=== PATIENT | female | born 1940 | race African-American/Black ===

== ENCOUNTER 2016-08-15 14:19 | Inpatient (IN) ==
--- NOTE | 2016-08-15 14:50 | EKG Report ---
Stationary ECG Study [facility] ER Test Date: 08/15/2016 2:39:38 PM Pat Name: KEVYN COBURN Department: Room: Gender: F Pressure Dispatcher: LEA : 1940 Requested by: Jack Polo Order Number: [id number] Reading MD: LUIS CANCHOLA Intervals [place] Rate: 84 P: 107 SD: 177 QRS: 237 QRSD: 146 T: 59 QT: 428 QTc: 469 Interpretive Statements SINUS RHTYHM WITH ELECTRONIC VENTRICULAR PACEMAKER TRACKING THE [facility] Electronically Signed On 08-15-16 20:57:58 MEDICAL ASST by LUIS CANCHOLA [email or web address]
--- NOTE | 2016-08-15 14:52 | XRay Report ---
Portable chest Date: 08/15/2016 Clinical history: Shortness of breath Comparison: 07/19/2016 Technique: Portable AP sitting chest Findings: Moderate cardiomegaly with stable left subclavian atrioventricular AICD and left jugular venous dialysis catheter. Progressive parenchymal findings especially at the lung bases with small pleural effusions. Degenerative changes noted with stable mediastinum. Impression: Moderate cardiomegaly with minimally progressive mild CHF with atelectasis and small pleural effusions. Stable left subclavian atrioventricular AICD and left IJ venous dialysis catheter. PROCEDURE INTERPRETED AT [facility] DEPARTMENT OF RADIOLOGY Final Report Signed by: Dr. Ivett Jacobs
[2016-08-15 15:37] LABS: Basophils % 0.1 % (0.0-0.8); Eosinophils # 0.3 10*3/uL (0.0-0.87); Eosinophils % 3.1 % (0.00-10.9); Hematocrit 37.7 VOL% (35.7-47.0); Hemoglobin 11.8 GM/DL (12.0-16.0); Immature Granulocytes % 0.4 %; Immature Granulocytes Absolute 0.04 #; Lymphocytes # 0.8 10*3/uL (1.4-4.0); Lymphocytes % 7.2 % (21.3-54.2); Mean Corpuscular HGB Conc 31.3 GM/DL (32-36); Mean Corpuscular Hemoglobin 31 PG (27-34); Mean Corpuscular Volume 99.2 FL (87-102); Mean Platelet Volume 11.3 FL (9.6-12.0); Monocytes # 0.1 10*3/uL (0.11-0.8); Monocytes % 0.9 % (1.7-12.7); Neutrophils # 9.2 10*3/uL (1.4-7.4); Neutrophils % 88.3 % (38.7-73.9); Platelet Count 121 T/CUMM (130-400); Red Cell Distribution Width 15.4 % (9.3-17.3); White Blood Count 10.4 T/CUMM (4-12)
[2016-08-15 15:52] LABS: Albumin 3.3 G/DL (3.4-5.0); Bilirubin,Total 0.5 MG/DL (0.2-1.0); Calcium 8.1 MG/DL (8.5-10.1); Magnesium 1.8 MG/DL (1.8-2.4); Osmolality,Calculated 294.1 MOS/KG (273-304); Potassium 4.2 MMOL/L (3.5-5.1); Total Protein 7.2 G/DL (6.4-8.3); Troponin I Only 0.018 NG/ML (0.00-0.045)
--- NOTE | 2016-08-15 16:26 | Emergency Department Note ---
Romeo Conley Brittany, am scribing for, and in the presence of, Jack Oneill MD 14:54. Nino Conley Phillip K, MD, personally performed the services described in this documentation, ascribed by Taya Walters in my presence, and it is both accurate and complete 626 . Arrival - Arrival Chief Complaint: Shortness of Breath Stated Complaint: shortness of breath ED Nursing Triage Note: Brought in per EMS from dialysis clinic with c/o shortness of breath onset 1315 after being on dialysis for approx one hour. Initial oxygen saturation 48% per EMS. Pt reports increased shortness of breath since 08/13/16. +productive cough with white sputum. +subjective fever. Also c/o abdominal pain and chest pain. Mode of Arrival: Stretcher Limitations: No Limitations Source: Patient - History of Present Illness HPI Narrative: This is a 75 y/o black female,who presents to the ED with c/o dyspnea which started at 1315 today. She states she was at dialysis when she started to become SOB and having chest pain. EMS states pt was on dialysis for approximately 1 hour. She was given 2 Nitro and then the SOB started to worsen. Pt states she normally has dialysis on Friday, , and Friday. She missed dialysis on Friday due to her stomach "being messed up." Per EMS, pt's sats were 48%. Pt has no other complaints/pain in the ED at this time. Pt has a PMHx of CHF, pacemaker, HTN, COPD, renal failure, renal problems, dialysis, GERD , GI problems, and genitourinary cancer. Pt has had a cardiac cath, internal defibrillator, hysterectomy and gynecological surgery. Pt has a family medical Hx of diabetes and HTN. Onset (ago): hour(s) (Started at 1315 today) Consistency: constant Severity: moderate Date of Last Menstrual Period: PM Allergies/Adverse Reactions: Allergies Allergy/AdvReac Type Severity Reaction Status Date / Time levofloxacin [From Levaquin] Allergy Severe ANAPHYLAXIS Verified 08/15/16 14:26 penicillin G Allergy Severe RASH Verified 08/15/16 14:26 lisinopril AdvReac Unknown Unknown/Unable Verified 08/15/16 14:26 to obtain Home Medications: Home Medications Medication Instructions Recorded Confirmed Type Atorvastatin [Lipitor] 20 mg PO BEDTIME #30 tablet 11/13/15 07/19/16 Rx Carvedilol [Coreg] 25 mg PO BID #60 tablet 11/13/15 07/19/16 Rx Calcium Acetate 667 mg PO TID W/MEALS 02/03/16 07/19/16 History Nitroglycerin Sl Tab [Nitrostat] 0.4 mg SL Q5M PRN 02/03/16 07/19/16 History cloNIDine 0.2 MG/24 HR PATCH 1 patch TRANSDERM SA 02/03/16 07/19/16 History [Qokrvnsv-KGS-3 Patch] Bisacodyl Tab [Dulcolax Tab] 10 mg PO DAILY PRN #0 tablet 07/16/16 07/19/16 Rx FLUoxetine [PROzac] 10 mg PO DAILY capsule 07/16/16 07/19/16 Rx Vancomycin in Dextrose,Iso-Osm 1,000 mg IV DIRECTED 7 Days 07/16/16 07/19/16 Rx [Vancomycin 750 mg/150 ml Bag] Review of System - Review of System 12 point system: reviewed and no additional remarkable complaints except as stated - Review of System Cardiovascular: Present: chest pain, other (Dyspnea) Additional ROS comments: Missed Dialysis Medical,Surgical,& Family Hx - Medical History Cardio: History of: CHF (nonischemic cardiomyopathy), Hypertension, Pacemaker ( AICD) No history of: CAD Neurology: No history of: Seizures Respiratory: History of: COPD Renal: History of: Dialysis (, , Fri), Renal Failure, Renal Problems ( tesso left chest) Genitourinary: History of: Genitourinary Cancer Gastrointestinal: History of: GERD, GI Problems (patient has hx of colostomy- now reversed) - Surgical History Cardiac Surgeries: Sugical HX of: Cardiac Catheterization, Internal Defibrillator Thoracic Surgeries: Patient denies;: Organ Transplant Reproductive Surgeries: Surgical HX of;: Gynecologic Surgery, Hysterectomy - Family History Family History: Reports;: Family Diabetes (mother), Family Hypertension (mother , brothers,sisters) - Social History Smoking Status: Current some day smoker Frequency of Alcohol Use: None Type of Drug Use: None Exam Vital Signs: Vital Signs Temperature 99.2 F 08/15/16 14:19 Pulse Rate 88 08/15/16 14:23 Respiratory Rate 34 H 08/15/16 14:23 Blood Pressure 207/95 02/09/17 14:19 O2 Sat by Pulse Oximetry 100 08/15/16 14:19 - General General appearance: alert, in no apparent distress - Head Head exam: Present: atraumatic, normocephalic, normal inspection - Eye Eye exam: Present: normal appearance, PERRL, EOMI - ENT ENT exam: Present: normal exam, normal oropharynx, mucous membranes moist - Neck Neck exam: Present: normal inspection, full ROM, trachea midline. Absent: tenderness, thyromegaly - Chest Chest inspection: Present: normal inspection, symmetric chest wall rise. Absent : tenderness, rash, abscess - Respiratory Respiratory exam: Present: rales (Rales in all lung izaguirre) - Cardiovascular Cardiovascular exam: Present: regular rate, normal rhythm, normal heart sounds - Abdominal Exam Abdominal exam: Present: soft. Absent: distention, tenderness, guarding, rebound, rigidity - Extremities Exam Extremities exam: Present: normal inspection, full ROM, normal capillary refill. Absent: tenderness, pedal edema, joint swelling, calf tenderness - Back Exam Back exam: Present: normal inspection, full ROM, muscle spasm. Absent: tenderness, rashes - Neurological Exam Neurological exam: Present: alert, oriented X3, CN II-XII intact, reflexes normal. Absent: motor sensory deficit - Psychiatric Psychiatric exam: Present: normal affect, normal mood. Absent: agitated, anxious, manic - Skin Skin exam: Present: warm, dry, intact, normal color. Absent: diaphoresis Results - Labs CBC & BMP: 08/15/16 14:27 08/15/16 14:27 Lab Results: I have reviewed the patients labs (BNP was 2946) - EKG EKG results: interpreted by SHAWNA (ventricular pacemaker rhythm) - Diagnostic Findings Procedure: Chest x-ray: report reviewed by me (Moderate cardiomegaly with minimally progressive mild CHF with atelectassi and small pleural effuisons. Stable left subclavian atrioventricular AICD and left I J venous dialysis catheter. ) Disposition Clinical Impression: ESRD (end stage renal disease) on dialysis, Volume overload, Chest pain
[2016-08-15] MEDS ORDERED: DEXTROSE 50% 25 GM/50 ML VIAL IV PRN (16:40)
[2016-08-15] MEDS ORDERED: GLUCAGON 1 MG VIAL IM PRN (16:40)
[2016-08-15] MEDS ORDERED: ZALEPLON 5 MG CAPSULE PO PRN (16:40)
[2016-08-15] MEDS ORDERED: MORPHINE 2 MG/1 ML SYRINGE IV PRN (16:40)
[2016-08-15] MEDS ORDERED: ACETAMINOPHEN 325 MG TABLET PO PRN (16:40)
[2016-08-15] MEDS ORDERED: DOCUSATE SODIUM 100 MG CAPSULE PO PRN (16:40)
--- NOTE | 2016-08-15 17:38 | CT Report ---
Exam: CT chest PE study Date: 08/15/2016 4:40 PM Comparison: 11/07/2015 Indication: Shortness of breath Technique:[Sequential axial scans of the chest were obtained following the injection of 80 cc of Omnipaque 350. Initial scans obtained fail to demonstrate contrast so additional scans were obtained. Coronal and sagittal 2-D reconstructions were obtained. Total DLP: 180.90] Findings: Persistent cardiomegaly with small pericardial effusion and cardiac fat pads. Permanent pacemaker with coronary artery calcifications. The ascending aorta measures 44 mm in diameter with no evidence of aortic dissection. Motion artifact on the scans in the upper lung zones with no contrast in the pulmonary arteries in this location. The largest level there is no definite filling defects but there is suboptimal contrast in the subsegmental pulmonary arteries in the lower lung zones. Degenerative changes are noted. Chronic scarring in the lungs with progressive atelectasis/infiltration at the lung bases with no significant pleural effusion. Minimal bullous emphysema with no pneumothorax. Left IJ venous dialysis catheter. Impression: Bullous emphysema. Cardiomegaly with small pericardial effusion,, pacemaker, and left IJ venous dialysis catheter. Persistent minimal dilatation of the aorta. No evidence of aortic dissection. Unfortunately there is suboptimal evaluation of the pulmonary arteries. This finding makes it difficult to exclude emboli in the upper lobes and in the subsegmental pulmonary arteries in the lower lobes. If the patient has leg symptoms, venous ultrasound may be helpful for further evaluation. Progressive atelectasis/infiltration at the lung bases. PROCEDURE INTERPRETED AT [facility] DEPARTMENT OF RADIOLOGY Final Report Signed by: Dr. Ivett Jacobs
--- NOTE | 2016-08-15 17:45 | Hospitalist History & Physical ---
<Lor Fisher - Last Filed: 08/15/16 17:32> Assessment and Plan - Time spent with patient Time spent with patient: Greater than 30 minutes (due to assessment, plan and documentation.) (1) Acute respiratory failure Status: Acute Assessment and plan: required 100% NRB, but quickly resolved. Suspicious for air embolism Current Visit: Yes (2) End stage renal disease on dialysis Status: Chronic Assessment and plan: Dr. Baker is Cafeteria Attendant and has been consulted. Current Visit: Yes (3) AICD (automatic cardioverter/defibrillator) present Status: Acute Current Visit: No History of Present Illness Chief complaint: sent from dialysis for acute respiratory failure History of present illness: Ms. Dee is a 75 year old female who was on dialysis for approximately 1 hour , and developed sudden onset of severe shortness of breath, sats down to 48%. EMS was called and they placed on 100% NRB for her acute respiratory failure. She was seen along with Dr. Shaka Jones. She has a hx of lung disease, heart disease, ESRD, DM, and HTN. CXR showed "moderate cardiomegaly with minimally progressive mild CHF with atelectasis and a small pleural effusion". Denies any abdominal pain, nausea or vomiting. It was felt that she could have had an air embolus. She will have a CT PE chest to rule out PE as well. Dr. Prosper Baker is her motorcycle delivery driver and I have consulted him as well. We will admit her and continue to watch her respiratory status and treat accordingly. Further plan and addendum to follow by Dr. Shaka Jones. Home Medications Medication Instructions Recorded Confirmed Type Atorvastatin [Lipitor] 20 mg PO BEDTIME #30 tablet 11/13/15 08/15/16 Rx Carvedilol [Coreg] 25 mg PO BID #60 tablet 11/13/15 08/15/16 Rx Calcium Acetate 667 mg PO TID W/MEALS 02/03/16 08/15/16 History Nitroglycerin Sl Tab [Nitrostat] 0.4 mg SL Q5M PRN 02/03/16 08/15/16 History cloNIDine 0.2 MG/24 HR PATCH 1 patch TRANSDERM SA 02/03/16 08/15/16 History [Guxqmxju-MBF-7 Patch] Bisacodyl Tab [Dulcolax Tab] 10 mg PO DAILY PRN #0 tablet 07/16/16 08/15/16 Rx FLUoxetine [PROzac] 10 mg PO QPM 08/15/16 08/15/16 History Allergies Allergy/AdvReac Type Severity Reaction Status Date / Time levofloxacin [From Levaquin] Allergy Severe ANAPHYLAXIS Verified 08/15/16 14:26 penicillin G Allergy Severe RASH Verified 08/15/16 14:26 lisinopril AdvReac Unknown Unknown/Unable Verified 08/15/16 14:26 to obtain Medical,Surgical,& Family Hx - Medical History Cardio: History of: CHF (nonischemic cardiomyopathy), Hypertension, Pacemaker ( AICD) No history of: CAD Neurology: No history of: Seizures Respiratory: History of: COPD Renal: History of: Dialysis (, , Fri), Renal Failure, Renal Problems ( tesso left chest) Genitourinary: History of: Genitourinary Cancer Gastrointestinal: History of: GERD, GI Problems (patient has hx of colostomy- now reversed) - Surgical History Cardiac Surgeries: Sugical HX of: Cardiac Catheterization, Internal Defibrillator Thoracic Surgeries: Patient denies;: Organ Transplant Reproductive Surgeries: Surgical HX of;: Gynecologic Surgery, Hysterectomy - Family History Family History: Reports;: Family Diabetes (mother), Family Hypertension (mother , brothers,sisters) - Social History Smoking Status: Current some day smoker Frequency of Alcohol Use: None Type of Drug Use: None Marital Status: Unknown Lives With:: Alone Functional capacity: independent ambulation - Constitutional Constitutional: Present: fever(s). Absent: chills, weakness - EENT Eyes: Absent: blurry vision, diplopia Nose, mouth and throat: Absent: dysphagia, headache(s) - Cardiovascular Cardiovascular: Present: dyspnea (improved now. ), dyspnea on exertion. Absent : chest pain at rest, palpitations - Respiratory Respiratory: Absent: cough, hemoptysis, dyspnea on exertion - Gastrointestinal Gastrointestinal: Absent: abdominal pain, melena, nausea, vomiting - Genitourinary Genitourinary: Present: dysuria. Absent: hematuria - Musculoskeletal Musculoskeletal: Absent: back pain, joint swelling - Neurological Neurological: Absent: confusion, dizziness - Psychiatric Psychiatric: Absent: anxiety, confusion, depression - Endocrine Endocrine: Absent: fatigue, heat intolerance - Hematologic/Lymphatic Hematologic/Lymphatic: Absent: easy bleeding, easy bruising Exam - Constitutional Vitals: Period Temp Pulse Resp BP Sys/Ngo Pulse Ox Last 24 Hr 99.2 F-99.2 F 88-88 34-34 207-207/95-95 100 General appearance: normal weight, no acute distress - Head Head exam: Present: normal inspection, normocephalic - Eye Eye exam: Present: EOMI. Absent: scleral icterus Pupils: Present: ANDRÉS, normal accommodation - ENT ENT exam: Present: normal exam, normal oropharynx - Neck Neck exam: Present: normal inspection. Absent: lymphadenopathy - Respiratory Respiratory exam: Present: clear to auscultation bilaterally. Absent: accessory muscle use - Cardiovascular Cardiovascular exam: Present: regular rate and rhythm. Absent: carotid bruit - GI/Abdominal GI/Abdominal exam: Present: normal bowel sounds, soft. Absent: tenderness - Extremities Exam Extremities exam: Absent: normal inspection, edema - Back Exam Back exam: Present: normal inspection. Absent: muscle spasm - Neurological Exam Neurological exam: Absent: alert, oriented X3 - Psychiatric Psychiatric exam: Present: normal affect, normal mood - Skin Skin exam: Present: normal color, warm, dry, intact Results - Labs CBC & BMP: 08/15/16 14:27 08/15/16 14:27 Lab Results: I have reviewed the past 24 hour labs - Diagnostic Findings Procedure: Chest x-ray: report reviewed by me (moderate cardiomegaly with minimally progressive mild CHF with atelectasis and small pleural effusions. ) <Elías Jones - Last Filed: 08/22/16 09:23> History of Present Illness History of present illness: Ms. Dee is a 75 year old female one hour into dialysis via tunneled catheter developed severe dyspnea with documented reduced SaO2 with rapid resolution. Does have moderate volume excess with documented cardiomyopathy, however rapid reversal is suggestive of air embolization with reversal. I agree with the H&P as dictated. Exam - Constitutional Vitals: Period Temp Pulse Resp BP Sys/Ngo Pulse Ox Last 24 Hr 96.4 F-97.0 F 58-61 16-28 117-145/57-70 90-100 Results - Labs CBC & BMP: 08/22/16 05:37 08/22/16 05:37
[2016-08-16] MEDS: ONDANSETRON 4 MG/2 ML VIAL IV PRN ×2 (02:53→06:46)
[2016-08-16 03:14] LABS: Basophils % 0.2 % (0.0-0.8); Eosinophils # 0.3 10*3/uL (0.0-0.87); Hematocrit 37.4 VOL% (35.7-47.0); Hemoglobin 11.3 GM/DL (12.0-16.0); Immature Granulocytes % 0.6 %; Immature Granulocytes Absolute 0.09 #; Lymphocytes # 1.1 10*3/uL (1.4-4.0); Mean Corpuscular HGB Conc 30.2 GM/DL (32-36); Mean Corpuscular Hemoglobin 30 PG (27-34); Mean Corpuscular Volume 98.7 FL (87-102); Mean Platelet Volume 10.8 FL (9.6-12.0); Monocytes # 0.7 10*3/uL (0.11-0.8); Monocytes % 4.7 % (1.7-12.7); Neutrophils # 13.2 10*3/uL (1.4-7.4); Neutrophils % 85.5 % (38.7-73.9); Red Blood Count 3.79 MC/CUMM (3.8-5.5); Red Cell Distribution Width 15.8 % (9.3-17.3); White Blood Count 15.4 T/CUMM (4-12)
[2016-08-16 03:18] LABS: Platelet Count 98 T/CUMM (130-400)
[2016-08-16 04:00] LABS: Ovalocytes 1+; Platelet Estimate Decreased
[2016-08-16 04:16] LABS: Albumin 3.2 G/DL (3.4-5.0); Bilirubin,Total 0.6 MG/DL (0.2-1.0); Calcium 8.1 MG/DL (8.5-10.1); Potassium 4.1 MMOL/L (3.5-5.1); Total Protein 6.6 G/DL (6.4-8.3)
[2016-08-16] MEDS: PANTOPRAZOLE 40 MG TABLET PO SCH (08:45)
--- NOTE | 2016-08-16 08:57 | XRay Report ---
XR chest 2V Date: 08/16/2016 4:00 AM History: Shortness of breath Comparison: 08/15/2016 Technique: PA and lateral chest Findings: Stable cardiomegaly, left IJ venous dialysis catheter, and left subclavian atrioventricular AICD. Reduced parenchymal findings with persistent small pleural effusions. Stable mediastinum with degenerative changes. Impression: Moderate cardiomegaly with improved CHF. Persistent small pleural effusions. Stable left IJ venous dialysis catheter and left subclavian atrioventricular AICD. PROCEDURE INTERPRETED AT [facility] DEPARTMENT OF RADIOLOGY Final Report Signed by: Dr. Ivett Jacobs
--- NOTE | 2016-08-16 14:33 | Hospitalist Progress Note ---
Assessment and Plan (1) Tobacco use Status: Chronic Current Visit: No (2) Chronic obstructive pulmonary disease (COPD) Status: Chronic Current Visit: No (3) Hypertension Status: Chronic Current Visit: No Qualifiers: Hypertension type: essential hypertension (4) Pneumonia Status: Resolved Assessment and plan: We will add Z-Bjorn. Solu-Medrol 62.5 IV every 6 hours. Current Visit: No (5) End stage renal disease Status: Chronic Assessment and plan: Hemodialysis today. Current Visit: No Hospitalist: Subjective Interval history: The patient still feels congested at this time. Chest x-ray shows volume overload and may be signs of pneumonia. No fevers. She'll go to dialysis today. Follow-up chest x-ray on tomorrow. CBC BMP in a.m. Exam - Constitutional Vitals: Period Temp Pulse Resp BP Sys/Ngo Pulse Ox Last 24 Hr 16 General appearance: normal weight - Respiratory Respiratory exam: Present: rales, wheezes - Cardiovascular Cardiovascular exam: Present: regular rate and rhythm - GI/Abdominal GI/Abdominal exam: Present: normal bowel sounds - Extremities Exam Extremities exam: Present: full ROM Results - Labs CBC & BMP: 08/16/16 03:05 08/16/16 03:05
[2016-08-16] MEDS ORDERED: NITROGLYCERIN SL 0.4 MG TABLET SL PRN (14:34)
[2016-08-16] MEDS ORDERED: BISACODYL 5 MG TABLET PO PRN (14:34)
[2016-08-16] MEDS ORDERED: ALBUTEROL/IPRATROPIUM 3 ML NEB RESP TX PRN (14:35)
--- NOTE | 2016-08-16 14:37 | Nephrology Consult Note ---
History of Present Illness Chief complaint: end-stage renal disease History of present illness: Ms. Dee is a 75 year old female history of COPD CHF end-stage renal disease and diabetes who presented with shortness of breath. Initial x-ray shows volume overload and some underlying components of atelectatic changes. Home Medications Medication Instructions Recorded Confirmed Type Atorvastatin [Lipitor] 20 mg PO BEDTIME #30 tablet 11/13/15 08/15/16 Rx Carvedilol [Coreg] 25 mg PO BID #60 tablet 11/13/15 08/15/16 Rx Calcium Acetate 667 mg PO TID W/MEALS 02/03/16 08/15/16 History Nitroglycerin Sl Tab [Nitrostat] 0.4 mg SL Q5M PRN 02/03/16 08/15/16 History cloNIDine 0.2 MG/24 HR PATCH 1 patch TRANSDERM SA 02/03/16 08/15/16 History [Phgxgjvf-JAG-3 Patch] Bisacodyl Tab [Dulcolax Tab] 10 mg PO DAILY PRN #0 tablet 07/16/16 08/15/16 Rx FLUoxetine [PROzac] 10 mg PO QPM 08/15/16 08/15/16 History Allergies Allergy/AdvReac Type Severity Reaction Status Date / Time levofloxacin [From Levaquin] Allergy Severe ANAPHYLAXIS Verified 08/15/16 14:26 penicillin G Allergy Severe RASH Verified 08/15/16 14:26 lisinopril AdvReac Unknown Unknown/Unable Verified 08/15/16 14:26 to obtain Medical,Surgical,& Family Hx - Medical History Cardio: History of: CHF (nonischemic cardiomyopathy), Hypertension, Pacemaker ( AICD) No history of: CAD Neurology: No history of: Seizures Respiratory: History of: COPD Renal: History of: Dialysis (, , Fri), Renal Failure, Renal Problems ( tesso left chest) Genitourinary: History of: Genitourinary Cancer Gastrointestinal: History of: GERD, GI Problems (patient has hx of colostomy- now reversed) - Surgical History Cardiac Surgeries: Sugical HX of: Cardiac Catheterization, Internal Defibrillator Thoracic Surgeries: Patient denies;: Organ Transplant Reproductive Surgeries: Surgical HX of;: Gynecologic Surgery, Hysterectomy - Family History Family History: Reports;: Family Diabetes (mother), Family Hypertension (mother , brothers,sisters) - Social History Smoking Status: Current some day smoker Frequency of Alcohol Use: None Type of Drug Use: None Review of Systems Constitutional: fatigue Cardiovascular: dyspnea, dyspnea on exertion Respiratory: cough, dyspnea Exam - Vital Signs Vital signs: Period Temp Pulse Resp BP Sys/Ngo Pulse Ox Last 24 Hr 16 - General Appearance General appearance: well-developed, well-nourished EENT: ATNC Neck: supple Respiratory: wheezing, rales Cardiology: regular rate, regular rhythm Gastrointestinal: normoactive bowel sounds Integumentary: no rash Results - Labs CBC & BMP: 08/16/16 03:05 08/16/16 03:05 Assessment and Plan (1) Tobacco use Status: Chronic Current Visit: No (2) Chronic obstructive pulmonary disease (COPD) Status: Chronic Current Visit: No (3) Hypertension Status: Chronic Current Visit: No Qualifiers: Hypertension type: essential hypertension (4) Pneumonia Status: Resolved Assessment and plan: We will add Z-Bjorn. Solu-Medrol 62.5 IV every 6 hours. Current Visit: No (5) End stage renal disease Status: Chronic Assessment and plan: Hemodialysis today. Current Visit: No
--- NOTE | 2016-08-16 14:57 | Dialysis Note ---
Dialysis Note - Dialysis Note Ms. Dee is seen during her hemodialysis. She is tolerating dialysis well. She has a bilateral wheezing with the end expiration. She is a chronic smoker and breathing treatments at been ordered. We hope that she'll be able to discontinue her cigarettes but I doubt she will be able to do that and her recurrent and chronic bronchitis will remain a problem. Plan is to continue with her dialysis as per usual schedule.
[2016-08-16] MEDS: methylPREDNISolone SOD SUC 125 MG/2 ML VIAL IV SCH ×2 (16:03→21:01)
[2016-08-16] MEDS: AZITHROMYCIN INJ 500 MG in SODIUM CHLORIDE 0.9% 250 ML IV SCH (16:04)
[2016-08-16] MEDS: CALCIUM ACETATE 667 MG CAPSULE PO SCH (18:53)
[2016-08-16] MEDS: ATORVASTATIN 20 MG TABLET PO SCH (21:01)
[2016-08-16] MEDS: FLUoxetine 10 MG CAPSULE PO SCH (21:01)
[2016-08-16] MEDS: CARVEDILOL 25 MG TABLET PO SCH (21:01)
[2016-08-17 02:35] LABS: Basophils % 0.1 % (0.0-0.8); Hematocrit 38.5 VOL% (35.7-47.0); Hemoglobin 11.7 GM/DL (12.0-16.0); Immature Granulocytes % 0.4 %; Immature Granulocytes Absolute 0.03 #; Lymphocytes # 0.2 10*3/uL (1.4-4.0); Lymphocytes % 3.1 % (21.3-54.2); Mean Corpuscular HGB Conc 30.4 GM/DL (32-36); Mean Corpuscular Hemoglobin 30 PG (27-34); Mean Platelet Volume 10.8 FL (9.6-12.0); Monocytes # 0.1 10*3/uL (0.11-0.8); Monocytes % 1.2 % (1.7-12.7); Neutrophils # 7.2 10*3/uL (1.4-7.4); Neutrophils % 95.2 % (38.7-73.9); Platelet Count 83 T/CUMM (130-400); Red Blood Count 3.93 MC/CUMM (3.8-5.5); Red Cell Distribution Width 15.6 % (9.3-17.3); White Blood Count 7.5 T/CUMM (4-12)
[2016-08-17] MEDS: methylPREDNISolone SOD SUC 125 MG/2 ML VIAL IV SCH ×4 (04:12→23:04)
[2016-08-17 04:58] LABS: Band Neutrophils 2 % (0-10); Lymphocytes 4 % (20-55); Ovalocytes Few; Platelet Estimate Decreased; Segmented Neutrophils 92 % (50-85); Total Cells Counted 100
[2016-08-17] MEDS: CALCIUM ACETATE 667 MG CAPSULE PO SCH ×3 (08:36→16:54)
[2016-08-17] MEDS: PANTOPRAZOLE 40 MG TABLET PO SCH (08:42)
[2016-08-17] MEDS: cloNIDine 0.2 MG/24 HR PATCH TRANSDERM SCH (08:42)
[2016-08-17] MEDS: CARVEDILOL 25 MG TABLET PO SCH ×2 (08:42→20:51)
--- NOTE | 2016-08-17 09:30 | Hospitalist Progress Note ---
Assessment and Plan (1) Tobacco use Status: Chronic Current Visit: No (2) Chronic obstructive pulmonary disease (COPD) Status: Chronic Assessment and plan: Continue Solu-Medrol for the next 24 hours. We'll switch to prednisone 40 mg by mouth tomorrow. Continue bronchodilators. Current Visit: No (3) Hypertension Status: Chronic Current Visit: No Qualifiers: Hypertension type: essential hypertension (4) End stage renal disease Status: Chronic Assessment and plan: Hemodialysis on yesterday. Volume status has improved. Current Visit: No Hospitalist: Subjective Interval history: The patient tolerated dialysis on yesterday. This morning she is much more comfortable states her breathing has improved. No fevers or chills through the night. She is responded nicely to bronchodilator therapy as well as Solu- Medrol. She is sitting up in her chair in a.m. pleasantly voices no other complaints. She did have concerns as relates to her dialysis access been surgically evaluated this week. Exam - Constitutional Vitals: Period Temp Pulse Resp BP Sys/Ngo Pulse Ox Last 24 Hr 96.9 F-98.8 F 60-90 16-22 152-181/61-80 91-100 General appearance: normal weight - Head Head exam: Present: normal inspection - Eye Pupils: Present: ANDRÉS - Neck Neck exam: Present: normal inspection - Respiratory Respiratory exam: Present: wheezes (has improved over the last 24 hours), other (good respiratory effort) - Cardiovascular Cardiovascular exam: Present: regular rate and rhythm - GI/Abdominal GI/Abdominal exam: Present: normal bowel sounds - Extremities Exam Extremities exam: Present: normal inspection, full ROM, other (AV fistula in the left upper arm occluded) - Neurological Exam Neurological exam: Present: alert, oriented X3, CN II-XII intact Results - Labs CBC & BMP: 08/17/16 01:36 08/16/16 03:05
--- NOTE | 2016-08-17 11:13 | Nephrology Progress Note ---
Nephrology - PN: Subj Interval history: Ms. Dee is seen in follow-up of her end-stage renal disease. She dialyzed uneventfully yesterday. Her bronchitis with bronchospasm seems better she is having less wheeze as she continues with steroids and bronchodilators by inhalation mist. She tells me about the multiple attempts at stopping smoking related been unsuccessful. She also says she would like preregister somehow befor leaving the hospital for anticipated access surgery this coming Friday the . Exam (PN)-Nephrology - Vital Signs Vital signs: Period Temp Pulse Resp BP Sys/Ngo Pulse Ox Last 24 Hr 96.9 F-98.8 F 60-90 16-22 152-181/61-80 91-100 - Lab 08/17/16 01:36 08/16/16 03:05 Most recent lab results Calcium 8.1 MG/DL (8.5-10.1) L 08/16/16 03:05 Magnesium 1.8 MG/DL (1.8-2.4) 08/15/16 14:27
[2016-08-17] MEDS: AZITHROMYCIN INJ 500 MG in SODIUM CHLORIDE 0.9% 250 ML IV SCH (14:52)
[2016-08-17] MEDS: FLUoxetine 10 MG CAPSULE PO SCH (18:57)
[2016-08-17] MEDS: ATORVASTATIN 20 MG TABLET PO SCH (20:51)
[2016-08-18] MEDS: methylPREDNISolone SOD SUC 125 MG/2 ML VIAL IV SCH (05:30)
[2016-08-18] MEDS: PANTOPRAZOLE 40 MG TABLET PO SCH (09:25)
[2016-08-18] MEDS: CARVEDILOL 25 MG TABLET PO SCH ×2 (09:26→21:11)
[2016-08-18] MEDS: CALCIUM ACETATE 667 MG CAPSULE PO SCH ×3 (09:26→16:34)
--- NOTE | 2016-08-18 09:26 | Hospitalist Progress Note ---
Assessment and Plan (1) Tobacco use Status: Chronic Current Visit: No (2) Chronic obstructive pulmonary disease (COPD) Status: Chronic Assessment and plan: Start Solu-Medrol 40 mg daily Continue bronchodilators. Current Visit: No (3) Hypertension Status: Chronic Current Visit: No Qualifiers: Hypertension type: essential hypertension (4) End stage renal disease Status: Chronic Assessment and plan: Volume status has improved. Clotted AV fistula. We'll ask Dr. Asif for evaluation. Current Visit: No (5) AV fistula occlusion Status: Acute Assessment and plan: Ask Dr. Asif for evaluation. Current Visit: Yes Hospitalist: Subjective Interval history: The patient is sitting up resting comfortably. No shortness of breath has improved. She has had no fevers or chills. At present she is requesting Dr. Asif evaluate her AV fistula. Exam - Constitutional Vitals: Period Temp Pulse Resp BP Sys/Ngo Pulse Ox Last 24 Hr 96.1 F-97.9 F 60-67 16-20 142-189/68-100 98-100 General appearance: normal weight - Head Head exam: Present: normal inspection - Respiratory Respiratory exam: Present: clear to auscultation bilaterally - Cardiovascular Cardiovascular exam: Present: regular rate and rhythm - GI/Abdominal GI/Abdominal exam: Present: normal bowel sounds - Extremities Exam Extremities exam: Present: normal inspection, full ROM - Neurological Exam Neurological exam: Present: alert, oriented X3, CN II-XII intact - Psychiatric Psychiatric exam: Present: normal affect, normal mood - Skin Skin exam: Present: normal color Results - Labs CBC & BMP: 08/17/16 01:36 08/16/16 03:05
--- NOTE | 2016-08-18 11:11 | Nephrology Progress Note ---
Nephrology - PN: Subj Interval history: Ms. Dee is seen in follow-up of her end-stage renal disease. She is without complaint today and says that she is breathing well. Unable to examine her since she is currently in the bathroom. She denies any problem with her breathing however. Exam (PN)-Nephrology - Vital Signs Vital signs: Period Temp Pulse Resp BP Sys/Ngo Pulse Ox Last 24 Hr 96.1 F-97.9 F 60-67 16-20 142-189/68-100 98-100 - Lab 08/17/16 01:36 08/16/16 03:05 Most recent lab results Calcium 8.1 MG/DL (8.5-10.1) L 08/16/16 03:05 Magnesium 1.8 MG/DL (1.8-2.4) 08/15/16 14:27
[2016-08-18] MEDS: AZITHROMYCIN INJ 500 MG in SODIUM CHLORIDE 0.9% 250 ML IV SCH (16:35)
[2016-08-18] MEDS: FLUoxetine 10 MG CAPSULE PO SCH (18:02)
[2016-08-18] MEDS: ATORVASTATIN 20 MG TABLET PO SCH (21:11)
[2016-08-19] MEDS: ONDANSETRON 4 MG/2 ML VIAL IV PRN (05:24)
[2016-08-19] MEDS: CALCIUM ACETATE 667 MG CAPSULE PO SCH ×3 (08:13→17:24)
--- NOTE | 2016-08-19 09:02 | Dialysis Note ---
Dialysis Note - Dialysis Note The patient is seen on dialysis. She is tolerating the procedure. BP is 145/ 65.
--- NOTE | 2016-08-19 10:25 | Physician Query Form ---
CLICK EDIT DOCUMENT TO SELECT QUERY ANSWER --> OK --> SIGN Shima Quintanilla RN Clinical [employer] W) [phone] (f) [phone] [email or web address] PROVIDERS: Make your selection(s) from the choices in EACH section by typing an "x" and enter comments in the comment section. Please use your independent medical judgment in providing your response. This request does not imply that any particular answer is desired or expected. CLINICAL INDICATORS: (Providers should not edit this section) Based on documentation of "CXR showed progressive mild CHF", [id number], Echo done 10/20/15 showed EF 65%. No recent echo done. Pt. is a dialysis patient. Please provide further specificity regarding CHF. ACUITY: (x ) Acute ( ) Chronic ( ) Acute on Chronic ( ) Clinicallly unable to determine TYPE: ( ) Systolic (x ) Diastolic ( ) Combined Systolic/Diastolic ( ) Other, please specify: ( ) Clinically unable to determine ( ) The patient does NOT have CHF COMMENTS: Use of terms such as suspected, likely, or probable (associated with a specific diagnosis that is being evaluated, monitored, or treated as if it exists) are acceptable and can be restated in the discharge summary if not ruled out. [facility]
[2016-08-19] MEDS ORDERED: HEPARIN 10,000 UNIT/10 ML VIAL IV SCH (10:30)
--- NOTE | 2016-08-19 10:53 | General Surgery Consult Note ---
Assessment and Plan - Time spent with patient Time spent with patient: Less than 30 minutes (1) AV fistula occlusion Status: Acute Assessment and plan: 75AAF w occluded AFV. dr jean has seen and examined the pt and will move her surgery up to tomorrow from friday. she has been admitted w volume overload and bronchitis. no infectious process noted. dr cordova states she is medically stable for surgery. Current Visit: Yes History of Present Illness Chief complaint: SOB History of present illness: 75AAF w history of HTN, DM, ESRD on HD admitted w SOB by hospitalist. pt was in HD for only 1 hour when she became acutely SOB. pts workup showing some volume overload and bronchitis. she is being treated for this. pt feels a little better but stating she is tired. pt was seen by dr jena on 08/08/16 for her occluded AFV in [facility] [place]. pt was scheduled for graft placement this coming friday the . dr jean was consulted by pts request to go ahead and do surgery while she is here in the hospital. Home Medications Medication Instructions Recorded Confirmed Type Atorvastatin [Lipitor] 20 mg PO BEDTIME #30 tablet 11/13/15 08/15/16 Rx Carvedilol [Coreg] 25 mg PO BID #60 tablet 11/13/15 08/15/16 Rx Calcium Acetate 667 mg PO TID W/MEALS 02/03/16 08/15/16 History Nitroglycerin Sl Tab [Nitrostat] 0.4 mg SL Q5M PRN 02/03/16 08/15/16 History cloNIDine 0.2 MG/24 HR PATCH 1 patch TRANSDERM SA 02/03/16 08/15/16 History [Gcabgmlx-TUQ-1 Patch] Bisacodyl Tab [Dulcolax Tab] 10 mg PO DAILY PRN #0 tablet 07/16/16 08/15/16 Rx FLUoxetine [PROzac] 10 mg PO QPM 08/15/16 08/15/16 History Allergies Allergy/AdvReac Type Severity Reaction Status Date / Time levofloxacin [From Levaquin] Allergy Severe ANAPHYLAXIS Verified 08/15/16 14:26 penicillin G Allergy Severe RASH Verified 08/15/16 14:26 lisinopril AdvReac Unknown Unknown/Unable Verified 08/15/16 14:26 to obtain Medical,Surgical,& Family Hx - Medical History Cardio: History of: CHF (nonischemic cardiomyopathy), Hypertension, Pacemaker ( AICD) No history of: CAD Neurology: No history of: Seizures Respiratory: History of: COPD Renal: History of: Dialysis (Tues, Th, Sat), Renal Failure, Renal Problems ( tesso left chest) Genitourinary: History of: Genitourinary Cancer Gastrointestinal: History of: GERD, GI Problems (patient has hx of colostomy- now reversed) - Surgical History Cardiac Surgeries: Sugical HX of: Cardiac Catheterization, Internal Defibrillator Thoracic Surgeries: Patient denies;: Organ Transplant Reproductive Surgeries: Surgical HX of;: Gynecologic Surgery, Hysterectomy - Family History Family History: Reports;: Family Diabetes (mother), Family Hypertension (mother , brothers,sisters) - Social History Smoking Status: Current some day smoker Frequency of Alcohol Use: None Type of Drug Use: None - Constitutional Constitutional: Present: as per HPI Exam - Constitutional Vitals: Period Temp Pulse Resp BP Sys/Ngo Pulse Ox Last 24 Hr 96.5 F-97.9 F 59-66 16-20 145-171/64-74 100-100 75AAF, NAD, alert and oriented chest clear cv rrr abd soft, nt ext mild edema Quality Measures - VTE Contraindication to Pharmacological VTE Prophylaxis: High Risk of Bleeding Results - Labs CBC & BMP: 08/17/16 01:36 08/16/16 03:05 Lab Results: I have reviewed the past 24 hour labs
[2016-08-19] MEDS: CARVEDILOL 25 MG TABLET PO SCH ×2 (13:08→20:37)
[2016-08-19] MEDS: predniSONE 20 MG TABLET PO SCH (13:08)
[2016-08-19] MEDS: PANTOPRAZOLE 40 MG TABLET PO SCH (13:09)
[2016-08-19] MEDS: ALBUTEROL/IPRATROPIUM 3 ML NEB RESP TX SCH ×2 (13:34→19:45)
[2016-08-19] MEDS: AZITHROMYCIN INJ 500 MG in SODIUM CHLORIDE 0.9% 250 ML IV SCH (15:05)
[2016-08-19] MEDS: FLUoxetine 10 MG CAPSULE PO SCH (18:58)
--- NOTE | 2016-08-19 20:01 | Hospitalist Progress Note ---
Assessment and Plan - Time spent with patient Time spent with patient: Greater than 30 minutes (1) AV fistula occlusion Status: Acute Assessment and plan: Continue current management. Current Visit: Yes (2) End stage renal disease on dialysis Status: Chronic Assessment and plan: Continue current management. Current Visit: Yes (3) Chronic obstructive pulmonary disease (COPD) Status: Chronic Assessment and plan: Continue current management. Current Visit: No Hospitalist: Subjective Interval history: No complaints, no overnight events. Exam - Constitutional Vitals: Period Temp Pulse Resp BP Sys/Ngo Pulse Ox Last 24 Hr 97.0 F-97.9 F 59-72 18-20 145-171/64-72 93-100 General appearance: no acute distress - Head Head exam: Present: normocephalic, atraumatic - Eye Eye exam: Present: EOMI Pupils: Present: ANDRÉS - ENT ENT exam: Present: normal exam - Neck Neck exam: Present: normal inspection - Respiratory Respiratory exam: Present: clear to auscultation bilaterally. Absent: rhonchi, wheezes - Cardiovascular Cardiovascular exam: Present: regular rate and rhythm. Absent: gallop, rubs, systolic murmur - GI/Abdominal GI/Abdominal exam: Present: normal bowel sounds, soft. Absent: distended, firm , guarding, tenderness, rebound - Extremities Exam Extremities exam: Present: normal inspection. Absent: calf tenderness, edema Results - Labs CBC & BMP: 08/17/16 01:36 08/16/16 03:05 Lab Results: I have reviewed the past 24 hour labs Quality Measures - VTE Contraindication to Pharmacological VTE Prophylaxis: High Risk of Bleeding
[2016-08-19] MEDS: ATORVASTATIN 20 MG TABLET PO SCH (20:37)
[2016-08-20] MEDS: ALBUTEROL/IPRATROPIUM 3 ML NEB RESP TX SCH ×4 (00:46→19:22)
[2016-08-20 07:15] LABS: Hematocrit 39.3 VOL% (35.7-47.0); Hemoglobin 11.9 GM/DL (12.0-16.0); Immature Granulocytes % 0.9 %; Immature Granulocytes Absolute 0.06 #; Lymphocytes # 0.9 10*3/uL (1.4-4.0); Lymphocytes % 12.9 % (21.3-54.2); Mean Corpuscular HGB Conc 30.3 GM/DL (32-36); Mean Corpuscular Hemoglobin 30 PG (27-34); Mean Corpuscular Volume 98.7 FL (87-102); Mean Platelet Volume 11.4 FL (9.6-12.0); Monocytes # 0.6 10*3/uL (0.11-0.8); Monocytes % 8.9 % (1.7-12.7); Neutrophils # 5.2 10*3/uL (1.4-7.4); Neutrophils % 77.3 % (38.7-73.9); Platelet Count 92 T/CUMM (130-400); Red Blood Count 3.98 MC/CUMM (3.8-5.5); Red Cell Distribution Width 14.7 % (9.3-17.3); White Blood Count 6.8 T/CUMM (4-12)
[2016-08-20 07:42] LABS: Calcium 7.8 MG/DL (8.5-10.1); Osmolality,Calculated 291.3 MOS/KG (273-304); Potassium 4.5 MMOL/L (3.5-5.1)
[2016-08-20 07:57] LABS: Platelet Estimate Decreased
[2016-08-20] MEDS: CARVEDILOL 25 MG TABLET PO SCH ×2 (09:12→20:44)
[2016-08-20] MEDS: PANTOPRAZOLE 40 MG TABLET PO SCH (09:12)
[2016-08-20] MEDS: predniSONE 20 MG TABLET PO SCH (09:12)
[2016-08-20] MEDS: CALCIUM ACETATE 667 MG CAPSULE PO SCH ×3 (10:30→17:26)
--- NOTE | 2016-08-20 11:46 | Hospitalist Progress Note ---
Assessment and Plan - Time spent with patient Time spent with patient: Greater than 30 minutes (1) AV fistula occlusion Status: Acute Assessment and plan: Continue current management. Current Visit: Yes (2) End stage renal disease on dialysis Status: Chronic Assessment and plan: Continue current management. Current Visit: Yes (3) Chronic obstructive pulmonary disease (COPD) Status: Chronic Assessment and plan: Bullous emphysema. Continue current management. Current Visit: No (4) Abnormal CT of the chest Status: Acute Assessment and plan: Unable to rule PE out. Obtain LE US to eval for DVT. Will initiate anticoagulation. Current Visit: Yes Hospitalist: Subjective Interval history: No complaints, no overnight events. Exam - Constitutional Vitals: Period Temp Pulse Resp BP Sys/Ngo Pulse Ox Last 24 Hr 96.0 F-97.3 F 60-72 16-20 156-166/58-95 93-100 General appearance: no acute distress - Head Head exam: Present: normocephalic, atraumatic - Eye Eye exam: Present: EOMI Pupils: Present: ANDRÉS - ENT ENT exam: Present: normal exam - Neck Neck exam: Present: normal inspection - Respiratory Respiratory exam: Present: clear to auscultation bilaterally. Absent: rhonchi, wheezes - Cardiovascular Cardiovascular exam: Present: regular rate and rhythm. Absent: gallop, rubs, systolic murmur - GI/Abdominal GI/Abdominal exam: Present: normal bowel sounds, soft. Absent: distended, firm , guarding, tenderness, rebound - Extremities Exam Extremities exam: Present: normal inspection. Absent: calf tenderness, edema Results - Labs CBC & BMP: 08/20/16 06:26 08/20/16 06:26 Lab Results: I have reviewed the past 24 hour labs Quality Measures - VTE Contraindication to Pharmacological VTE Prophylaxis: High Risk of Bleeding
[2016-08-20] MEDS: SODIUM CHLORIDE 0.9% 250 ML IV SCH (12:18)
[2016-08-20] MEDS ORDERED: BUPIVACAINE MPF 0.25% /EPI 30 ML VIAL ONE (12:39)
[2016-08-20] MEDS ORDERED: ceFAZolin 1,000 MG VIAL ONE (12:39)
[2016-08-20] MEDS ORDERED: HEPARIN 5,000 UNIT/1 ML VIAL ONE (12:39)
[2016-08-20] MEDS ORDERED: LIDOCAINE 1%/EPI INJ 20 ML VIAL ONE (12:40)
[2016-08-20] MEDS ORDERED: THROMBIN TOPICAL (RECOMBINANT) 5,000 UNIT VIAL TOP ONE (12:40)
[2016-08-20] MEDS ORDERED: ETOMIDATE 20 MG/10 ML VIAL IV ONE (12:51)
[2016-08-20] MEDS ORDERED: CLINDAMYCIN INJ 900 MG in PREMIX 1 EACH IV ONE (13:18)
[2016-08-20] MEDS ORDERED: fentaNYL 100 MCG/2 ML VIAL ONE (14:39)
[2016-08-20] MEDS ORDERED: MIDAZOLAM 2 MG/2 ML VIAL ONE (14:39)
--- NOTE | 2016-08-20 14:42 | Operative Note ---
Date of procedure: 08/20/16 Pre-op diagnosis: end-stage renal disease Post-op diagnosis: same Procedure: Procedure performed: Placement of left arm AV graft for dialysis Procedure in detail: After informed consent was obtained, the patient was taken operating suite and laid supine on the operating table. After monitored anesthesia was initiated left upper extremity was prepped and draped in usual sterile fashion. After procedural pause local anesthetic infiltrated in the skin and subcutaneous tissue of the medial aspect of the proximal left arm. Incision was made and dissection carried down through skin and soft tissue. There were several moderate-sized veins available for outflow. One of these was dissected free from surrounding tissue. Proximal and distal control were gained with vessel loops. Next an incision was made over the palpable fistula segment and the arm just above the antecubital fossa. Dissection carried down the fistula was identified and dissected free from the surrounding tissue. The side branch identified and ligated. Proximal control gained on the fistula with vessel loops. A 6 x 40 PTFE graft was tunneled from one incision to the other in the subcutaneous tissue and cut to the appropriate size. Venotomy was created and an end graft to side venous anastomosis constructed using 7-0 [place] suture. The graft was flushed and clamped. The fistula was transected and the proximal portion flushed with heparinized saline. The distal portion of the graft did not bleed. Nonetheless it was oversewn with 3-0 Vicryl suture. Next an end graft to the and fistulous anastomosis was constructed using running 6-0 [place] suture. Afterward the clamps were released and there was excellent flow into the fistula. There was good outflow in the veins on Doppler. Palpable thrill was present. There was excellent hemostasis. Wounds were irrigated and suctioned. The deep subcutaneous tissue was reapproximated with 3-0 Vicryl suture. Incisions closed with mariano. Sterile dressings applied. Patient was taken recovery room in stable condition. All lap and needle counts correct at the end of the case. Anesthesia: MAC, local Surgeon / Physician: Judson Osman Estimated blood loss: other (less than 10 mL) Specimens: none sent Condition: stable Disposition: PACU Results - Labs CBC & BMP: 08/20/16 06:26 08/20/16 06:26 Discharge Plan - Discharge Medications No Action Carvedilol [Coreg] 25 mg PO BID #60 tablet Atorvastatin [Lipitor] 20 mg PO BEDTIME #30 tablet Nitroglycerin Sl Tab [Nitrostat] 0.4 mg SL Q5M PRN PRN Reason: Chest Pain Calcium Acetate 667 mg PO TID W/MEALS cloNIDine 0.2 MG/24 HR PATCH [Sjtnikod-RLA-5 Patch] 1 patch TRANSDERM SA FLUoxetine [PROzac] 10 mg PO QPM Bisacodyl Tab [Dulcolax Tab] 10 mg PO DAILY PRN #0 tablet PRN Reason: Constipation - Follow Up or Referral - Forms/Instructions
--- NOTE | 2016-08-20 15:13 | Anesthesia ---
Anesthesia Post OP - Post Ansesthetic Evaluation Patient seen in post op: Yes Resp: within normal limits CV: within normal limits Mental: within normal limits Temp: within normal limits Pigw-Lt-Blgszylcj: within normal limits Nausea and Vomiting: within normal limits Pain: within normal limits
--- NOTE | 2016-08-20 15:16 | Nephrology Progress Note ---
Nephrology - PN: Subj Interval history: Ms. Dee is seen in the recovery room following her [place] graft placement in the left upper arm. She is awake and still mildly sedate from anesthesia. Chest is clear. Her wheezing is improved. Plan is to dialyze her tomorrow using her catheters. No other changes are made. Exam (PN)-Nephrology - Vital Signs Vital signs: Period Temp Pulse Resp BP Sys/Ngo Pulse Ox Last 24 Hr 96.0 F-98.3 F 60-84 16-20 109-170/58-95 93-100 - Lab 08/20/16 06:26 08/20/16 06:26 Most recent lab results Calcium 7.8 MG/DL (8.5-10.1) L 08/20/16 06:26 Magnesium 1.8 MG/DL (1.8-2.4) 08/15/16 14:27
[2016-08-20] MEDS: AZITHROMYCIN INJ 500 MG in SODIUM CHLORIDE 0.9% 250 ML IV SCH (15:33)
--- NOTE | 2016-08-20 16:14 | Ultrasound Report ---
History: Equivocal pulmonary embolus on CT scan. Shortness of breath Date: 08/20/2016 Study: Bilateral lower extremity color flow venous Doppler study Comparison exam: Venous ultrasound September 25, 2015 Color Doppler, wave form analysis, and compression analysis of the deep veins of both lower extremities from the common femoral vein level through the popliteal vein level shows that the veins are readily compressible. There is no abnormal intraluminal material to suggest thrombus. Waveform analysis is unremarkable. Ultrasound images were captured and archived Impression: No evidence of deep venous thrombosis. No focal abnormality PROCEDURE INTERPRETED AT [facility] DEPARTMENT OF RADIOLOGY Final Report Signed by: Dr. Hermelidna Stark
[2016-08-20] MEDS: FLUoxetine 10 MG CAPSULE PO SCH (18:30)
[2016-08-20] MEDS: ATORVASTATIN 20 MG TABLET PO SCH (20:44)
[2016-08-21] MEDS: ALBUTEROL/IPRATROPIUM 3 ML NEB RESP TX SCH ×4 (00:03→19:18)
[2016-08-21] MEDS: SODIUM CHLORIDE 0.9% 250 ML IV SCH ×2 (01:18→13:05)
[2016-08-21 07:06] LABS: Basophils % 0.1 % (0.0-0.8); Eosinophils # 0.1 10*3/uL (0.0-0.87); Eosinophils % 0.2 % (0.00-10.9); Hematocrit 38.2 VOL% (35.7-47.0); Hemoglobin 11.7 GM/DL (12.0-16.0); Immature Granulocytes % 0.6 %; Immature Granulocytes Absolute 0.16 #; Lymphocytes # 1.5 10*3/uL (1.4-4.0); Lymphocytes % 6.1 % (21.3-54.2); Mean Corpuscular HGB Conc 30.6 GM/DL (32-36); Mean Corpuscular Hemoglobin 30 PG (27-34); Mean Corpuscular Volume 98.7 FL (87-102); Mean Platelet Volume 11.5 FL (9.6-12.0); Monocytes # 1.1 10*3/uL (0.11-0.8); Monocytes % 4.2 % (1.7-12.7); Neutrophils % 88.8 % (38.7-73.9); Platelet Count 65 T/CUMM (130-400); Red Blood Count 3.87 MC/CUMM (3.8-5.5); Red Cell Distribution Width 15.5 % (9.3-17.3); White Blood Count 24.8 T/CUMM (4-12)
[2016-08-21 07:31] LABS: Calcium 7.8 MG/DL (8.5-10.1); Osmolality,Calculated 295.3 MOS/KG (273-304)
[2016-08-21 07:33] LABS: Band Neutrophils 2 % (0-10); Eosinophils 1 % (0-10); Lymphocytes 9 % (20-55); Segmented Neutrophils 86 % (50-85); Total Cells Counted 100
[2016-08-21 07:34] LABS: Hypochromasia 1+; Microcytosis Slight; Ovalocytes Slight
[2016-08-21 07:35] LABS: Platelet Estimate Decreased
[2016-08-21] MEDS: predniSONE 20 MG TABLET PO SCH (08:47)
[2016-08-21] MEDS: CARVEDILOL 25 MG TABLET PO SCH ×2 (08:47→21:03)
[2016-08-21] MEDS: CALCIUM ACETATE 667 MG CAPSULE PO SCH ×3 (08:47→17:40)
[2016-08-21] MEDS: PANTOPRAZOLE 40 MG TABLET PO SCH (08:47)
--- NOTE | 2016-08-21 12:15 | Event Note ---
75AAF w multiple medical problems now POD1 placement of left arm AVG for dialysis by dr jean on 08/20/16. pt had occluded fistula and is dialyzing through catheter now. pt seen in HD. had some respiratory distress and anxiousness earlier on. now on facemask. no anxiety but pt is complaining of pain in her left arm where surgery was done. no complaints in forearm or hand. AFVSS, wbc up to 24.8, cr up to 5.2, plt down to 65, US BLE w no DVT. left forearm incision ok w some oozing. good distal pulse in left wrist AP--dr jean to sign off for now call dr jean w any problems follow up in office in 2wks dont use graft until okd by dr jean. discussed w dr jean.
--- NOTE | 2016-08-21 14:11 | Dialysis Note ---
Dialysis Note - Dialysis Note Ms. Dee is seen during her hemodialysis. She was short of breath earlier but is more comfortable now she has 93% oxygen saturation so mask O2 but earlier was in the mid 80s on nasal prongs. She is not exhibiting any wheezing currently. She does have a left upper arm bruit at the antecubital fossa. Plan is to continue treatment of her bronchitis with bronchospasm. We'll get a chest x-ray in the morning to follow this up.
[2016-08-21] MEDS: AZITHROMYCIN INJ 500 MG in SODIUM CHLORIDE 0.9% 250 ML IV SCH (15:35)
--- NOTE | 2016-08-21 18:29 | Hospitalist Progress Note ---
Assessment and Plan - Time spent with patient Time spent with patient: Greater than 30 minutes (1) AV fistula occlusion Status: Acute Assessment and plan: Continue current management. Current Visit: Yes (2) End stage renal disease on dialysis Status: Chronic Assessment and plan: Continue current management. Current Visit: Yes (3) Chronic obstructive pulmonary disease (COPD) Status: Chronic Assessment and plan: Bullous emphysema. Continue current management. Current Visit: No (4) Abnormal CT of the chest Status: Acute Assessment and plan: Unable to rule PE out. Obtain LE US to eval for DVT. Will initiate Eliquis. Current Visit: Yes Hospitalist: Subjective Interval history: No complaints. Graft stent placed yesterday. Exam - Constitutional Vitals: Period Temp Pulse Resp BP Sys/Ngo Pulse Ox Last 24 Hr 96.4 F-98.6 F 58-67 16-28 102-163/52-71 90-100 General appearance: no acute distress - Head Head exam: Present: normocephalic, atraumatic - Eye Eye exam: Present: EOMI Pupils: Present: ANDRÉS - ENT ENT exam: Present: normal exam - Neck Neck exam: Present: normal inspection - Respiratory Respiratory exam: Present: clear to auscultation bilaterally. Absent: rhonchi, wheezes - Cardiovascular Cardiovascular exam: Present: regular rate and rhythm. Absent: gallop, rubs, systolic murmur - GI/Abdominal GI/Abdominal exam: Present: normal bowel sounds, soft. Absent: distended, firm , guarding, tenderness, rebound - Extremities Exam Extremities exam: Present: normal inspection. Absent: calf tenderness, edema Results - Labs CBC & BMP: 08/21/16 06:20 08/21/16 06:20 Lab Results: I have reviewed the past 24 hour labs Quality Measures - VTE Contraindication to Pharmacological VTE Prophylaxis: High Risk of Bleeding
[2016-08-21] MEDS: FLUoxetine 10 MG CAPSULE PO SCH (18:42)
[2016-08-21] MEDS: APIXABAN 5 MG TABLET PO SCH (21:03)
[2016-08-21] MEDS: ATORVASTATIN 20 MG TABLET PO SCH (21:03)
[2016-08-22] MEDS: ALBUTEROL/IPRATROPIUM 3 ML NEB RESP TX SCH ×4 (00:23→19:38)
[2016-08-22 06:39] LABS: Basophils % 0.1 % (0.0-0.8); Eosinophils % 0.1 % (0.00-10.9); Hematocrit 41.7 VOL% (35.7-47.0); Hemoglobin 12.6 GM/DL (12.0-16.0); Immature Granulocytes % 0.8 %; Immature Granulocytes Absolute 0.18 #; Lymphocytes # 1.6 10*3/uL (1.4-4.0); Lymphocytes % 7.2 % (21.3-54.2); Mean Corpuscular HGB Conc 30.2 GM/DL (32-36); Mean Corpuscular Hemoglobin 30 PG (27-34); Mean Corpuscular Volume 97.7 FL (87-102); Mean Platelet Volume 12.2 FL (9.6-12.0); Monocytes # 0.8 10*3/uL (0.11-0.8); Monocytes % 3.8 % (1.7-12.7); NRBC # 0.02 10*3/uL; Neutrophils # 19.5 10*3/uL (1.4-7.4); Platelet Count 78 T/CUMM (130-400); Red Blood Count 4.27 MC/CUMM (3.8-5.5); Red Cell Distribution Width 15.1 % (9.3-17.3); White Blood Count 22.1 T/CUMM (4-12)
--- NOTE | 2016-08-22 06:39 | XRay Report ---
XR chest 1V portable Indication: Shortness of breath Comparison: Chest x-ray 08/16/2016 Technique: Portable AP chest was performed. Findings: Multiple tubes and medical support devices appear stable. Cardiomediastinal silhouette is unchanged. Minimal blunting right costophrenic angle is stable suggesting small right-sided pleural effusion. Lungs are clear for degree of inspiration and technique utilized. Skin clips are noted within the left axilla. Impression: 1. Small right-sided pleural effusion is stable. 2. Stable cardiomegaly. 3. Stable appearance of cardiac pacemaker. 08/22/2016 6:35 AM PROCEDURE INTERPRETED AT [facility] DEPARTMENT OF RADIOLOGY Final Report Signed by: Dr. Garrett Vu
[2016-08-22 07:00] LABS: Lymphocytes 7 % (20-55); Platelet Estimate Decreased; Segmented Neutrophils 84 % (50-85); Total Cells Counted 100
[2016-08-22 07:01] LABS: Burr Cells Slight; Hypochromasia Slight; Ovalocytes Slight
[2016-08-22 07:08] LABS: Calcium 7.9 MG/DL (8.5-10.1); Osmolality,Calculated 290.4 MOS/KG (273-304); Potassium 4.6 MMOL/L (3.5-5.1)
[2016-08-22 07:42] LABS: Hepatitis B Surface Ab Result Negative; Hepatitis B Surface Ag Quant < 0.10 Index; Hepatitis B Surface Ag Result Negative (Negative)
[2016-08-22] MEDS: PANTOPRAZOLE 40 MG TABLET PO SCH (09:05)
[2016-08-22] MEDS: APIXABAN 5 MG TABLET PO SCH ×2 (09:05→20:20)
[2016-08-22] MEDS: predniSONE 20 MG TABLET PO SCH (09:05)
[2016-08-22] MEDS: CALCIUM ACETATE 667 MG CAPSULE PO SCH ×3 (09:05→17:20)
[2016-08-22] MEDS: CARVEDILOL 25 MG TABLET PO SCH ×2 (09:07→20:20)
[2016-08-22] MEDS: SODIUM CHLORIDE 0.9% 250 ML IV SCH ×2 (09:18→21:13)
--- NOTE | 2016-08-22 13:46 | Nephrology Progress Note ---
Nephrology - PN: Subj Interval history: Ms. Dee is seen in follow-up of her end-stage renal disease. She is better today. She dialyzed yesterday and has minimal wheezing noted today. She does have a bruit in her left upper arm [place] graft. She was asking about where it would be accessed etc. and we discussed that. I'll he confused but overall is improved using inhalation beta agonist 4 times daily and her chest x-ray today is without evidence of volume overload. Graph pointed out to her that she's not had a cigarette since she's been here and hopefully she can stop smoking altogether. We will dialyze tomorrow Exam (PN)-Nephrology - Vital Signs Vital signs: Period Temp Pulse Resp BP Sys/Ngo Pulse Ox Last 24 Hr 96.4 F-97.0 F 58-68 16-21 114-145/57-70 92-100 - Lab 08/22/16 05:37 08/22/16 05:37 Most recent lab results Calcium 7.9 MG/DL (8.5-10.1) L 08/22/16 05:37 Magnesium 1.8 MG/DL (1.8-2.4) 08/15/16 14:27
--- NOTE | 2016-08-22 15:29 | Event Note ---
Patient had some mild oozing through the lower incision. No hematoma. A pressure bandage was applied and appears that the bleeding has stopped. The bandage appears dry. The graft has good flow on auscultation. We'll leave the bandage overnight and I'll re-assess assess in the morning.
--- NOTE | 2016-08-22 17:51 | Hospitalist Progress Note ---
Assessment and Plan (1) AV fistula occlusion Status: Acute Assessment and plan: S/P stent placement. Current Visit: Yes (2) End stage renal disease on dialysis Status: Chronic Assessment and plan: Continue current management. Current Visit: Yes (3) Chronic obstructive pulmonary disease (COPD) Status: Chronic Assessment and plan: Bullous emphysema. Continue current management. Current Visit: No (4) Abnormal CT of the chest Status: Acute Assessment and plan: Continue Eliquis Current Visit: Yes Hospitalist: Subjective Interval history: No complaints. Left fistula is oozing blood. Exam - Constitutional Vitals: Period Temp Pulse Resp BP Sys/Ngo Pulse Ox Last 24 Hr 96.4 F-98.1 F 58-70 16-21 114-145/57-70 95-100 General appearance: no acute distress - Head Head exam: Present: normocephalic, atraumatic - Eye Eye exam: Present: EOMI Pupils: Present: ANDRÉS - ENT ENT exam: Present: normal exam - Neck Neck exam: Present: normal inspection - Respiratory Respiratory exam: Present: clear to auscultation bilaterally. Absent: rhonchi, wheezes - Cardiovascular Cardiovascular exam: Present: regular rate and rhythm. Absent: gallop, rubs, systolic murmur - GI/Abdominal GI/Abdominal exam: Present: normal bowel sounds, soft. Absent: distended, firm , guarding, tenderness, rebound - Extremities Exam Extremities exam: Present: other (left brachial fistula with tight dressing over ). Absent: calf tenderness, edema Results - Labs CBC & BMP: 08/22/16 05:37 08/22/16 05:37 Lab Results: I have reviewed the past 24 hour labs Quality Measures - VTE Contraindication to Pharmacological VTE Prophylaxis: High Risk of Bleeding
[2016-08-22] MEDS: FLUoxetine 10 MG CAPSULE PO SCH (18:24)
[2016-08-22] MEDS: ATORVASTATIN 20 MG TABLET PO SCH (20:20)
[2016-08-23] MEDS: ALBUTEROL/IPRATROPIUM 3 ML NEB RESP TX SCH ×4 (02:11→20:01)
[2016-08-23 05:12] LABS: Basophils % 0.1 % (0.0-0.8); Hematocrit 36.2 VOL% (35.7-47.0); Hemoglobin 11.5 GM/DL (12.0-16.0); Immature Granulocytes % 1.4 %; Immature Granulocytes Absolute 0.22 #; Lymphocytes # 1.1 10*3/uL (1.4-4.0); Lymphocytes % 6.9 % (21.3-54.2); Mean Corpuscular HGB Conc 31.8 GM/DL (32-36); Mean Corpuscular Hemoglobin 30 PG (27-34); Mean Corpuscular Volume 93.8 FL (87-102); Mean Platelet Volume 12.7 FL (9.6-12.0); Monocytes # 0.9 10*3/uL (0.11-0.8); Monocytes % 5.7 % (1.7-12.7); NRBC # 0.02 10*3/uL; Neutrophils # 13.1 10*3/uL (1.4-7.4); Neutrophils % 85.9 % (38.7-73.9); Platelet Count 82 T/CUMM (130-400); Red Blood Count 3.86 MC/CUMM (3.8-5.5); Red Cell Distribution Width 14.8 % (9.3-17.3); White Blood Count 15.3 T/CUMM (4-12)
[2016-08-23 05:40] LABS: Calcium 7.8 MG/DL (8.5-10.1); Osmolality,Calculated 296.5 MOS/KG (273-304)
[2016-08-23 05:47] LABS: Platelet Estimate Decreased
--- NOTE | 2016-08-23 08:20 | Dialysis Note ---
Dialysis Note - Dialysis Note Patient seen on hemodialysis, she started tolerating this well we'll continue her treatment unchanged.
--- NOTE | 2016-08-23 09:06 | Dialysis Note ---
Dialysis Note - Dialysis Note Ms. Dee is seen during her hemodialysis. She is better today. She has much less wheeze. She seems calm on dialysis. Her left upper arm [place] grafts patent ring maximal hospital benefit. She came in short of breath and that has improved and she's had her left upper arm access placed. We'll continue to dialyze while here but she is nearing the point which she might go home. She does have chronic bronchitis from her chronic cigarette smoking. We try to point out to her yesterday that she has been without cigarettes now for several days and hopefully can stop smoking altogether
[2016-08-23] MEDS: CALCIUM ACETATE 667 MG CAPSULE PO SCH ×3 (09:34→17:15)
--- NOTE | 2016-08-23 10:32 | Event Note ---
Seen on HD with Dr. Osman. Patient states the compression dressing was changed at 5AM. New dressing already soaked through. Still having some active oozing from staple line. New compression dressing applied. Good distal pulse. Good bruit auscultated with Doppler at the graft site. Eliquis was stopped yesterday but receiving Heparin on HD. Continue to hold until oozing stops if okay with cardiology and nephrology. Will check coags today and reasses dressing after lunch.
[2016-08-23 12:09] LABS: INR 1.3; PT Patient Result 13.6 SECS
[2016-08-23] MEDS: CARVEDILOL 25 MG TABLET PO SCH ×2 (12:10→20:03)
[2016-08-23] MEDS: predniSONE 20 MG TABLET PO SCH (12:10)
[2016-08-23] MEDS: PANTOPRAZOLE 40 MG TABLET PO SCH (12:10)
[2016-08-23 12:14] LABS: Partial Thromboplastin Time 95.1 SECS (0-40)
--- NOTE | 2016-08-23 12:25 | Hospitalist Progress Note ---
Assessment and Plan - Time spent with patient Time spent with patient: Greater than 30 minutes (1) AV fistula occlusion Status: Acute Assessment and plan: S/P stent placement. Will hold Eliquis until bleeding has stopped. Current Visit: Yes (2) End stage renal disease on dialysis Status: Chronic Assessment and plan: Continue HD. Current Visit: Yes (3) Chronic obstructive pulmonary disease (COPD) Status: Chronic Assessment and plan: Bullous emphysema. Continue current management. Current Visit: No (4) Abnormal CT of the chest Status: Acute Assessment and plan: Holding Eliquis until bleeding has completely stopped. Current Visit: Yes Hospitalist: Subjective Interval history: Patients graft continues to ooze blood post stenting. Exam - Constitutional Vitals: Period Temp Pulse Resp BP Sys/Ngo Pulse Ox Last 24 Hr 97.4 F-98.1 F 59-83 18-20 118-157/61-76 97-100 General appearance: no acute distress - Head Head exam: Present: normocephalic, atraumatic - Eye Eye exam: Present: EOMI Pupils: Present: ANDRÉS - ENT ENT exam: Present: normal exam - Neck Neck exam: Present: normal inspection - Respiratory Respiratory exam: Present: clear to auscultation bilaterally. Absent: rhonchi, wheezes - Cardiovascular Cardiovascular exam: Present: regular rate and rhythm. Absent: gallop, rubs, systolic murmur - GI/Abdominal GI/Abdominal exam: Present: normal bowel sounds, soft. Absent: distended, firm , guarding, tenderness, rebound - Extremities Exam Extremities exam: Present: normal inspection. Absent: calf tenderness, edema Results - Labs CBC & BMP: 08/23/16 11:43 08/23/16 04:28 Lab Results: I have reviewed the past 24 hour labs Quality Measures - VTE Contraindication to Pharmacological VTE Prophylaxis: High Risk of Bleeding
[2016-08-23] MEDS: FLUoxetine 10 MG CAPSULE PO SCH (18:24)
[2016-08-23] MEDS: ATORVASTATIN 20 MG TABLET PO SCH (20:03)
[2016-08-24] MEDS: ALBUTEROL/IPRATROPIUM 3 ML NEB RESP TX SCH ×3 (00:23→13:35)
[2016-08-24 05:06] LABS: Basophils % 0.1 % (0.0-0.8); Hematocrit 36.7 VOL% (35.7-47.0); Hemoglobin 11.2 GM/DL (12.0-16.0); Immature Granulocytes % 2.4 %; Immature Granulocytes Absolute 0.28 #; Lymphocytes # 0.9 10*3/uL (1.4-4.0); Lymphocytes % 7.4 % (21.3-54.2); Mean Corpuscular HGB Conc 30.5 GM/DL (32-36); Mean Corpuscular Hemoglobin 30 PG (27-34); Mean Corpuscular Volume 98.1 FL (87-102); Mean Platelet Volume 11.7 FL (9.6-12.0); Monocytes # 0.7 10*3/uL (0.11-0.8); Monocytes % 6.2 % (1.7-12.7); NRBC # 0.02 10*3/uL; Neutrophils # 9.6 10*3/uL (1.4-7.4); Neutrophils % 83.9 % (38.7-73.9); Platelet Count 82 T/CUMM (130-400); Red Blood Count 3.74 MC/CUMM (3.8-5.5); Red Cell Distribution Width 14.8 % (9.3-17.3); White Blood Count 11.4 T/CUMM (4-12)
[2016-08-24 05:24] LABS: Calcium 7.7 MG/DL (8.5-10.1); Osmolality,Calculated 295.1 MOS/KG (273-304)
[2016-08-24 05:52] LABS: Lymphocytes 7 % (20-55); Platelet Estimate Decreased; Segmented Neutrophils 89 % (50-85); Total Cells Counted 100
[2016-08-24] MEDS: CALCIUM ACETATE 667 MG CAPSULE PO SCH ×2 (09:25→13:09)
[2016-08-24] MEDS: predniSONE 20 MG TABLET PO SCH (09:25)
[2016-08-24] MEDS: CARVEDILOL 25 MG TABLET PO SCH (09:25)
[2016-08-24] MEDS: PANTOPRAZOLE 40 MG TABLET PO SCH (09:25)
[2016-08-24] MEDS: cloNIDine 0.2 MG/24 HR PATCH TRANSDERM SCH (09:25)
--- NOTE | 2016-08-24 10:30 | Nephrology Progress Note ---
Nephrology - PN: Subj Interval history: Patient denies shortness of breath. Review of systems GI she denies nausea or vomiting, ENT she complains of a drop throat Physical exam general patient's in no acute distress Assessment/plan 1. End-stage renal disease-we'll continue hemodialysis 2. Bronchitis-we'll continue prednisone 3. Hypertension we'll continue present antihypertensives 4. AV shot bleed-management per Dr. Asif Exam (PN)-Nephrology - Vital Signs Vital signs: Period Temp Pulse Resp BP Sys/Ngo Pulse Ox Last 24 Hr 96.0 F-97.3 F 60-63 16-20 110-183/53-111 97-100 - Lab 08/24/16 04:06 08/24/16 04:06 Most recent lab results Calcium 7.7 MG/DL (8.5-10.1) L 08/24/16 04:06 Magnesium 1.8 MG/DL (1.8-2.4) 08/15/16 14:27
--- NOTE | 2016-08-24 10:41 | Event Note ---
Patient is doing well. The bandage is not needed to be change. The bandage is dry that I placed yesterday. There is no further oozing. There is mild postoperative swelling left arm. The graft has excellent flow on auscultation. Incisions look good with no sign of infection. From a surgical standpoint she can be discharged home when ready medically. She'll follow-up in 2 weeks for staple removal. She was instructed to call me for any further oozing or swelling or any other changes.
[2016-08-24 12:31] VITALS: BP 147/56
--- NOTE | 2016-08-24 13:24 | Discharge Summary ---
Hospital Course - Hospital Course Hospital Course: COPD exacerbation: She was initiated on steroids and azithromycin. She completed her course of azithromycin and will complete the tapered course of steroids at home. Pulmonary embolism: CT of the chest revealed bullous emphysema and possible pulmonary embolisms. Patient was initiated on Eliquis and she will need to continue this for 6 months. She was given a prescription for 1 refill, 7 days sample, and a card for one month for free. I asked the patient follow up with her primary care provider for the remainder of the 6 months. AV fistula graft occlusion: She was seen in consultation by surgery who opted to perform a revision the AV fistula. She tolerated this well and will follow- up as an outpatient for removal of mariano. By discharge she had met maximum benefit of hospitalization. - Time spent with patient Time with patient DS: Greater than 30 minutes Diagnosis - Discharge Diagnosis (1) AV fistula occlusion Status: Acute (2) End stage renal disease on dialysis Status: Chronic (3) Chronic obstructive pulmonary disease (COPD) Status: Chronic (4) Abnormal CT of the chest Status: Acute Discharge Plan - Discharge Data Disposition: Disch To Home/Self Care Condition at Discharge: Stable Discharge Diet: advance to your usual diet - Discharge Medications New Apixaban [Eliquis] 5 mg PO BID #60 tablet predniSONE TAB [PredniSONE] 10 mg PO 18 #18 tablet Continue Carvedilol [Coreg] 25 mg PO BID #60 tablet Atorvastatin [Lipitor] 20 mg PO BEDTIME #30 tablet Nitroglycerin Sl Tab [Nitrostat] 0.4 mg SL Q5M PRN PRN Reason: Chest Pain Calcium Acetate 667 mg PO TID W/MEALS cloNIDine 0.2 MG/24 HR PATCH [Vdpbwuab-MQZ-5 Patch] 1 patch TRANSDERM SA FLUoxetine [PROzac] 10 mg PO QPM Bisacodyl Tab [Dulcolax Tab] 10 mg PO DAILY PRN #0 tablet PRN Reason: Constipation - Follow Up or Referral - Forms/Instructions Exam - Constitutional Vitals: Period Temp Pulse Resp BP Sys/Ngo Pulse Ox Last 24 Hr 96.0 F-97.5 F 60-63 16-20 110-183/53-111 96-100 General appearance: normal weight, no acute distress - Head Head exam: Present: normal inspection, normocephalic, atraumatic - Eye Eye exam: Present: EOMI Pupils: Present: ANDRÉS - ENT ENT exam: Present: normal exam - Neck Neck exam: Present: normal inspection - Respiratory Respiratory exam: Present: clear to auscultation bilaterally - Cardiovascular Cardiovascular exam: Present: regular rate and rhythm - GI/Abdominal GI/Abdominal exam: Present: normal bowel sounds - Extremities Exam Extremities exam: Present: normal inspection Discharge Results Labs on day of discharge: Labs from last 24 hours 08/24/16 08/24/16 04:06 04:06 WBC 11.4 RBC 3.74 L Hgb 11.2 L Hct 36.7 MCV 98.1 MCH 30 MCHC 30.5 L RDW 14.8 Plt Count 82 L MPV 11.7 Neut % (Auto) 83.9 H Lymph % (Auto) 7.4 L [place] % (Auto) 6.2 Eos % (Auto) 0.0 Baso % (Auto) 0.1 Neut # (Auto) 9.6 H Lymph # (Auto) 0.9 L [place] # (Auto) 0.7 Eos # (Auto) 0.0 Baso # (Auto) 0.0 Total Counted 100 Immature Gran % 2.4 Nucleated RBC % 0.2 Immature Gran # 0.28 Segmented Neutrophils 89 H Lymphocytes 7 L Monocytes 4 Nucleated RBCs # 0.02 Platelet Estimate Decreased Pappenheimer Bodies [employer] Services Supervisor Sodium 142 Potassium 5.0 Chloride 105 Carbon Dioxide 28 Anion Gap 14.0 BUN 50 H D Creatinine 5.40 H GFR Calculation 9 BUN/Creatinine Ratio 9.00 Glucose 105 Calculated Osmolality 295.1 Calcium 7.7 L DS: Provider Date of admission: 08/16/16 13:21 Primary care physician: . No PCP Attending physician on admission: Elías Jones MD Consults: 08/18/16 08:59 Consult to Physician [CONS] Routine Comment: needs L arm AV graph repair, pt known to you Consulting Provider: Judson Osman When should Consulting Provider be notified: In am Consult to Specialist Group: Surgery Person Notified: GUADALUPE Date Notified: 08/19/16 Time Notified: 08:50 08/18/16 09:26 Consult to Physician [CONS] Routine Comment: occluded AV fistula Consulting Provider: Judson Osman When should Consulting Provider be notified: In am 08/19/16 10:43 Consult to Physician [CONS] Routine Comment: Consulting Provider: 08/23/16 11:09 Consult to Physician [CONS] Routine Comment: Consulting Provider: Consult to Specialist Group: Cardiology When should Consulting Provider be notified: Now Person Notified: Katerine Casianoey Date Notified: 08/23/16 Time Notified: 11:11 Discharging clinician: Latosha Belcher MD Expected date of discharge: 08/24/16
--- NOTE | 2016-08-26 13:05 | Cardiology Consult Note ---
Yael, Gertrudis Barnes, RN, am scribing for, and in the presence of, Tobias Blair MD 13:03. Assessment and Plan (1) Abnormal CT of the chest Status: Acute Assessment and plan: Patient was started on Eliquis for possible PE. This is now been held due to patient's oozing from left AV fistula. Agree with holding the Eliquis for now. He can be restarted when the oozing/ bleeding stopped. Thank you for allowing me to participate in this patient's care [I , Dr. Tobias Blair, on 08/23/16 was involved with the patient's care, including interview, examination, and management. However I am documenting the note at this point in time.] (2) AV fistula occlusion Status: Acute Assessment and plan: Patient is status post stent placement. (3) AICD (automatic cardioverter/defibrillator) present Status: Chronic (4) Chronic systolic CHF (congestive heart failure) Status: Chronic (5) Chronic obstructive pulmonary disease (COPD) Status: Chronic (6) ESRD (end stage renal disease) on dialysis Status: Chronic Assessment and plan: Continue current plan of care. (7) Nonischemic cardiomyopathy Status: Chronic (8) Obesity (BMI 30.0-34.9) Status: Chronic (9) Tobacco use Status: Chronic (10) Pneumonia Status: Acute History of Present Illness - Consult Narrative Reason for consult: Assistance with anticoagulation History of present illness: Ms. Dee is a 75 year old female, routinely followed by Dr. Cesar. She presented to [place] [facility] for further evaluation of shortness of breath. She has risk factors significant for advanced age, sedentary lifestyle, hyperlipidemia, tobacco abuse, obesity and hypertension. She denies any significant family history of heart disease. She has a past medical history of cardiomyopathy, congestive heart failure, COPD, left bundle branch block and end -stage renal disease. She has a surgical history of bi-V ICD (April 2012) and heart catheterization (March 2012) which revealed mild obstruction. Patient had an echo October 2015 which revealed mild concentric LVH with normal LV wall motion with ejection fraction of 65%, moderate aortic insufficiency and mild TR. patient last saw Dr. Cesar in the office May 04, 2015. Patient was transported to [place] [facility] for further evaluation of shortness of breath. Patient was on dialysis for approximately 1 hour developed sudden onset of severe shortness of breath sats were noted to be 48%. She was then transferred emergently to ER per EMS. She was admitted to the hospitalist service for complete workup. Her chest x-ray showed volume overload and possible pneumonia. Patient was started on steroids and antibiotics at that time. Patient had an abnormal CT of the chest, PE could not be ruled out. Anticoagulation was initiated at that time per hospitalist. During her hospitalization her AV fistula was noted to be clotted. Surgery was consulted for further evaluation. Dr. Asif placed a stent to her left arm AV fistula on August 20. Postoperatively patient has oozed from left AV fistula site. Cardiology has been consulted for further assistance with anticoagulation. Dr. Baker has asked if it would be okay for his anticoagulation to be held until patient's bleeding is better controlled. Patient was seen and examined on telemetry. She had dialysis this morning and tolerated well. Her left AV fistula continues to ooze slightly. She is currently in pacer rhythm with heart rate in of 60. Vital signs are stable. White blood cell count is noted to be 15.3 and platelet count is noted to be 85.9. It is ok for Eliquis to be held until bleeding is under control from cardiology' s standpoint. CC: Elías Jones MD - Home Medications and Allergies Home Medications: Home Medications Medication Instructions Recorded Confirmed Type Atorvastatin [Lipitor] 20 mg PO BEDTIME #30 tablet 11/13/15 08/15/16 Rx Carvedilol [Coreg] 25 mg PO BID #60 tablet 11/13/15 08/15/16 Rx Calcium Acetate 667 mg PO TID W/MEALS 02/03/16 08/15/16 History Nitroglycerin Sl Tab [Nitrostat] 0.4 mg SL Q5M PRN 02/03/16 08/15/16 History cloNIDine 0.2 MG/24 HR PATCH 1 patch TRANSDERM SA 02/03/16 08/15/16 History [[id number]-UBA-9 Patch] Bisacodyl Tab [Dulcolax Tab] 10 mg PO DAILY PRN #0 tablet 07/16/16 08/15/16 Rx FLUoxetine [PROzac] 10 mg PO QPM 08/15/16 08/15/16 History Apixaban [Eliquis] 5 mg PO BID #60 tablet 08/24/16 Rx predniSONE TAB [PredniSONE] 10 mg PO 18 #18 tablet 08/24/16 Rx Allergies/Adverse Reactions: Allergies Allergy/AdvReac Type Severity Reaction Status Date / Time levofloxacin [From Levaquin] Allergy Severe ANAPHYLAXIS Verified 08/15/16 14:26 penicillin G Allergy Severe RASH Verified 08/15/16 14:26 lisinopril AdvReac Unknown Unknown/Unable Verified 08/15/16 14:26 to obtain Medical,Surgical,& Family Hx - Medical History Cardio: History of: CHF (nonischemic cardiomyopathy), Hypertension, Pacemaker ( AICD) No history of: CAD Neurology: No history of: Seizures Respiratory: History of: COPD Renal: History of: Dialysis (Tues, , Sat), Renal Failure, Renal Problems ( tesso left chest) Genitourinary: History of: Genitourinary Cancer Gastrointestinal: History of: GERD, GI Problems (patient has hx of colostomy- now reversed) - Surgical History Cardiac Surgeries: Sugical HX of: Cardiac Catheterization, Internal Defibrillator Thoracic Surgeries: Patient denies;: Organ Transplant Reproductive Surgeries: Surgical HX of;: Gynecologic Surgery, Hysterectomy - Family History Family History: Reports;: Family Diabetes (mother), Family Hypertension (mother , brothers,sisters) - Social History Smoking Status: Current some day smoker Frequency of Alcohol Use: None Type of Drug Use: None Physical Examination Vital Signs Temp Pulse Resp BP Pulse Ox 99.2 F 88 34 H 207/95 100 08/15/16 14:19 08/15/16 14:19 08/15/16 14:19 08/15/16 14:19 08/15/16 14:19 Other: HEENT: Pupils equal, reactive to light and accommodation Neck: NoJVD or bruit Lungs clear to auscultation Heart: Regular rhythm rate with normal S1 and S2. Apical S4 Abdomen: No hepatosplenomegaly Spine/extremities: No clubbing, cyanosis, or edema Neuro: Nonfocal Psych: No depression or anxiety Result/EKG - Labs CBC & BMP: 08/24/16 04:06 08/24/16 04:06 Labs: Laboratory Results - last 24 hr 08/23/16 08/23/16 04:28 04:28 WBC 15.3 H D RBC 3.86 Hgb 11.5 L Hct 36.2 MCV 93.8 MCH 30 MCHC 31.8 L RDW 14.8 Plt Count 82 L MPV 12.7 H Neut % (Auto) 85.9 H Lymph % (Auto) 6.9 L [place] % (Auto) 5.7 Eos % (Auto) 0.0 Baso % (Auto) 0.1 Neut # (Auto) 13.1 H Lymph # (Auto) 1.1 L [place] # (Auto) 0.9 H Eos # (Auto) 0.0 Baso # (Auto) 0.0 Immature Gran % 1.4 Nucleated RBC % 0.1 Immature Gran # 0.22 Nucleated RBCs # 0.02 Platelet Estimate Decreased Sodium 139 Potassium 5.0 Chloride 103 Carbon Dioxide 25 Anion Gap 16.0 H BUN 70 H D Creatinine 6.40 H GFR Calculation 7 BUN/Creatinine Ratio 10.00 Glucose 87 Calculated Osmolality 296.5 Calcium 7.8 L Quality Measures - VTE Contraindication to Pharmacological VTE Prophylaxis: High Risk of Bleeding Johnnie Conley Dale, MD, personally performed the services described in this documentation, ascribed by Gertrudis Barnes RN in my presence, and it is both accurate and complete [id number] .
--- NOTE | 2016-10-29 14:44 | Physician Query Form ---
CLICK EDIT DOCUMENT TO SELECT QUERY ANSWER --> OK --> SIGN Shima Quintanilla RN Clinical Product Responsibility Liaison W) [phone] (f) [phone] [email or web address]: Make your selection(s) from the choices in EACH section by typing an "x" and enter comments in the comment section. Please use your independent medical judgment in providing your response. This request does not imply that any particular answer is desired or expected. CLINICAL INDICATORS: (Providers should not edit this section) Based on documentation of "Placement of left arm AV graft for dialysis", please clarify artery and vein used to create AV graft. Based on the above, could you clarify the appropriate diagnosis, if significant , that supports the above abnormalities and additional evaluation, monitoring, and/or treatment rendered: ( ) Left arm AV graft created from artery to vein ( ) Other, please specify: ( ) Clinically unable to determine COMMENTS: Use of terms such as suspected, likely, or probable (associated with a specific diagnosis that is being evaluated, monitored, or treated as if it exists) are acceptable and can be restated in the discharge summary if not ruled out. MTDD
--- NOTE | 2016-10-30 08:21 | Physician Query Form ---
CLICK EDIT DOCUMENT TO SELECT QUERY ANSWER --> OK --> SIGN Shima Quintanilla RN Clinical Metal Sorter W) [phone] (f) [phone] [email or web address] PROVIDERS: Make your selection(s) from the choices in EACH section by typing an "x" and enter comments in the comment section. Please use your independent medical judgment in providing your response. This request does not imply that any particular answer is desired or expected. CLINICAL INDICATORS: (Providers should not edit this section) Based on documentation of "Placement of left arm AV graft for dialysis", please clarify artery and vein used to create AV graft. Based on the above, could you clarify the appropriate diagnosis, if significant , that supports the above abnormalities and additional evaluation, monitoring, and/or treatment rendered: ( ) Left arm AV graft created from artery to vein ( x) Other, please specify: from cephalic vein fistula to axillary vein ( ) Clinically unable to determine COMMENTS: Use of terms such as suspected, likely, or probable (associated with a specific diagnosis that is being evaluated, monitored, or treated as if it exists) are acceptable and can be restated in the discharge summary if not ruled out. MTDD
== END 2016-08-24 16:12 | disposition home or self-care (01) | DRG 981 ==
LOC: EDBD → EDUNIT# → N.ED 14:19 → N.EDINP 14:19 → N.TELES 21:05
PROVIDERS: ADMIT Internal Medicine Cardiovascular Disease; ATTEND Internal Medicine Cardiovascular Disease
PROC: VAVDCFI (2016-08-20 12:51)

== ENCOUNTER 2016-10-11 13:03 | Inpatient (IN) ==
[2016-10-11] MEDS ORDERED: ACETAMINOPHEN 500 MG TABLET PO STA (13:22)
[2016-10-11] MEDS ORDERED: ACETAMINOPHEN 500 MG TABLET ONE (13:24)
--- NOTE | 2016-10-11 13:46 | XRay Report ---
History short of breath and fever Comparison 08/22/2016 The heart is mildly enlarged with pacemaker present. A left dialysis catheter again seen. No pneumothorax identified There are slightly increasing reticular opacities in the lung bases superimposed on mild areas of scarring. There is blunting of the right costophrenic angle. Skinfold overlies the right apex Impression: Minimal increasing interstitial infiltrates versus edema superimposed on chronic changes PROCEDURE INTERPRETED AT [facility] DEPARTMENT OF RADIOLOGY Final Report Signed by: Dr. Scarlett Galeas
[2016-10-11] MEDS ORDERED: VANCOMYCIN INJ 1,000 MG in SODIUM CHLORIDE 0.9% 250 ML IV STA (13:57)
[2016-10-11] MEDS ORDERED: VANCOMYCIN 1,000 MG VIAL ONE (14:06)
[2016-10-11] MEDS ORDERED: SODIUM CHLORIDE 0.9% 250 ML IV ONE (14:06)
[2016-10-11 14:08] LABS: Basophils % 0.1 % (0.0-0.8); Eosinophils # 0.1 10*3/uL (0.0-0.87); Eosinophils % 1.8 % (0.00-10.9); Hematocrit 34.7 VOL% (35.7-47.0); Hemoglobin 11.1 GM/DL (12.0-16.0); Immature Granulocytes % 0.4 %; Immature Granulocytes Absolute 0.03 #; Lymphocytes # 0.5 10*3/uL (1.4-4.0); Lymphocytes % 5.9 % (21.3-54.2); Mean Corpuscular Hemoglobin 30 PG (27-34); Mean Corpuscular Volume 94.8 FL (87-102); Mean Platelet Volume 10.6 FL (9.6-12.0); Monocytes # 0.1 10*3/uL (0.11-0.8); Monocytes % 1.7 % (1.7-12.7); Neutrophils # 6.9 10*3/uL (1.4-7.4); Neutrophils % 90.1 % (38.7-73.9); Platelet Count 101 T/CUMM (130-400); Red Blood Count 3.66 MC/CUMM (3.8-5.5); White Blood Count 7.7 T/CUMM (4-12)
[2016-10-11 14:37] LABS: INR 1.2; PT Patient Result 12.7 SECS
--- NOTE | 2016-10-11 14:41 | Emergency Department Note ---
Davion Conley Gwan, am scribing for, and in the presence of, Jcak Oneill MD 14:27. Nino Conley Phillip K, MD, personally performed the services described in this documentation, ascribed by Wil Ricardo in my presence, and it is both accurate and complete [id number] . Arrival - Arrival Chief Complaint: Fever Stated Complaint: CP/Fever ED Nursing Triage Note: Pt c/o Fever (103 per EMS), CP, SOB, and non-productive cough since last night. Mode of Arrival: Stretcher Limitations: No Limitations Source: Patient, Old Records Reviewed, RN Notes Reviewed Time Seen by Provider: 10/11/16 13:57 - History of Present Illness HPI Narrative: Pt is a 75 y/o female, with a hx renal failure (dialysis Fri//Fri) and internal defibrillator, who presents to the ED with a c/o fever, chest pain, productive cough with white sputum and chills with an onset last night. At time of triage, pt's temperature was 104.0. Patient stated that she sommers a dialysis catheter located in upper left chest that has been there for 3-4 months, that she also has dialysis graft located in her right arm. She confirmed that she has used the dialysis graft 4 times, that she smokes .5 ppd cigarettes and that she is followed by Dr. Baker and Dr. Osman. Patient denies diarrhea, abd pain or any hx of DM. Pt has PMHx of HTN, CHF, pacemaker, COPD and cardiac catherterization. No other problems/complaints reported in ED. Onset (ago): day(s) Consistency: constant Severity: moderate Allergies/Adverse Reactions: Allergies Allergy/AdvReac Type Severity Reaction Status Date / Time levofloxacin [From Levaquin] Allergy Severe ANAPHYLAXIS Verified 08/15/16 14:26 penicillin G Allergy Severe RASH Verified 08/15/16 14:26 lisinopril AdvReac Unknown Unknown/Unable Verified 08/15/16 14:26 to obtain Home Medications: Home Medications Medication Instructions Recorded Confirmed Type Atorvastatin [Lipitor] 20 mg PO BEDTIME #30 tablet 11/13/15 10/11/16 Rx Carvedilol [Coreg] 25 mg PO BID #60 tablet 11/13/15 10/11/16 Rx Calcium Acetate 667 mg PO TID W/MEALS 02/03/16 10/11/16 History Nitroglycerin Sl Tab [Nitrostat] 0.4 mg SL Q5M PRN 02/03/16 10/11/16 History cloNIDine 0.2 MG/24 HR PATCH 1 patch TRANSDERM SA 02/03/16 10/11/16 History [[id number]-ZRP-8 Patch] Apixaban [Eliquis] 5 mg PO BID #60 tablet 08/24/16 10/11/16 Rx Review of System - Review of System 12 point system: reviewed and no additional remarkable complaints except as stated - Review of System Constitutional: Present: as per HPI, chills, fever Respiratory: Present: as per HPI, cough Cardiovascular: Present: as per HPI, chest pain Gastrointestinal: Present: as per HPI. Absent: abdominal pain, nausea, vomiting , diarrhea Medical,Surgical,& Family Hx - Medical History Cardio: History of: CHF (nonischemic cardiomyopathy), Hypertension, Pacemaker ( AICD) No history of: CAD Neurology: No history of: Seizures Respiratory: History of: COPD Renal: History of: Dialysis (Tues, Th, Sat), Renal Failure, Renal Problems ( tesso left chest) Genitourinary: History of: Genitourinary Cancer Gastrointestinal: History of: GERD, GI Problems (patient has hx of colostomy- now reversed) - Surgical History Cardiac Surgeries: Sugical HX of: Cardiac Catheterization, Internal Defibrillator Thoracic Surgeries: Patient denies;: Organ Transplant Reproductive Surgeries: Surgical HX of;: Gynecologic Surgery, Hysterectomy - Family History Family History: Reports;: Family Diabetes (mother), Family Hypertension (mother , brothers,sisters) - Social History Smoking Status: Current some day smoker Exam Vital Signs: Vital Signs Temperature 104.0 F H 10/11/16 13:15 Pulse Rate 91 H 10/11/16 14:15 Respiratory Rate 27 H 10/11/16 14:15 Blood Pressure 98/46 10/11/16 14:15 O2 Sat by Pulse Oximetry 97 10/11/16 14:15 - General General appearance: alert, in no apparent distress - Head Head exam: Present: atraumatic, normocephalic - Eye Eye exam: Present: normal appearance, PERRL, EOMI - ENT ENT exam: Present: normal oropharynx, mucous membranes moist, TM's normal bilaterally, normal external ear exam - Neck Neck exam: Present: full ROM, trachea midline. Absent: tenderness, meningismus , lymphadenopathy, thyromegaly - Chest Chest inspection: Present: symmetric chest wall rise, other (Dialysis cath noted to left upper chest). Absent: tenderness - Respiratory Respiratory exam: Present: rales (right base) - Cardiovascular Cardiovascular exam: Present: regular rate, normal rhythm, normal heart sounds. Absent: murmur, rubs, gallop - Abdominal Exam Abdominal exam: Present: soft, normal bowel sounds. Absent: distention, tenderness, guarding - Extremities Exam Extremities exam: Present: full ROM, other (diaylsis noted to left upper arm) - Back Exam Back exam: Present: full ROM. Absent: tenderness - Neurological Exam Neurological exam: Present: alert, oriented X3, CN II-XII intact. Absent: motor sensory deficit - Psychiatric Psychiatric exam: Present: normal affect, normal mood - Skin Skin exam: Present: warm, dry, intact, normal color, other (diaylsis noted to left upper arm; Dialysis cath noted to left upper chest) Results - Labs CBC & BMP: 10/11/16 13:52 Lab Results: I have reviewed the patients labs Labs: Microbiology 10/11/16 13:30 Nasal Aspirate Influenza Types A,B Antigen (MARILOU) - Final Negative for Influenza A Ag Negative for Influenza B Ag Laboratory Tests 10/11/16 10/11/16 13:52 13:52 WBC 7.7 RBC 3.66 L Hgb 11.1 L Hct 34.7 L Plt Count 101 L Neut % (Auto) 90.1 H Lymph % (Auto) 5.9 L Lymph # (Auto) 0.5 L [place] # (Auto) 0.1 L Lactic Acid 1.0 - Diagnostic Findings Procedure: Chest x-ray: report reviewed by me (Minimal increasing intersitial infiltrates versus edema superimposed on chronic changes. ) Disposition Clinical Impression: Line sepsis associated with dialysis catheter Case discussed with: patient Disposition: Still a Patient Condition: Guarded Additional Instructions: Admit to hospitalist for IV antibiotics.
[2016-10-11 14:48] LABS: Alanine Aminotransferase 15 U/L (13-56); Albumin 3.3 G/DL (3.4-5.0); Alkaline Phosphatase 120 U/L (45-117); Amylase 101 U/L (25-115); Aspartate Amino Transferase 15 U/L (0-37); Bilirubin,Total < 0.39 MG/DL (0.2-1.0); Blood Urea Nitrogen 39 MG/DL (7-18); Calcium 8.4 MG/DL (8.5-10.1); Glucose 91 MG/DL (74-106); Potassium 4.2 MMOL/L (3.5-5.1); Sodium 136 MMOL/L (136-145); Total Protein 7.1 G/DL (6.4-8.3)
--- NOTE | 2016-10-11 15:09 | Hospitalist History & Physical ---
<ColleenMontserrat sandoval - Last Filed: 10/11/16 15:06> History of Present Illness Chief complaint: Shortness of breath, chest pain History of present illness: Ms. Dee is a 75 year old female -Af[place] female with history of lung disease, heart disease, end-stage renal disease on hemodialysis, diabetes, and hypertension presenting to the ED with complaints of shortness of breath and chest pain along with fevers and nausea and vomiting starting yesterday. Patient states she was on dialysis yesterday when she started to feel bad and she did run a fever. She completed her dialysis time went home and took some Tylenol. She did have some nausea and vomiting last night. She states she woke up this morning and she was feeling worse. She is having some shortness of breath, chest pain, fever, and nausea. She denies headache, dizziness, abdominal pain, constipation, diarrhea, or lower extremity edema. Patient's dirt bike racer is Dr. Baker and her surgeon is Dr. Osman. Patient had an AV graft placed in her left upper extremity on 08/20/2016 and they have been using this in dialysis without any problems. Patient has a Tesio catheter in the left chest that was placed on 07/19/2016. She states she has an appointment with Dr. Osman later this month to have it removed. Upon exam patient is flushed and short of breath. She has 101.3 fever, tachycardic in the 110s, tachypneic at 27, and blood pressure was 98 systolic. Patient was discussed with ED physician Dr. Oneill and admitting hospitalist . Home Medications Medication Instructions Recorded Confirmed Type Atorvastatin [Lipitor] 20 mg PO BEDTIME #30 tablet 11/13/15 10/11/16 Rx Carvedilol [Coreg] 25 mg PO BID #60 tablet 11/13/15 10/11/16 Rx Calcium Acetate 667 mg PO TID W/MEALS 02/03/16 10/11/16 History Nitroglycerin Sl Tab [Nitrostat] 0.4 mg SL Q5M PRN 02/03/16 10/11/16 History cloNIDine 0.2 MG/24 HR PATCH 1 patch TRANSDERM SA 02/03/16 10/11/16 History [Mophuejr-FWE-3 Patch] Apixaban [Eliquis] 5 mg PO BID #60 tablet 08/24/16 10/11/16 Rx Prorenal D 1 tablet PO DAILY 10/11/16 10/11/16 History Allergies Allergy/AdvReac Type Severity Reaction Status Date / Time levofloxacin [From Levaquin] Allergy Severe ANAPHYLAXIS Verified 08/15/16 14:26 penicillin G Allergy Severe RASH Verified 08/15/16 14:26 lisinopril AdvReac Unknown Unknown/Unable Verified 08/15/16 14:26 to obtain Medical,Surgical,& Family Hx - Medical History Cardio: History of: CHF (nonischemic cardiomyopathy), Hypertension, Pacemaker ( AICD) No history of: CAD Neurology: No history of: Seizures Respiratory: History of: COPD Renal: History of: Dialysis (es, , Sat), Renal Failure, Renal Problems ( tesso left chest) Genitourinary: History of: Genitourinary Cancer Gastrointestinal: History of: GERD, GI Problems (patient has hx of colostomy- now reversed) - Surgical History Cardiac Surgeries: Sugical HX of: Cardiac Catheterization, Internal Defibrillator Thoracic Surgeries: Patient denies;: Organ Transplant Reproductive Surgeries: Surgical HX of;: Gynecologic Surgery, Hysterectomy - Family History Family History: Reports;: Family Diabetes (mother), Family Hypertension (mother , brothers,sisters) - Social History Smoking Status: Current some day smoker Exam - Constitutional Vitals: Period Temp Pulse Resp BP Sys/Ngo Pulse Ox Last 24 Hr 101.3 F Results - Labs CBC & BMP: 10/11/16 13:52 10/11/16 13:52 <Dariela Abarca - Last Filed: 10/11/16 16:36> History of Present Illness History of present illness: Ms. Dee is a 75 year old female Exam - Constitutional Vitals: Period Temp Pulse Resp BP Sys/Ngo Pulse Ox Last 24 Hr 100.8 F-101.3 F 84-93 13-22 112-122/50-53 95-97 Results - Labs CBC & BMP: 10/11/16 13:52 10/11/16 13:52
[2016-10-11] MEDS ORDERED: ONDANSETRON 4 MG/2 ML VIAL IV PRN (15:19)
[2016-10-11] MEDS ORDERED: diphenhydrAMINE CAP 25 MG CAPSULE PO PRN (15:19)
[2016-10-11] MEDS ORDERED: DEXTROSE 50% 25 GM/50 ML VIAL IV PRN (15:19)
[2016-10-11] MEDS ORDERED: GLUCAGON 1 MG VIAL IM PRN (15:19)
[2016-10-11] MEDS ORDERED: ACETAMINOPHEN 325 MG TABLET PO PRN (15:19)
[2016-10-11] MEDS ORDERED: guaiFENesin/DM ER 600-30 MG TABLET PO PRN (15:19)
[2016-10-11] MEDS ORDERED: MORPHINE 2 MG/1 ML SYRINGE IV PRN (15:19)
[2016-10-11] MEDS ORDERED: DOCUSATE SODIUM 100 MG CAPSULE PO PRN (15:19)
[2016-10-11] MEDS ORDERED: SODIUM CHLORIDE 0.9% 500 ML IV ONE (15:27)
[2016-10-11] MEDS ORDERED: NITROGLYCERIN SL 0.4 MG TABLET SL PRN (15:28)
[2016-10-11] MEDS ORDERED: ENOXAPARIN 30 MG/0.3 ML SYRINGE SUBCUT SCH (15:30)
[2016-10-11] MEDS: PANTOPRAZOLE 40 MG TABLET PO SCH (15:49)
--- NOTE | 2016-10-11 15:56 | Nephrology Consult Note ---
History of Present Illness Chief complaint: Fever with indwelling dialysis catheter, ESRD History of present illness: Ms. Dee is a 75 year old female with end-stage renal disease who presents with fever to 104. She underwent hemodialysis yesterday and is been using her left upper arm fistula all week and was to have her dialysis catheter removed at a later date. However she has come in now with fever without drainage from the dialysis catheter exit site but the likely source for her fever is the indwelling dialysis catheter. She still smokes half pack cigarettes daily. Chest is clear heart without rub or gallop no peripheral edema she is alert and able to give good history. There is no drainage from the catheter exit site. Chest x-ray is reviewed and demonstrates no evidence of volume overload small pleural effusions present on the right she has permanent pacer and the dialysis catheter is in good position on chest x-ray. White count 7700 with marked left shift. Impression fever with an indwelling dialysis catheter #2 end-stage renal disease #3 chronic cigarette smoking #4 COPD Plan blood cultures have been done will cover with coverage for both staph and gram negatives until cultures return she will be dialyzed tomorrow. Home Medications Medication Instructions Recorded Confirmed Type Atorvastatin [Lipitor] 20 mg PO BEDTIME #30 tablet 11/13/15 10/11/16 Rx Carvedilol [Coreg] 25 mg PO BID #60 tablet 11/13/15 10/11/16 Rx Calcium Acetate 667 mg PO TID W/MEALS 02/03/16 10/11/16 History Nitroglycerin Sl Tab [Nitrostat] 0.4 mg SL Q5M PRN 02/03/16 10/11/16 History cloNIDine 0.2 MG/24 HR PATCH 1 patch TRANSDERM SA 02/03/16 10/11/16 History [Yijzedag-CWF-3 Patch] Apixaban [Eliquis] 5 mg PO BID #60 tablet 08/24/16 10/11/16 Rx Prorenal D 1 tablet PO DAILY 10/11/16 10/11/16 History Allergies Allergy/AdvReac Type Severity Reaction Status Date / Time levofloxacin [From Levaquin] Allergy Severe ANAPHYLAXIS Verified 08/15/16 14:26 penicillin G Allergy Severe RASH Verified 08/15/16 14:26 lisinopril AdvReac Unknown Unknown/Unable Verified 08/15/16 14:26 to obtain Medical,Surgical,& Family Hx - Medical History Cardio: History of: CHF (nonischemic cardiomyopathy), Hypertension, Pacemaker ( AICD) No history of: CAD Neurology: No history of: Seizures Respiratory: History of: Bronchitis, COPD, Pneumonia Renal: History of: Dialysis (Tues, Thurs, Sat), Renal Failure, Renal Problems ( tesso left chest) Genitourinary: History of: Genitourinary Cancer Gastrointestinal: History of: GERD, GI Problems (patient has hx of colostomy- now reversed) Hematology: History of: Anemia Reproductive: History of: Ovarian Cysts - Surgical History Cardiac Surgeries: Sugical HX of: Cardiac Catheterization, Internal Defibrillator Thoracic Surgeries: Patient denies;: Organ Transplant Abdominal Surgeries: Surgical HX of: Abdominal Surgery Reproductive Surgeries: Surgical HX of;: Genitourinary Surgery (ovaries removed) , Gynecologic Surgery, Hysterectomy - Family History Family History: Reports;: Family Diabetes (mother), Family Hypertension (mother , brothers,sisters) - Social History Smoking Status: Current some day smoker Frequency of Alcohol Use: None Type of Drug Use: None Review of Systems 12 point system: reviewed and no additional remarkable complaints except as stated Exam - Vital Signs Vital signs: Period Temp Pulse Resp BP Sys/Ngo Pulse Ox Last 24 Hr 100.8 F-101.3 F 84-85 13-20 112-119/51-53 97-97 - General Appearance General appearance: well-developed, well-nourished, appears started age EENT: ATNC Neck: no JVD, no thyromegaly, no carotid bruit, supple Respiratory: no kyphosis, no scoliosis Cardiology: no murmurs, no rub, no gallops, no edema, regular rate, regular rhythm, normal S1, normal S2 Gastrointestinal: normoactive bowel sounds Integumentary: no rash, warm and dry Neurologic: no focal deficit, no asterixis, alert and oriented x3, reflexes 2+ and symmetric, gait normal, strength 5/5 Musculoskeletal: no deformities, no erythema, no cyanosis, no clubbing Psychiatric: mood/affect appropriate, cooperative Results - Labs CBC & BMP: 10/11/16 13:52 10/11/16 13:52 Assessment and Plan - Time spent with patient Time spent with patient: Greater than 30 minutes (1) ESRD (end stage renal disease) on dialysis Status: Chronic Assessment and plan: TTS dialysis with left arm access Current Visit: No (2) Acute febrile illness Status: Acute Assessment and plan: Likely catheter sepsis Current Visit: No (3) Tobacco use Status: Chronic Assessment and plan: 1/2 pack daily Current Visit: No Specialty Discharge - Follow Up or Referrals - Speciality Discharge Instructions Nephrology Instructions: Blood cultures, antibiotics, remove catheter, use arm access for dialysis
[2016-10-11] MEDS ORDERED: ENOXAPARIN 40 MG/0.4 ML SYRINGE SUBCUT SCH (16:00)
[2016-10-11] MEDS: MULTIVITAMIN (BEROCCA) TABLET PO SCH (16:47)
[2016-10-11] MEDS: CALCIUM ACETATE 667 MG CAPSULE PO SCH (16:47)
[2016-10-11] MEDS: SODIUM CHLORIDE 0.9% 1,000 ML IV SCH (16:47)
[2016-10-11] MEDS: MEROPENEM 500 MG in SODIUM CHLORIDE 0.9% 100 ML IV SCH (16:47)
[2016-10-11] MEDS: INSULIN LISPRO 100 UNIT/ML SUBCUT SCH (16:47)
[2016-10-11] MEDS ORDERED: GENTAMICIN INJ 100 MG in PREMIX 1 EACH IV ONE (18:00)
--- NOTE | 2016-10-11 18:50 | Event Note ---
75-year-old -Cam[place] female admitted with line sepsis. Patient has been using her left upper extremity graft for 1-2 weeks now without any difficulty. Patient has a left chest wall indwelling catheter that is no longer being used. She has had fevers to 104 with hypotension, tachycardia, with shortness of breath and chest pain. Upon exam the catheter is tender and loose. Dr. Osman was notified of patient's line sepsis and he recommended removal. The area of the cuff was injected with 1% lidocaine. The cuff was dissected out using 11 blade and hemostats with minimal bleeding. Wound was sutured with 3-0 silk. Estimated blood loss is 1-2 cc. Pressure dressing was placed. Dr. Hernandez from nephrology was present for removal.
[2016-10-11] MEDS ORDERED: CARVEDILOL 25 MG TABLET PO SCH (21:00)
[2016-10-11] MEDS: CARVEDILOL 12.5 MG TABLET PO SCH (21:08)
[2016-10-11] MEDS: ATORVASTATIN 20 MG TABLET PO SCH (21:08)
[2016-10-12] MEDS: MEROPENEM 500 MG in SODIUM CHLORIDE 0.9% 100 ML IV SCH ×2 (04:53→16:05)
[2016-10-12] MEDS: SODIUM CHLORIDE 0.9% 1,000 ML IV SCH (05:03)
[2016-10-12 06:23] LABS: Calcium 6.6 MG/DL (8.5-10.1); Magnesium 1.5 MG/DL (1.8-2.4); Osmolality,Calculated 291.8 MOS/KG (273-304); Potassium 3.6 MMOL/L (3.5-5.1)
[2016-10-12 07:00] LABS: Basophils % 0.1 % (0.0-0.8); Eosinophils # 0.3 10*3/uL (0.0-0.87); Hemoglobin 10.1 GM/DL (12.0-16.0); Immature Granulocytes % 0.3 %; Immature Granulocytes Absolute 0.04 #; Lymphocytes # 1.2 10*3/uL (1.4-4.0); Lymphocytes % 9.6 % (21.3-54.2); Mean Corpuscular HGB Conc 29.7 GM/DL (32-36); Mean Corpuscular Hemoglobin 30 PG (27-34); Mean Corpuscular Volume 99.4 FL (87-102); Mean Platelet Volume 11.1 FL (9.6-12.0); Monocytes # 1.3 10*3/uL (0.11-0.8); Neutrophils # 9.9 10*3/uL (1.4-7.4); Platelet Count 92 T/CUMM (130-400); Red Blood Count 3.42 MC/CUMM (3.8-5.5); Red Cell Distribution Width 14.2 % (9.3-17.3); White Blood Count 12.6 T/CUMM (4-12)
[2016-10-12 07:33] LABS: Platelet Estimate Decreased
[2016-10-12] MEDS: INSULIN LISPRO 100 UNIT/ML SUBCUT SCH ×2 (08:02→16:01)
--- NOTE | 2016-10-12 08:31 | EKG Report ---
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
--- NOTE | 2016-10-12 08:39 | Nephrology Progress Note ---
Nephrology - PN: Subj Interval history: Ms. Dee is seen in follow-up of her end-stage renal disease and Sepsis. She is doing much better since line removal. She has had no fever since yesterday afternoon. Cultures are pending but she is well covered for both gram-negative and gram-positive organisms. She is alert blood pressure 140. I think she will be able to dialyze in the dialysis unit today and can leave the intensive care unit. Exam (PN)-Nephrology - Vital Signs Vital signs: Period Temp Pulse Resp BP Sys/Ngo Pulse Ox Last 24 Hr 97.1 F-101.3 F 63-93 13-24 109-147/50-63 95-97 - Lab 10/12/16 06:39 10/12/16 05:32 Most recent lab results Calcium 6.6 MG/DL (8.5-10.1) L 10/12/16 05:32 Magnesium 1.5 MG/DL (1.8-2.4) L 10/12/16 05:32 Assessment and Plan (1) ESRD (end stage renal disease) on dialysis Status: Chronic Assessment and plan: TTS dialysis with left arm access Current Visit: No (2) Acute febrile illness Status: Acute Assessment and plan: Likely catheter sepsis Current Visit: No (3) Tobacco use Status: Chronic Assessment and plan: 1/2 pack daily Current Visit: No
[2016-10-12] MEDS: CALCIUM ACETATE 667 MG CAPSULE PO SCH ×3 (08:41→16:05)
[2016-10-12] MEDS: CARVEDILOL 12.5 MG TABLET PO SCH ×2 (08:41→20:25)
[2016-10-12] MEDS: MULTIVITAMIN (BEROCCA) TABLET PO SCH (08:41)
[2016-10-12] MEDS: PANTOPRAZOLE 40 MG TABLET PO SCH (08:42)
--- NOTE | 2016-10-12 10:14 | EKG Report ---
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
--- NOTE | 2016-10-12 10:51 | Hospitalist Progress Note ---
Assessment and Plan (1) ESRD (end stage renal disease) on dialysis Status: Chronic Assessment and plan: Continue dialysis. Nephrology of been the case for this. Understand the patient will be receiving dialysis today. She can be transferred to medical floor after dialysis Current Visit: No (2) Line sepsis associated with dialysis catheter Status: Acute Assessment and plan: Review the antibiotic sulfa. Will discontinue the gentamicin until this needed. Patient did get a dose of vancomycin yesterday we will repeat vancomycin after dialysis today. Check vancomycin trough levels tomorrow. Can continue meropenem 500 mg IV every 12 hours. Current Visit: Yes Hospitalist: Subjective Interval history: Patient has been seen interviewed and examined. She is awake and answering questions appropriately. Admitted yesterday with suspicion of line sepsis. Unfortunately there are no blood cultures to define to me as to what the bacteremia associated with Placement was. She did have a Tesio dialysis catheter in the left chest which is since been removed. The tip of the catheter has been cultured but there are no culture reports at this point. She is currently on meropenem which she is tolerating well despite a history of penicillin allergy patient did have a dose of vancomycin yesterday. If this turns out to be staphylococcal infection she will need vancomycin after dialysis session. He also did receive a dose of gentamicin yesterday and there was another dose of gentamicin ordered today which I do not see the exact need for this point unless we end up having continuous staphylococcal bacteremia which has not been demonstrated yet. She has a gram-negative anywhere meropenem should be able to cover. Exam - Constitutional Vitals: Period Temp Pulse Resp BP Sys/Ngo Pulse Ox Last 24 Hr 97.1 F-101.3 F 63-93 13-24 109-147/50-63 95-97 General appearance: normal weight - Head Head exam: Present: normocephalic, atraumatic - Eye Eye exam: Present: EOMI Pupils: Present: ANDRÉS - ENT ENT exam: Present: normal oropharynx - Neck Neck exam: Present: normal inspection - Respiratory Respiratory exam: Present: clear to auscultation bilaterally - Cardiovascular Cardiovascular exam: Present: regular rate and rhythm - GI/Abdominal GI/Abdominal exam: Present: normal bowel sounds, soft - Extremities Exam Extremities exam: Present: normal inspection, normal capillary refill, full ROM - Neurological Exam Neurological exam: Present: alert, oriented X3, CN II-XII intact - Psychiatric Psychiatric exam: Present: normal affect, normal mood - Skin Skin exam: Present: normal color, warm, dry Results - Labs CBC & BMP: 10/12/16 06:39 10/12/16 05:32 Lab Results: I have reviewed the past 24 hour labs
[2016-10-12] MEDS ORDERED: GENTAMICIN INJ 100 MG in PREMIX 1 EACH IV ONE (12:00)
--- NOTE | 2016-10-12 12:36 | Dialysis Note ---
Dialysis Note - Dialysis Note Ms. Dee is seen during her hemodialysis. She is tolerating well with stable blood pressure. She is alert in no distress. If she is doing well tomorrow she likely can go home and we could continue vancomycin and gentamicin as an outpatient pending results of culture. The antibiotics can be given with dialysis
--- NOTE | 2016-10-12 14:14 | ECHO Report ---
[place], [place] Exam Date: 10/12/2016 08:19 Referring Physician: Technologist: Shana Collins RDCS Age: 75 Ht (in): 63 Wt (lb): 180 Gender: F Exam [facility]: [facility] Echo Indications: Sepsis, End stage renal disease, Essential (primary) hypertension, IDDM, COPD, Chest pain, unspecified, Shortness of breath, Acute febrile illness BP: 147 / 58 HR: 60 Rhythm: Pacemaker Technical Quality: IMPRESSIONS Normal left ventricular cavity size. Mild concentric left ventricular hypertrophy. Abnormal septal motion, normal systolic wall thickening. Estimated left ventricular ejection fraction 55%. Grade 2 diastolic dysfucntion. ICD in place. Moderate biatrial enlargement. Thickened mitral valve. Mild mitral annular calcification. Mild mitral valve regurgitation. Aortic valve sclerosis without stenosis. Mild aortic valve regurgitation. Moderate pulmonary hypertension. MEASUREMENTS (Male / Female) Normal Values 2D ECHO LV Diastolic Diameter PLAX 5.2 cm 4.2 - 5.9 / 3.9 - 5.3 cm LV Systolic Diameter PLAX 3.9 cm LV Fractional Shortening PLAX 25.9 % IVS Diastolic Thickness 1.2 cm 0.6 - 1.0 / 0.6 - 0.9 cm LVPW Diastolic Thickness 1.1 cm 0.6 - 1.0 / 0.6 - 0.9 cm RV Internal Dim ED PLAX 3.8 cm Aortic Root Diameter 3.6 cm LA Systolic Diameter LX 5.4 cm 3.0 - 4.0 / 2.7 - 3.8 cm DOPPLER TR Peak Velocity 345.0 cm/s TR Peak Gradient 47.6 mmHg FINDINGS Left Ventricle Normal left ventricular cavity size. Mild left ventricular hypertrophy. Abnormal septal motion, normal systolic wall thickening. Estimated left ventricular ejection fraction 55%. Grade 2 diastolic dysfucntion. Right Ventricle Normal right ventricular size. ICD wire visualized in the right ventricle. Right Atrium Moderately increased right atrial size. Pacemaker wire in the right atrial cavity. Left Atrium Moderately increased left atrial size. Mitral Valve Thickened mitral valve. Mild mitral annular calcification. Mild mitral valve regurgitation. Aortic Valve Aortic valve sclerosis without stenosis. Mild aortic valve regurgitation. Tricuspid Valve Morphologically normal tricuspid valve. Moderate tricuspid valve regurgitation. Tricuspid regurgitation velocities suggest a PAP of 58 mmHg. Pulmonic Valve Morphologically normal pulmonic valve. Trace pulmonary valve regurgitation. Pericardium Normal pericardium without effusion. Aorta Normal ascending aorta dimension. Srinivas Thompson (Electronically Signed) Final Date: 12 October 2016 14:13
[2016-10-12] MEDS ORDERED: cloNIDine 0.2 MG/24 HR PATCH TRANSDERM SCH (15:28)
[2016-10-12] MEDS: ATORVASTATIN 20 MG TABLET PO SCH (20:25)
[2016-10-13] MEDS: MEROPENEM 500 MG in SODIUM CHLORIDE 0.9% 100 ML IV SCH ×2 (05:10→17:34)
[2016-10-13] MEDS: CALCIUM ACETATE 667 MG CAPSULE PO SCH ×3 (09:53→17:34)
[2016-10-13] MEDS: MULTIVITAMIN (BEROCCA) TABLET PO SCH (09:54)
[2016-10-13] MEDS: INSULIN LISPRO 100 UNIT/ML SUBCUT SCH ×2 (09:54→17:03)
[2016-10-13] MEDS: PANTOPRAZOLE 40 MG TABLET PO SCH (09:54)
[2016-10-13] MEDS: CARVEDILOL 12.5 MG TABLET PO SCH ×2 (09:54→20:29)
--- NOTE | 2016-10-13 10:48 | Nephrology Progress Note ---
Nephrology - PN: Subj Interval history: Ms. Dee is seen in follow-up of her end-stage renal disease. She is doing well and is afebrile since her dialysis catheter was removed. Blood cultures growing gram-positive cocci and this will likely nocturnist physician to be staph aureus. She can receive vancomycin with her outpatient dialysis and will likely only need 2 weeks of this since the line has been removed. She did receive 1 dose of vancomycin on October 11 and we will give her another dose today. Exam (PN)-Nephrology - Vital Signs Vital signs: Period Temp Pulse Resp BP Sys/Ngo Pulse Ox Last 24 Hr 97.5 F-99.0 F 64-72 18-20 123-162/61-79 95-100 - Lab 10/12/16 06:39 10/12/16 05:32 Most recent lab results Calcium 6.6 MG/DL (8.5-10.1) L 10/12/16 05:32 Magnesium 1.5 MG/DL (1.8-2.4) L 10/12/16 05:32 Assessment and Plan (1) ESRD (end stage renal disease) on dialysis Status: Chronic Assessment and plan: TTS dialysis with left arm access Current Visit: No (2) Acute febrile illness Status: Acute Assessment and plan: Likely catheter sepsis Current Visit: No (3) Tobacco use Status: Chronic Assessment and plan: 1/2 pack daily Current Visit: No
[2016-10-13] MEDS ORDERED: VANCOMYCIN INJ 1,000 MG in SODIUM CHLORIDE 0.9% 250 ML IV ONE (10:49)
--- NOTE | 2016-10-13 13:25 | Hospitalist Progress Note ---
Assessment and Plan (1) ESRD (end stage renal disease) on dialysis Status: Chronic Assessment and plan: Continue dialysis. Nephrology of been the case for this. Understand the patient will be receiving dialysis today. She can be transferred to medical floor after dialysis Current Visit: No (2) Line sepsis associated with dialysis catheter Status: Acute Assessment and plan: Review the antibiotic sulfa. Will discontinue the gentamicin until this needed. Patient did get a dose of vancomycin yesterday we will repeat vancomycin after dialysis today. Check vancomycin trough levels tomorrow. Can continue meropenem 500 mg IV every 12 hours. Current Visit: Yes Hospitalist: Subjective Interval history: Patient is seen interviewed and examined and chart has been reviewed patient was first seen yesterday in intensive care unit and transferred to medical floor. She had been admitted there with line sepsis suspected infection of a Tessio dialysis catheter. Catheter tip was cultured but I see no reports today. She denies any fever she is comfortable. Reportedly she lives at home and have been told to sign a form regarding Medicaid waiver for help at home. This form was signed today and should be on chart. Exam - Constitutional Vitals: Period Temp Pulse Resp BP Sys/Ngo Pulse Ox Last 24 Hr 97.5 F-99.0 F 64-72 18-20 123-162/61-79 95-100 General appearance: normal weight - Head Head exam: Present: normocephalic, atraumatic - Eye Eye exam: Present: EOMI Pupils: Present: ANDRÉS - ENT ENT exam: Present: normal exam - Neck Neck exam: Present: normal inspection - Respiratory Respiratory exam: Present: clear to auscultation bilaterally - Cardiovascular Cardiovascular exam: Present: other (Regular rhythm with occasional ectopy) - GI/Abdominal GI/Abdominal exam: Present: normal bowel sounds, soft - Back Exam Back exam: Present: normal inspection - Neurological Exam Neurological exam: Present: oriented X3, CN II-XII intact - Psychiatric Psychiatric exam: Present: normal affect, normal mood - Skin Skin exam: Present: normal color, warm, dry Results - Labs CBC & BMP: 10/12/16 06:39 10/12/16 05:32 Lab Results: I have reviewed the past 24 hour labs
[2016-10-13] MEDS: ATORVASTATIN 20 MG TABLET PO SCH (20:28)
[2016-10-14] MEDS: MEROPENEM 500 MG in SODIUM CHLORIDE 0.9% 100 ML IV SCH ×2 (05:12→21:45)
[2016-10-14] MEDS: MULTIVITAMIN (BEROCCA) TABLET PO SCH (09:12)
[2016-10-14] MEDS: CALCIUM ACETATE 667 MG CAPSULE PO SCH ×3 (09:12→16:28)
[2016-10-14] MEDS: CARVEDILOL 12.5 MG TABLET PO SCH ×2 (09:12→21:03)
[2016-10-14] MEDS: PANTOPRAZOLE 40 MG TABLET PO SCH (09:12)
[2016-10-14] MEDS: INSULIN LISPRO 100 UNIT/ML SUBCUT SCH ×2 (09:12→19:51)
--- NOTE | 2016-10-14 09:39 | Nephrology Progress Note ---
Nephrology - PN: Subj Interval history: Ms. Dee is seen in follow-up of her gram-positive bacteremia thought secondary to dialysis catheter. She is growing gram-positive cocci from her blood and the dialysis catheter which was removed on 10 11. She has been afebrile since that time and is receiving vancomycin along with marrow. Final culture with sensitivities is pending. We are going to continue vancomycin for now. Her chest is clear her only complaint today is of constipation. Exam (PN)-Nephrology - Vital Signs Vital signs: Period Temp Pulse Resp BP Sys/Ngo Pulse Ox Last 24 Hr 98.6 F-99.8 F 67-74 20-21 137-170/65-78 94-100 - Lab 10/12/16 06:39 10/12/16 05:32 Most recent lab results Calcium 6.6 MG/DL (8.5-10.1) L 10/12/16 05:32 Magnesium 1.5 MG/DL (1.8-2.4) L 10/12/16 05:32 Assessment and Plan (1) ESRD (end stage renal disease) on dialysis Status: Chronic Assessment and plan: TTS dialysis with left arm access Current Visit: No (2) Acute febrile illness Status: Acute Assessment and plan: Likely catheter sepsis Current Visit: No (3) Tobacco use Status: Chronic Assessment and plan: 1/2 pack daily Current Visit: No
[2016-10-14] MEDS ORDERED: MAGNESIUM HYDROXIDE SUSP 30 ML UDCUP PO ONE (10:00)
[2016-10-14] MEDS ORDERED: LACTULOSE 20 GM/30 ML UDCUP PO PRN (10:41)
--- NOTE | 2016-10-14 11:20 | Hospitalist Progress Note ---
Assessment and Plan (1) ESRD (end stage renal disease) on dialysis Status: Chronic Assessment and plan: Continue dialysis. Nephrology of been the case for this. Understand the patient will be receiving dialysis today. She can be transferred to medical floor after dialysis Current Visit: No (2) Line sepsis associated with dialysis catheter Status: Acute Assessment and plan: Review the antibiotic sulfa. Will discontinue the gentamicin until this needed. Patient did get a dose of vancomycin yesterday we will repeat vancomycin after dialysis today. Check vancomycin trough levels tomorrow. Can continue meropenem 500 mg IV every 12 hours. Current Visit: Yes (3) Thrombocytopenia Status: Acute Assessment and plan: Patient at admission at platelet count of 101,000. Is now dropped down to 92. She did receive some vancomycin. I suspect this could have something to do with it. Been afebrile. The central line that is suspected to be infected versus long been removed. Believe the vancomycin can be stopped and this is needed later. Current Visit: Yes (4) Constipation Status: Resolved Assessment and plan: Patient has received some lactulose today and will give her some soapsuds enema 1. Had one small bowel movement since then. Reassess the patient in the morning. Repeating a BMP and magnesium and CBC in the morning. Chances that she will be discharged tomorrow Current Visit: No Hospitalist: Subjective Interval history: Patient has been seen interviewed and examined and chart has been reviewed. Patient is complaining of obstipation. Given some lactulose 20 g every day and give her soapsuds enema. Patient should be up for dialysis again today. Exam - Constitutional Vitals: Period Temp Pulse Resp BP Sys/Ngo Pulse Ox Last 24 Hr 98.6 F-99.8 F 67-74 20-21 137-170/65-78 94-100 General appearance: normal weight, other (Very nice lady) - Head Head exam: Present: normocephalic, atraumatic - Eye Eye exam: Present: EOMI Pupils: Present: ANDRÉS - ENT ENT exam: Present: normal oropharynx - Neck Neck exam: Present: normal inspection - Respiratory Respiratory exam: Present: clear to auscultation bilaterally - Cardiovascular Cardiovascular exam: Present: regular rate and rhythm - GI/Abdominal GI/Abdominal exam: Present: normal bowel sounds, soft - Extremities Exam Extremities exam: Present: full ROM - Back Exam Back exam: Present: normal inspection - Neurological Exam Neurological exam: Present: alert, oriented X3, CN II-XII intact - Psychiatric Psychiatric exam: Present: normal affect, normal mood - Skin Skin exam: Present: normal color, warm, dry, other (Area of the previous Tessio catheter is clean no sign of infection) Results - Labs CBC & BMP: 10/12/16 06:39 10/12/16 05:32 Lab Results: I have reviewed the past 24 hour labs (Noted with chronic thrombocytopenia relative hypoglycemia patient has no signs of neuroglycopenia is about to eat)
--- NOTE | 2016-10-14 16:18 | Event Note ---
Patient known to me. She came to the hospital [facility] with sepsis. Her tunnel hemodialysis catheter was removed with my permission. She's feeling much better. She's been dialyzing through her left arm AV graft without problems. There is no evidence of infection of the graft. There is no abnormal tenderness or warmth. There is no cellulitis and there is no fluid collection. Incisions appear well with no sign of infection and there is no further drainage. He has appointment with me next week. Nothing further surgically needed at this time.
[2016-10-14] MEDS: ATORVASTATIN 20 MG TABLET PO SCH (21:03)
[2016-10-15 05:41] LABS: Basophils % 0.3 % (0.0-0.8); Eosinophils # 0.2 10*3/uL (0.0-0.87); Eosinophils % 1.9 % (0.00-10.9); Hematocrit 33.2 VOL% (35.7-47.0); Hemoglobin 9.9 GM/DL (12.0-16.0); Immature Granulocytes % 0.5 %; Immature Granulocytes Absolute 0.04 #; Lymphocytes # 1.2 10*3/uL (1.4-4.0); Lymphocytes % 15.3 % (21.3-54.2); Mean Corpuscular HGB Conc 29.8 GM/DL (32-36); Mean Corpuscular Hemoglobin 30 PG (27-34); Mean Corpuscular Volume 98.8 FL (87-102); Mean Platelet Volume 10.8 FL (9.6-12.0); Monocytes % 13.2 % (1.7-12.7); Neutrophils # 5.4 10*3/uL (1.4-7.4); Neutrophils % 68.8 % (38.7-73.9); Platelet Count 116 T/CUMM (130-400); Red Blood Count 3.36 MC/CUMM (3.8-5.5); Red Cell Distribution Width 13.7 % (9.3-17.3); White Blood Count 7.8 T/CUMM (4-12)
[2016-10-15 06:10] LABS: Calcium 7.9 MG/DL (8.5-10.1); Magnesium 2.1 MG/DL (1.8-2.4); Osmolality,Calculated 282.7 MOS/KG (273-304); Potassium 5.3 MMOL/L (3.5-5.1)
--- NOTE | 2016-10-15 08:35 | Dialysis Note ---
Dialysis Note - Dialysis Note Ms. Dee seen during hemodialysis. She is doing well. She has been afebrile since catheter removal. I think she is fine to go home and will continue vancomycin for a total of 2 weeks. Cultures from the catheter tip growing staph epi and blood cultures are growing gram-positive cocci which will probably be the same organism.
[2016-10-15] MEDS: INSULIN LISPRO 100 UNIT/ML SUBCUT SCH (10:01)
[2016-10-15] MEDS: CALCIUM ACETATE 667 MG CAPSULE PO SCH ×2 (10:02→13:09)
[2016-10-15] MEDS: PANTOPRAZOLE 40 MG TABLET PO SCH (10:02)
[2016-10-15] MEDS: CARVEDILOL 12.5 MG TABLET PO SCH (10:02)
[2016-10-15] MEDS: MULTIVITAMIN (BEROCCA) TABLET PO SCH (10:02)
--- NOTE | 2016-10-15 10:56 | Hospitalist Progress Note ---
Assessment and Plan (1) ESRD (end stage renal disease) on dialysis Status: Chronic Assessment and plan: Continue dialysis. Nephrology of been the case for this. Understand the patient will be receiving dialysis today. She can be transferred to medical floor after dialysis Current Visit: No (2) Line sepsis associated with dialysis catheter Status: Acute Assessment and plan: Patient isolated coag negative staph on catheter tip culture. She has had vancomycin Lovenox. She is afebrile white count is normal discontinue the antibiotics. I plan to discharge her today Current Visit: Yes (3) Thrombocytopenia Status: Acute Assessment and plan: Patient at admission at platelet count of 101,000. Is now dropped down to 92. She did receive some vancomycin. I suspect this could have something to do with it. Been afebrile. The central line that is suspected to be infected versus long been removed. Believe the vancomycin can be stopped and this is needed later. Current Visit: Yes (4) Constipation Status: Resolved Assessment and plan: Patient has received some lactulose today and will give her some soapsuds enema 1. Had one small bowel movement since then. Reassess the patient in the morning. Repeating a BMP and magnesium and CBC in the morning. Chances that she will be discharged tomorrow Current Visit: No Hospitalist: Subjective Interval history: Patient has been seen interviewed and examined. Patient is examined in the dialysis unit. Admitted to the hospital with line associated sepsis. She did have a Tesio catheter that was removed. Initial blood cultures did grow gram- positive cocci in the Tesio catheter tip did grow coag negative staph. Since moving to tube patient has been afebrile CBC is of normal white count she is eating well she is awake alert tolerating her dialysis. I believe we should de- escalate antibiotic treatment at this point. Exam - Constitutional Vitals: Period Temp Pulse Resp BP Sys/Ngo Pulse Ox Last 24 Hr 97.2 F-100.0 F 66-75 16-22 128-176/62-77 95-100 General appearance: normal weight - Head Head exam: Present: normocephalic, atraumatic - Eye Eye exam: Present: EOMI Pupils: Present: ANDRÉS - ENT ENT exam: Present: other (Complaining of pharyngeal discomfort starting this morning. Inspection reveals no ulcerations no exudation.) - Neck Neck exam: Present: normal inspection - Respiratory Respiratory exam: Present: clear to auscultation bilaterally - Cardiovascular Cardiovascular exam: Present: regular rate and rhythm, other (No murmurs no gallops no rubs) - GI/Abdominal GI/Abdominal exam: Present: normal bowel sounds, soft - Extremities Exam Extremities exam: Present: full ROM - Back Exam Back exam: Present: normal inspection - Neurological Exam Neurological exam: Present: alert, oriented X3, CN II-XII intact - Psychiatric Psychiatric exam: Present: normal affect, normal mood - Skin Skin exam: Present: normal color, warm, dry Results - Labs CBC & BMP: 10/15/16 05:09 10/15/16 05:09 Lab Results: I have reviewed the past 24 hour labs
--- NOTE | 2016-10-15 11:01 | Discharge Summary ---
<Avery Nance - Last Filed: 10/15/16 10:58> Diagnosis - Discharge Diagnosis (1) ESRD (end stage renal disease) on dialysis Status: Chronic (2) Line sepsis associated with dialysis catheter Status: Acute (3) Thrombocytopenia Status: Acute (4) Constipation Status: Resolved Discharge Plan - Discharge Data Disposition: Disch To Home/Self Care Condition at Discharge: Stable Discharge Diet: heart healthy Activity: resume usual activities as tolerated Hygiene: no restrictions Weight Bearing at Discharge: weight bear as tolerated Driving: not until seen by doctor Contact your physician if you experience:: fever over 101, Redness or swelling, Shortness of breath - Discharge Medications Continue Carvedilol [Coreg] 25 mg PO BID #60 tablet Atorvastatin [Lipitor] 20 mg PO BEDTIME #30 tablet Nitroglycerin Sl Tab [Nitrostat] 0.4 mg SL Q5M PRN PRN Reason: Chest Pain Calcium Acetate 667 mg PO TID W/MEALS cloNIDine 0.2 MG/24 HR PATCH [Bgaqqcvf-LOY-3 Patch] 1 patch TRANSDERM SA Apixaban [Eliquis] 5 mg PO BID #60 tablet Prorenal D 1 tablet PO DAILY - Follow Up or Referral - Forms/Instructions Exam - Constitutional Vitals: Period Temp Pulse Resp BP Sys/Ngo Pulse Ox Last 24 Hr 97.2 F-100.0 F 66-75 16-22 128-176/62-77 95-100 General appearance: normal weight - Head Head exam: Present: normal inspection - Eye Eye exam: Present: EOMI Pupils: Present: ANDRÉS - ENT ENT exam: Present: normal oropharynx - Neck Neck exam: Present: normal inspection - Respiratory Respiratory exam: Present: clear to auscultation bilaterally - Cardiovascular Cardiovascular exam: Present: irregular rhythm - GI/Abdominal GI/Abdominal exam: Present: normal bowel sounds, soft - Extremities Exam Extremities exam: Present: full ROM - Back Exam Back exam: Present: normal inspection - Neurological Exam Neurological exam: Present: alert, oriented X3, CN II-XII intact - Psychiatric Psychiatric exam: Present: normal affect, normal mood - Skin Skin exam: Present: normal color, warm, dry Discharge Results Labs on day of discharge: Labs from last 24 hours 10/15/16 10/15/16 10/15/16 10:56 08:01 05:09 WBC RBC Hgb Hct MCV MCH MCHC RDW Plt Count MPV Neut % (Auto) Lymph % (Auto) [place] % (Auto) Eos % (Auto) Baso % (Auto) Neut # (Auto) Lymph # (Auto) [place] # (Auto) Eos # (Auto) Baso # (Auto) Immature Gran % Nucleated RBC % Immature Gran # Nucleated RBCs # Sodium 138 Potassium 5.3 H Chloride 104 Carbon Dioxide 26 Anion Gap 13.3 BUN 38 H Creatinine 5.30 H GFR Calculation 9 BUN/Creatinine Ratio 7.00 Glucose 84 POC Glucose 91 86 Calculated Osmolality 282.7 Calcium 7.9 L Magnesium 2.1 10/15/16 10/15/16 10/14/16 05:09 00:02 22:38 WBC 7.8 D RBC 3.36 L Hgb 9.9 L Hct 33.2 L MCV 98.8 MCH 30 MCHC 29.8 L RDW 13.7 Plt Count 116 L D MPV 10.8 Neut % (Auto) 68.8 Lymph % (Auto) 15.3 L [place] % (Auto) 13.2 H Eos % (Auto) 1.9 Baso % (Auto) 0.3 Neut # (Auto) 5.4 Lymph # (Auto) 1.2 L [place] # (Auto) 1.0 H Eos # (Auto) 0.2 Baso # (Auto) 0.0 Immature Gran % 0.5 Nucleated RBC % 0.0 Immature Gran # 0.04 Nucleated RBCs # 0.00 Sodium Potassium Chloride Carbon Dioxide Anion Gap BUN Creatinine GFR Calculation BUN/Creatinine Ratio Glucose POC Glucose 150 H 79 Calculated Osmolality Calcium Magnesium 10/14/16 10/14/16 15:27 11:14 WBC RBC Hgb Hct MCV MCH MCHC RDW Plt Count MPV Neut % (Auto) Lymph % (Auto) [place] % (Auto) Eos % (Auto) Baso % (Auto) Neut # (Auto) Lymph # (Auto) [place] # (Auto) Eos # (Auto) Baso # (Auto) Immature Gran % Nucleated RBC % Immature Gran # Nucleated RBCs # Sodium Potassium Chloride Carbon Dioxide Anion Gap BUN Creatinine GFR Calculation BUN/Creatinine Ratio Glucose POC Glucose 85 112 H Calculated Osmolality Calcium Magnesium DS: Provider Date of admission: 10/11/16 14:27 Primary care physician: . No PCP Attending physician on admission: Dariela Abarca MD Consults: 10/11/16 15:19 Consult to Physician [CONS] Routine Comment: pt of catalino connelly line sepsis Consulting Provider: Nik Hernandze When should Consulting Provider be notified: Now 10/11/16 15:39 Consult to Pharmacy [CONS] Routine Reason for Pharmacy Consult: Adjust Meds Renal Funct 10/14/16 08:13 Consult to Physician [CONS] Routine Comment: Consulting Provider: Judson Osman Discharging clinician: Avery Nance MD <Royal Melvin - Last Filed: 10/15/16 11:53> Hospital Course - Hospital Course Hospital Course: The patient was admitted on 10/11/2016 with complaints of shortness of breath, chest pain with associated fevers and nausea vomiting. On admission, she was found to have line sepsis from her temporary hemodialysis catheter. Because she had recently started using an AV fistula for dialysis, the catheter was removed in the ICU. During her stay, nephrology and cardiology were consulted. She had an echocardiogram done on 10/11/2016 which found an EF of 55%. On 2016, patient was dialyzed in the dialysis unit and moved to [facility]. Patient was treated empirically with meropenem 500 mg IV every 12 hours for the sepsis associated with her dialysis catheter. Blood cultures from the dialysis catheter tip grew Staphylococcus epidermidis. Patient continues to receive vancomycin 1 g on dialysis. 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 She has reached maximum benefit from hospitalization at this time and is stable for discharge. - Time spent with patient Time with patient DS: Greater than 30 minutes DS: Provider Expected date of discharge: 10/15/16
[2016-10-15] MEDS: MEROPENEM 500 MG in SODIUM CHLORIDE 0.9% 100 ML IV SCH (13:09)
[2016-10-15 14:02] VITALS: BP 112/54
== END 2016-10-15 13:50 | disposition home or self-care (01) | DRG 314 ==
LOC: N.ED 13:03 → N.EDINP 14:27 → SUATTDRO 14:27 → N.ICU 14:52 → N.2E 10-12 14:40
PROVIDERS: ADMIT Internal Medicine; ATTEND Internal Medicine Infectious Disease

== ENCOUNTER 2016-11-08 08:48 | Inpatient (IN) ==
[2016-11-08] MEDS ORDERED: ASPIRIN 325 MG TABLET ONE (08:54)
[2016-11-08] MEDS ORDERED: ALUM/MAG/SIMETH/LIDO VISC 1:1 30 ML BOTTLE PO STA (08:54)
[2016-11-08] MEDS ORDERED: NITROGLYCERIN SL 0.4 MG TABLET SL PRN ×2 (08:54→12:45)
[2016-11-08] MEDS ORDERED: ONDANSETRON 4 MG/2 ML VIAL IV STA (08:54)
[2016-11-08] MEDS ORDERED: ASPIRIN 325 MG TABLET PO STA (08:54)
[2016-11-08] MEDS ORDERED: MORPHINE 2 MG/1 ML SYRINGE IV PRN (08:54)
[2016-11-08] MEDS ORDERED: NITROGLYCERIN 2% OINT 1 INCH/GM PACK TOP STA (08:54)
[2016-11-08] MEDS ORDERED: NITROGLYCERIN 2% OINT 1 INCH/GM PACK TOP ONE (08:54)
[2016-11-08] MEDS ORDERED: ENOXAPARIN 100 MG/ML SYRINGE SUBCUT STA (08:54)
--- NOTE | 2016-11-08 08:58 | Emergency Department Note ---
Arrival - Arrival Chief Complaint: Chest Pain Mode of Arrival: Stretcher Limitations: No Limitations Source: Patient, EMS, RN Notes Reviewed Time Seen by Provider: 11/08/16 08:50 - History of Present Illness HPI Narrative: Patient is a 75-year-old black female with a history of hypertension and end- stage renal disease who presents to the emergency department today with left- sided chest tightness. Patient was brought to the emergency department by EMS. She has had left-sided chest tightness off and on since 9 PM last night. Pain is not necessarily associated with exertion. She cannot relate change in position to be a cause of her chest pain. She does have occasional shortness of breath and diaphoresis associated with her pain. She is status post pacemaker implantation. She does have a history of congestive heart failure. She denies associated shortness of breath. Patient is a Friday, , Friday, dialysis patient. She is followed by Dr. Baker. Patient does not smoke cigarettes. Onset (ago): day(s) (1) Consistency: intermittent Severity: moderate Quality: other Allergies/Adverse Reactions: Allergies Allergy/AdvReac Type Severity Reaction Status Date / Time levofloxacin [From Levaquin] Allergy Severe ANAPHYLAXIS Verified 08/15/16 14:26 penicillin G Allergy Severe RASH Verified 08/15/16 14:26 lisinopril AdvReac Unknown Unknown/Unable Verified 08/15/16 14:26 to obtain Home Medications: Home Medications Medication Instructions Recorded Confirmed Type Atorvastatin [Lipitor] 20 mg PO BEDTIME #30 tablet 11/13/15 11/08/16 Rx Carvedilol [Coreg] 25 mg PO BID #60 tablet 11/13/15 11/08/16 Rx Calcium Acetate 667 mg PO TID W/MEALS 02/03/16 11/08/16 History Nitroglycerin Sl Tab [Nitrostat] 0.4 mg SL Q5M PRN 02/03/16 11/08/16 History cloNIDine 0.2 MG/24 HR PATCH 1 patch TRANSDERM TH 02/03/16 11/08/16 History [Ozsiurnv-GWO-1 Patch] Apixaban [Eliquis] 5 mg PO BID #60 tablet 08/24/16 11/08/16 Rx Prorenal D 1 tablet PO QAM 10/11/16 11/08/16 History Cinacalcet [Sensipar] 30 mg PO DAILY W/SUPPER 11/08/16 11/08/16 History Medical,Surgical,& Family Hx - Medical History Cardio: History of: CHF (nonischemic cardiomyopathy), Hypertension, Pacemaker ( AICD) Neurology: No history of: Seizures Respiratory: History of: Bronchitis, COPD, Pneumonia Renal: History of: Dialysis (Tues, Thurs, Sat), Renal Failure, Renal Problems ( tesso left chest) Genitourinary: History of: Genitourinary Cancer Gastrointestinal: History of: GERD, GI Problems (patient has hx of colostomy- now reversed) Hematology: History of: Anemia Reproductive: History of: Ovarian Cysts - Surgical History Cardiac Surgeries: Sugical HX of: Cardiac Catheterization, Internal Defibrillator Thoracic Surgeries: Patient denies;: Organ Transplant Abdominal Surgeries: Surgical HX of: Abdominal Surgery Reproductive Surgeries: Surgical HX of;: Genitourinary Surgery (ovaries removed) , Gynecologic Surgery, Hysterectomy - Family History Family History: Reports;: Family Diabetes (mother), Family Hypertension (mother , brothers,sisters) - Social History Smoking Status: Current some day smoker Have you smoked in the last 12 months: Yes Time spent discussing smoking cessation with patient: 3 to 10 minutes Functional capacity: independent ambulation Exam Vital Signs: Vital Signs Temperature 97.2 F L 11/08/16 08:48 Pulse Rate 80 11/08/16 10:05 Respiratory Rate 23 11/08/16 10:05 Blood Pressure 116/60 11/08/16 10:05 O2 Sat by Pulse Oximetry 96 11/08/16 10:05 GENERAL: This is a well-nourished well-developed chronically ill-appearing black female in no apparent distress. VITAL SIGNS: Reviewed HEENT: Head is atraumatic and normocephalic. Pupils are equal round react to light. Extraocular movements are intact. Oropharynx is benign with moist mucous membranes. NECK: Neck is soft and supple without tenderness. There are no masses. There is no lymphadenopathy. LUNGS: Lungs are clear to auscultation. Chest rises symmetrically. There is minimal anterior wall chest wall tenderness. To palpation CV: Heart is regular rate and rhythm without murmurs rubs or gallops. ABDOMEN: Abdomen is soft, nontender to palpation. There are no abdominal abnormal masses palpated. There is no organomegaly. Bowel sounds are present and active. SKIN: Skin is warm and dry. No rash. EXTREMITIES: Patient has full range of motion without tenderness. There is no pedal edema. NEUROLOGIC: Awake alert and oriented 4. Cranial nerves II through XII are grossly intact. Motor is 5 over 5 in all extremities bilaterally. Course - Consultations Consultation #1: Discussed with hospitalist. Patient will be admitted to their service. Time: 10:16 Results - Labs CBC & BMP: 11/08/16 09:16 11/08/16 09:16 Lab Results: I have reviewed the patients labs Labs: Laboratory Tests 11/08/16 11/08/16 09:16 09:16 Troponin I 0.042 Lipase 149.0 - EKG EKG results: interpreted by ERMD - Impressions EKG: Electronic ventricular pacemaker with a rate of 79 no further interpretation possible. - Diagnostic Findings Procedure: Chest x-ray: image reviewed by me (Mild cardiomegaly, no infiltrates , right pleural effusion, AICD in position with leads in place.) Disposition Clinical Impression: Chest pain, End stage renal disease on dialysis, Essential hypertension Case discussed with: patient Disposition: Still a Patient Condition: Stable Time of Disposition: 10:16
--- NOTE | 2016-11-08 09:02 | EKG Report ---
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
[2016-11-08] MEDS ORDERED: ENOXAPARIN 60 MG/0.6 ML SYRINGE ONE (09:16)
[2016-11-08] MEDS ORDERED: ONDANSETRON 4 MG/2 ML VIAL ONE (09:16)
[2016-11-08] MEDS ORDERED: ALUM/MAG/SIMETH/LIDO VISC 1:1 30 ML BOTTLE PO ONE (09:16)
[2016-11-08 09:28] LABS: Basophils % 0.2 % (0.0-0.8); Eosinophils # 0.1 10*3/uL (0.0-0.87); Eosinophils % 0.7 % (0.00-10.9); Hematocrit 37.7 VOL% (35.7-47.0); Hemoglobin 11.7 GM/DL (12.0-16.0); Immature Granulocytes % 0.5 %; Immature Granulocytes Absolute 0.08 #; Lymphocytes # 1.1 10*3/uL (1.4-4.0); Lymphocytes % 6.2 % (21.3-54.2); Mean Corpuscular Hemoglobin 30 PG (27-34); Mean Corpuscular Volume 97.9 FL (87-102); Mean Platelet Volume 10.7 FL (9.6-12.0); Monocytes # 0.9 10*3/uL (0.11-0.8); Neutrophils # 15.5 10*3/uL (1.4-7.4); Neutrophils % 87.4 % (38.7-73.9); Platelet Count 149 T/CUMM (130-400); Red Blood Count 3.85 MC/CUMM (3.8-5.5); Red Cell Distribution Width 14.6 % (9.3-17.3); White Blood Count 17.8 T/CUMM (4-12)
--- NOTE | 2016-11-08 09:37 | XRay Report ---
XR chest 2V Indication: Shortness of breath, fever Comparison: 11 October 2016 Findings: The heart and mediastinum are stable in size and configuration. Left internal jugular catheter has been removed. Pacemaker device is unchanged in position. The pulmonary vascularity is normal in caliber. Small right pleural effusion is present similar to previous. No other lung infiltrates, effusions, pneumothorax or other abnormality is demonstrated. Impression: Left internal jugular catheters been removed. Small left pleural effusion. PROCEDURE INTERPRETED AT [facility] DEPARTMENT OF RADIOLOGY Final Report Signed by: Dr. Chaz Palma
[2016-11-08 09:40] LABS: INR 1.3; PT Patient Result 13.4 SECS; Partial Thromboplastin Time 39.4 SECS (0-40)
[2016-11-08 09:57] LABS: Albumin 3.4 G/DL (3.4-5.0); Bilirubin,Total 0.5 MG/DL (0.2-1.0); Calcium 8.1 MG/DL (8.5-10.1); Magnesium 1.8 MG/DL (1.8-2.4); Osmolality,Calculated 275.8 MOS/KG (273-304); Potassium 3.5 MMOL/L (3.5-5.1); Total Protein 6.9 G/DL (6.4-8.3)
--- NOTE | 2016-11-08 12:01 | EKG Report ---
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
[2016-11-08] MEDS ORDERED: DEXTROSE 50% 25 GM/50 ML VIAL IV PRN (12:38)
[2016-11-08] MEDS ORDERED: GLUCAGON 1 MG VIAL IM PRN (12:38)
[2016-11-08] MEDS ORDERED: MEROPENEM 1,000 MG in SODIUM CHLORIDE 0.9% 100 ML IV STA (12:47)
--- NOTE | 2016-11-08 13:10 | Hospitalist History & Physical ---
Assessment and Plan - Time spent with patient Time spent with patient: Greater than 30 minutes (1) Shortness of breath Status: Acute Assessment and plan: 75-year-old -[place] female with end-stage renal disease on HD, hypertension, diabetes, lung and cardiac disease admitted by hospitalist service with complaints of chest pain and shortness of breath. Patient is tender to touch on exam in the left chest wall and epigastric region. She also has pain with inspiration. Unsure if this is cardiac in nature but will go ahead and check serial troponins and EKGs to be sure. Patient does have elevated white count so she was started on some antibiotics broad-spectrum and blood cultures have been drawn. All of her home medicines have been restarted including her Eliquis. Dr. Kwan has seen and examined patient and further recommendations to follow. Current Visit: Yes (2) Leukocytosis Status: Acute Current Visit: Yes (3) Chest pain Status: Acute Current Visit: No Qualifiers: Chest pain type: intercostal pain Qualified Code(s): R07.82 - Intercostal pain (4) Hypertension Status: Chronic Current Visit: No Qualifiers: Hypertension type: essential hypertension (5) Anemia Status: Acute Current Visit: No Qualifiers: Other causes of anemia: chronic disease, kidney Qualified Code(s): N18.9 - Chronic kidney disease, unspecified (6) ESRD (end stage renal disease) on dialysis Status: Chronic Current Visit: No (7) AICD (automatic cardioverter/defibrillator) present Status: Chronic Current Visit: No History of Present Illness Chief complaint: Chest pain History of present illness: Ms. Dee is a 75 year old female with history of lung disease, heart disease , end-stage renal disease on hemodialysis, diabetes, and hypertension presenting to the ED with complaints of chest pain and shortness of breath that started at 9 PM last night. Patient states she was up intermittently all night with chest pain complaints. She gets short of breath when she is up moving around but not at rest. She states she did vomit one time this morning. She denies fever, sore throat, nausea, abdominal pain, constipation, or lower extremity edema. Patient had a recent admission in October with line sepsis. Her dialysis catheter was removed and dialysis is now being initiated through her left graft. She states that all is working well and her antibiotics have been stopped already. Upon exam patient is awake and alert with complaints of epigastric and left chest wall pain. She does have an elevated white count but no fever. Her chest x-ray showing a small left pleural effusion. After discussion with ED physician Dr. Lopez and hospitalist Dr. Kwan, it was agreed patient would be admitted for further evaluation. Home Medications Medication Instructions Recorded Confirmed Type Atorvastatin [Lipitor] 20 mg PO BEDTIME #30 tablet 11/13/15 11/08/16 Rx Carvedilol [Coreg] 25 mg PO BID #60 tablet 11/13/15 11/08/16 Rx Calcium Acetate 667 mg PO TID W/MEALS 02/03/16 11/08/16 History Nitroglycerin Sl Tab [Nitrostat] 0.4 mg SL Q5M PRN 02/03/16 11/08/16 History cloNIDine 0.2 MG/24 HR PATCH 1 patch TRANSDERM TH 02/03/16 11/08/16 History [Uniogmir-FWT-0 Patch] Apixaban [Eliquis] 5 mg PO BID #60 tablet 08/24/16 11/08/16 Rx Prorenal D 1 tablet PO QAM 10/11/16 11/08/16 History Cinacalcet [Sensipar] 30 mg PO DAILY W/SUPPER 11/08/16 11/08/16 History Allergies Allergy/AdvReac Type Severity Reaction Status Date / Time levofloxacin [From Levaquin] Allergy Severe ANAPHYLAXIS Verified 08/15/16 14:26 penicillin G Allergy Severe RASH Verified 08/15/16 14:26 lisinopril AdvReac Unknown Unknown/Unable Verified 08/15/16 14:26 to obtain Medical,Surgical,& Family Hx - Medical History Cardio: History of: CHF (nonischemic cardiomyopathy), Hypertension, Pacemaker ( AICD) Neurology: No history of: Seizures Respiratory: History of: Bronchitis, COPD, Pneumonia Renal: History of: Dialysis (, , Fri), Renal Failure, Renal Problems ( tesso left chest) Genitourinary: History of: Genitourinary Cancer Gastrointestinal: History of: GERD, GI Problems (patient has hx of colostomy- now reversed) Hematology: History of: Anemia Reproductive: History of: Ovarian Cysts - Surgical History Cardiac Surgeries: Sugical HX of: Cardiac Catheterization, Internal Defibrillator Thoracic Surgeries: Patient denies;: Organ Transplant Abdominal Surgeries: Surgical HX of: Abdominal Surgery Reproductive Surgeries: Surgical HX of;: Genitourinary Surgery (ovaries removed) , Gynecologic Surgery, Hysterectomy - Family History Family History: Reports;: Family Diabetes (mother), Family Hypertension (mother , brothers,sisters) - Social History Smoking Status: Current some day smoker Frequency of Alcohol Use: None Type of Drug Use: None Lives With:: Alone Functional capacity: independent ambulation Review of systems: A complete 10 system review of systems was obtained and pertinent positives and negatives per HPI Exam - Constitutional Vitals: Period Temp Pulse Resp BP Sys/Ngo Pulse Ox Last 24 Hr 97.2 F-97.2 F 66-82 22-28 97-116/46-60 96-100 Exam: Constitutional System: No distress. No tremulousness. Head: Normocephalic, atraumatic. Ears, Nose and Throat System: No evidence of Otitis or Mastoiditis. No epistaxis or discharge Eyes System: Pupils equal, round, and reactive. Extraocular muscles intact. Neck: Supple, without adenopathy, No jugular venous distention. No thyromegaly, neck mass, or prior surgery apparent. Respiratory System: Chest mild crackles to left lower lobe to auscultation. Cardiovascular System: Heart with regular rate and rhythm. No murmur. GI System: Abdomen soft, nontender. Normo active bowel sounds present. Musculoskeletal System: limbs with 1+ pedal edema. Full distal pulses. Neurological System: No discernable sensory deficit. No aphasia Psychiatric System: Conversation is rational Results - Labs CBC & BMP: 11/08/16 09:16 11/08/16 09:16 Lab Results: I have reviewed the past 24 hour labs - Impressions Left ventricular pacing - Diagnostic Findings Procedure: Chest x-ray: report reviewed by me (Small left pleural effusion)
--- NOTE | 2016-11-08 13:36 | XRay Report ---
XR ribs 2V LT Indication: Pain after injury Findings: No evidence of fracture seen. No subpleural hematoma or pneumothorax is present. Pacemaker is present and appears within normal limits for positioning. Impression: No evidence of rib abnormality demonstrated. PROCEDURE INTERPRETED AT [facility] DEPARTMENT OF RADIOLOGY Final Report Signed by: Dr. Chaz Palma
--- NOTE | 2016-11-08 13:47 | Ultrasound Report ---
Right upper quadrant ultrasound Indication: Abdominal pain, epigastric area Findings: The liver is normal in size and echogenicity. The gallbladder is fluid-filled without evidence of stones or sludge. The gallbladder wall thickness is 1.8 mm . The common bile duct maximum caliber measures 9.4 mm. The visualized portion of the pancreas appear within normal limits The right kidney is normal in size and echogenicity and measures 8.9 cm . No free fluid or free air seen. Impression: Slightly prominent common bile duct. No other evidence of abnormality demonstrated. Ultrasound images stored and captured. PROCEDURE INTERPRETED AT [facility] DEPARTMENT OF RADIOLOGY Final Report Signed by: Dr. Chaz Palma
[2016-11-08] MEDS ORDERED: MEROPENEM 500 MG in SODIUM CHLORIDE 0.9% 100 ML IV SCH (15:00)
--- NOTE | 2016-11-08 15:08 | EKG Report ---
Stationary ECG Study [facility] Test Date: 11/08/2016 3:07:46 PM Pat Name: KEVYN COBURN Department: Room: 532 Gender: F Chief Load Dispatcher: : 1940 Requested by: Abraham Dudley Order Number: [id number] Mryon MD: DELROY KATZ Intervals [place] Rate: 66 P: 55 OR: 165 QRS: 250 QRSD: 152 T: 49 QT: 504 QTc: 517 Interpretive Statements ELECTRONIC ATRIAL PACEMAKER ELECTRONIC VENTRICULAR PACEMAKER Electronically Signed On 11-08-16 20:05:00 CDT by DELROY KATZ [email or web address]
--- NOTE | 2016-11-08 15:30 | Nephrology Consult Note ---
History of Present Illness Chief complaint: ESRD History of present illness: Ms. Dee is a 75 year old female with end-stage renal disease who presented with weakness since yesterday's dialysis. She also this morning complained of chest discomfort which began in the epigastrium and moved to the chest and was associated with an episode of vomiting. She did not achieve relief of the discomfort with vomiting. She was hospitalized in early October with staph epidermidis bacteremia. That was due to a dialysis catheter which was removed. She was treated with vancomycin for approximately 2-1/2 weeks. She has been dialyzing with her left arm access and doing well. She did not have any fever yesterday or today. On exam she is in no distress and able to give a good history. Her chest is clear and her heart without rub or gallop. She has no peripheral edema. She has a noninfected left upper arm access that is patent. Impression atypical chest pain but the origin may well be upper GI. Episode of staph epidermidis bacteremia 1 month ago for which she received 2-1/2 weeks of IV vancomycin and had her dialysis catheter removed promptly with the onset of fever. Plan blood cultures #2 dialysis tomorrow #3 empiric PPI therapy if she is not already receiving it. Home Medications Medication Instructions Recorded Confirmed Type Atorvastatin [Lipitor] 20 mg PO BEDTIME #30 tablet 11/13/15 11/08/16 Rx Carvedilol [Coreg] 25 mg PO BID #60 tablet 11/13/15 11/08/16 Rx Calcium Acetate 667 mg PO TID W/MEALS 02/03/16 11/08/16 History Nitroglycerin Sl Tab [Nitrostat] 0.4 mg SL Q5M PRN 02/03/16 11/08/16 History cloNIDine 0.2 MG/24 HR PATCH 1 patch TRANSDERM TH 02/03/16 11/08/16 History [Afuaqqvu-VDK-0 Patch] Apixaban [Eliquis] 5 mg PO BID #60 tablet 08/24/16 11/08/16 Rx Prorenal D 1 tablet PO QAM 10/11/16 11/08/16 History Cinacalcet [Sensipar] 30 mg PO DAILY W/SUPPER 11/08/16 11/08/16 History Allergies Allergy/AdvReac Type Severity Reaction Status Date / Time levofloxacin [From Levaquin] Allergy Severe ANAPHYLAXIS Verified 08/15/16 14:26 penicillin G Allergy Severe RASH Verified 08/15/16 14:26 lisinopril AdvReac Unknown Unknown/Unable Verified 08/15/16 14:26 to obtain Medical,Surgical,& Family Hx - Medical History Cardio: History of: CHF (nonischemic cardiomyopathy), Hypertension, Pacemaker ( AICD) Neurology: No history of: Seizures Respiratory: History of: Bronchitis, COPD, Pneumonia Renal: History of: Dialysis (Tues, Thurs, Sat), Renal Failure, Renal Problems ( tesso left chest) Genitourinary: History of: Genitourinary Cancer Gastrointestinal: History of: GERD, GI Problems (patient has hx of colostomy- now reversed) Hematology: History of: Anemia Reproductive: History of: Ovarian Cysts - Surgical History Cardiac Surgeries: Sugical HX of: Cardiac Catheterization, Internal Defibrillator Thoracic Surgeries: Patient denies;: Organ Transplant Abdominal Surgeries: Surgical HX of: Abdominal Surgery Reproductive Surgeries: Surgical HX of;: Genitourinary Surgery (ovaries removed) , Gynecologic Surgery, Hysterectomy - Family History Family History: Reports;: Family Diabetes (mother), Family Hypertension (mother , brothers,sisters) - Social History Smoking Status: Current some day smoker Frequency of Alcohol Use: None Type of Drug Use: None Review of Systems 12 point system: reviewed and no additional remarkable complaints except as stated Exam - Vital Signs Vital signs: Period Temp Pulse Resp BP Sys/Ngo Pulse Ox Last 24 Hr 97.7 F 59-68 19-22 93-134/53-72 96-100 - General Appearance General appearance: well-developed, well-nourished, appears started age Neck: no JVD, no thyromegaly, no carotid bruit, supple Respiratory: no kyphosis, no scoliosis Cardiology: no murmurs, no rub, no gallops, no edema, regular rate, regular rhythm, irregular rhythm, normal S1, normal S2 Gastrointestinal: normoactive bowel sounds Integumentary: no rash, warm and dry Neurologic: no focal deficit, no asterixis, alert and oriented x3, reflexes 2+ and symmetric, gait normal, strength 5/5 Psychiatric: mood/affect appropriate, cooperative Results - Labs CBC & BMP: 11/08/16 09:16 11/08/16 09:16 Assessment and Plan - Time spent with patient Time spent with patient: Greater than 30 minutes (1) End stage renal disease on dialysis Status: Acute Assessment and plan: Dialysis tomorrow Current Visit: Yes (2) Chest pain Status: Acute Assessment and plan: Blood culture in view of recent Staph epi bacteremia Current Visit: Yes Specialty Discharge - Follow Up or Referrals - Speciality Discharge Instructions Nephrology Instructions: Hemodialysis tomorrow. Blood culture to insure clearing of bacteremia
[2016-11-08] MEDS: PANTOPRAZOLE 40 MG VIAL IV SCH (15:37)
[2016-11-08] MEDS: INSULIN LISPRO 100 UNIT/ML SUBCUT SCH ×2 (16:17→20:55)
[2016-11-08] MEDS ORDERED: VANCOMYCIN INJ 1,000 MG in SODIUM CHLORIDE 0.9% 100 ML IV PRN (16:18)
[2016-11-08] MEDS ORDERED: VANCOMYCIN INJ 1,000 MG in SODIUM CHLORIDE 0.9% 250 ML IV PRN (17:02)
[2016-11-08] MEDS: CINACALCET 30 MG TABLET PO SCH (17:33)
[2016-11-08] MEDS: CALCIUM ACETATE 667 MG CAPSULE PO SCH (17:33)
[2016-11-08] MEDS: APIXABAN 5 MG TABLET PO SCH (21:10)
[2016-11-08] MEDS: CARVEDILOL 25 MG TABLET PO SCH (21:11)
[2016-11-08] MEDS: ATORVASTATIN 20 MG TABLET PO SCH (21:11)
[2016-11-09 05:27] LABS: Basophils % 0.1 % (0.0-0.8); Eosinophils # 0.3 10*3/uL (0.0-0.87); Hematocrit 35.5 VOL% (35.7-47.0); Hemoglobin 10.8 GM/DL (12.0-16.0); Immature Granulocytes % 0.4 %; Immature Granulocytes Absolute 0.03 #; Lymphocytes % 12.5 % (21.3-54.2); Mean Corpuscular HGB Conc 30.4 GM/DL (32-36); Mean Corpuscular Hemoglobin 30 PG (27-34); Mean Platelet Volume 10.6 FL (9.6-12.0); Monocytes # 0.8 10*3/uL (0.11-0.8); Monocytes % 10.2 % (1.7-12.7); Neutrophils # 5.9 10*3/uL (1.4-7.4); Neutrophils % 72.8 % (38.7-73.9); Platelet Count 117 T/CUMM (130-400); Red Blood Count 3.55 MC/CUMM (3.8-5.5); Red Cell Distribution Width 14.5 % (9.3-17.3); White Blood Count 8.1 T/CUMM (4-12)
[2016-11-09 06:09] LABS: Calcium 8.3 MG/DL (8.5-10.1); Osmolality,Calculated 280.5 MOS/KG (273-304)
[2016-11-09] MEDS: PANTOPRAZOLE 40 MG VIAL IV SCH (08:06)
[2016-11-09] MEDS: APIXABAN 5 MG TABLET PO SCH ×2 (08:07→20:12)
[2016-11-09] MEDS: MULTIVITAMIN (BEROCCA) TABLET PO SCH (08:07)
[2016-11-09] MEDS: CARVEDILOL 25 MG TABLET PO SCH ×2 (08:07→20:12)
[2016-11-09] MEDS: CALCIUM ACETATE 667 MG CAPSULE PO SCH ×3 (08:07→17:07)
[2016-11-09] MEDS: INSULIN LISPRO 100 UNIT/ML SUBCUT SCH ×4 (08:30→20:12)
--- NOTE | 2016-11-09 08:48 | Hospitalist Progress Note ---
<Oniel Lam - Last Filed: 11/09/16 08:49> Assessment and Plan (1) Chest pain Status: Acute Assessment and plan: No further episodes noted. Cardiac enzymes benign; at 0.036. Current Visit: Yes (2) End stage renal disease on dialysis Status: Acute Assessment and plan: HD today; nephrology to follow. Current Visit: Yes (3) Leukocytosis Status: Acute Assessment and plan: WBC noted at 8.1 today Current Visit: Yes Hospitalist: Subjective Interval history: Patient seen and examined. No significant overnight events. No further episodes of chest pain verbalized. HD this AM. Exam - Constitutional Vitals: Period Temp Pulse Resp BP Sys/Ngo Pulse Ox Last 24 Hr 96.0 F-98.2 F 59-68 16-22 93-144/44-72 95-100 General appearance: normal weight, no acute distress - Head Head exam: Present: normal inspection, normocephalic, atraumatic - Eye Eye exam: Present: EOMI. Absent: conjunctival injection Pupils: Present: ANDRÉS, normal accommodation - ENT ENT exam: Present: normal exam, normal external ear exam, normal oropharynx - Neck Neck exam: Present: normal inspection. Absent: lymphadenopathy, meningismus, tenderness, thyromegaly - Respiratory Respiratory exam: Present: clear to auscultation bilaterally. Absent: rales, rhonchi, stridor, wheezes - Cardiovascular Cardiovascular exam: Present: regular rate and rhythm, tachycardia. Absent: carotid bruit, diastolic murmur, gallop, JVD, rubs, systolic murmur - GI/Abdominal GI/Abdominal exam: Present: normal bowel sounds, soft. Absent: distended, firm , guarding - Extremities Exam Extremities exam: Present: normal inspection, normal capillary refill, full ROM - Back Exam Back exam: Present: normal inspection - Neurological Exam Neurological exam: Present: alert, oriented X3, CN II-XII intact - Psychiatric Psychiatric exam: Present: normal affect, normal mood - Skin Skin exam: Present: normal color, warm, dry Results - Labs CBC & BMP: 11/09/16 04:47 11/09/16 04:47 Lab Results: I have reviewed the past 24 hour labs <Dimitrios Garcia - Last Filed: 11/09/16 14:13> Hospitalist: Subjective Interval history: Patient seen and examined independently of MAGNETO REPAIRER Genaro, agree with assessment and plan as documented. Chest pain is resolved, troponins remained negative. Leukocytosis on admission, resolved with vancomycin and merrem. F/u blood cultures. Exam - Constitutional Vitals: Period Temp Pulse Resp BP Sys/Ngo Pulse Ox Last 24 Hr 96.0 F-98.2 F 60-72 16-21 93-144/44-72 95-100 Results - Labs CBC & BMP: 11/09/16 04:47 11/09/16 04:47
--- NOTE | 2016-11-09 09:13 | Dialysis Note ---
Dialysis Note - Dialysis Note Ms. Dee is seen during her hemodialysis. She is tolerating dialysis well this morning. She is essentially at her dry weight. Her current weight will be maintained.
[2016-11-09] MEDS ORDERED: VANCOMYCIN INJ 1,250 MG in SODIUM CHLORIDE 0.9% 250 ML IV ONE (17:00)
[2016-11-09] MEDS: CINACALCET 30 MG TABLET PO SCH (17:07)
[2016-11-09 18:40] LABS: Apearance,Urine CLOUDY (Clear); Bacteria,Urine Occasional /HPF (Few); Bilirubin,Urine Negative (Negative); Blood, Urine Negative (Negative); Glucose,Urine (UA) Negative (Negative); Hyaline Casts,Urine 5 /LPF (0-3); Ketones,Urine 5 mg/dL (Negative); Nitrite,Urine Negative (Negative); Protein,Urine 100 MG/DL; RBC,Urine 1 /HPF (0-4); Squamous Epithelial Cell,Urine Moderate /HPF (0-10); Urine Color Yellow (Yellow); Urine Specific Gravity 1.013 (1.001-1.035); Urine Urobilinogen < 2.0 EU/DL (0.2-1.0); WBC,Urine 6 /HPF (0-6)
[2016-11-09] MEDS: ATORVASTATIN 20 MG TABLET PO SCH (20:12)
[2016-11-09] MEDS: MEROPENEM 500 MG in SODIUM CHLORIDE 0.9% 100 ML IV SCH (23:15)
[2016-11-10 07:16] LABS: Eosinophils # 0.4 10*3/uL (0.0-0.87); Eosinophils % 7.4 % (0.00-10.9); Hematocrit 34.7 VOL% (35.7-47.0); Hemoglobin 10.7 GM/DL (12.0-16.0); Immature Granulocytes % 0.4 %; Immature Granulocytes Absolute 0.02 #; Lymphocytes # 1.1 10*3/uL (1.4-4.0); Lymphocytes % 20.1 % (21.3-54.2); Mean Corpuscular HGB Conc 30.8 GM/DL (32-36); Mean Corpuscular Hemoglobin 30 PG (27-34); Mean Platelet Volume 10.8 FL (9.6-12.0); Monocytes # 0.8 10*3/uL (0.11-0.8); Monocytes % 14.2 % (1.7-12.7); Neutrophils # 3.2 10*3/uL (1.4-7.4); Neutrophils % 57.9 % (38.7-73.9); Platelet Count 109 T/CUMM (130-400); Red Blood Count 3.54 MC/CUMM (3.8-5.5); Red Cell Distribution Width 14.6 % (9.3-17.3); White Blood Count 5.5 T/CUMM (4-12)
[2016-11-10 07:37] LABS: Bilirubin,Total 0.4 MG/DL (0.2-1.0); Calcium 7.8 MG/DL (8.5-10.1); Magnesium 2.2 MG/DL (1.8-2.4); Osmolality,Calculated 276.7 MOS/KG (273-304); Phosphorous 3.4 MG/DL (2.5-4.9); Potassium 4.6 MMOL/L (3.5-5.1)
[2016-11-10] MEDS: CALCIUM ACETATE 667 MG CAPSULE PO SCH ×3 (08:12→16:20)
[2016-11-10] MEDS: PANTOPRAZOLE 40 MG VIAL IV SCH (08:13)
[2016-11-10] MEDS: CARVEDILOL 25 MG TABLET PO SCH ×2 (08:13→21:38)
[2016-11-10] MEDS: APIXABAN 5 MG TABLET PO SCH ×2 (08:13→21:38)
[2016-11-10] MEDS: INSULIN LISPRO 100 UNIT/ML SUBCUT SCH ×4 (08:13→21:40)
[2016-11-10] MEDS: MULTIVITAMIN (BEROCCA) TABLET PO SCH (08:13)
--- NOTE | 2016-11-10 09:20 | Nephrology Progress Note ---
Nephrology - PN: Subj Interval history: Ms. Dee is seen in follow-up of her end-stage renal disease. She is afebrile and her blood cultures are negative thus far. She has not been febrile. She is currently receiving empiric antibiotics but with her negative cultures we will likely be able to stop those tomorrow. Overall she is improved and should be able to go home in the next day or so. Exam (PN)-Nephrology - Vital Signs Vital signs: Period Temp Pulse Resp BP Sys/Ngo Pulse Ox Last 24 Hr 96.3 F-98.4 F 64-76 18-18 116-150/56-67 94-100 - Lab 11/10/16 06:48 11/10/16 06:48 Most recent lab results Calcium 7.8 MG/DL (8.5-10.1) L 11/10/16 06:48 Phosphorus 3.4 MG/DL (2.5-4.9) 11/10/16 06:48 Magnesium 2.2 MG/DL (1.8-2.4) 11/10/16 06:48 Assessment and Plan (1) End stage renal disease on dialysis Status: Acute Assessment and plan: Dialysis tomorrow Current Visit: Yes (2) Chest pain Status: Acute Assessment and plan: Blood culture in view of recent Staph epi bacteremia Current Visit: Yes
--- NOTE | 2016-11-10 10:19 | XRay Report ---
Referring Physician: Mima Kwan Exam: XR chest 1V portable Date: November 10, 2016 at 5:54 AM Reason: Shortness of breath Comparison: Left rib x-rays and chest 2 views November 08, 2016 Findings: The cardiac silhouette is again enlarged, and a pacemaker is in place. There are scattered opacities within the mid and lower lung zones bilaterally. This likely represents pulmonary edema and atelectasis, but superimposed pneumonia is not excluded. No pneumothorax is identified, but there is mild right pleural fluid and likely mild left pleural fluid. The osseous structures appear stable. Impression: There has been no significant change when considering differences in imaging technique. PROCEDURE INTERPRETED AT [facility] DEPARTMENT OF RADIOLOGY Final Report Signed by: Dr. Thee Warren
--- NOTE | 2016-11-10 12:23 | Hospitalist Progress Note ---
Assessment and Plan (1) Chest pain Status: Acute Current Visit: No Qualifiers: Chest pain type: intercostal pain Qualified Code(s): R07.82 - Intercostal pain (2) Hypertension Status: Chronic Current Visit: No Qualifiers: Hypertension type: essential hypertension (3) End stage renal disease on dialysis Status: Acute Current Visit: Yes Hospitalist: Subjective Interval history: No acute events overnight. Patient denies chest pain. Blood cultures are negative so far. Continue vanc and merrem for now. Agree that if cultures remain negative can stop soon. Exam - Constitutional Vitals: Period Temp Pulse Resp BP Sys/Ngo Pulse Ox Last 24 Hr 96.9 F-98.4 F 64-76 18-18 116-150/56-67 94-100 General appearance: over weight - Head Head exam: Present: normocephalic, atraumatic - Eye Eye exam: Present: EOMI Pupils: Present: ANDRÉS - ENT ENT exam: Present: normal exam - Neck Neck exam: Present: normal inspection - Respiratory Respiratory exam: Present: clear to auscultation bilaterally. Absent: rhonchi, wheezes - Cardiovascular Cardiovascular exam: Present: regular rate and rhythm - GI/Abdominal GI/Abdominal exam: Present: normal bowel sounds, soft. Absent: tenderness, rebound - Extremities Exam Extremities exam: Present: normal inspection - Back Exam Back exam: Present: normal inspection - Neurological Exam Neurological exam: Present: alert, oriented X3 - Psychiatric Psychiatric exam: Present: normal affect, normal mood - Skin Skin exam: Present: warm, intact Results - Labs CBC & BMP: 11/10/16 06:48 11/10/16 06:48
[2016-11-10] MEDS: CINACALCET 30 MG TABLET PO SCH (16:17)
[2016-11-10] MEDS: ATORVASTATIN 20 MG TABLET PO SCH (21:38)
[2016-11-10] MEDS: MEROPENEM 500 MG in SODIUM CHLORIDE 0.9% 100 ML IV SCH (23:52)
[2016-11-11 07:49] LABS: Basophils % 0.2 % (0.0-0.8); Eosinophils # 0.4 10*3/uL (0.0-0.87); Eosinophils % 7.7 % (0.00-10.9); Hematocrit 34.1 VOL% (35.7-47.0); Hemoglobin 10.6 GM/DL (12.0-16.0); Immature Granulocytes % 0.2 %; Immature Granulocytes Absolute 0.01 #; Lymphocytes # 1.2 10*3/uL (1.4-4.0); Lymphocytes % 25.5 % (21.3-54.2); Mean Corpuscular HGB Conc 31.1 GM/DL (32-36); Mean Corpuscular Hemoglobin 30 PG (27-34); Mean Corpuscular Volume 97.4 FL (87-102); Mean Platelet Volume 11.3 FL (9.6-12.0); Monocytes # 0.7 10*3/uL (0.11-0.8); Monocytes % 15.4 % (1.7-12.7); Neutrophils # 2.5 10*3/uL (1.4-7.4); Platelet Count 109 T/CUMM (130-400); Red Cell Distribution Width 14.5 % (9.3-17.3); White Blood Count 4.8 T/CUMM (4-12)
[2016-11-11 08:14] LABS: Calcium 7.9 MG/DL (8.5-10.1); Magnesium 2.2 MG/DL (1.8-2.4); Osmolality,Calculated 280.5 MOS/KG (273-304); Potassium 4.8 MMOL/L (3.5-5.1)
[2016-11-11] MEDS: INSULIN LISPRO 100 UNIT/ML SUBCUT SCH ×3 (08:43→16:59)
[2016-11-11] MEDS: PANTOPRAZOLE 40 MG VIAL IV SCH (08:43)
[2016-11-11] MEDS: APIXABAN 5 MG TABLET PO SCH (08:44)
[2016-11-11] MEDS: CARVEDILOL 25 MG TABLET PO SCH (08:44)
[2016-11-11] MEDS: MULTIVITAMIN (BEROCCA) TABLET PO SCH (08:44)
[2016-11-11] MEDS: CALCIUM ACETATE 667 MG CAPSULE PO SCH ×3 (08:44→17:46)
--- NOTE | 2016-11-11 09:17 | Nephrology Progress Note ---
Nephrology - PN: Subj Interval history: Ms. Dee is seen in follow-up of her end-stage renal disease. She has a headache this morning but otherwise feels well. Her chest is clear. She has been afebrile and all cultures are negative to date. I think we can discontinue her antibiotics and she is not been febrile and has these negative cultures. She is approaching her baseline state and may soon be able to be discharged Exam (PN)-Nephrology - Vital Signs Vital signs: Period Temp Pulse Resp BP Sys/Ngo Pulse Ox Last 24 Hr 96.6 F-98.4 F 59-65 18-20 126-159/58-70 96-100 - Lab 11/11/16 05:18 11/11/16 05:18 Most recent lab results Calcium 7.9 MG/DL (8.5-10.1) L 11/11/16 05:18 Phosphorus 3.4 MG/DL (2.5-4.9) 11/10/16 06:48 Magnesium 2.2 MG/DL (1.8-2.4) 11/11/16 05:18 Assessment and Plan (1) End stage renal disease on dialysis Status: Acute Assessment and plan: Dialysis tomorrow Current Visit: Yes (2) Chest pain Status: Acute Assessment and plan: Blood culture in view of recent Staph epi bacteremia Current Visit: Yes
--- NOTE | 2016-11-11 15:51 | Discharge Summary ---
<Royal Melvin - Last Filed: 11/11/16 16:02> Hospital Course - Hospital Course Hospital Course: This patient is a 75 year old female who was admitted to through the [place] ED on 11/08/2016 with chest pain and shortness of breath. Serial troponins were ordered and the patient was started on broad-spectrum antibiotics to cover an elevated white count. Nephrology was consulted, blood cultures ordered and the patient continued dialysis while hospitalized. After ruling out cardiac origin for the chest pain, the patient was started on Protonix. Antibiotics were stopped after blood cultures returned negative and white count normalized. The remainder of her hospitalization was fairly uncomplicated, highlighted by medical management of chronic diseases. Final urine cultures returned negative and the patient is stable for discharge at this time. She will be discharged home to [facility] with outpatient dialysis and nephrology follow up. Appropriate discharge instruction to follow in addendum per Dr. Garcia and the discharge orders. - Time spent with patient Time with patient DS: Greater than 30 minutes Discharge Plan - Discharge Medications Continue Carvedilol [Coreg] 25 mg PO BID #60 tablet Atorvastatin [Lipitor] 20 mg PO BEDTIME #30 tablet Nitroglycerin Sl Tab [Nitrostat] 0.4 mg SL Q5M PRN PRN Reason: Chest Pain Calcium Acetate 667 mg PO TID W/MEALS cloNIDine 0.2 MG/24 HR PATCH [Ckflbimz-PVD-2 Patch] 1 patch TRANSDERM TH Apixaban [Eliquis] 5 mg PO BID #60 tablet Cinacalcet [Sensipar] 30 mg PO DAILY W/SUPPER Prorenal D 1 tablet PO QAM - Follow Up or Referral - Forms/Instructions Exam - Constitutional Vitals: Period Temp Pulse Resp BP Sys/Ngo Pulse Ox Last 24 Hr 96.6 F-98.4 F 59-65 18-20 138-161/61-76 92-100 Discharge Results Procedures and tests throughout hospitalization: Pending Orders 11/08/16 11:55 Blood Culture Stat Labs on day of discharge: Labs from last 24 hours 11/11/16 11/11/16 11/11/16 11:37 07:19 05:18 WBC RBC Hgb Hct MCV MCH MCHC RDW Plt Count MPV Neut % (Auto) Lymph % (Auto) [place] % (Auto) Eos % (Auto) Baso % (Auto) Neut # (Auto) Lymph # (Auto) [place] # (Auto) Eos # (Auto) Baso # (Auto) Immature Gran % Nucleated RBC % Immature Gran # Nucleated RBCs # Sodium 139 Potassium 4.8 Chloride 104 Carbon Dioxide 26 Anion Gap 13.8 BUN 30 H Creatinine 5.60 H GFR Calculation 8 BUN/Creatinine Ratio 5.00 L Glucose 69 L POC Glucose 118 H 79 Calculated Osmolality 280.5 Calcium 7.9 L Magnesium 2.2 11/11/16 11/10/16 11/10/16 05:18 19:47 16:11 WBC 4.8 RBC 3.50 L Hgb 10.6 L Hct 34.1 L MCV 97.4 MCH 30 MCHC 31.1 L RDW 14.5 Plt Count 109 L MPV 11.3 Neut % (Auto) 51.0 Lymph % (Auto) 25.5 [place] % (Auto) 15.4 H Eos % (Auto) 7.7 Baso % (Auto) 0.2 Neut # (Auto) 2.5 Lymph # (Auto) 1.2 L [place] # (Auto) 0.7 Eos # (Auto) 0.4 Baso # (Auto) 0.0 Immature Gran % 0.2 Nucleated RBC % 0.0 Immature Gran # 0.01 Nucleated RBCs # 0.00 Sodium Potassium Chloride Carbon Dioxide Anion Gap BUN Creatinine GFR Calculation BUN/Creatinine Ratio Glucose POC Glucose 125 H 109 H Calculated Osmolality Calcium Magnesium DS: Provider Date of admission: 11/08/16 12:38 Primary care physician: . No PCP Attending physician on admission: Mima Kwan MD Consults: 11/08/16 12:48 Consult to Pharmacy [CONS] Routine Reason for Pharmacy Consult: Dose/Manage Antibiotics Dose/Manage Vancomycin Comment: please adjust antibiotic doses for renal disease 11/08/16 14:22 Consult to Pharmacy [CONS] Routine Reason for Pharmacy Consult: Adjust Meds Renal Funct Discharging clinician: Royal REYNOLDS Expected date of discharge: 11/11/16 <Dimitrios Garcia - Last Filed: 11/11/16 16:09> Hospital Course - Hospital Course Hospital Course: Patient seen and examined independently of RODOLFO Melvin, agree with hospital course as documented. Final blood cultures are negative. Patient has reached maximum benefit of inpatient stay and will be discharged home. - Time spent with patient Time with patient DS: Less than 30 minutes Diagnosis - Discharge Diagnosis (1) Chest pain Status: Resolved (2) Hypertension Status: Chronic (3) End stage renal disease on dialysis Status: Chronic Discharge Plan - Discharge Data Condition at Discharge: Stable Discharge Diet: low salt diet Activity: resume usual activities as tolerated Hygiene: no restrictions Weight Bearing at Discharge: weight bear as tolerated Driving: no restrictions Contact your physician if you experience:: fever over 101 Exam - Constitutional General appearance: over weight - Head Head exam: Present: normocephalic, atraumatic - Eye Eye exam: Present: EOMI Pupils: Present: ANDRÉS - ENT ENT exam: Present: normal exam - Neck Neck exam: Present: normal inspection - Respiratory Respiratory exam: Present: clear to auscultation bilaterally. Absent: rhonchi, wheezes - Cardiovascular Cardiovascular exam: Present: regular rate and rhythm - GI/Abdominal GI/Abdominal exam: Present: normal bowel sounds, soft. Absent: tenderness, rebound - Extremities Exam Extremities exam: Present: normal inspection - Back Exam Back exam: Present: normal inspection - Neurological Exam Neurological exam: Present: alert, oriented X3 - Psychiatric Psychiatric exam: Present: normal affect, normal mood - Skin Skin exam: Present: warm, intact
[2016-11-11 16:51] VITALS: BP 151/61
[2016-11-11] MEDS: CINACALCET 30 MG TABLET PO SCH (17:46)
[2016-11-14] MEDS ORDERED: cloNIDine 0.2 MG/24 HR PATCH TRANSDERM SCH (09:00)
== END 2016-11-11 16:45 | disposition home or self-care (01) | DRG 313 ==
LOC: N.ED 08:48 → N.EDINP 12:38 → SUATTDRO 12:38 → N.5E 13:47
PROVIDERS: ADMIT Internal Medicine; ATTEND Internal Medicine

== ENCOUNTER 2016-11-26 21:09 | Inpatient (IN) ==
[2016-11-26] MEDS ORDERED: methylPREDNISolone SOD SUC 125 MG/2 ML VIAL IV STA (21:52)
[2016-11-26] MEDS ORDERED: FUROSEMIDE 100 MG/10 ML VIAL IV STA (21:52)
[2016-11-26] MEDS ORDERED: ONDANSETRON 4 MG/2 ML VIAL IV STA (21:52)
[2016-11-26] MEDS ORDERED: VANCOMYCIN INJ 1,000 MG in SODIUM CHLORIDE 0.9% 250 ML IV STA (21:52)
[2016-11-26] MEDS ORDERED: ACETAMINOPHEN 500 MG TABLET PO STA (21:52)
--- NOTE | 2016-11-26 21:52 | Emergency Department Note ---
Ghulam Conley Manpreet, am scribing for, and in the presence of, Esdras Yu MD 21:46. Aimee Conley Charles R, MD, personally performed the services described in this documentation, ascribed by Tj Parmar in my presence, and it is both accurate and complete . Arrival - Arrival Chief Complaint: Shortness of Breath ED Nursing Triage Note: Pt arrives via ems from home with complaints of fever cough shortness of breath and chest tightness. States that symptoms began after she got home from dialysis today. States that she hurts in her sides and abd from all the coughing. Pt also states that she has been having a productive cough over the last few days. Mode of Arrival: Stretcher Source: Patient - History of Present Illness HPI Narrative: Pt is a 75 y/o female, with PMHx of HTN, CHF, bronchitis, COPD, PNA, dialysis, and GERD, who presents to the ED with CC of SOB, cough, fever, and chest pain that began after she got home from dialysis today. Pt c/o pain to her sides and Abd as a result of the coughing and c/o pain when breathing. Pt states she makes urine 2 to 3 times a day in low amount. Pt denies dysuria and reports of smoking cigarettes. No other pains/complaints reported to ED. Onset (ago): hour(s) Consistency: constant Severity: moderate Severity scale (1-10): 4 Date of Last Menstrual Period: Hyster Allergies/Adverse Reactions: Allergies Allergy/AdvReac Type Severity Reaction Status Date / Time levofloxacin [From Levaquin] Allergy Severe ANAPHYLAXIS Verified 08/15/16 14:26 penicillin G Allergy Severe RASH Verified 08/15/16 14:26 lisinopril AdvReac Unknown Unknown/Unable Verified 08/15/16 14:26 to obtain Home Medications: Home Medications Medication Instructions Recorded Confirmed Type Atorvastatin [Lipitor] 20 mg PO BEDTIME #30 tablet 11/13/15 11/26/16 Rx Carvedilol [Coreg] 25 mg PO BID #60 tablet 11/13/15 11/26/16 Rx Calcium Acetate 667 mg PO TID W/MEALS 02/03/16 11/26/16 History Nitroglycerin Sl Tab [Nitrostat] 0.4 mg SL Q5M PRN 02/03/16 11/26/16 History cloNIDine 0.2 MG/24 HR PATCH 1 patch TRANSDERM TH 02/03/16 11/26/16 History [Anpiefzt-VCP-4 Patch] Apixaban [Eliquis] 5 mg PO BID #60 tablet 08/24/16 11/26/16 Rx Prorenal D 1 tablet PO QAM 10/11/16 11/26/16 History Cinacalcet [Sensipar] 30 mg PO DAILY W/SUPPER 11/08/16 11/26/16 History Review of System - Review of System 12 point system: reviewed and no additional remarkable complaints except as stated - Review of System Constitutional: Present: chills, fever Respiratory: Present: cough, respiratory distress Cardiovascular: Present: chest pain, dyspnea on exertion Gastrointestinal: Present: abdominal pain, nausea, vomiting Musculoskeletal: Present: back pain (Flank pain). Absent: arm pain, leg pain, neck pain Neurological: Absent: headache, weakness Medical,Surgical,& Family Hx - Medical History Cardio: History of: CHF (nonischemic cardiomyopathy), Hypertension, Pacemaker ( AICD) No history of: CAD Neurology: No history of: Seizures Respiratory: History of: Bronchitis, COPD, Pneumonia Renal: History of: Dialysis (, , Fri), Renal Failure, Renal Problems ( tesso left chest) Genitourinary: History of: Genitourinary Cancer Gastrointestinal: History of: GERD, GI Problems (patient has hx of colostomy- now reversed) Hematology: History of: Anemia Reproductive: History of: Ovarian Cysts - Surgical History Cardiac Surgeries: Sugical HX of: Cardiac Catheterization, Internal Defibrillator Thoracic Surgeries: Patient denies;: Organ Transplant Abdominal Surgeries: Surgical HX of: Abdominal Surgery Reproductive Surgeries: Surgical HX of;: Genitourinary Surgery (ovaries removed) , Gynecologic Surgery, Hysterectomy - Family History Family History: Reports;: Family Diabetes (mother), Family Hypertension (mother , brothers,sisters) - Social History Smoking Status: Current some day smoker Frequency of Alcohol Use: None Type of Drug Use: None Exam Vital Signs: Vital Signs Temperature 101.5 F H 11/26/16 21:30 Pulse Rate 82 11/26/16 22:11 Respiratory Rate 24 11/26/16 22:11 Blood Pressure 153/69 11/26/16 21:30 O2 Sat by Pulse Oximetry 92 L 11/26/16 22:11 - General General appearance: alert - Head Head exam: Present: atraumatic, normocephalic, normal inspection - Eye Eye exam: Present: normal appearance, PERRL, EOMI - ENT ENT exam: Present: normal exam, normal oropharynx, mucous membranes moist, TM's normal bilaterally - Neck Neck exam: Present: normal inspection, full ROM, trachea midline. Absent: tenderness, thyromegaly - Chest Chest inspection: Present: normal inspection, symmetric chest wall rise. Absent : tenderness - Respiratory Respiratory exam: Present: rales, wheezes, other (Decreased breath sounds). Absent: respiratory distress - Cardiovascular Cardiovascular exam: Present: regular rate, normal rhythm, normal heart sounds - Abdominal Exam Abdominal exam: Present: tenderness (Superpubic and epigastric tenderness), normal bowel sounds. Absent: soft, distention - Extremities Exam Extremities exam: Present: full ROM, other (AV graft in left arm). Absent: normal inspection, tenderness - Back Exam Back exam: Present: normal inspection, full ROM. Absent: tenderness - Neurological Exam Neurological exam: Present: alert, oriented X3, CN II-XII intact, reflexes normal - Psychiatric Psychiatric exam: Present: normal affect, normal mood - Skin Skin exam: Present: warm, dry, intact, normal color. Absent: pallor Course - Consultations Consultation #1: Hospitalist will admit patient Time: 00:42 Results - Labs CBC & BMP: 11/26/16 21:25 11/26/16 21:25 Lab Results: I have reviewed the patients labs Labs: Laboratory Tests 11/26/16 11/26/16 11/26/16 21:25 21:25 21:25 WBC 7.0 RBC 3.83 Hgb 12.3 Hct 37.6 MCV 98.2 Plt Count 108 L Neut % (Auto) 77.1 H Lymph % (Auto) 10.3 L Lymph # (Auto) 0.7 L INR 1.1 PT Patient/Control Mix 12.1 Sodium 139 Potassium 3.8 Chloride 99 Carbon Dioxide 30 Creatinine 3.10 H BUN/Creatinine Ratio 5.00 L Glucose 115 H Alkaline Phosphatase 132 H C-Reactive Protein 1.52 H Albumin/Globulin Ratio 1.0 L Laboratory Tests 11/26/16 11/26/16 22:28 22:50 Lactic Acid 0.7 Urine pH 5.0 Ur Specific [place] 1.023 Urine Protein >=500 Urine Ketones 5 Urine Bilirubin Small H Urine Urobilinogen 2.0 H Urine WBC 2 Hyaline Casts 33 - Diagnostic Findings Procedure: Abdominal x-ray: report reviewed by me (1. No active process is suggested within the abdomen or pelvis.), Chest x-ray: report reviewed by me ( 1. Improved aeration of the lungs is demonstrated since comparison study. Small residual right-sided pleural effusion has probably changed little in size since comparison. Present demonstrated left pleural effusion has resolved.) Critical Care Time Critical Care Time: Yes Total Critical Care Time: 60 Disposition Clinical Impression: Chronic obstructive pulmonary disease (COPD), Nonischemic cardiomyopathy, Acute febrile illness, History of cardiomyopathy, ESRD (end stage renal disease ) on dialysis, Fever, Acute dyspnea, Tobacco use Case discussed with: patient Disposition: Still a Patient Condition: Guarded Time of Disposition: 00:58
[2016-11-26] MEDS ORDERED: ALBUTEROL 2.5 MG/3 ML NEB RESP TX SCH (22:00)
[2016-11-26 22:06] LABS: Basophils % 0.3 % (0.0-0.8); Eosinophils # 0.3 10*3/uL (0.0-0.87); Eosinophils % 4.2 % (0.00-10.9); Hematocrit 37.6 VOL% (35.7-47.0); Hemoglobin 12.3 GM/DL (12.0-16.0); Immature Granulocytes % 0.3 %; Immature Granulocytes Absolute 0.02 #; Lymphocytes # 0.7 10*3/uL (1.4-4.0); Lymphocytes % 10.3 % (21.3-54.2); Mean Corpuscular HGB Conc 32.7 GM/DL (32-36); Mean Corpuscular Hemoglobin 32 PG (27-34); Mean Corpuscular Volume 98.2 FL (87-102); Mean Platelet Volume 10.6 FL (9.6-12.0); Monocytes # 0.5 10*3/uL (0.11-0.8); Monocytes % 7.8 % (1.7-12.7); Neutrophils # 5.4 10*3/uL (1.4-7.4); Neutrophils % 77.1 % (38.7-73.9); Platelet Count 108 T/CUMM (130-400); Red Blood Count 3.83 MC/CUMM (3.8-5.5); Red Cell Distribution Width 15.3 % (9.3-17.3)
[2016-11-26 22:14] LABS: INR 1.1; PT Patient Result 12.1 SECS
[2016-11-26 22:24] LABS: Albumin 3.7 G/DL (3.4-5.0); Bilirubin,Total 0.6 MG/DL (0.2-1.0); Calcium 8.6 MG/DL (8.5-10.1); Magnesium 1.8 MG/DL (1.8-2.4); Osmolality,Calculated 279.5 MOS/KG (273-304); Potassium 3.8 MMOL/L (3.5-5.1); Total Protein 7.1 G/DL (6.4-8.3); Troponin I Only 0.021 NG/ML (0.00-0.045)
--- NOTE | 2016-11-26 22:51 | XRay Report ---
XR chest 1V portable Indication: Shortness of breath Comparison: Chest x-ray 11/10/2016 Technique: Portable AP chest was performed. Findings: The heart minimally enlarged, stable. AICD is stable. Pulmonary vasculature demonstrates no specific abnormality. Hilar structures demonstrate fairly symmetric appearance. The lungs are clear for degree of inspiration. Right-sided pleural effusion is suggested and is stable compared to previous study. Bones and soft tissues demonstrate no evidence of acute pathology. Impression: 1. Improved aeration of the lungs is demonstrated since comparison study. Small residual right-sided pleural effusion has probably changed little in size since comparison. Present demonstrated left pleural effusion has resolved. 11/26/2016 10:31 PM PROCEDURE INTERPRETED AT [facility] DEPARTMENT OF RADIOLOGY Final Report Signed by: Dr. Garrett Vu
--- NOTE | 2016-11-26 22:51 | XRay Report ---
XR abdomen 2V Indication: Abdominal pain. Comparison: Abdominal series 05/14/2014. Technique: Flat and erect images of the abdomen were performed. Findings: AICD is present. Small bilateral pleural effusions are suggested. These are not significantly changed since comparison study. No organomegaly suggested. The bowel gas pattern demonstrates no significant abnormality. Numerous surgical clips project within the lower abdomen and pelvis. No free air is present. Loss of femoral acetabular joint space and degenerative change of the right femoral acetabular joint demonstrates little interval progression. Impression: 1. No active process is suggested within the abdomen or pelvis. 11/26/2016 10:30 PM PROCEDURE INTERPRETED AT [facility] DEPARTMENT OF RADIOLOGY Final Report Signed by: Dr. Garrett Vu
[2016-11-26 22:54] LABS: Sedimentation Rate-Westergren 21 MM/HR (0-30)
[2016-11-26 23:01] LABS: Amorphous Crystals,Urine Occasional /HPF (Few); Apearance,Urine CLOUDY (Clear); Blood, Urine Small mg/dL (Negative); Glucose,Urine (UA) Negative (Negative); Hyaline Casts,Urine 33 /LPF (0-3); Ketones,Urine 5 mg/dL (Negative); Mucus,Urine Few /LPF (Occasional); Nitrite,Urine Negative (Negative); Protein,Urine >=500 MG/DL; Squamous Epithelial Cell,Urine Occasional /HPF (0-10); Urine Color Amber (Yellow); Urine Specific Gravity 1.023 (1.001-1.035); WBC,Urine 2 /HPF (0-6)
[2016-11-26 23:02] LABS: Bilirubin,Urine Small mg/dL (Negative)
[2016-11-26] MEDS ORDERED: ONDANSETRON 4 MG/2 ML VIAL ONE (23:03)
[2016-11-26] MEDS ORDERED: ACETAMINOPHEN 500 MG TABLET ONE (23:03)
[2016-11-26] MEDS ORDERED: FUROSEMIDE 100 MG/10 ML VIAL ONE (23:03)
[2016-11-26] MEDS ORDERED: methylPREDNISolone SOD SUC 125 MG/2 ML VIAL ONE (23:03)
[2016-11-26] MEDS ORDERED: VANCOMYCIN 1,000 MG VIAL ONE (23:03)
--- NOTE | 2016-11-27 02:37 | Hospitalist History & Physical ---
Assessment and Plan (1) Bronchitis Status: Acute Current Visit: Yes (2) CHF (congestive heart failure) Status: Chronic Current Visit: No Qualifiers: Congestive heart failure chronicity: chronic (3) Anemia Status: Chronic Current Visit: No Qualifiers: Other causes of anemia: chronic disease, kidney Qualified Code(s): N18.9 - Chronic kidney disease, unspecified (4) Obesity (BMI 30.0-34.9) Status: Chronic Current Visit: No (5) Chronic obstructive pulmonary disease (COPD) Status: Chronic Current Visit: Yes (6) Nonischemic cardiomyopathy Status: Chronic Current Visit: Yes (7) Fever Status: Acute Assessment and plan: We will admit patient our service. Feel the patient is suffering from acute bronchitis. We will put her on antibiotics for this. Will consult nephrology for their input regarding her dialysis. We will treat her cough. Continue her home meds as appropriate Current Visit: Yes History of Present Illness Chief complaint: Fever and cough History of present illness: Ms. Dee is a 75 year old female with past medical history significant for end-stage renal disease cardiomyopathy hypertension pacemaker who [facility]. Patient reportedly having dialysis done yesterday. She started having symptoms after dialysis including the cough and shortness of breath. She she told the ER physician that it was hurting on both sides of her abdomen because she been coughing so much. She tells me that the cough has been productive with white sputum. I was consulted to admit the patient to the emergency room. Home Medications Medication Instructions Recorded Confirmed Type Atorvastatin [Lipitor] 20 mg PO BEDTIME #30 tablet 11/13/15 11/26/16 Rx Carvedilol [Coreg] 25 mg PO BID #60 tablet 11/13/15 11/26/16 Rx Calcium Acetate 667 mg PO TID W/MEALS 02/03/16 11/26/16 History Nitroglycerin Sl Tab [Nitrostat] 0.4 mg SL Q5M PRN 02/03/16 11/26/16 History cloNIDine 0.2 MG/24 HR PATCH 1 patch TRANSDERM TH 02/03/16 11/26/16 History [Zswowmsm-QCW-1 Patch] Apixaban [Eliquis] 5 mg PO BID #60 tablet 08/24/16 11/26/16 Rx Prorenal D 1 tablet PO QAM 10/11/16 11/26/16 History Cinacalcet [Sensipar] 30 mg PO DAILY W/SUPPER 11/08/16 11/26/16 History Allergies Allergy/AdvReac Type Severity Reaction Status Date / Time levofloxacin [From Levaquin] Allergy Severe ANAPHYLAXIS Verified 08/15/16 14:26 penicillin G Allergy Severe RASH Verified 08/15/16 14:26 lisinopril AdvReac Unknown Unknown/Unable Verified 08/15/16 14:26 to obtain Medical,Surgical,& Family Hx - Medical History Cardio: History of: CHF (nonischemic cardiomyopathy), Hypertension, Pacemaker ( AICD) No history of: CAD Neurology: No history of: Seizures Respiratory: History of: Bronchitis, COPD, Pneumonia Renal: History of: Dialysis (Tues, , Sat), Renal Failure, Renal Problems ( tesso left chest) Genitourinary: History of: Genitourinary Cancer Gastrointestinal: History of: GERD, GI Problems (patient has hx of colostomy- now reversed) Hematology: History of: Anemia Reproductive: History of: Ovarian Cysts - Surgical History Cardiac Surgeries: Sugical HX of: Cardiac Catheterization, Internal Defibrillator Thoracic Surgeries: Patient denies;: Organ Transplant Abdominal Surgeries: Surgical HX of: Abdominal Surgery Reproductive Surgeries: Surgical HX of;: Genitourinary Surgery (ovaries removed) , Gynecologic Surgery, Hysterectomy - Family History Family History: Reports;: Family Diabetes (mother), Family Hypertension (mother , brothers,sisters) - Social History Smoking Status: Current some day smoker Frequency of Alcohol Use: None Type of Drug Use: None 12 point system: reviewed and no additional remarkable complaints except as stated Exam - Constitutional Vitals: Period Temp Pulse Resp BP Sys/Ngo Pulse Ox Last 24 Hr 101.5 F-101.5 F 79-84 20-24 153-160/69-78 92-100 - General General appearance: alert - Head Head exam: Present: atraumatic, normocephalic, normal inspection - Eye Eye exam: Present: normal appearance, PERRL, EOMI - ENT ENT exam: Present: normal exam, normal oropharynx, mucous membranes moist, TM's normal bilaterally - Neck Neck exam: Present: normal inspection, full ROM, trachea midline - Chest Chest inspection: Present: normal inspection, symmetric chest wall rise - Respiratory Respiratory exam: Present: rales, wheezes, other (Decreased breath sounds). - Cardiovascular Cardiovascular exam: Present: regular rate, normal rhythm, normal heart sounds - Abdominal Exam Abdominal exam: Present: tenderness (Superpubic and epigastric tenderness), normal bowel sounds - Extremities Exam Extremities exam: Present: full ROM, other (AV graft in left arm) - Back Exam Back exam: Present: normal inspection, full ROM - Neurological Exam Neurological exam: Present: alert, oriented X3, CN II-XII intact, reflexes normal - Psychiatric Psychiatric exam: Present: normal affect, normal mood - Skin Skin exam: Present: warm, dry, intact, normal color Results - Labs CBC & BMP: 11/26/16 21:25 11/26/16 21:25
[2016-11-27] MEDS ORDERED: ONDANSETRON 4 MG/2 ML VIAL IV PRN (02:41)
[2016-11-27] MEDS ORDERED: ALBUTEROL 2.5 MG/3 ML NEB RESP TX PRN (02:41)
[2016-11-27] MEDS ORDERED: AZITHROMYCIN INJ 500 MG in SODIUM CHLORIDE 0.9% 250 ML IV SCH (03:00)
[2016-11-27] MEDS: CALCIUM ACETATE 667 MG CAPSULE PO SCH ×3 (07:57→17:03)
[2016-11-27] MEDS: PANTOPRAZOLE 40 MG TABLET PO SCH (08:05)
[2016-11-27] MEDS: APIXABAN 5 MG TABLET PO SCH ×2 (08:05→20:16)
[2016-11-27] MEDS: CARVEDILOL 25 MG TABLET PO SCH ×2 (08:05→20:16)
[2016-11-27] MEDS: MULTIVITAMIN (BEROCCA) TABLET PO SCH (08:05)
[2016-11-27 08:44] LABS: Basophils % 0.2 % (0.0-0.8); Hematocrit 40.1 VOL% (35.7-47.0); Hemoglobin 12.4 GM/DL (12.0-16.0); Immature Granulocytes % 0.6 %; Immature Granulocytes Absolute 0.03 #; Lymphocytes # 0.4 10*3/uL (1.4-4.0); Lymphocytes % 8.6 % (21.3-54.2); Mean Corpuscular HGB Conc 30.9 GM/DL (32-36); Mean Corpuscular Hemoglobin 31 PG (27-34); Mean Corpuscular Volume 100.8 FL (87-102); Mean Platelet Volume 10.5 FL (9.6-12.0); Monocytes # 0.1 10*3/uL (0.11-0.8); Monocytes % 1.7 % (1.7-12.7); Neutrophils # 4.1 10*3/uL (1.4-7.4); Neutrophils % 88.9 % (38.7-73.9); Platelet Count 111 T/CUMM (130-400); Red Blood Count 3.98 MC/CUMM (3.8-5.5); Red Cell Distribution Width 15.1 % (9.3-17.3); White Blood Count 4.6 T/CUMM (4-12)
[2016-11-27 09:20] LABS: Calcium 8.6 MG/DL (8.5-10.1); Osmolality,Calculated 283.5 MOS/KG (273-304); Potassium 4.5 MMOL/L (3.5-5.1)
[2016-11-27] MEDS: ACETAMINOPHEN 325 MG TABLET PO PRN (10:39)
--- NOTE | 2016-11-27 13:07 | Nephrology Consult Note ---
History of Present Illness Chief complaint: End-stage renal disease in a patient admitted for shortness of breath History of present illness: Ms. Dee is a 75 year old female who dialyzes on a TTS basis in [facility]. The patient was admitted through the ER for complaints of shortness of breath. The patient states she has been having some left-sided chest pain and a cough associated with shortness of breath the past several days. She states her cough has been productive of white thick sputum. She states she had some fever to 101.5 when she was admitted. She states the pain is located in her left chest and right arm across her right chest as well but is most severe in her left side. The patient states her shortness of breath is worse at night when she lays down, it is not as bad during the day. Occasionally she has to sit up at night to get her breath. She denies overindulging in salt or food intake she denies any swelling in her legs. The patient does have a history of congestive heart failure and she smokes cigarettes on a daily basis. She has a history of COPD as well. ROS: Head -positive headaches ENT - denies sore throat Lymphatics - denies lymphadenopathy Hematology - denies bleeding problems Heart -positive chest pain Lungs -positive shortness of breath Abdomen - denies abdominal pain Musculoskeletal - denies arthritis Skin - denies rash Neurology - denies stroke General -positive fever PE: General: in no acute distress Eyes: Pupils are round and reactive, conjunctivae are clear ENT: Nose is clear, O/P is benign Neck: Supple, no thyromegaly Lymphatics: No cervical, supraclavicular or axillary adenopathy Heart: Regular rate and rhythm, no edema Lungs: Clear to auscultation anteriorly, she does have some mild crackles at the right base posteriorly, chest expansion symmetric Abdomen: Soft, normoactive bowel sounds, no hepatomegaly Musculoskeletal: No joint erythema or effusions or joint asymmetry Skin: Normal turgor, normal hydration, no rash Neuro/Psych: Alert and cooperative with fair insight Home Medications Medication Instructions Recorded Confirmed Type Atorvastatin [Lipitor] 20 mg PO BEDTIME #30 tablet 11/13/15 11/26/16 Rx Carvedilol [Coreg] 25 mg PO BID #60 tablet 11/13/15 11/26/16 Rx Calcium Acetate 667 mg PO TID W/MEALS 02/03/16 11/26/16 History Nitroglycerin Sl Tab [Nitrostat] 0.4 mg SL Q5M PRN 02/03/16 11/26/16 History cloNIDine 0.2 MG/24 HR PATCH 1 patch TRANSDERM TH 02/03/16 11/26/16 History [Lxxbxobp-NTB-8 Patch] Apixaban [Eliquis] 5 mg PO BID #60 tablet 08/24/16 11/26/16 Rx Prorenal D 1 tablet PO QAM 10/11/16 11/26/16 History Cinacalcet [Sensipar] 30 mg PO DAILY W/SUPPER 11/08/16 11/26/16 History Allergies Allergy/AdvReac Type Severity Reaction Status Date / Time levofloxacin [From Levaquin] Allergy Severe ANAPHYLAXIS Verified 08/15/16 14:26 penicillin G Allergy Severe RASH Verified 08/15/16 14:26 lisinopril AdvReac Unknown Unknown/Unable Verified 08/15/16 14:26 to obtain Medical,Surgical,& Family Hx - Medical History Cardio: History of: CHF (nonischemic cardiomyopathy), Hypertension, Pacemaker ( AICD) No history of: CAD Neurology: No history of: Seizures Respiratory: History of: Bronchitis, COPD, Pneumonia Renal: History of: Dialysis (, , Fri), Renal Failure, Renal Problems ( tesso left chest) Genitourinary: History of: Genitourinary Cancer (remission) Gastrointestinal: History of: GERD, GI Problems (patient has hx of colostomy- now reversed) Hematology: History of: Anemia Reproductive: History of: Ovarian Cysts - Surgical History Cardiac Surgeries: Sugical HX of: Cardiac Catheterization, Internal Defibrillator Thoracic Surgeries: Patient denies;: Organ Transplant Abdominal Surgeries: Surgical HX of: Abdominal Surgery Reproductive Surgeries: Surgical HX of;: Genitourinary Surgery (ovaries removed) , Gynecologic Surgery, Hysterectomy - Family History Family History: Reports;: Family Diabetes (mother), Family Hypertension (mother , brothers,sisters) - Social History Smoking Status: Current some day smoker Frequency of Alcohol Use: None Type of Drug Use: None Exam - Vital Signs Vital signs: Period Temp Pulse Resp BP Sys/Ngo Pulse Ox Last 24 Hr 96.5 F-98.7 F 64-69 20-20 148-178/59-75 96-100 Results - Labs CBC & BMP: 11/27/16 08:15 11/27/16 08:15 Assessment and Plan (1) End stage renal disease on dialysis Status: Chronic Assessment and plan: We will continue hemodialysis on a TTS basis while here Current Visit: Yes (2) Acute dyspnea Status: Acute Current Visit: Yes (3) Acute febrile illness Status: Acute Assessment and plan: I agree with IV antibiotics for presumed pneumonia Current Visit: Yes (4) Chronic obstructive pulmonary disease (COPD) Status: Chronic Current Visit: Yes (5) Tobacco use Status: Chronic Current Visit: Yes (6) Chest pain Status: Acute Current Visit: No (7) Essential hypertension Status: Acute Current Visit: No (8) Pneumonia Status: Acute Current Visit: No (9) Secondary hyperparathyroidism Status: Acute Assessment and plan: We will continue her phosphate binder Current Visit: No
--- NOTE | 2016-11-27 14:21 | Hospitalist Progress Note ---
Assessment and Plan - Time spent with patient Time spent with patient: Greater than 30 minutes (1) Pneumonia Status: Acute Assessment and plan: Chest x-ray reveals possible left lower lobe pneumonia. Switch antibiotics to Merrem and doxycycline. This may also be viral. Current Visit: No (2) Chronic obstructive pulmonary disease (COPD) Status: Chronic Assessment and plan: Stable. Current Visit: Yes (3) End stage renal disease on dialysis Status: Chronic Assessment and plan: Nephrology is involved. Current Visit: Yes (4) CHF (congestive heart failure) Status: Chronic Assessment and plan: Stable. Current Visit: No Qualifiers: Congestive heart failure chronicity: chronic Hospitalist: Subjective Interval history: She reports improvement in her breathing. No complaints. No overnight events. Exam - Constitutional Vitals: Period Temp Pulse Resp BP Sys/Ngo Pulse Ox Last 24 Hr 96.5 F-98.7 F 64-69 20-20 148-178/59-75 96-100 General appearance: no acute distress - Head Head exam: Present: normocephalic, atraumatic - Eye Eye exam: Present: EOMI Pupils: Present: ANDRÉS - ENT ENT exam: Present: normal exam - Neck Neck exam: Present: normal inspection - Respiratory Respiratory exam: Present: rhonchi (Right lower base). Absent: wheezes - Cardiovascular Cardiovascular exam: Present: regular rate and rhythm. Absent: gallop, rubs, systolic murmur - GI/Abdominal GI/Abdominal exam: Present: normal bowel sounds, soft. Absent: distended, firm , guarding, tenderness, rebound - Extremities Exam Extremities exam: Present: normal inspection. Absent: calf tenderness, edema Results - Labs CBC & BMP: 11/27/16 08:15 11/27/16 08:15 Lab Results: I have reviewed the past 24 hour labs
[2016-11-27] MEDS: MEROPENEM 500 MG in SODIUM CHLORIDE 0.9% 100 ML IV SCH (15:22)
[2016-11-27] MEDS: DOXYCYCLINE HYCLATE INJ 100 MG in SODIUM CHLORIDE 0.9% 100 ML IV SCH (17:03)
[2016-11-27] MEDS: CINACALCET 30 MG TABLET PO SCH (17:03)
[2016-11-27] MEDS: MONTELUKAST 10 MG TABLET PO SCH (20:16)
[2016-11-27] MEDS: ATORVASTATIN 20 MG TABLET PO SCH (20:16)
[2016-11-28 06:35] LABS: Calcium 7.8 MG/DL (8.5-10.1); Osmolality,Calculated 290.5 MOS/KG (273-304); Potassium 4.5 MMOL/L (3.5-5.1)
[2016-11-28 06:47] LABS: Eosinophils % 0.2 % (0.00-10.9); Hematocrit 34.9 VOL% (35.7-47.0); Hemoglobin 10.8 GM/DL (12.0-16.0); Immature Granulocytes Absolute 0.05 #; Lymphocytes % 19.1 % (21.3-54.2); Mean Corpuscular HGB Conc 30.9 GM/DL (32-36); Mean Corpuscular Hemoglobin 31 PG (27-34); Mean Corpuscular Volume 101.5 FL (87-102); Mean Platelet Volume 10.4 FL (9.6-12.0); Monocytes # 0.5 10*3/uL (0.11-0.8); Monocytes % 9.2 % (1.7-12.7); Neutrophils # 3.7 10*3/uL (1.4-7.4); Neutrophils % 70.5 % (38.7-73.9); Platelet Count 99 T/CUMM (130-400); Red Blood Count 3.44 MC/CUMM (3.8-5.5); Red Cell Distribution Width 14.9 % (9.3-17.3); White Blood Count 5.2 T/CUMM (4-12)
[2016-11-28] MEDS: DOXYCYCLINE HYCLATE INJ 100 MG in SODIUM CHLORIDE 0.9% 100 ML IV SCH (07:41)
--- NOTE | 2016-11-28 07:41 | EKG Report ---
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
[2016-11-28] MEDS ORDERED: VANCOMYCIN INJ 750 MG in SODIUM CHLORIDE 0.9% 250 ML IV PRN (09:30)
[2016-11-28] MEDS: CALCIUM ACETATE 667 MG CAPSULE PO SCH ×3 (09:31→16:47)
[2016-11-28] MEDS: MULTIVITAMIN (BEROCCA) TABLET PO SCH (09:31)
[2016-11-28] MEDS: PANTOPRAZOLE 40 MG TABLET PO SCH (09:32)
[2016-11-28] MEDS ORDERED: BISACODYL 5 MG TABLET PO PRN (12:17)
--- NOTE | 2016-11-28 12:18 | Nephrology Progress Note ---
Nephrology - PN: Subj Interval history: Patient states she has breathing better. She continues to have some productive cough. Review of systems musculoskeletal-patient states her chest pain is improved Physical exam general the patient's in no acute distress, her lungs are clear to auscultation Assessment/plan 1. Probable pneumonia-patient seems to be responding to IV antibiotics will continue these 2. End-stage renal disease-we will continue hemodialysis 3. Hypertension this control 4. Secondary hyperparathyroidism we will continue her binders Exam (PN)-Nephrology - Vital Signs Vital signs: Period Temp Pulse Resp BP Sys/Ngo Pulse Ox Last 24 Hr 97.0 F-97.8 F 60-79 18-20 151-163/70-81 98-100 - Lab 11/28/16 04:00 11/28/16 04:00 Most recent lab results Calcium 7.8 MG/DL (8.5-10.1) L 11/28/16 04:00 Magnesium 1.8 MG/DL (1.8-2.4) 11/26/16 21:25 Assessment and Plan (1) End stage renal disease on dialysis Status: Chronic Assessment and plan: We will continue hemodialysis on a TTS basis while here Current Visit: Yes (2) Acute dyspnea Status: Acute Current Visit: Yes (3) Acute febrile illness Status: Acute Assessment and plan: I agree with IV antibiotics for presumed pneumonia Current Visit: Yes (4) Chronic obstructive pulmonary disease (COPD) Status: Chronic Current Visit: Yes (5) Tobacco use Status: Chronic Current Visit: Yes (6) Chest pain Status: Acute Current Visit: No (7) Essential hypertension Status: Acute Current Visit: No (8) Pneumonia Status: Acute Current Visit: No (9) Secondary hyperparathyroidism Status: Acute Assessment and plan: We will continue her phosphate binder Current Visit: No
--- NOTE | 2016-11-28 12:18 | Dialysis Note ---
Dialysis Note - Dialysis Note Ms. Dee is seen during her hemodialysis. She is using her left upper arm access and blood flow is excellent.
[2016-11-28] MEDS ORDERED: VANCOMYCIN INJ 750 MG in SODIUM CHLORIDE 0.9% 250 ML IV ONE (14:00)
[2016-11-28] MEDS: CARVEDILOL 25 MG TABLET PO SCH ×2 (14:28→20:24)
[2016-11-28] MEDS: cloNIDine 0.2 MG/24 HR PATCH TRANSDERM SCH (14:29)
[2016-11-28] MEDS: APIXABAN 5 MG TABLET PO SCH ×2 (14:29→20:24)
--- NOTE | 2016-11-28 16:01 | Hospitalist Progress Note ---
Assessment and Plan - Time spent with patient Time spent with patient: Greater than 30 minutes (1) Pneumonia Status: Acute Assessment and plan: Chest x-ray reveals possible left lower lobe pneumonia. Switch antibiotics to Merrem and vancomycin. Current Visit: No (2) Chronic obstructive pulmonary disease (COPD) Status: Chronic Assessment and plan: Stable. Current Visit: Yes (3) End stage renal disease on dialysis Status: Chronic Assessment and plan: Nephrology is involved. Current Visit: Yes (4) CHF (congestive heart failure) Status: Chronic Assessment and plan: Stable. Current Visit: No Qualifiers: Congestive heart failure chronicity: chronic (5) Positive blood culture Status: Acute Assessment and plan: Continue IV antibiotics and await speciation. Current Visit: Yes Hospitalist: Subjective Interval history: Blood cultures returned gram-positive cocci in 2 bottles. She was initiated on vancomycin. She states she feels much better and has no complaints Exam - Constitutional Vitals: Period Temp Pulse Resp BP Sys/Ngo Pulse Ox Last 24 Hr 97.3 F-97.3 F 60-64 18-20 151-158/70-72 99-100 General appearance: no acute distress - Head Head exam: Present: normocephalic, atraumatic - Eye Eye exam: Present: EOMI Pupils: Present: ANDRÉS - ENT ENT exam: Present: normal exam - Neck Neck exam: Present: normal inspection - Respiratory Respiratory exam: Present: clear to auscultation bilaterally. Absent: rhonchi, wheezes - Cardiovascular Cardiovascular exam: Present: regular rate and rhythm. Absent: gallop, rubs, systolic murmur - GI/Abdominal GI/Abdominal exam: Present: normal bowel sounds, soft. Absent: distended, firm , guarding, tenderness, rebound - Extremities Exam Extremities exam: Present: normal inspection. Absent: calf tenderness, edema Results - Labs CBC & BMP: 11/28/16 04:00 11/28/16 04:00 Lab Results: I have reviewed the past 24 hour labs
[2016-11-28] MEDS: MEROPENEM 500 MG in SODIUM CHLORIDE 0.9% 100 ML IV SCH (16:44)
[2016-11-28] MEDS: CINACALCET 30 MG TABLET PO SCH (16:47)
[2016-11-28] MEDS: ATORVASTATIN 20 MG TABLET PO SCH (20:24)
[2016-11-28] MEDS: MONTELUKAST 10 MG TABLET PO SCH (20:24)
[2016-11-29 06:59] LABS: Basophils % 0.4 % (0.0-0.8); Eosinophils # 0.1 10*3/uL (0.0-0.87); Eosinophils % 2.3 % (0.00-10.9); Hematocrit 39.3 VOL% (35.7-47.0); Hemoglobin 12.4 GM/DL (12.0-16.0); Immature Granulocytes % 0.2 %; Immature Granulocytes Absolute 0.01 #; Lymphocytes # 1.4 10*3/uL (1.4-4.0); Lymphocytes % 26.6 % (21.3-54.2); Mean Corpuscular HGB Conc 31.6 GM/DL (32-36); Mean Corpuscular Hemoglobin 31 PG (27-34); Mean Corpuscular Volume 98.7 FL (87-102); Mean Platelet Volume 10.8 FL (9.6-12.0); Monocytes # 0.7 10*3/uL (0.11-0.8); Monocytes % 13.8 % (1.7-12.7); Neutrophils # 2.9 10*3/uL (1.4-7.4); Neutrophils % 56.7 % (38.7-73.9); Platelet Count 111 T/CUMM (130-400); Red Blood Count 3.98 MC/CUMM (3.8-5.5); Red Cell Distribution Width 14.7 % (9.3-17.3); White Blood Count 5.2 T/CUMM (4-12)
[2016-11-29 07:32] LABS: Calcium 7.5 MG/DL (8.5-10.1)
[2016-11-29] MEDS: MULTIVITAMIN (BEROCCA) TABLET PO SCH (09:38)
[2016-11-29] MEDS: CALCIUM ACETATE 667 MG CAPSULE PO SCH ×3 (09:38→16:35)
[2016-11-29] MEDS: CARVEDILOL 25 MG TABLET PO SCH ×2 (09:38→21:14)
[2016-11-29] MEDS: PANTOPRAZOLE 40 MG TABLET PO SCH (09:39)
[2016-11-29] MEDS: DOCUSATE SODIUM 100 MG CAPSULE PO PRN ×2 (09:39→21:15)
[2016-11-29] MEDS: APIXABAN 5 MG TABLET PO SCH ×2 (09:39→21:15)
--- NOTE | 2016-11-29 10:35 | Hospitalist Progress Note ---
Assessment and Plan - Time spent with patient Time spent with patient: Greater than 30 minutes (1) Pneumonia Status: Acute Assessment and plan: Chest x-ray reveals possible left lower lobe pneumonia. Continue current management. Current Visit: No (2) Chronic obstructive pulmonary disease (COPD) Status: Chronic Assessment and plan: Stable. Current Visit: Yes (3) End stage renal disease on dialysis Status: Chronic Assessment and plan: Nephrology is involved. Current Visit: Yes (4) CHF (congestive heart failure) Status: Chronic Assessment and plan: Stable. Current Visit: No Qualifiers: Congestive heart failure chronicity: chronic (5) Positive blood culture Status: Acute Assessment and plan: Continue IV antibiotics and await speciation. Current Visit: Yes Hospitalist: Subjective Interval history: Patient states she feels much better this morning. No overnight events. No fever currently awaiting the blood culture results. Exam - Constitutional Vitals: Period Temp Pulse Resp BP Sys/Ngo Pulse Ox Last 24 Hr 97.0 F-97.6 F 61-82 18-20 119-162/58-71 95-99 General appearance: no acute distress - Head Head exam: Present: normocephalic, atraumatic - Eye Eye exam: Present: EOMI Pupils: Present: ANDRÉS - ENT ENT exam: Present: normal exam - Neck Neck exam: Present: normal inspection - Respiratory Respiratory exam: Present: clear to auscultation bilaterally. Absent: rhonchi, wheezes - Cardiovascular Cardiovascular exam: Present: regular rate and rhythm. Absent: gallop, rubs, systolic murmur - GI/Abdominal GI/Abdominal exam: Present: normal bowel sounds, soft. Absent: distended, firm , guarding, tenderness, rebound - Extremities Exam Extremities exam: Present: normal inspection. Absent: calf tenderness, edema Results - Labs CBC & BMP: 11/29/16 05:38 11/29/16 05:38 Lab Results: I have reviewed the past 24 hour labs
--- NOTE | 2016-11-29 11:11 | Nephrology Progress Note ---
Nephrology - PN: Subj Interval history: Patient feels better. She did have some nausea this morning after eating breakfast. Review of systems-pulmonary she states her cough and shortness of breath are improved Physical exam general the patient is in no acute distress, she has no pitting edema Assessment/plan 1. End-stage renal disease-we will continue Friday dialysis support 2. Hypertension is controlled 3. Pneumonia this is improving 4. Secondary hyperparathyroidism 5. Gram-positive bacteremia-patient's identification of organism is pending it is not MRSA per PCR analysis Exam (PN)-Nephrology - Vital Signs Vital signs: Period Temp Pulse Resp BP Sys/Ngo Pulse Ox Last 24 Hr 97.0 F-97.6 F 61-82 18-20 119-162/58-71 95-99 - Lab 11/29/16 05:38 11/29/16 05:38 Most recent lab results Calcium 7.5 MG/DL (8.5-10.1) L 11/29/16 05:38 Magnesium 1.8 MG/DL (1.8-2.4) 11/26/16 21:25 Assessment and Plan (1) End stage renal disease on dialysis Status: Chronic Assessment and plan: We will continue hemodialysis on a TTS basis while here Current Visit: Yes (2) Acute dyspnea Status: Acute Current Visit: Yes (3) Acute febrile illness Status: Acute Assessment and plan: I agree with IV antibiotics for presumed pneumonia Current Visit: Yes (4) Chronic obstructive pulmonary disease (COPD) Status: Chronic Current Visit: Yes (5) Tobacco use Status: Chronic Current Visit: Yes (6) Chest pain Status: Acute Current Visit: No (7) Essential hypertension Status: Acute Current Visit: No (8) Pneumonia Status: Acute Current Visit: No (9) Secondary hyperparathyroidism Status: Acute Assessment and plan: We will continue her phosphate binder Current Visit: No
[2016-11-29] MEDS: ACETAMINOPHEN 325 MG TABLET PO PRN (14:45)
[2016-11-29] MEDS: CINACALCET 30 MG TABLET PO SCH (16:35)
[2016-11-29] MEDS: ATORVASTATIN 20 MG TABLET PO SCH (21:15)
[2016-11-29] MEDS: MONTELUKAST 10 MG TABLET PO SCH (21:15)
[2016-11-29] MEDS: MEROPENEM 500 MG in SODIUM CHLORIDE 0.9% 100 ML IV SCH (21:16)
--- NOTE | 2016-11-30 10:45 | Dialysis Note ---
Dialysis Note - Dialysis Note Ms. Dee is seen on hemodialysis. She is tolerating dialysis well using her left upper arm axis. She has a a gram-positive bacteremia that is not staph aureus according to cultures. She will continue with current antibiotics pending sensitivities on this organism.. She also complains of constipation and laxative is ordered.
[2016-11-30] MEDS ORDERED: LACTULOSE 20 GM/30 ML UDCUP PO ONE (10:48)
[2016-11-30] MEDS: CALCIUM ACETATE 667 MG CAPSULE PO SCH ×3 (12:01→17:10)
[2016-11-30] MEDS: APIXABAN 5 MG TABLET PO SCH ×2 (12:01→20:49)
[2016-11-30] MEDS: CARVEDILOL 25 MG TABLET PO SCH ×2 (12:01→20:50)
[2016-11-30] MEDS: MULTIVITAMIN (BEROCCA) TABLET PO SCH (12:01)
[2016-11-30] MEDS: PANTOPRAZOLE 40 MG TABLET PO SCH (12:01)
--- NOTE | 2016-11-30 16:44 | Hospitalist Progress Note ---
Assessment and Plan - Time spent with patient Time spent with patient: Greater than 30 minutes (1) Pneumonia Status: Acute Assessment and plan: Chest x-ray reveals possible left lower lobe pneumonia. Continue current management. Current Visit: No (2) Chronic obstructive pulmonary disease (COPD) Status: Chronic Assessment and plan: Stable. Current Visit: Yes (3) End stage renal disease on dialysis Status: Chronic Assessment and plan: Nephrology is involved. Current Visit: Yes (4) CHF (congestive heart failure) Status: Chronic Assessment and plan: Stable. Current Visit: No Qualifiers: Congestive heart failure chronicity: chronic (5) Positive blood culture Status: Acute Assessment and plan: Continue IV antibiotics and await speciation. Current Visit: Yes Hospitalist: Subjective Interval history: She states she had the chills last night. Otherwise she feels okay. Exam - Constitutional Vitals: Period Temp Pulse Resp BP Sys/Ngo Pulse Ox Last 24 Hr 97.7 F-98.2 F 53-78 17-20 102-118/39-58 96-100 General appearance: normal weight, no acute distress - Head Head exam: Present: normocephalic, atraumatic - Eye Eye exam: Present: EOMI Pupils: Present: ANDRÉS - ENT ENT exam: Present: normal exam - Neck Neck exam: Present: normal inspection - Respiratory Respiratory exam: Present: clear to auscultation bilaterally. Absent: rhonchi, wheezes - Cardiovascular Cardiovascular exam: Present: regular rate and rhythm. Absent: gallop, rubs, systolic murmur - GI/Abdominal GI/Abdominal exam: Present: normal bowel sounds, soft. Absent: distended, firm , guarding, tenderness, rebound - Extremities Exam Extremities exam: Present: normal inspection. Absent: calf tenderness, edema Results - Labs CBC & BMP: 11/29/16 05:38 11/29/16 05:38 Lab Results: I have reviewed the past 24 hour labs
[2016-11-30] MEDS: CINACALCET 30 MG TABLET PO SCH (17:10)
[2016-11-30] MEDS ORDERED: VANCOMYCIN INJ 750 MG in SODIUM CHLORIDE 0.9% 250 ML IV ONE (18:00)
[2016-11-30] MEDS: ATORVASTATIN 20 MG TABLET PO SCH (20:49)
[2016-11-30] MEDS: MONTELUKAST 10 MG TABLET PO SCH (20:49)
[2016-11-30] MEDS: MEROPENEM 500 MG in SODIUM CHLORIDE 0.9% 100 ML IV SCH (20:49)
[2016-12-01 07:23] LABS: Basophils % 0.1 % (0.0-0.8); Eosinophils # 0.2 10*3/uL (0.0-0.87); Eosinophils % 3.1 % (0.00-10.9); Hematocrit 36.7 VOL% (35.7-47.0); Hemoglobin 11.6 GM/DL (12.0-16.0); Immature Granulocytes % 0.4 %; Immature Granulocytes Absolute 0.03 #; Lymphocytes # 1.3 10*3/uL (1.4-4.0); Lymphocytes % 16.5 % (21.3-54.2); Mean Corpuscular HGB Conc 31.6 GM/DL (32-36); Mean Corpuscular Hemoglobin 31 PG (27-34); Mean Corpuscular Volume 97.3 FL (87-102); Monocytes # 1.3 10*3/uL (0.11-0.8); Neutrophils # 4.9 10*3/uL (1.4-7.4); Neutrophils % 62.9 % (38.7-73.9); Platelet Count 110 T/CUMM (130-400); Red Blood Count 3.77 MC/CUMM (3.8-5.5); Red Cell Distribution Width 14.6 % (9.3-17.3); White Blood Count 7.8 T/CUMM (4-12)
[2016-12-01 07:49] LABS: Calcium 7.5 MG/DL (8.5-10.1); Osmolality,Calculated 277.1 MOS/KG (273-304); Potassium 4.7 MMOL/L (3.5-5.1)
[2016-12-01 08:02] LABS: Eosinophils 3 % (0-10); Hypochromasia 1+; Lymphocytes 23 % (20-55); Segmented Neutrophils 60 % (50-85); Total Cells Counted 100
[2016-12-01 08:04] LABS: Macrocytosis Slight; Platelet Estimate Adequate
[2016-12-01] MEDS: PANTOPRAZOLE 40 MG TABLET PO SCH (09:59)
[2016-12-01] MEDS: CALCIUM ACETATE 667 MG CAPSULE PO SCH ×3 (09:59→17:22)
[2016-12-01] MEDS: CARVEDILOL 25 MG TABLET PO SCH ×2 (09:59→20:20)
[2016-12-01] MEDS: APIXABAN 5 MG TABLET PO SCH ×2 (09:59→20:21)
[2016-12-01] MEDS: MULTIVITAMIN (BEROCCA) TABLET PO SCH (10:01)
--- NOTE | 2016-12-01 10:07 | Nephrology Progress Note ---
Nephrology - PN: Subj Interval history: Ms. Dee is seen in follow-up of her end-stage renal disease and MRSA bacteremia. She is currently afebrile her left upper arm axis looks good and noninfected. We are going to add gentamicin to her antibiotics with each dialysis. This organism is sensitive to gentamicin. Also we are going to increase vancomycin dose a bit up to 1 g with each dialysis. No other changes are made. Exam (PN)-Nephrology - Vital Signs Vital signs: Period Temp Pulse Resp BP Sys/Ngo Pulse Ox Last 24 Hr 97.3 F-98 F 53-71 18-20 105-127/40-62 64-99 - Lab 12/01/16 06:25 12/01/16 06:25 Most recent lab results Calcium 7.5 MG/DL (8.5-10.1) L 12/01/16 06:25 Magnesium 1.8 MG/DL (1.8-2.4) 11/26/16 21:25 Specialty Discharge - Follow Up or Referrals
[2016-12-01] MEDS ORDERED: GENTAMICIN INJ 80 MG in PREMIX 1 EACH IV ONE (11:00)
--- NOTE | 2016-12-01 11:18 | Hospitalist Progress Note ---
Assessment and Plan - Time spent with patient Time spent with patient: Greater than 30 minutes (1) Pneumonia Status: Acute Assessment and plan: Chest x-ray reveals possible left lower lobe pneumonia. Continue current management. Current Visit: No (2) Chronic obstructive pulmonary disease (COPD) Status: Chronic Assessment and plan: Stable. Current Visit: Yes (3) End stage renal disease on dialysis Status: Chronic Assessment and plan: Nephrology is involved. Current Visit: Yes (4) CHF (congestive heart failure) Status: Chronic Assessment and plan: Stable. Current Visit: No Qualifiers: Congestive heart failure chronicity: chronic (5) Positive blood culture Status: Acute Assessment and plan: Continue IV antibiotics for what appears to be Staphylococcus epidermidis. Will consult infectious disease to ascertain significance of this finding. Current Visit: Yes Hospitalist: Subjective Interval history: Ms. Dee is feeling better day by day. Blood cultures returned MRSE. Exam - Constitutional Vitals: Period Temp Pulse Resp BP Sys/Ngo Pulse Ox Last 24 Hr 97.3 F-98 F 53-71 18-20 105-149/40-73 64-99 General appearance: no acute distress - Head Head exam: Present: normocephalic, atraumatic - Eye Eye exam: Present: EOMI Pupils: Present: ANDRÉS - ENT ENT exam: Present: normal exam - Neck Neck exam: Present: normal inspection - Respiratory Respiratory exam: Present: clear to auscultation bilaterally. Absent: rhonchi, wheezes - Cardiovascular Cardiovascular exam: Present: regular rate and rhythm. Absent: gallop, rubs, systolic murmur - GI/Abdominal GI/Abdominal exam: Present: normal bowel sounds, soft. Absent: distended, firm , guarding, tenderness, rebound - Extremities Exam Extremities exam: Present: normal inspection. Absent: calf tenderness, edema Results - Labs CBC & BMP: 12/01/16 06:25 12/01/16 06:25 Lab Results: I have reviewed the past 24 hour labs Specialty Discharge - Follow Up or Referrals
[2016-12-01] MEDS: CINACALCET 30 MG TABLET PO SCH (17:22)
[2016-12-01] MEDS: ATORVASTATIN 20 MG TABLET PO SCH (20:20)
[2016-12-01] MEDS: MONTELUKAST 10 MG TABLET PO SCH (20:20)
[2016-12-01] MEDS: MEROPENEM 500 MG in SODIUM CHLORIDE 0.9% 100 ML IV SCH (20:21)
[2016-12-02] MEDS: MULTIVITAMIN (BEROCCA) TABLET PO SCH (08:45)
[2016-12-02] MEDS: CALCIUM ACETATE 667 MG CAPSULE PO SCH ×3 (08:45→16:28)
[2016-12-02] MEDS: APIXABAN 5 MG TABLET PO SCH ×2 (08:46→20:45)
[2016-12-02] MEDS: PANTOPRAZOLE 40 MG TABLET PO SCH (08:46)
[2016-12-02] MEDS: CARVEDILOL 25 MG TABLET PO SCH ×2 (08:47→20:45)
--- NOTE | 2016-12-02 09:26 | Hospitalist Progress Note ---
Assessment and Plan (1) Pneumonia Status: Acute Assessment and plan: Impression: 1. Possible pneumonia. I am not convinced that she has this, so we will need to recheck a chest x-ray 2. End-stage renal disease 3. MRSA bacteremia, source not known Plan: Recheck chest x-ray. Follow-up blood cultures. Continue current care for her chronic problems. This note was completed using [employer] voice recognition software. There may be sales representative electric service errors as a result. Current Visit: No Hospitalist: Subjective Interval history: Follow-up end-stage renal disease, bacteremia, and possible pneumonia. The patient has been receiving IV antibiotics for pneumonia and bacteremia. Chest x-ray on admission was very unimpressive, so we will repeat today. Blood cultures are growing MRSA. Source is not obvious. She offers no complaints otherwise. Exam - Constitutional Vitals: Period Temp Pulse Resp BP Sys/Ngo Pulse Ox Last 24 Hr 96.3 F-98.2 F 60-69 16-20 121-143/62-95 93-100 Vital signs are noted above. Heart is regular with no murmur or gallop. Lungs are completely clear with no rales or wheezes. Abdomen is soft without mass or tenderness. She is awake and alert. Results - Labs CBC & BMP: 12/01/16 06:25 12/01/16 06:25 Lab Results: I have reviewed the past 24 hour labs Specialty Discharge - Follow Up or Referrals
--- NOTE | 2016-12-02 11:11 | XRay Report ---
XR chest 2V Date: 12/02/2016 9:27 AM History: Cough Comparison: 11/26/2016 Technique: PA and lateral chest Findings: Stable cardiomegaly and left subclavian atrioventricular AICD. Persistent diffuse parenchymal findings at the lung bases with small pleural effusions. Stable mediastinum and osseous structures. Impression: Stable cardiomegaly and left subclavian atrioventricular AICD. Fairly stable atelectasis/infiltration/edema at the lung bases with small pleural effusions. PROCEDURE INTERPRETED AT [facility] DEPARTMENT OF RADIOLOGY Final Report Signed by: Dr. Ivett Jacobs
--- NOTE | 2016-12-02 13:00 | Nephrology Progress Note ---
Nephrology - PN: Subj Interval history: Ms. Dee is seen in follow-up for end-stage renal disease. She is not afebrile and sitting in a chair with a clear chest. She is not short of breath and her legs are without edema. He is continuing to receive antibiotic therapy for staph bacteremia Exam (PN)-Nephrology - Vital Signs Vital signs: Period Temp Pulse Resp BP Sys/Ngo Pulse Ox Last 24 Hr 96.3 F-98.0 F 60-69 16-20 137-155/63-95 93-100 - Lab 12/01/16 06:25 12/01/16 06:25 Most recent lab results Calcium 7.5 MG/DL (8.5-10.1) L 12/01/16 06:25 Magnesium 1.8 MG/DL (1.8-2.4) 11/26/16 21:25 Specialty Discharge - Follow Up or Referrals
[2016-12-02] MEDS: CINACALCET 30 MG TABLET PO SCH (16:28)
[2016-12-02] MEDS: MEROPENEM 500 MG in SODIUM CHLORIDE 0.9% 100 ML IV SCH (20:44)
[2016-12-02] MEDS: ATORVASTATIN 20 MG TABLET PO SCH (20:45)
[2016-12-02] MEDS: MONTELUKAST 10 MG TABLET PO SCH (20:45)
[2016-12-03] MEDS: CALCIUM ACETATE 667 MG CAPSULE PO SCH ×3 (08:24→17:39)
[2016-12-03] MEDS: APIXABAN 5 MG TABLET PO SCH ×2 (08:25→20:08)
[2016-12-03] MEDS: PANTOPRAZOLE 40 MG TABLET PO SCH (08:25)
[2016-12-03] MEDS: MULTIVITAMIN (BEROCCA) TABLET PO SCH (08:25)
[2016-12-03] MEDS: CARVEDILOL 25 MG TABLET PO SCH ×2 (08:25→20:09)
--- NOTE | 2016-12-03 09:56 | Dialysis Note ---
Dialysis Note - Dialysis Note Ms. Dee is seen during her hemodialysis. She is tolerating dialysis well. We reviewed her previous chart and she did have an echocardiogram in early October with no evidence of valvular vegetation.
--- NOTE | 2016-12-03 14:20 | Hospitalist Progress Note ---
Assessment and Plan (1) Pneumonia Status: Acute Assessment and plan: Impression: 1. Probable bronchitis 2. End-stage renal disease 3. Positive blood cultures, likely contaminant Plan: Continue current care. Plan on discharge in the morning. This note was completed using [employer] voice recognition software. There may be traffic control officer errors as a result. Current Visit: No Hospitalist: Subjective Interval history: Follow-up end-stage renal disease, possible pneumonia, and questionable bacteremia. The patient had a repeat chest x-ray and it does not look much different from prior films. In fact, it may be a bit better. I do not think she had pneumonia , at least radiographically. Regarding the bacteremia, she had 2 different gram -positive cocci, so I think that these may be contaminants rather than true bacteremia. She had wondered about going home today. However, she had a "sick spell" after dialysis, and now does not feel like she could make it home. She thinks that she will be ready to go in the morning. Exam - Constitutional Vitals: Period Temp Pulse Resp BP Sys/Ngo Pulse Ox Last 24 Hr 97.5 F-98.9 F 62-80 18-20 138-163/59-105 95-100 Vital signs are noted above. Heart is regular with no murmur or gallop. Lungs are clear with a few scattered rhonchi. She is awake and alert. Results - Labs CBC & BMP: 12/01/16 06:25 12/01/16 06:25 Specialty Discharge - Follow Up or Referrals
[2016-12-03] MEDS ORDERED: VANCOMYCIN INJ 750 MG in SODIUM CHLORIDE 0.9% 250 ML IV ONE (15:00)
--- NOTE | 2016-12-03 16:24 | Infectious Disease Consult ---
Assessment and Plan (1) MRSA (methicillin resistant Staphylococcus aureus) septicemia Status: Acute Assessment and plan: MRSA in the blood cultures never contaminant. This is a dialysis patient and she is at increased risk for such infections. Recommendations: 1. Agree with vancomycin therapy 2. Echocardiogram to rule out endocarditis 3. If the echocardiogram is negative for endocarditis then she will be treated for 4 weeks with IV antibiotics, that is 4 weeks from today assuming that today' s repeat blood cultures are negative 4. Repeat blood cultures 2 sets today Thank you very much for the consult. Will follow. Current Visit: Yes (2) Positive blood culture Status: Acute Assessment and plan: Most likely true infection rather than contamination. 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 The dialysis catheter was removed last month and she is now using her AV fistula. The catheter tip cultured positive for MRSE. Given the prolonged/recurring nature of this MRSE bacteremia I am concerned that she could possibly have endocarditis particularly involving the pacemaker leads. A TTE last month was negative. Recommendations: Consult cardiology for KERI to ensure no endocarditis. Current Visit: No History of Present Illness Chief complaint: Positive blood cultures History of present illness: Ms. Dee is a 75 year old female With multiple comorbidities including end-stage renal disease on hemodialysis for the past year came in last week with generalized malaise weakness and fever. This is what she told me but the chart said a chart that she came in with fever and cough. Blood cultures were done on admission and one came out positive for MRSE and the other for MRSA. It was felt that these may have been contaminants and I am asked advice on therapy. In reviewing her records I saw that she has multiple blood cultures in the past positive for MRSE last being a month ago when she came in with similar weakness and fever. Beginning of the year in July she had MRSA in her blood and again last summer and last October. TTE last month did not mention endocarditis. Of note patient has a pacemaker in situ. Home Medications Medication Instructions Recorded Confirmed Type Atorvastatin [Lipitor] 20 mg PO BEDTIME #30 tablet 11/13/15 11/26/16 Rx Carvedilol [Coreg] 25 mg PO BID #60 tablet 11/13/15 11/26/16 Rx Calcium Acetate 667 mg PO TID W/MEALS 02/03/16 11/26/16 History Nitroglycerin Sl Tab [Nitrostat] 0.4 mg SL Q5M PRN 02/03/16 11/26/16 History cloNIDine 0.2 MG/24 HR PATCH 1 patch TRANSDERM TH 02/03/16 11/26/16 History [Uxzphhgn-BMO-1 Patch] Apixaban [Eliquis] 5 mg PO BID #60 tablet 08/24/16 11/26/16 Rx Prorenal D 1 tablet PO QAM 10/11/16 11/26/16 History Cinacalcet [Sensipar] 30 mg PO DAILY W/SUPPER 11/08/16 11/26/16 History Allergies Allergy/AdvReac Type Severity Reaction Status Date / Time levofloxacin [From Levaquin] Allergy Severe ANAPHYLAXIS Verified 08/15/16 14:26 penicillin G Allergy Severe RASH Verified 08/15/16 14:26 lisinopril AdvReac Unknown Unknown/Unable Verified 08/15/16 14:26 to obtain 12 point system: reviewed and no additional remarkable complaints except as stated (Per HPI, cough is improved significantly and there is minimum whitish sputum) Medical,Surgical,& Family Hx - Medical History Cardio: History of: CHF (nonischemic cardiomyopathy), Hypertension, Pacemaker ( AICD) No history of: CAD Neurology: No history of: Seizures Respiratory: History of: Bronchitis, COPD, Pneumonia Renal: History of: Dialysis (, , Fri), Renal Failure, Renal Problems ( tesso left chest) Genitourinary: History of: Genitourinary Cancer (remission) Gastrointestinal: History of: GERD, GI Problems (patient has hx of colostomy- now reversed) Hematology: History of: Anemia Reproductive: History of: Ovarian Cysts - Surgical History Cardiac Surgeries: Sugical HX of: Cardiac Catheterization, Internal Defibrillator Thoracic Surgeries: Patient denies;: Organ Transplant Abdominal Surgeries: Surgical HX of: Abdominal Surgery Reproductive Surgeries: Surgical HX of;: Genitourinary Surgery (ovaries removed) , Gynecologic Surgery, Hysterectomy - Family History Family History: Reports;: Family Diabetes (mother), Family Hypertension (mother , brothers,sisters) - Social History Smoking Status: Current some day smoker Frequency of Alcohol Use: None Type of Drug Use: None Infectious Disease Exam H&P - Constitutional Vitals: Vital Signs Temp Pulse Resp BP Pulse Ox 98.6 F 66 20 138/59 95 12/03/16 08:00 12/03/16 08:00 12/03/16 08:00 12/03/16 08:02 12/03/16 08:00 Intake and Output 12/03/16 12/03/16 12/03/16 07:59 15:59 23:59 Intake Total 200 / 200 Balance 200 / 200 Intake: Oral 200 / 200 Other: # Voids 0 Exam: General: Patient relatively comfortable, sitting in chair HEENT: Mucous membranes pink and moist, anicteric acyanotic, ANDRÉS, no oropharyngeal exudates Neck: Supple, no thyroid gland enlargement, no lymphadenopathy Respiratory system: Breath sounds vesicular, no crepitations or wheezes Cardiovascular: Pacemaker noted the left upper chest without surrounding swelling or tenderness, normal S1 and S2, no murmurs appreciated Abdomen: Normal bowel sounds, soft nontender throughout, no organomegaly or mass Genitourinary: No suprapubic pain or bladder distention Extremities: no edema Skin: No rash Reports - Labs CBC & BMP: 12/01/16 06:25 12/01/16 06:25 Labs: Laboratory Results - last 24 hr 12/03/16 12:32 Random Vancomycin 11.4 - Diagnostic Findings Procedure: Chest x-ray: report reviewed by me, image reviewed by me (No consolidation, mild increased interstitial markings) Specialty Discharge - Follow Up or Referrals
[2016-12-03] MEDS: CINACALCET 30 MG TABLET PO SCH (17:39)
[2016-12-03] MEDS: ATORVASTATIN 20 MG TABLET PO SCH (20:08)
[2016-12-03] MEDS: MONTELUKAST 10 MG TABLET PO SCH (20:08)
[2016-12-04 04:24] LABS: Basophils % 0.2 % (0.0-0.8); Eosinophils # 0.3 10*3/uL (0.0-0.87); Eosinophils % 5.2 % (0.00-10.9); Hematocrit 36.2 VOL% (35.7-47.0); Hemoglobin 11.3 GM/DL (12.0-16.0); Immature Granulocytes % 0.8 %; Immature Granulocytes Absolute 0.04 #; Lymphocytes # 1.4 10*3/uL (1.4-4.0); Lymphocytes % 28.1 % (21.3-54.2); Mean Corpuscular HGB Conc 31.2 GM/DL (32-36); Mean Corpuscular Hemoglobin 31 PG (27-34); Mean Corpuscular Volume 97.6 FL (87-102); Mean Platelet Volume 10.2 FL (9.6-12.0); Monocytes % 19.8 % (1.7-12.7); Neutrophils # 2.2 10*3/uL (1.4-7.4); Neutrophils % 45.9 % (38.7-73.9); Platelet Count 126 T/CUMM (130-400); Red Blood Count 3.71 MC/CUMM (3.8-5.5); Red Cell Distribution Width 14.2 % (9.3-17.3); White Blood Count 4.8 T/CUMM (4-12)
[2016-12-04 04:54] LABS: Eosinophils 4 % (0-10); Lymphocytes 30 % (20-55); Segmented Neutrophils 44 % (50-85); Total Cells Counted 100
[2016-12-04 04:55] LABS: Hypochromasia 1+; Ovalocytes Slight; Platelet Estimate Normal
[2016-12-04] MEDS: CARVEDILOL 25 MG TABLET PO SCH ×2 (08:50→20:10)
--- NOTE | 2016-12-04 09:21 | Hospitalist Progress Note ---
Assessment and Plan (1) Pneumonia Status: Acute Assessment and plan: Impression: 1. Probable bronchitis 2. End-stage renal disease 3. Multiple positive blood cultures, possibly endocarditis Plan: We appreciate infectious disease assistance. Cardiology has been consulted for KERI. Continue current antibiotics. This note was completed using [employer] voice recognition software. There may be livestock farm manager errors as a result. Current Visit: No Hospitalist: Subjective Interval history: Follow-up bacteremia. The patient has been seen by infectious disease. Apparently, the patient is a numerous positive blood cultures for NAYLA. There is a concern that she might have a device infection, as she has a pacemaker. She is also had a couple of infected dialysis catheters. Currently, she dialyzes through a left upper extremity graft. Cardiology has been consulted for a KERI Exam - Constitutional Vitals: Period Temp Pulse Resp BP Sys/Ngo Pulse Ox Last 24 Hr 97.3 F-97.9 F 60-98 16-20 130-158/57-86 96-100 Vital signs are noted above. Heart is regular with a soft systolic murmur and no gallop. Chest is fairly clear. There is no induration or erythema overlying the dialysis access. She is awake and alert Results - Labs CBC & BMP: 12/04/16 04:06 12/01/16 06:25 Lab Results: I have reviewed the past 24 hour labs Specialty Discharge - Follow Up or Referrals
--- NOTE | 2016-12-04 11:45 | Infectious Disease Progress ---
Assessment and Plan (1) MRSA (methicillin resistant Staphylococcus aureus) septicemia Status: Acute Assessment and plan: Recommendations: 1. Continue with vancomycin therapy 2. Echocardiogram to rule out endocarditis cardiology is seeing her today for KERI 3. If the echocardiogram is negative for endocarditis then she will be treated for 4 weeks with IV antibiotics, that is 4 weeks from today assuming that today' s repeat blood cultures are negative 4. Follow-up results of repeat blood cultures Discussed with Dr. Duffy Current Visit: Yes (2) Positive blood culture Status: Acute Assessment and plan: Repeat blood cultures are pending to document resolution of the bacteremia. 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 The dialysis catheter was removed last month and she is now using her AV fistula. The catheter tip cultured positive for MRSE. Given the prolonged/recurring nature of this MRSE bacteremia I am concerned that she could possibly have endocarditis particularly involving the pacemaker leads. A TTE last month was negative. Recommendations: Cardiology will be seeing today for for KERI Current Visit: No Infectious Disease - PN: Subj Interval history: Patient says she is feeling better today. She does not have any fever. Denies cough and shortness of breath. No vomiting or diarrhea. Infectious Disease Exam (PN) - Constitutional Vitals: Temp Pulse Resp BP Pulse Ox 97 F L 61 20 154/71 99 12/04/16 08:00 12/04/16 08:00 12/04/16 10:00 12/04/16 08:00 12/04/16 08:00 General appearance: no acute distress Exam: General appearance: no acute distress, sitting comfortably in chair - Eye Eye exam: Present: EOMI. no icterus Pupils: Present: ANDRÉS - ENT ENT exam: no oropharyhgeal exudates - Respiratory Respiratory exam: vesicular BS, no crepitations or wheezes - Cardiovascular Cardiovascular exam: regular rate and rhythm, no murmurs - GI/Abdominal GI/Abdominal exam: normal bowel sounds, soft, non-tender, no organomegaly or mass - Extremities Exam Extremities exam: no edema - Skin Skin exam: no rash Results - Labs CBC & BMP: 12/04/16 04:06 12/01/16 06:25 Lab Results: I have reviewed the past 24 hour labs Specialty Discharge - Follow Up or Referrals
--- NOTE | 2016-12-04 12:02 | ECHO Report ---
Luiz Ludy Exam Date: 12/04/2016 11:26 Referring Physician: Technologist: Shana Collins RDCS Age: 75 Ht (in): 63 Wt (lb): 180 Gender: F Exam Location: [facility] Echo Indications: MRSA, + Blood cultures, End stage renal disease, Weakness, Other malaise, Fever BP: 154 / 71 HR: 60 Rhythm: Other Technical Quality: IMPRESSIONS Left ventricular ejection fraction is estimated at 60 %. Mild concentric left ventricular hypertrophy. Mild bilateral atrial enlargement.Mild mitral leaflet thickening and annular and leaflet calcification with mild mitral regurgitation. Mild aortic valve sclerosis without stenosis. There is mild aortic valve regurgitation. Mild tricuspid valve regurgitation. No evidence of endocarditis/vegetation is seen. MEASUREMENTS (Male / Female) Normal Values 2D ECHO LV Diastolic Diameter PLAX 6.1 cm 4.2 - 5.9 / 3.9 - 5.3 cm LV Systolic Diameter PLAX 3.8 cm LV Fractional Shortening PLAX 37.8 % IVS Diastolic Thickness 1.2 cm 0.6 - 1.0 / 0.6 - 0.9 cm LVPW Diastolic Thickness 1.3 cm 0.6 - 1.0 / 0.6 - 0.9 cm RV Internal Dim ED PLAX 4.4 cm Aortic Root Diameter 3.7 cm LA Systolic Diameter LX 4.6 cm 3.0 - 4.0 / 2.7 - 3.8 cm DOPPLER TR Peak Velocity 365.0 cm/s TR Peak Gradient 53.3 mmHg FINDINGS Left Ventricle Normal left ventricular cavity size. Mild concentric left ventricular hypertrophy. Left ventricular ejection fraction is estimated at 60 %. Right Ventricle Normal right ventricular size. Catheter/pacemaker wire visualized in the right ventricle. Right Atrium Mildly increased right atrial size. Catheter/pacemaker wire in the right atrial cavity. Left Atrium Mildly increased left atrial size. Mitral Valve Mild mitral leaflet thickening and annular and leaflet calcification with mild mitral regurgitation. Aortic Valve Mild aortic valve sclerosis without stenosis. There is mild aortic valve regurgitation. Tricuspid Valve Morphologically normal tricuspid valve. Mild tricuspid valve regurgitation. Tricuspid regurgitation velocities suggest a PAP of 63 mmHg. Pulmonic Valve Morphologically normal pulmonic valve without significant stenosis. There is no pulmonic regurgitation. Pericardium Normal pericardium without effusion. Aorta Normal ascending aorta dimension. Winston Mendoza (Electronically Signed) Final Date: 04 Dec 2016 12:01
--- NOTE | 2016-12-04 12:34 | Nephrology Progress Note ---
Nephrology - PN: Subj Interval history: Patient denies shortness of breath. Review of systems GI she denies nausea or vomiting Physical exam general the patient is in no acute distress Assessment/plan 1. MRSA bacteremia-patient's transthoracic echo was unremarkable for vegetations, is been recommended she continue vancomycin for 4 more weeks, we could give her vancomycin as an outpatient at hemodialysis. 2. End-stage renal disease 3. Hypertension is controlled 4. Secondary hyperparathyroidism Exam (PN)-Nephrology - Vital Signs Vital signs: Period Temp Pulse Resp BP Sys/Ngo Pulse Ox Last 24 Hr 97 F-97.9 F 20-98 16-20 130-159/57-86 96-100 - Lab 12/04/16 04:06 12/01/16 06:25 Most recent lab results Calcium 7.5 MG/DL (8.5-10.1) L 12/01/16 06:25 Magnesium 1.8 MG/DL (1.8-2.4) 11/26/16 21:25 Assessment and Plan (1) End stage renal disease on dialysis Status: Chronic Assessment and plan: We will continue hemodialysis on a TTS basis while here Current Visit: Yes (2) Acute dyspnea Status: Acute Current Visit: Yes (3) Acute febrile illness Status: Acute Assessment and plan: I agree with IV antibiotics for presumed pneumonia Current Visit: Yes (4) Chronic obstructive pulmonary disease (COPD) Status: Chronic Current Visit: Yes (5) Tobacco use Status: Chronic Current Visit: Yes (6) Chest pain Status: Acute Current Visit: No (7) Essential hypertension Status: Acute Current Visit: No (8) Pneumonia Status: Acute Current Visit: No (9) Secondary hyperparathyroidism Status: Acute Assessment and plan: We will continue her phosphate binder Current Visit: No Specialty Discharge - Follow Up or Referrals
[2016-12-04] MEDS ORDERED: PROPOFOL 200 MG/20 ML VIAL IV ONE (13:00)
[2016-12-04] MEDS ORDERED: LIDOCAINE 2% 5 ML VIAL ONE (13:00)
--- NOTE | 2016-12-04 13:13 | Event Note ---
We performed a transesophageal echocardiogram on the patient to rule out evidence of endocarditis. I do not see any evidence of vegetation or endocarditis. She does have some mild aortic insufficiency and trace to mild mitral and tricuspid insufficiency. She has preserved left ventricular systolic function. Please see the official echo report for more details. I am going to drop off of her case. If I can be of further assistance please let me know and I will be happy to help.
[2016-12-04] MEDS: CALCIUM ACETATE 667 MG CAPSULE PO SCH ×3 (14:14→16:16)
[2016-12-04] MEDS: PANTOPRAZOLE 40 MG TABLET PO SCH (14:29)
[2016-12-04] MEDS: APIXABAN 5 MG TABLET PO SCH ×2 (14:29→20:10)
[2016-12-04] MEDS: MULTIVITAMIN (BEROCCA) TABLET PO SCH (14:29)
[2016-12-04] MEDS: CINACALCET 30 MG TABLET PO SCH (16:16)
[2016-12-04] MEDS: ATORVASTATIN 20 MG TABLET PO SCH (20:10)
[2016-12-04] MEDS: MONTELUKAST 10 MG TABLET PO SCH (20:10)
[2016-12-05] MEDS: cloNIDine 0.2 MG/24 HR PATCH TRANSDERM SCH (08:25)
--- NOTE | 2016-12-05 08:26 | Hospitalist Progress Note ---
Assessment and Plan (1) Pneumonia Status: Acute Assessment and plan: Impression: 1. Probable bronchitis 2. End-stage renal disease 3. Multiple positive blood cultures Plan: Continue current medications for positive blood cultures. Dialysis later today. This note was completed using [employer] voice recognition software. There may be sisal operator errors as a result. Current Visit: No Hospitalist: Subjective Interval history: Follow-up bacteremia, ESRD, The patient underwent KERI yesterday, with no findings suggestive of endocarditis. Blood cultures from 11/28 are reportedly negative. Blood cultures from 12/03 are no growth so far. She offers no complaints. Exam - Constitutional Vitals: Period Temp Pulse Resp BP Sys/Ngo Pulse Ox Last 24 Hr 97.2 F-97.8 F 59-68 18-20 130-176/50-81 94-100 Vital signs are noted above. Heart is regular with a soft systolic murmur and no gallop. Lungs are clear with no rales or wheezes. She is awake and alert. Results - Labs CBC & BMP: 12/04/16 04:06 12/01/16 06:25 Specialty Discharge - Follow Up or Referrals
[2016-12-05] MEDS: CARVEDILOL 25 MG TABLET PO SCH (08:27)
[2016-12-05] MEDS: MULTIVITAMIN (BEROCCA) TABLET PO SCH (08:27)
[2016-12-05] MEDS: CALCIUM ACETATE 667 MG CAPSULE PO SCH ×2 (08:27→13:11)
[2016-12-05] MEDS: APIXABAN 5 MG TABLET PO SCH (08:28)
[2016-12-05] MEDS: PANTOPRAZOLE 40 MG TABLET PO SCH (08:28)
--- NOTE | 2016-12-05 11:34 | Dialysis Note ---
Dialysis Note - Dialysis Note Ms. Dee is seen during her hemodialysis. She had some nausea earlier but is doing well now. She is afebrile and her dialysis is going well. We will plan to continue with her scheduled dialysis
--- NOTE | 2016-12-05 14:41 | Infectious Disease Progress ---
Assessment and Plan (1) MRSA (methicillin resistant Staphylococcus aureus) septicemia Status: Acute Assessment and plan: Recommendations: 1. Continue with vancomycin therapy. Her trough level was a bit subtherapeutic on 750 mg of vancomycin postdialysis so we will increase the vancomycin dose to 1 g post hemodialysis 3 times per week. 2. Appointment to see me in the office in 1 week; will do random vancomycin level then as the dialysis center does not do blood testing for vancomycin levels 3. Will treat for 4 weeks thus will discontinue vancomycin on December 31 Current Visit: Yes (2) Positive blood culture Status: Acute Assessment and plan: Repeat blood cultures are pending to document resolution of the bacteremia. Current Visit: Yes (3) End stage renal disease on dialysis Status: Chronic Current Visit: Yes (4) Staphylococcus epidermidis bacteremia Status: Acute Assessment and plan: Recurrent but fortunately no endocarditis seen on KERI. Current Visit: No Infectious Disease - PN: Subj Interval history: Patient is doing well, she has not had any fever, no nausea vomiting or diarrhea. She says she is feeling well and is ready to go home today. Infectious Disease Exam (PN) - Constitutional Vitals: Temp Pulse Resp BP Pulse Ox 97.5 F L 60 20 157/86 98 12/05/16 08:00 12/05/16 08:00 12/05/16 08:00 12/05/16 08:00 12/05/16 08:00 General appearance: no acute distress Exam: General appearance: no acute distress, sitting comfortably in chair - Eye Eye exam: Present: EOMI. no icterus Pupils: Present: ANDRÉS - ENT ENT exam: no oral exudates - Respiratory Respiratory exam: vesicular BS, no crepitations or wheezes - Cardiovascular Cardiovascular exam: regular rate and rhythm, no murmurs - GI/Abdominal GI/Abdominal exam: normal bowel sounds, soft, non-tender, no organomegaly or mass - Extremities Exam Extremities exam: no edema - Skin Skin exam: no rash Results - Labs CBC & BMP: 12/04/16 04:06 12/01/16 06:25 Lab Results: I have reviewed the past 24 hour labs (KERI negative for endocarditis) Specialty Discharge - Follow Up or Referrals
--- NOTE | 2016-12-05 14:47 | Discharge Summary ---
Hospital Course - Hospital Course Hospital Course: Discharge diagnosis: 1. Possible infected dialysis access graft 2. End-stage renal disease 3. Congestive heart failure The patient presented to the hospital for evaluation of dyspnea. She was admitted for management of what appeared to be CHF. She continued with dialysis during hospitalization. Multiple blood cultures grew MRSE and 1 grew MRSA. She was given IV antibiotics. Infectious disease saw the patient. KERI was performed, and did not reveal any valvular vegetations. She was cleared for discharge by infectious disease, and can continue to receive IV vancomycin at her dialysis sessions. Medication reconciliation has been performed. Regular diet. Activity as tolerated. Infectious disease recommendations are copied and pasted below. 1. Continue with vancomycin therapy. Her trough level was a bit subtherapeutic on 750 mg of vancomycin postdialysis so we will increase the vancomycin dose to 1 g post hemodialysis 3 times per week. 2. Appointment to see me in the office in 1 week; will do random vancomycin level then as the dialysis center does not do blood testing for vancomycin levels 3. Will treat for 4 weeks thus will discontinue vancomycin on December 31 Diagnosis - Discharge Diagnosis (1) Pneumonia Status: Acute Specialty Discharge - Follow Up or Referrals Discharge Plan - Discharge Data Disposition: Disch To Home/Self Care Condition at Discharge: Stable Discharge Diet: advance to your usual diet Activity: resume usual activities as tolerated Hygiene: no restrictions Weight Bearing at Discharge: full weight bearing Driving: no restrictions - Discharge Medications Continue Carvedilol [Coreg] 25 mg PO BID #60 tablet Atorvastatin [Lipitor] 20 mg PO BEDTIME #30 tablet Nitroglycerin Sl Tab [Nitrostat] 0.4 mg SL Q5M PRN PRN Reason: Chest Pain Calcium Acetate 667 mg PO TID W/MEALS cloNIDine 0.2 MG/24 HR PATCH [Mxorflfj-KHU-8 Patch] 1 patch TRANSDERM TH Apixaban [Eliquis] 5 mg PO BID #60 tablet Cinacalcet [Sensipar] 30 mg PO DAILY W/SUPPER Prorenal D 1 tablet PO QAM - Follow Up or Referral - Forms/Instructions Instructions: Renal Failure Diet (DC), Acute Bronchitis (DC), Community- acquired Pneumonia (DC) Exam - Constitutional Vitals: Period Temp Pulse Resp BP Sys/Ngo Pulse Ox Last 24 Hr 97.3 F-97.6 F 60-68 18-20 130-166/50-86 94-100 See examination documented earlier today. Discharge Results Procedures and tests throughout hospitalization: Pending Orders 12/03/16 13:04 Blood Culture Stat Labs on day of discharge: Labs from last 24 hours 12/05/16 05:02 Random Vancomycin 13.3 Preliminary micro results at discharge 12/03/16 13:04 Blood Culture - Preliminary Blood No growth at 1 day 12/03/16 12:32 Blood Culture - Preliminary Blood No growth at 1 day DS: Provider Date of admission: 11/27/16 02:41 Primary care physician: . 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 INSPECTOR- Consulting Provider: Henri Michael Person Notified: LISA Date Notified: 11/27/16 Time Notified: 07:34 11/28/16 09:07 Consult to Pharmacy [CONS] Routine Reason for Pharmacy Consult: Dose/Manage Vancomycin 12/01/16 08:26 Consult to Physician [CONS] Routine Comment: Positive blood culture, MRSA and MRSE Consulting Provider: Roxanne Smith Consult to Specialist Group: Infectious Disease When should Consulting Provider be notified: Now Person Notified: noam Date Notified: 12/03/16 Time Notified: 09:11 12/03/16 18:32 Consult to Physician [CONS] Routine Comment: Consulting Provider: Cardiology - [facility] Person Notified: KAELA Date Notified: 12/04/16 Time Notified: 07:35 Discharging clinician: Kirt Duffy MD Expected date of discharge: 12/05/16
[2016-12-05 17:54] VITALS: BP 129/61
--- NOTE | 2016-12-11 11:36 | Physician Query Form ---
CLICK EDIT DOCUMENT TO SELECT QUERY ANSWER --> OK --> SIGN Alee Vu RN, CCDS Certified Clinical Management Lecturer W) [phone] (f) [phone] [email or web address] PROVIDERS: Make your selection(s) from the choices in EACH section by typing an "x" and enter comments in the comment section. Please use your independent medical judgment in providing your response. This request does not imply that any particular answer is desired or expected. CLINICAL INDICATORS: (Providers should not edit this section) The medical record indicates that the patient was admitted with CHF, "Nonischemic cardiomyopathy" "Left ventricular ejection fraction is estimated at 60 %" and the patient is a dialysis patient. Please provide further specificity regarding CHF. ACUITY: ( x) Acute ( ) Chronic ( ) Acute on Chronic ( ) Clinically unable to determine TYPE: ( ) Systolic (HFrEF - heart failure with reduced systolic function/EF) (x ) Diastolic (HFpEF - heart failure with preserved systolic function/EF) ( ) Combined Systolic/Diastolic ( ) Other, please specify: ( ) Clinically unable to determine ( ) The patient does NOT have CHF COMMENTS: PLEASE ALSO DOCUMENT RESPONSE IN PROGRESS NOTES AND/OR DISCHARGE SUMMARY Use of terms such as suspected, likely, or probable (associated with a specific diagnosis that is being evaluated, monitored, or treated as if it exists) are acceptable and can be restated in the discharge summary if not ruled out. MTDD
== END 2016-12-05 17:20 | disposition home or self-care (01) | DRG 291 ==
LOC: EDBD → EDUNIT# → N.ED 21:09 → N.EDINP 11-27 02:41 → SUATTDRO 11-27 02:41 → N.2E 11-27 03:04
PROVIDERS: ADMIT Internal Medicine; ATTEND Internal Medicine Geriatric Medicine

== ENCOUNTER 2017-03-08 10:40 | Inpatient (IN) ==
--- NOTE | 2017-03-08 11:13 | EKG Report ---
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
--- NOTE | 2017-03-08 11:29 | XRay Report ---
Portable chest March 08, 2017 Indication: Shortness of breath Comparison images dated December 02, 2016 Findings: Cardiomediastinal contours are stable with underlying cardiomegaly and no change in the defibrillator placement. Stable scarring and/or chronic effusion within the right lung base, unchanged in appearance since interval exam. Remainder lungs are well aerated. No acute osseous abnormalities. Impression: Stable scarring and/or chronic effusion within the right lung base, unchanged since interval study dated December 02, 2016. PROCEDURE INTERPRETED AT [facility] DEPARTMENT OF RADIOLOGY Final Report Signed by: Garrett Del Valle
[2017-03-08 12:16] LABS: Basophils % 0.3 % (0.0-0.8); Eosinophils # 0.4 10*3/uL (0.0-0.87); Eosinophils % 6.7 % (0.00-10.9); Hematocrit 30.3 VOL% (35.7-47.0); Hemoglobin 9.7 GM/DL (12.0-16.0); Immature Granulocytes % 0.3 %; Immature Granulocytes Absolute 0.02 #; Lymphocytes # 1.4 10*3/uL (1.4-4.0); Lymphocytes % 21.3 % (21.3-54.2); Mean Corpuscular Hemoglobin 32 PG (27-34); Mean Platelet Volume 10.2 FL (9.6-12.0); Monocytes # 0.9 10*3/uL (0.11-0.8); Monocytes % 14.1 % (1.7-12.7); Neutrophils # 3.8 10*3/uL (1.4-7.4); Neutrophils % 57.3 % (38.7-73.9); Platelet Count 107 T/CUMM (130-400); Red Blood Count 3.06 MC/CUMM (3.8-5.5); Red Cell Distribution Width 13.2 % (9.3-17.3); White Blood Count 6.5 T/CUMM (4-12)
[2017-03-08 12:49] LABS: Blood Urea Nitrogen 49 MG/DL (7-18); Calcium 8.7 MG/DL (8.5-10.1); Glucose 94 MG/DL (74-106); Osmolality,Calculated 293.3 MOS/KG (273-304); Potassium 4.4 MMOL/L (3.5-5.1); Sodium 141 MMOL/L (136-145); Troponin I Only 0.016 NG/ML (0.00-0.045)
[2017-03-08] MEDS ORDERED: ASPIRIN EC 325 MG TABLET PO STA (14:15)
--- NOTE | 2017-03-08 14:16 | Emergency Department Note ---
Parth Conley Brooke, am scribing for, and in the presence of, Chao Pearson MD 11:13. Michel Conley Sunil, MD, personally performed the services described in this documentation, ascribed by Jaki Alba in my presence, and it is both accurate and complete 416 . Arrival - Arrival Chief Complaint: Chest Pain Stated Complaint: CP and SOB ED Nursing Triage Note: Chest pain and SOB onset last night - pt states that she is a dialysis pt and that she missed her dialysis today - last dialysis was on Mode of Arrival: Stretcher Limitations: No Limitations Source: Patient, EMS, RN Notes Reviewed Time Seen by Provider: 03/08/17 11:06 - History of Present Illness HPI Narrative: Patient is a 76 year old female who presents to the ED with c/o chest pain and shortness of breath. Patient says the chest pain is "all over" and the pain radiates down her left side. She says the pain started, , while at dialysis. She missed her dialysis treatment, today, and says she didn't go because of the pain and now she is short of breath. Patient says she needed to come to the ED, before today, but states "I was too weak and tired." Patient has no other complaints. She has PMHx of CHF, HTN, pacemaker, bronchitis, COPD, pneumonia, renal failure(dialysis TTS), GERD, anemia, and ovarian cysts. Her Agricultural Research Engineer is Dr. Baker. Onset (ago): day(s) (3) Date of Last Menstrual Period: hyster Allergies/Adverse Reactions: Allergies Allergy/AdvReac Type Severity Reaction Status Date / Time levofloxacin [From Levaquin] Allergy Severe ANAPHYLAXIS Verified 08/15/16 14:26 penicillin G Allergy Severe RASH Verified 08/15/16 14:26 lisinopril AdvReac Unknown Unknown/Unable Verified 08/15/16 14:26 to obtain Home Medications: Home Medications Medication Instructions Recorded Confirmed Type Atorvastatin [Lipitor] 20 mg PO BEDTIME #30 tablet 11/13/15 03/08/17 Rx Carvedilol [Coreg] 25 mg PO BID #60 tablet 11/13/15 03/08/17 Rx Calcium Acetate 667 mg PO TID W/MEALS 02/03/16 03/08/17 History Nitroglycerin Sl Tab [Nitrostat] 0.4 mg SL Q5M PRN 02/03/16 03/08/17 History cloNIDine 0.2 MG/24 HR PATCH 1 patch TRANSDERM TH 02/03/16 03/08/17 History [Djrtabfh-KFS-6 Patch] Apixaban [Eliquis] 5 mg PO BID #60 tablet 08/24/16 03/08/17 Rx Prorenal D 1 tablet PO QAM 10/11/16 03/08/17 History Sertraline [Zoloft] 25 mg PO DAILY 03/08/17 03/08/17 History Review of System - Review of System 12 point system: reviewed and no additional remarkable complaints except as stated - Review of System Constitutional: Absent: fever Respiratory: Present: other (shortness of breath). Absent: respiratory distress Cardiovascular: Present: chest pain Musculoskeletal: Present: other (left side radiating from chest) Skin: Absent: rash Neurological: Present: other ("tired and weak") Medical,Surgical,& Family Hx - Medical History Cardio: History of: CHF (nonischemic cardiomyopathy), Hypertension, Pacemaker ( AICD) No history of: CAD Neurology: No history of: Seizures Respiratory: History of: Bronchitis, COPD, Pneumonia Renal: History of: Dialysis, Renal Failure, Renal Problems (tesso left chest) Genitourinary: History of: Genitourinary Cancer (remission) Gastrointestinal: History of: GERD, GI Problems (patient has hx of colostomy- now reversed) Hematology: History of: Anemia Reproductive: History of: Ovarian Cysts - Surgical History Cardiac Surgeries: Sugical HX of: Cardiac Catheterization, Internal Defibrillator Thoracic Surgeries: Patient denies;: Organ Transplant Abdominal Surgeries: Surgical HX of: Abdominal Surgery Reproductive Surgeries: Surgical HX of;: Genitourinary Surgery (ovaries removed) , Gynecologic Surgery, Hysterectomy - Family History Family History: Reports;: Family Diabetes (mother), Family Hypertension (mother , brothers,sisters) - Social History Smoking Status: Current every day smoker Frequency of Alcohol Use: None Type of Drug Use: None Exam Vital Signs: Vital Signs Temperature 97.9 F 03/08/17 10:50 Pulse Rate 60 03/08/17 13:15 Respiratory Rate 20 03/08/17 13:15 Blood Pressure 182/78 03/08/17 13:15 O2 Sat by Pulse Oximetry 94 L 03/08/17 13:15 - General General appearance: alert, in no apparent distress, other (Chronically ill appearing) - Head Head exam: Present: atraumatic, normocephalic - Eye Eye exam: Present: normal appearance, PERRL, EOMI - ENT ENT exam: Present: normal exam - Neck Neck exam: Present: normal inspection - Chest Chest inspection: Present: normal inspection, symmetric chest wall rise - Respiratory Respiratory exam: Present: rales (bilateral) - Cardiovascular Cardiovascular exam: Present: regular rate, normal rhythm, normal heart sounds - Abdominal Exam Abdominal exam: Present: soft, normal bowel sounds. Absent: distention, tenderness - Extremities Exam Extremities exam: Present: normal inspection - Back Exam Back exam: Present: normal inspection - Neurological Exam Neurological exam: Present: alert, oriented X3 - Psychiatric Psychiatric exam: Present: normal affect, normal mood - Skin Skin exam: Present: warm, dry, intact, normal color Results - Labs CBC & BMP: 03/08/17 12:07 03/08/17 12:07 Lab Results: I have reviewed the patients labs Labs: Laboratory Tests 03/08/17 12:07 WBC 6.5 RBC 3.06 L Hgb 9.7 L Hct 30.3 L MCV 99.0 MCH 32 MCHC 32.0 RDW 13.2 Plt Count 107 L MPV 10.2 Neut % (Auto) 57.3 Lymph % (Auto) 21.3 [place] % (Auto) 14.1 H Eos % (Auto) 6.7 Baso % (Auto) 0.3 Neut # (Auto) 3.8 Lymph # (Auto) 1.4 [place] # (Auto) 0.9 H Eos # (Auto) 0.4 Baso # (Auto) 0.0 Immature Gran % 0.3 Nucleated RBC % 0.0 Immature Gran # 0.02 Nucleated RBCs # 0.00 Immature Plt Fraction 0.0 Laboratory Tests 03/08/17 03/08/17 12:07 12:07 Sodium 141 Potassium 4.4 Chloride 104 Carbon Dioxide 31 Anion Gap 10.4 BUN 49 H Creatinine 7.20 H GFR Calculation 6 BUN/Creatinine Ratio 6.00 Glucose 94 Calculated Osmolality 293.3 Calcium 8.7 Total Creatine Kinase 49 CK-MB (CK-2) 1.0 Troponin I 0.016 B-Natriuretic Peptide 639 H - Impressions This patient has a end-stage renal disease she is on dialysis. She has been having chest pain for the past several days this morning she was scheduled to have dialysis but she could not go for dialysis due to the chest pain. EKG is normal sinus rhythm cardiac enzymes are negative I discussed with the physician' s music library assistant for hospitalist who would admit this patient - Diagnostic Findings Procedure: Chest x-ray: report reviewed by me (Stable scarring and/or chronic effusion within the right lung base, unchanged since interval study dates November.) Disposition Clinical Impression: End stage renal disease, Chest pain Case discussed with: patient Disposition: Still a Patient Condition: Stable
[2017-03-08] MEDS ORDERED: ASPIRIN 325 MG TABLET ONE (14:21)
[2017-03-08] MEDS ORDERED: ONDANSETRON 4 MG/2 ML VIAL IV PRN (15:56)
[2017-03-08] MEDS ORDERED: ACETAMINOPHEN 325 MG TABLET PO PRN (15:56)
--- NOTE | 2017-03-08 16:02 | Hospitalist History & Physical ---
<Eliel Cartwright - Last Filed: 03/08/17 16:05> Assessment and Plan (1) Chest pain Status: Acute Assessment and plan: Admit to monitored bed. Serial troponins. CXR negative. EKG normal. Supplemental O2. Labs in am. Current Visit: Yes (2) End stage renal disease Status: Acute Assessment and plan: Consult renal. Pt. missed dialysis today. Current Visit: Yes (3) Chronic obstructive pulmonary disease (COPD) Status: Chronic Current Visit: No (4) Chronic systolic CHF (congestive heart failure) Status: Chronic Current Visit: No History of Present Illness Chief complaint: chest pain/shortness of breath History of present illness: Ms. Dee is a 76 year old black female with a history significant for gerd, anemia, htn, chf, COPD, and chronic renal failure on dialysis that reported to the ED today with complaints of chest pain and shortness of breath. Pt. states that the pain started on after dialysis. She states that she thought it would resolve on its own but it didn't and now she is also short of breath. Pt states that "I am weak". Pt. reports that she missed her dialysis today because she was feeling bad. The patient's chest pain is described as "all over " and is a dull pain. Denies radiation to anywhere else. Pt denies any other complaints in the ED at this time. Pt's labs reveal a bun/creatinine of 49/7.20 and a BNP of 639. Pt. will be admitted to the hospitalist service for further evaluation and treatment. Home Medications Medication Instructions Recorded Confirmed Type Atorvastatin [Lipitor] 20 mg PO BEDTIME #30 tablet 11/13/15 03/08/17 Rx Carvedilol [Coreg] 25 mg PO BID #60 tablet 11/13/15 03/08/17 Rx Calcium Acetate 667 mg PO TID W/MEALS 02/03/16 03/08/17 History Nitroglycerin Sl Tab [Nitrostat] 0.4 mg SL Q5M PRN 02/03/16 03/08/17 History cloNIDine 0.2 MG/24 HR PATCH 1 patch TRANSDERM TH 02/03/16 03/08/17 History [Cvkzblwn-OFI-3 Patch] Apixaban [Eliquis] 5 mg PO BID #60 tablet 08/24/16 03/08/17 Rx Prorenal D 1 tablet PO QAM 10/11/16 03/08/17 History Sertraline [Zoloft] 25 mg PO DAILY 03/08/17 03/08/17 History Allergies Allergy/AdvReac Type Severity Reaction Status Date / Time levofloxacin [From Levaquin] Allergy Severe ANAPHYLAXIS Verified 08/15/16 14:26 penicillin G Allergy Severe RASH Verified 08/15/16 14:26 lisinopril AdvReac Unknown Unknown/Unable Verified 08/15/16 14:26 to obtain Medical,Surgical,& Family Hx - Medical History Cardio: History of: CHF (nonischemic cardiomyopathy), Hypertension, Pacemaker ( AICD) No history of: CAD Neurology: No history of: Seizures Respiratory: History of: Bronchitis, COPD, Pneumonia Renal: History of: Dialysis, Renal Failure, Renal Problems (tesso left chest) Genitourinary: History of: Genitourinary Cancer (remission) Gastrointestinal: History of: GERD, GI Problems (patient has hx of colostomy- now reversed) Hematology: History of: Anemia Reproductive: History of: Ovarian Cysts - Surgical History Cardiac Surgeries: Sugical HX of: Cardiac Catheterization, Internal Defibrillator Thoracic Surgeries: Patient denies;: Organ Transplant Abdominal Surgeries: Surgical HX of: Abdominal Surgery Reproductive Surgeries: Surgical HX of;: Genitourinary Surgery (ovaries removed) , Gynecologic Surgery, Hysterectomy - Family History Family History: Reports;: Family Diabetes (mother), Family Hypertension (mother , brothers,sisters) - Social History Smoking Status: Current every day smoker Frequency of Alcohol Use: None Type of Drug Use: None Lives With:: Alone Functional capacity: uses cane/walker 12 point system: reviewed and no additional remarkable complaints except as stated - Constitutional Constitutional: Present: weakness. Absent: chills, fever(s) - EENT Eyes: Absent: blurry vision Ears: Absent: decreased hearing Nose, mouth and throat: Absent: headache(s) - Cardiovascular Cardiovascular: Present: chest pain at rest, chest pain with activity, edema - Respiratory Respiratory: Present: dyspnea, dyspnea on exertion - Gastrointestinal Gastrointestinal: Absent: abdominal pain, nausea, vomiting - Genitourinary Genitourinary: Absent: difficulty urinating - Musculoskeletal Musculoskeletal: Absent: back pain - Neurological Neurological: Absent: confusion - Psychiatric Psychiatric: Absent: anxiety - Endocrine Endocrine: Present: cold intolerance Exam - Constitutional Vitals: Period Temp Pulse Resp BP Sys/Ngo Pulse Ox Last 24 Hr 97.9 F-97.9 F 60-69 18-20 137-196/65-78 90-98 General appearance: mild distress, over weight - Head Head exam: Present: normal inspection, normocephalic - Eye Eye exam: Present: EOMI Pupils: Present: ANDRÉS - Neck Neck exam: Present: normal inspection - Respiratory Respiratory exam: Present: clear to auscultation bilaterally. Absent: wheezes - Cardiovascular Cardiovascular exam: Present: regular rate and rhythm - GI/Abdominal GI/Abdominal exam: Present: normal bowel sounds, soft. Absent: tenderness - Extremities Exam Extremities exam: Present: normal capillary refill, edema - Neurological Exam Neurological exam: Present: alert, oriented X3 - Psychiatric Psychiatric exam: Present: normal affect, normal mood - Skin Skin exam: Present: normal color, warm, dry Results - Labs CBC & BMP: 03/08/17 12:07 03/08/17 12:07 Lab Results: I have reviewed the past 24 hour labs <Manoj Mast - Last Filed: 03/08/17 16:36> Assessment and Plan (1) Chest pain Status: Acute Current Visit: Yes (2) End stage renal disease on dialysis Status: Chronic Current Visit: No History of Present Illness History of present illness: Ms. Dee is a 76 year old female Exam - Constitutional Vitals: Period Temp Pulse Resp BP Sys/Ngo Pulse Ox Last 24 Hr 97.9 F-97.9 F 60-69 18-20 137-196/65-79 90-98 Results - Labs CBC & BMP: 03/08/17 12:07 03/08/17 12:07
[2017-03-08] MEDS ORDERED: NITROGLYCERIN SL 0.4 MG TABLET SL PRN (17:02)
[2017-03-08] MEDS: CALCIUM ACETATE 667 MG CAPSULE PO SCH (18:22)
[2017-03-08] MEDS ORDERED: ATORVASTATIN 20 MG TABLET PO SCH (21:00)
--- NOTE | 2017-03-08 22:48 | Nephrology Consult Note ---
History of Present Illness Chief complaint: ESRD History of present illness: Ms. Dee is a 76 year old female who presented with poorly defined chest/ abdominal pain which resolved spontaneously. She denied chest pain or shortness of breath when I saw her. She was eating and appeared more room air. She has ESRD and was scheduled to dialyze this morning but did not go. Home Medications Medication Instructions Recorded Confirmed Type Atorvastatin [Lipitor] 20 mg PO BEDTIME #30 tablet 11/13/15 03/08/17 Rx Carvedilol [Coreg] 25 mg PO BID #60 tablet 11/13/15 03/08/17 Rx Calcium Acetate 667 mg PO TID W/MEALS 02/03/16 03/08/17 History Nitroglycerin Sl Tab [Nitrostat] 0.4 mg SL Q5M PRN 02/03/16 03/08/17 History cloNIDine 0.2 MG/24 HR PATCH 1 patch TRANSDERM FR 02/03/16 03/08/17 History [Zloekbqa-GRM-4 Patch] Apixaban [Eliquis] 5 mg PO BID #60 tablet 08/24/16 03/08/17 Rx Prorenal D 1 tablet PO QAM 10/11/16 03/08/17 History Sertraline [Zoloft] 25 mg PO DAILY 03/08/17 03/08/17 History Allergies Allergy/AdvReac Type Severity Reaction Status Date / Time levofloxacin [From Levaquin] Allergy Severe ANAPHYLAXIS Verified 08/15/16 14:26 penicillin G Allergy Severe RASH Verified 08/15/16 14:26 lisinopril AdvReac Unknown Unknown/Unable Verified 08/15/16 14:26 to obtain Medical,Surgical,& Family Hx - Medical History Cardio: History of: CHF (nonischemic cardiomyopathy), Hypertension, Pacemaker ( AICD) No history of: CAD Neurology: No history of: Seizures Respiratory: History of: Bronchitis, COPD, Pneumonia Renal: History of: Dialysis, Renal Failure, Renal Problems (tesso left chest) Genitourinary: History of: Genitourinary Cancer (remission) Gastrointestinal: History of: GERD, GI Problems (patient has hx of colostomy- now reversed) Hematology: History of: Anemia Reproductive: History of: Ovarian Cysts - Surgical History Cardiac Surgeries: Sugical HX of: Cardiac Catheterization, Internal Defibrillator Thoracic Surgeries: Patient denies;: Organ Transplant Abdominal Surgeries: Surgical HX of: Abdominal Surgery Reproductive Surgeries: Surgical HX of;: Genitourinary Surgery (ovaries removed) , Gynecologic Surgery, Hysterectomy - Family History Family History: Reports;: Family Diabetes (mother), Family Hypertension (mother , brothers,sisters) - Social History Smoking Status: Current every day smoker Frequency of Alcohol Use: None Type of Drug Use: None Review of Systems 12 point system: reviewed and no additional remarkable complaints except as stated Exam - Vital Signs Vital signs: Period Temp Pulse Resp BP Sys/Ngo Pulse Ox Last 24 Hr 97.6 F-97.9 F 60-72 18-24 137-196/65-79 90-98 Exam: Gen.: Alert and oriented x3. ENT: Pupils equal round reactive to light. EOMs intact. Mucous membranes moist. Neck: Supple. No JVD or bruit. Cardiovascular: Regular rate and rhythm. No murmur rub or gallop Lungs: Clear Abdomen: Soft. Nontender. Positive bowel sounds. No organomegaly Extremities: 1+ edema Results - Labs CBC & BMP: 03/08/17 12:07 03/08/17 12:07 Assessment and Plan (1) ESRD (end stage renal disease) on dialysis Status: Chronic Assessment and plan: 76-year-old woman with: * ESRD. She missed dialysis earlier today. She has mild excess volume. Dialysis will be scheduled today * Chest pain. This has resolved. She is a poor historian. This does not appear to be cardiac * Hypertension * Cardiomyopathy Current Visit: No (2) Essential hypertension Status: Acute Current Visit: No (3) AICD (automatic cardioverter/defibrillator) present Status: Chronic Current Visit: No (4) Nonischemic cardiomyopathy Status: Chronic Current Visit: No
[2017-03-08] MEDS: APIXABAN 5 MG TABLET PO SCH (23:09)
[2017-03-08] MEDS: PANTOPRAZOLE 40 MG TABLET PO SCH (23:09)
[2017-03-08] MEDS: CARVEDILOL 25 MG TABLET PO SCH (23:09)
--- NOTE | 2017-03-08 23:17 | Dialysis Note ---
Dialysis Note - Dialysis Note Blood pressure stable during dialysis. Attempting 4 L volume removal if blood pressure allows
[2017-03-09 03:34] LABS: Basophils % 0.3 % (0.0-0.8); Eosinophils # 0.4 10*3/uL (0.0-0.87); Eosinophils % 7.2 % (0.00-10.9); Hemoglobin 10.2 GM/DL (12.0-16.0); Immature Granulocytes % 0.7 %; Immature Granulocytes Absolute 0.04 #; Mean Corpuscular HGB Conc 31.9 GM/DL (32-36); Mean Corpuscular Hemoglobin 32 PG (27-34); Mean Platelet Volume 10.5 FL (9.6-12.0); Monocytes # 0.6 10*3/uL (0.11-0.8); Monocytes % 9.7 % (1.7-12.7); Neutrophils # 3.9 10*3/uL (1.4-7.4); Neutrophils % 65.1 % (38.7-73.9); Platelet Count 130 T/CUMM (130-400); Red Cell Distribution Width 13.2 % (9.3-17.3)
[2017-03-09 04:19] LABS: Calcium 8.6 MG/DL (8.5-10.1); Magnesium 2.1 MG/DL (1.8-2.4); Osmolality,Calculated 280.5 MOS/KG (273-304); Potassium 4.1 MMOL/L (3.5-5.1); Troponin I Only 0.019 NG/ML (0.00-0.045)
[2017-03-09] MEDS ORDERED: PRORENAL D PO SCH (09:00)
[2017-03-09] MEDS ORDERED: SERTRALINE 25 MG TABLET PO SCH (09:00)
[2017-03-09] MEDS ORDERED: PANTOPRAZOLE 40 MG TABLET PO SCH (09:00)
[2017-03-09] MEDS: APIXABAN 5 MG TABLET PO SCH (09:08)
[2017-03-09] MEDS: CARVEDILOL 25 MG TABLET PO SCH (09:08)
[2017-03-09] MEDS: CALCIUM ACETATE 667 MG CAPSULE PO SCH (09:08)
[2017-03-09] MEDS: PANTOPRAZOLE 40 MG TABLET PO SCH (09:08)
--- NOTE | 2017-03-09 10:59 | EKG Report ---
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
--- NOTE | 2017-03-09 11:07 | Discharge Summary ---
Hospital Course - Hospital Course Hospital Course: Mrs Dee presented with atypical chest pain and was admitted to rule out NH. It was ruled out with serial troponins. She has had no further chest pain. Previous evaluations for CAD have been negative. Her echo in November showed EF 60% with mild concentric left hypertrophy. She will return home on PPI. 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 She had missed her dialysis yesterday and was dialyzed here. She will continue her usual outpatient dialysis schedule. She is on Eliquis as an outpatient and will continue it along with her other meds with the addition of PPI. She has anemia which is stable. - Time spent with patient Time with patient DS: Greater than 30 minutes (36 minutes spent in evaluation, discharge planning, medicine reconciliation, and documentation) Diagnosis - Discharge Diagnosis (1) Non-cardiac chest pain Status: Resolved (2) Anemia Status: Chronic (3) Obesity (BMI 30.0-34.9) Status: Chronic (4) ESRD (end stage renal disease) on dialysis Status: Chronic Specialty Discharge - Follow Up or Referrals Follow up with: Paco Cesar MD [Family Provider] - 3 Days (follow up admit for atypical chest pain) Dutch Petty MD [Physician] - Discharge Plan - Discharge Data Disposition: Disch To Home/Self Care Condition at Discharge: Stable Discharge Diet: diabetic diet, heart healthy Activity: resume usual activities as tolerated (resume outpatient dialysis) - Discharge Medications New Pantoprazole Tab [Protonix Tab] 40 mg PO DAILY #30 tablet Continue Carvedilol [Coreg] 25 mg PO BID #60 tablet Atorvastatin [Lipitor] 20 mg PO BEDTIME #30 tablet Nitroglycerin Sl Tab [Nitrostat] 0.4 mg SL Q5M PRN PRN Reason: Chest Pain Calcium Acetate 667 mg PO TID W/MEALS cloNIDine 0.2 MG/24 HR PATCH [Bofkacgp-DBR-2 Patch] 1 patch TRANSDERM FR Apixaban [Eliquis] 5 mg PO BID #60 tablet Prorenal D 1 tablet PO QAM Sertraline [Zoloft] 25 mg PO DAILY - Follow Up or Referral Follow Up: Dutch Petty MD [Physician] - Paco Cesar MD [Family Provider] - 3 Days (follow up admit for atypical chest pain) - Forms/Instructions Exam - Constitutional Vitals: Period Temp Pulse Resp BP Sys/Ngo Pulse Ox Last 24 Hr 96.9 F-97.6 F 60-72 15-24 140-196/66-87 90-100 General appearance: no acute distress, over weight - Eye Eye exam: Present: EOMI. Absent: scleral icterus - Respiratory Respiratory exam: Present: clear to auscultation bilaterally - Cardiovascular Cardiovascular exam: Present: regular rate and rhythm, other (no chest wall tenderness. ). Absent: diastolic murmur, rubs, systolic murmur - GI/Abdominal GI/Abdominal exam: Present: normal bowel sounds, soft. Absent: tenderness - Extremities Exam Extremities exam: Absent: edema - Neurological Exam Neurological exam: Present: alert, oriented X3 Discharge Results Labs on day of discharge: Labs from last 24 hours 03/09/17 03/09/17 03/09/17 01:59 01:59 01:59 WBC 6.0 RBC 3.20 L Hgb 10.2 L Hct 32.0 L MCV 100.0 MCH 32 MCHC 31.9 L RDW 13.2 Plt Count 130 D MPV 10.5 Neut % (Auto) 65.1 Lymph % (Auto) 17.0 L Valley % (Auto) 9.7 Eos % (Auto) 7.2 Baso % (Auto) 0.3 Neut # (Auto) 3.9 Lymph # (Auto) 1.0 L Valley # (Auto) 0.6 Eos # (Auto) 0.4 Baso # (Auto) 0.0 Immature Gran % 0.7 Nucleated RBC % 0.0 Immature Gran # 0.04 Nucleated RBCs # 0.00 Immature Plt Fraction 0.0 Sodium 139 Potassium 4.1 Chloride 99 Carbon Dioxide 38 H Anion Gap 6.1 BUN 27 H D Creatinine 5.00 H GFR Calculation 10 BUN/Creatinine Ratio 5.00 L Glucose 81 Hemoglobin A1c 6.4 H Calculated Osmolality 280.5 Calcium 8.6 Magnesium 2.1 Total Creatine Kinase 51 CK-MB (CK-2) Troponin I 0.019 B-Natriuretic Peptide 03/08/17 03/08/17 03/08/17 12:07 12:07 12:07 WBC 6.5 RBC 3.06 L Hgb 9.7 L Hct 30.3 L MCV 99.0 MCH 32 MCHC 32.0 RDW 13.2 Plt Count 107 L MPV 10.2 Neut % (Auto) 57.3 Lymph % (Auto) 21.3 Valley % (Auto) 14.1 H Eos % (Auto) 6.7 Baso % (Auto) 0.3 Neut # (Auto) 3.8 Lymph # (Auto) 1.4 Valley # (Auto) 0.9 H Eos # (Auto) 0.4 Baso # (Auto) 0.0 Immature Gran % 0.3 Nucleated RBC % 0.0 Immature Gran # 0.02 Nucleated RBCs # 0.00 Immature Plt Fraction 0.0 Sodium 141 Potassium 4.4 Chloride 104 Carbon Dioxide 31 Anion Gap 10.4 BUN 49 H Creatinine 7.20 H GFR Calculation 6 BUN/Creatinine Ratio 6.00 Glucose 94 Hemoglobin A1c Calculated Osmolality 293.3 Calcium 8.7 Magnesium Total Creatine Kinase 49 CK-MB (CK-2) 1.0 Troponin I 0.016 B-Natriuretic Peptide 639 H DS: Provider Date of admission: 03/08/17 14:19 Primary care physician: . No PCP Attending physician on admission: Manoj Mast MD Consults: 03/08/17 15:56 Consult to Physician [CONS] Routine Comment: Consulting Provider: Dutch Petty 03/08/17 17:02 Consult to Physician [CONS] Routine Comment: dialysis patient with volume overload Consulting Provider: Dutch Petty Person Notified: Dr. Petty Date Notified: 03/08/17 Time Notified: 17:51 Discharging clinician: Mima Kwan MD
[2017-03-09 12:20] VITALS: BP 147/69
[2017-03-13] MEDS ORDERED: cloNIDine 0.2 MG/24 HR PATCH TRANSDERM SCH (09:00)
== END 2017-03-09 13:05 | disposition home or self-care (01) | DRG 313 ==
LOC: EDUNIT# → EDBD → N.ED 10:40 → N.EDINP 14:19 → SUATTDRO 14:19 → N.EDINP 16:25 → N.4E 17:03
PROVIDERS: ADMIT Internal Medicine; ATTEND Internal Medicine

== ENCOUNTER 2017-03-27 04:18 | Inpatient (IN) ==
[2017-03-27 05:14] LABS: Basophils % 0.1 % (0.0-0.8); Eosinophils # 0.3 10*3/uL (0.0-0.87); Eosinophils % 3.9 % (0.00-10.9); Hematocrit 38.5 VOL% (35.7-47.0); Hemoglobin 12.7 GM/DL (12.0-16.0); Immature Granulocytes % 0.7 %; Immature Granulocytes Absolute 0.05 #; Lymphocytes # 0.9 10*3/uL (1.4-4.0); Lymphocytes % 12.7 % (21.3-54.2); Mean Corpuscular Hemoglobin 33 PG (27-34); Mean Corpuscular Volume 98.7 FL (87-102); Mean Platelet Volume 10.6 FL (9.6-12.0); Monocytes # 0.6 10*3/uL (0.11-0.8); Monocytes % 8.4 % (1.7-12.7); Neutrophils # 5.2 10*3/uL (1.4-7.4); Neutrophils % 74.2 % (38.7-73.9); Red Cell Distribution Width 14.6 % (9.3-17.3); White Blood Count 6.9 T/CUMM (4-12)
[2017-03-27 05:24] LABS: Blood Urea Nitrogen 42 MG/DL (7-18); Calcium 8.8 MG/DL (8.5-10.1); Glucose 99 MG/DL (74-106); Magnesium 2.3 MG/DL (1.8-2.4); Potassium 3.8 MMOL/L (3.5-5.1); Sodium 136 MMOL/L (136-145); Troponin I Only < 0.015 NG/ML (0.00-0.045)
[2017-03-27 05:32] LABS: INR 1.2; PT Patient Result 12.6 SECS
[2017-03-27 05:36] LABS: Platelet Count 100 T/CUMM (130-400)
--- NOTE | 2017-03-27 06:34 | XRay Report ---
XR chest 1V portable Indication: Shortness of breath Comparison: 08 March 2017 Findings: The heart and mediastinum are stable in size and configuration with cardiomegaly. Pacemaker device is unchanged in position. The pulmonary vascularity is slightly increased with bilateral increased interstitial lung density. No other lung infiltrates, effusions, pneumothorax or other abnormality is demonstrated. Impression: Findings suggest mild cardiac decompensation. PROCEDURE INTERPRETED AT [facility] DEPARTMENT OF RADIOLOGY Final Report Signed by: Dr. Chaz Palma
--- NOTE | 2017-03-27 08:16 | EKG Report ---
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
--- NOTE | 2017-03-27 08:46 | Emergency Department Note ---
IMayr Emily, am scribing for, and in the presence of, Chao Pearson MD 06:53. IMichel Sunil, MD, personally performed the services described in this documentation, ascribed by Cheyenne Hernandez in my presence, and it is both accurate and complete . Arrival - Arrival Chief Complaint: Shortness of Breath ED Nursing Triage Note: Pt arrives via ems from home with complaints of SOB and headache that started last night. Pt was recently in hospital for same complaints. States that she had worsening shortness of breath over the night and that her head and neck have started hurting this morning because of her b/p being elevated. Pt denies any fever or productive cough. Denies taking her regular medications. Mode of Arrival: Stretcher Limitations: No Limitations Source: Patient - History of Present Illness HPI Narrative: Pt is a 76 y/o female who came to ED by EMS from home with c/o SOB with intermittent chest pain, and headache that started last night. Pt was recently in hospital for same complaints. Pt states that she had worsening shortness of breath over the night and that her head and neck have started hurting this morning because of her BP being elevated. Pt denies any fever or productive cough, and taking her regular medications. Pt smokes half a pack of cigarettes daily. Pt notes only provider seen is Dr. Baker, under dialysis. Onset (ago): hour(s) Consistency: constant Severity: moderate Severity scale (1-10): 5 Quality: aching, fullness Allergies/Adverse Reactions: Allergies Allergy/AdvReac Type Severity Reaction Status Date / Time levofloxacin [From Levaquin] Allergy Severe ANAPHYLAXIS Verified 08/15/16 14:26 penicillin G Allergy Severe RASH Verified 08/15/16 14:26 lisinopril AdvReac Unknown Unknown/Unable Verified 08/15/16 14:26 to obtain Home Medications: Home Medications Medication Instructions Recorded Confirmed Type Atorvastatin [Lipitor] 20 mg PO BEDTIME #30 tablet 11/13/15 03/27/17 Rx Carvedilol [Coreg] 25 mg PO BID #60 tablet 11/13/15 03/27/17 Rx Calcium Acetate 667 mg PO TID W/MEALS 02/03/16 03/27/17 History Nitroglycerin Sl Tab [Nitrostat] 0.4 mg SL Q5M PRN 02/03/16 03/27/17 History cloNIDine 0.2 MG/24 HR PATCH 1 patch TRANSDERM FR 02/03/16 03/27/17 History [Zphzxlur-MTJ-2 Patch] Apixaban [Eliquis] 5 mg PO BID #60 tablet 08/24/16 03/27/17 Rx Prorenal D 1 tablet PO QAM 10/11/16 03/27/17 History Sertraline [Zoloft] 25 mg PO DAILY 03/08/17 03/27/17 History Pantoprazole Tab [Protonix Tab] 40 mg PO DAILY #30 tablet 03/09/17 03/27/17 Rx Review of System - Review of System 12 point system: reviewed and no additional remarkable complaints except as stated - Review of System Constitutional: Absent: diaphoresis, fever Respiratory: Present: respiratory distress (SOB) Cardiovascular: Present: chest pain (intermittently) Gastrointestinal: Absent: abdominal pain, nausea Musculoskeletal: Present: neck pain. Absent: arm pain, lower back pain, leg pain Skin: Absent: rash Neurological: Present: headache Medical,Surgical,& Family Hx - Medical History Cardio: History of: CHF (nonischemic cardiomyopathy), Hypertension, Pacemaker ( AICD) No history of: CAD Neurology: No history of: Seizures Respiratory: History of: Bronchitis, COPD, Pneumonia Renal: History of: Dialysis, Renal Failure Genitourinary: History of: Genitourinary Cancer (remission) Gastrointestinal: History of: GERD, GI Problems (patient has hx of colostomy- now reversed) Hematology: History of: Anemia Reproductive: History of: Ovarian Cysts - Surgical History Cardiac Surgeries: Sugical HX of: Cardiac Catheterization, Internal Defibrillator Thoracic Surgeries: Patient denies;: Organ Transplant Abdominal Surgeries: Surgical HX of: Abdominal Surgery Reproductive Surgeries: Surgical HX of;: Genitourinary Surgery (ovaries removed) , Gynecologic Surgery, Hysterectomy - Family History Family History: Reports;: Family Diabetes (mother), Family Hypertension (mother , brothers,sisters) - Social History Smoking Status: Former smoker Frequency of Alcohol Use: None Type of Drug Use: None Marital Status: Single Lives With:: Alone Functional capacity: uses cane/walker Exam Vital Signs: Vital Signs Temperature 98.7 F 03/27/17 04:18 Pulse Rate 68 03/27/17 08:00 Respiratory Rate 18 03/27/17 08:00 Blood Pressure 178/82 03/27/17 08:00 O2 Sat by Pulse Oximetry 96 03/27/17 08:00 - General General appearance: alert, in distress (mild to moderate secondary to chronically sick) - Head Head exam: Present: atraumatic, normocephalic - Eye Eye exam: Present: PERRL, EOMI - ENT ENT exam: Present: mucous membranes moist. Absent: mucous membranes dry - Neck Neck exam: Present: full ROM, tenderness (left side of neck) - Chest Chest inspection: Present: symmetric chest wall rise. Absent: tenderness - Respiratory Respiratory exam: Present: rales (crackles bilaterally), respiratory distress ( mild to moderate), wheezes (expiratory wheezing) - Cardiovascular Cardiovascular exam: Present: regular rate, normal rhythm, normal heart sounds, JVD (slightly elevated) - Abdominal Exam Abdominal exam: Present: soft. Absent: tenderness - Extremities Exam Extremities exam: Present: pedal edema - Neurological Exam Neurological exam: Present: alert, oriented X3, CN II-XII intact - Psychiatric Psychiatric exam: Present: normal affect, normal mood - Skin Skin exam: Present: warm, dry Results - Labs CBC & BMP: 03/27/17 04:34 03/27/17 04:34 - EKG EKG results: interpreted by ERMD (ELECTRONIC VENTRICULAR PACEMAKER; Abnormal rhythm ECG), sinus rhythm (72) - Impressions Chest x-ray shows congestive heart failure cardiac enzymes are negative her BNP is slightly elevated Admitted her to the hospitalist - Diagnostic Findings Procedure: Chest x-ray: report reviewed by me (Findings suggest mild cardiac decompensation.) Disposition Clinical Impression: Congestive heart failure, End stage renal disease Case discussed with: patient Disposition: Still a Patient Condition: Stable
[2017-03-27] MEDS ORDERED: MORPHINE 2 MG/1 ML SYRINGE IV PRN (09:01)
[2017-03-27] MEDS ORDERED: ONDANSETRON 4 MG/2 ML VIAL IV PRN (09:01)
[2017-03-27] MEDS ORDERED: ACETAMINOPHEN 325 MG TABLET PO PRN (09:01)
[2017-03-27] MEDS ORDERED: guaiFENesin/DM ER 600-30 MG TABLET PO PRN (09:01)
[2017-03-27] MEDS ORDERED: diphenhydrAMINE CAP 25 MG CAPSULE PO PRN (09:01)
[2017-03-27] MEDS ORDERED: DEXTROSE 50% 25 GM/50 ML VIAL IV PRN (09:01)
[2017-03-27] MEDS ORDERED: GLUCAGON 1 MG VIAL IM PRN (09:01)
[2017-03-27] MEDS ORDERED: PROMETHAZINE 25 MG/1 ML VIAL IM PRN (09:01)
[2017-03-27] MEDS ORDERED: DOCUSATE SODIUM 100 MG CAPSULE PO PRN (09:01)
[2017-03-27] MEDS ORDERED: NITROGLYCERIN SL 0.4 MG TABLET SL PRN (09:06)
--- NOTE | 2017-03-27 09:20 | Hospitalist History & Physical ---
Assessment and Plan - Time spent with patient Time spent with patient: Greater than 30 minutes (1) Chest pain Status: Resolved Assessment and plan: 76-year-old -[place] female with history of end-stage renal disease on hemodialysis, chronic anticoagulation on Eliquis, hypertension, CHF, COPD admitted by hospitalist service with shortness of breath, chest pain, neck and occipital pain for 3-4 days. She is in need of hemodialysis today for volume overload. Nephrology has been consulted. She also has some elevated blood pressures but she has not taken her medicines today. Her medicines have been verified and restarted. She is also complaining of some left-sided muscular neck pain and occipital pain. No decrease in motor function or range of motion. Will consult physical therapy and order heat as needed. She also has a mild narcotic for pain ordered. We will go ahead and trend her troponins and EKGs as well for her chest pain. Dr. Mast will see and examine patient and further recommendations to follow. Current Visit: No Qualifiers: Chest pain type: intercostal pain Qualified Code(s): R07.82 - Intercostal pain (2) Obesity (BMI 30.0-34.9) Status: Chronic Current Visit: No (3) Chronic obstructive pulmonary disease (COPD) Status: Chronic Current Visit: No (4) Hypertension Status: Chronic Current Visit: No Qualifiers: Hypertension type: essential hypertension (5) Volume overload Status: Acute Current Visit: No (6) ESRD (end stage renal disease) on dialysis Status: Chronic Current Visit: No (7) AICD (automatic cardioverter/defibrillator) present Status: Chronic Current Visit: No (8) Shortness of breath Status: Acute Current Visit: No History of Present Illness Chief complaint: Shortness of breath, chest pain, neck pain History of present illness: Ms. Dee is a 76 year old -[place]ian female with history of chronic anticoagulation on Eliquis, GERD, anemia, hypertension, CHF with pacemaker placement, COPD, and chronic renal failure on HD presenting to the ED today with 2-3 day history of shortness of breath and chest pain. Patient has frequent admissions for CHF exacerbation with shortness of breath and chest pain. She is also complaining of a four-day history of left neck pain and occipital headaches. She is afebrile but her blood pressure is up to 178/82 but she has not taken her medicines this morning. She also is to dialyze on Tuesdays, , and Saturdays and she has not had dialysis today. Her labs are relatively unremarkable with an elevated BNP of 603. Troponin, coags, and d-dimer all okay. Chest x-ray showing mild cardiac decompensation with increased bilateral interstitial lung density. EKG showing ventricular pacemaker. Upon exam her lungs are clear and CV regular rate and rhythm. She has some mild pedal edema that is normal for her. Patient has some point tenderness to the left neck musculature up into the occipital region on the left side. There are no muscle spasms noted and normal range of motion. After discussion with Dr. Pearson the ED physician and Dr. Mast the admitting hospitalist, it was agreed patient be admitted for further evaluation and treatment. Patient's medicines have already been reconciled and she is a full code. Home Medications Medication Instructions Recorded Confirmed Type Atorvastatin [Lipitor] 20 mg PO BEDTIME #30 tablet 11/13/15 03/27/17 Rx Carvedilol [Coreg] 25 mg PO BID #60 tablet 11/13/15 03/27/17 Rx Calcium Acetate 667 mg PO TID W/MEALS 02/03/16 03/27/17 History Nitroglycerin Sl Tab [Nitrostat] 0.4 mg SL Q5M PRN 02/03/16 03/27/17 History cloNIDine 0.2 MG/24 HR PATCH 1 patch TRANSDERM FR 02/03/16 03/27/17 History [Ogkspdgp-JKH-8 Patch] Apixaban [Eliquis] 5 mg PO BID #60 tablet 08/24/16 03/27/17 Rx Prorenal D 1 tablet PO QAM 10/11/16 03/27/17 History Sertraline [Zoloft] 25 mg PO DAILY 03/08/17 03/27/17 History Pantoprazole Tab [Protonix Tab] 40 mg PO DAILY #30 tablet 03/09/17 03/27/17 Rx Allergies Allergy/AdvReac Type Severity Reaction Status Date / Time levofloxacin [From Levaquin] Allergy Severe ANAPHYLAXIS Verified 08/15/16 14:26 penicillin G Allergy Severe RASH Verified 08/15/16 14:26 lisinopril AdvReac Unknown Unknown/Unable Verified 08/15/16 14:26 to obtain Medical,Surgical,& Family Hx - Medical History Cardio: History of: CHF (nonischemic cardiomyopathy), Hypertension, Pacemaker ( AICD) No history of: CAD Neurology: No history of: Seizures Respiratory: History of: Bronchitis, COPD, Pneumonia Renal: History of: Dialysis, Renal Failure Genitourinary: History of: Genitourinary Cancer (remission) Gastrointestinal: History of: GERD, GI Problems (patient has hx of colostomy- now reversed) Hematology: History of: Anemia Reproductive: History of: Ovarian Cysts - Surgical History Cardiac Surgeries: Sugical HX of: Cardiac Catheterization, Internal Defibrillator Thoracic Surgeries: Patient denies;: Organ Transplant Abdominal Surgeries: Surgical HX of: Abdominal Surgery Reproductive Surgeries: Surgical HX of;: Genitourinary Surgery (ovaries removed) , Gynecologic Surgery, Hysterectomy - Family History Family History: Reports;: Family Diabetes (mother), Family Hypertension (mother , brothers,sisters) - Social History Smoking Status: Former smoker Frequency of Alcohol Use: None Type of Drug Use: None Marital Status: Single Lives With:: Alone Functional capacity: uses cane/walker 12 point system: reviewed and no additional remarkable complaints except as stated Exam - Constitutional Vitals: Period Temp Pulse Resp BP Sys/Ngo Pulse Ox Last 24 Hr 98.7 F-98.7 F 60-79 16-23 170-197/66-91 93-100 Exam: Constitutional System: No distress. No tremulousness. Head: Normocephalic, atraumatic. Ears, Nose and Throat System: No evidence of Otitis or Mastoiditis. No epistaxis or discharge, poor dentition Eyes System: Pupils equal, round, and reactive. Extraocular muscles intact. Neck: Supple, without adenopathy, No jugular venous distention. No thyromegaly, neck mass, or prior surgery apparent. Respiratory System: Chest clear to auscultation. Cardiovascular System: Heart with regular rate and rhythm. 1/6 murmur. GI System: Abdomen soft, nontender. Normo active bowel sounds present. Musculoskeletal System: limbs with mild pedal edema. Full distal pulses. Neurological System: No discernable sensory deficit. No aphasia Psychiatric System: Conversation is rational Results - Labs CBC & BMP: 03/27/17 04:34 03/27/17 04:34 Lab Results: I have reviewed the past 24 hour labs - Impressions Ventricular paced
[2017-03-27] MEDS ORDERED: PANTOPRAZOLE 40 MG TABLET PO SCH (09:30)
[2017-03-27] MEDS ORDERED: ENOXAPARIN 40 MG/0.4 ML SYRINGE SUBCUT SCH (09:30)
[2017-03-27 11:36] LABS: Troponin I Only < 0.015 NG/ML (0.00-0.045)
--- NOTE | 2017-03-27 11:58 | EKG Report ---
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
[2017-03-27] MEDS: APIXABAN 5 MG TABLET PO SCH ×2 (12:27→20:58)
[2017-03-27] MEDS: CARVEDILOL 25 MG TABLET PO SCH ×2 (12:27→20:58)
[2017-03-27] MEDS: MULTIVITAMIN (BEROCCA) TABLET PO SCH (12:27)
[2017-03-27] MEDS: SERTRALINE 25 MG TABLET PO SCH (12:27)
[2017-03-27] MEDS: CALCIUM ACETATE 667 MG CAPSULE PO SCH ×2 (12:27→17:27)
[2017-03-27] MEDS: PANTOPRAZOLE 40 MG TABLET PO SCH (12:28)
--- NOTE | 2017-03-27 14:56 | Nephrology Consult Note ---
History of Present Illness Chief complaint: esrd History of present illness: Ms. Dee is a 76 year old female with end-stage renal disease who dialyzes Friday pride. She presented with neck pain feeling it principally in the occiput and cervical spine area radiating into upper back bilaterally. She denies any fever but has had episodes of staph sepsis from a dialysis catheter which has been removed. On exam she is in some pain with her neck and it appears that she has hyperesthesia over her upper back bilaterally and her neck. Chest is clear heart without rub or gallop no peripheral edema is noted. Chest x-ray demonstrates her permanent pacer/defibrillator. There is no significant infiltrate there is mild evidence of volume overload. Impression end-stage renal disease on hemodialysis #2 history of staph sepsis # 3 neck pain without fever. Will need to rule out discitis. Discitis seems unlikely in the absence of fever. Plan cervical spine films. Hemodialysis today. Home Medications Medication Instructions Recorded Confirmed Type Atorvastatin [Lipitor] 20 mg PO BEDTIME #30 tablet 11/13/15 03/27/17 Rx Carvedilol [Coreg] 25 mg PO BID #60 tablet 11/13/15 03/27/17 Rx Calcium Acetate 667 mg PO TID W/MEALS 02/03/16 03/27/17 History Nitroglycerin Sl Tab [Nitrostat] 0.4 mg SL Q5M PRN 02/03/16 03/27/17 History cloNIDine 0.2 MG/24 HR PATCH 1 patch TRANSDERM FR 02/03/16 03/27/17 History [Dspgbloj-EKD-2 Patch] Apixaban [Eliquis] 5 mg PO BID #60 tablet 08/24/16 03/27/17 Rx Prorenal D 1 tablet PO QAM 10/11/16 03/27/17 History Sertraline [Zoloft] 25 mg PO DAILY 03/08/17 03/27/17 History Pantoprazole Tab [Protonix Tab] 40 mg PO DAILY #30 tablet 03/09/17 03/27/17 Rx Allergies Allergy/AdvReac Type Severity Reaction Status Date / Time levofloxacin [From Levaquin] Allergy Severe ANAPHYLAXIS Verified 08/15/16 14:26 penicillin G Allergy Severe RASH Verified 08/15/16 14:26 lisinopril AdvReac Unknown Unknown/Unable Verified 08/15/16 14:26 to obtain Medical,Surgical,& Family Hx - Medical History Cardio: History of: CHF (nonischemic cardiomyopathy), Hypertension, Pacemaker ( AICD) No history of: CAD Neurology: No history of: Seizures Respiratory: History of: Bronchitis, COPD, Pneumonia Renal: History of: Dialysis, Renal Failure Genitourinary: History of: Genitourinary Cancer (remission) Gastrointestinal: History of: GERD, GI Problems (patient has hx of colostomy- now reversed) Hematology: History of: Anemia Reproductive: History of: Ovarian Cysts - Surgical History Cardiac Surgeries: Sugical HX of: Cardiac Catheterization, Internal Defibrillator Thoracic Surgeries: Patient denies;: Organ Transplant Abdominal Surgeries: Surgical HX of: Abdominal Surgery Reproductive Surgeries: Surgical HX of;: Genitourinary Surgery (ovaries removed) , Gynecologic Surgery, Hysterectomy - Family History Family History: Reports;: Family Diabetes (mother), Family Hypertension (mother , brothers,sisters) - Social History Smoking Status: Former smoker Frequency of Alcohol Use: None Type of Drug Use: None Review of Systems 12 point system: reviewed and no additional remarkable complaints except as stated Exam - Vital Signs Vital signs: Period Temp Pulse Resp BP Sys/Ngo Pulse Ox Last 24 Hr 97.0 F-98.7 F 60-79 16-23 159-199/60-93 93-100 - General Appearance General appearance: well-developed, well-nourished, appears started age EENT: ATNC Neck: no JVD, no thyromegaly, no carotid bruit, supple Respiratory: no kyphosis, no scoliosis Cardiology: no murmurs, no rub, no gallops, no edema, regular rate, regular rhythm, normal S1, normal S2 Gastrointestinal: normoactive bowel sounds Integumentary: no rash, warm and dry Neurologic: no focal deficit, no asterixis, alert and oriented x3, reflexes 2+ and symmetric, gait normal, strength 5/5 Musculoskeletal: no deformities, no erythema, no cyanosis, no clubbing Psychiatric: mood/affect appropriate, cooperative Results - Labs CBC & BMP: 03/27/17 04:34 03/27/17 04:34 Assessment and Plan - Time spent with patient Time spent with patient: Greater than 30 minutes (1) ESRD (end stage renal disease) on dialysis Status: Chronic Current Visit: No (2) Tobacco use Status: Chronic Current Visit: No (3) Chronic obstructive pulmonary disease (COPD) Status: Chronic Current Visit: No (4) Neck pain Status: Acute Assessment and plan: Cervical spine films Current Visit: Yes Specialty Discharge - Follow Up or Referrals - Speciality Discharge Instructions Nephrology Instructions: Hemodialysis today
--- NOTE | 2017-03-27 15:01 | Dialysis Note ---
Dialysis Note - Dialysis Note Ms. Dee is seen during her hemodialysis. She is stable but is complaining of neck pain. We will get cervical spine films and continue to support with dialysis
--- NOTE | 2017-03-27 15:24 | EKG Report ---
Stationary ECG Study [facility] Test Date: 03/27/2017 3:12:38 PM Pat Name: KEVYN COBURN Department: Room: 282 Gender: F [employer]ing [employer]: PHUONG : [id number] Requested by: Montserrat Macias Order Number: [id number] Myron MD: SIVA MORRISON Intervals [place] Rate: 60 P: 85 NH: 162 QRS: 246 QRSD: 162 T: 61 QT: 543 QTc: 544 Interpretive Statements ELECTRONIC ATRIAL PACEMAKER ELECTRONIC VENTRICULAR PACEMAKER Electronically Signed On 03-29-17 18:03:02 CDT by SIVA MORRISON [email or web address]
[2017-03-27] MEDS: INSULIN LISPRO 100 UNIT/ML SUBCUT SCH (17:16)
[2017-03-27 18:29] LABS: Troponin I Only < 0.015 NG/ML (0.00-0.045)
[2017-03-27] MEDS: ATORVASTATIN 20 MG TABLET PO SCH (20:57)
[2017-03-28 05:00] LABS: Basophils % 0.2 % (0.0-0.8); Eosinophils # 0.3 10*3/uL (0.0-0.87); Eosinophils % 3.2 % (0.00-10.9); Hematocrit 28.6 VOL% (35.7-47.0); Immature Granulocytes % 0.7 %; Immature Granulocytes Absolute 0.07 #; Lymphocytes % 9.8 % (21.3-54.2); Mean Corpuscular HGB Conc 32.5 GM/DL (32-36); Mean Corpuscular Hemoglobin 33 PG (27-34); Mean Corpuscular Volume 101.4 FL (87-102); Mean Platelet Volume 10.6 FL (9.6-12.0); Monocytes # 0.9 10*3/uL (0.11-0.8); Monocytes % 8.2 % (1.7-12.7); Neutrophils # 8.2 10*3/uL (1.4-7.4); Neutrophils % 77.9 % (38.7-73.9); Red Cell Distribution Width 14.4 % (9.3-17.3)
[2017-03-28 05:01] LABS: Red Blood Count 2.82 MC/CUMM (3.8-5.5); White Blood Count 10.5 T/CUMM (4-12)
[2017-03-28 05:02] LABS: Hemoglobin 9.3 GM/DL (12.0-16.0); Platelet Count 135 T/CUMM (130-400)
[2017-03-28 05:23] LABS: Calcium 8.6 MG/DL (8.5-10.1); Magnesium 2.1 MG/DL (1.8-2.4); Osmolality,Calculated 278.7 MOS/KG (273-304); Potassium 4.4 MMOL/L (3.5-5.1)
--- NOTE | 2017-03-28 07:49 | XRay Report ---
XR cervical spine AP/LAT Indication: Cervicalgia Comparison: None available Findings: No definite fracture is seen. Detail is limited from patient's body size. Vertebral body heights and alignment are normal. There is loss of disc space and degenerative change at multiple levels poorly defined. Impression: Multilevel spondylitic changes, detail limited from patient body habitus. PROCEDURE INTERPRETED AT [facility] DEPARTMENT OF RADIOLOGY Final Report Signed by: Dr. Chaz Palma
[2017-03-28] MEDS: INSULIN LISPRO 100 UNIT/ML SUBCUT SCH ×2 (08:34→16:54)
[2017-03-28] MEDS: APIXABAN 5 MG TABLET PO SCH ×2 (09:31→20:57)
[2017-03-28] MEDS: CALCIUM ACETATE 667 MG CAPSULE PO SCH ×3 (09:31→16:51)
[2017-03-28] MEDS: MULTIVITAMIN (BEROCCA) TABLET PO SCH (09:31)
[2017-03-28] MEDS: CARVEDILOL 25 MG TABLET PO SCH ×2 (09:32→20:57)
[2017-03-28] MEDS: SERTRALINE 25 MG TABLET PO SCH (09:32)
[2017-03-28] MEDS: PANTOPRAZOLE 40 MG TABLET PO SCH (09:32)
--- NOTE | 2017-03-28 09:43 | Nephrology Progress Note ---
Nephrology - PN: Subj Interval history: Ms. Dee is seen in follow-up of her end-stage renal disease. She dialyzed yesterday and is no longer short of breath. She still complaining of occipital pain principally on the left side with radiation down the neck to the almost to the shoulder area. There is no reproducible tenderness. Cervical spine films demonstrated only degenerative changes. She is not febrile and I think discitis is unlikely. There is no obvious trigger point or at least not reproducible ones. If those were apparent we could consider injection of local anesthetic with steroid. For now I think analgesics and possibly of physical therapy or the way to manage her discomfort. Exam (PN)-Nephrology - Vital Signs Vital signs: Period Temp Pulse Resp BP Sys/Ngo Pulse Ox Last 24 Hr 96.8 F-98.6 F 60-69 16-20 144-186/65-77 94-100 - Lab 03/28/17 02:59 03/28/17 02:59 Most recent lab results Calcium 8.6 MG/DL (8.5-10.1) 03/28/17 02:59 Magnesium 2.1 MG/DL (1.8-2.4) 03/28/17 02:59 Assessment and Plan (1) ESRD (end stage renal disease) on dialysis Status: Chronic Current Visit: No (2) Tobacco use Status: Chronic Current Visit: No (3) Chronic obstructive pulmonary disease (COPD) Status: Chronic Current Visit: No (4) Neck pain Status: Acute Assessment and plan: Cervical spine films Current Visit: Yes
[2017-03-28] MEDS: cloNIDine 0.2 MG/24 HR PATCH TRANSDERM SCH (09:44)
--- NOTE | 2017-03-28 13:44 | Hospitalist Progress Note ---
Assessment and Plan (1) Gram-positive bacteremia Status: Acute Assessment and plan: I am going to order a dose of vancomycin and await blood culture. Current Visit: No (2) ESRD (end stage renal disease) on dialysis Status: Chronic Current Visit: No (3) Neck pain Status: Acute Assessment and plan: Physical therapy evaluation underway Current Visit: Yes Hospitalist: Subjective Interval history: Mrs. Dee complains of left neck pain. Cervical spine films show extensive degenerative joint disease in the cervical spine. Blood cultures show gram- positive cocci. Exam - Constitutional Vitals: Period Temp Pulse Resp BP Sys/Ngo Pulse Ox Last 24 Hr 96.8 F-98.6 F 60-69 16-26 130-186/54-77 95-99 General appearance: no acute distress - Respiratory Respiratory exam: Present: clear to auscultation bilaterally - Cardiovascular Cardiovascular exam: Present: regular rate and rhythm - GI/Abdominal GI/Abdominal exam: Present: normal bowel sounds Results - Labs CBC & BMP: 03/28/17 02:59 03/28/17 02:59 Lab Results: I have reviewed the past 24 hour labs
[2017-03-28] MEDS ORDERED: VANCOMYCIN INJ 1,000 MG in SODIUM CHLORIDE 0.9% 250 ML IV PRN (14:16)
[2017-03-28] MEDS ORDERED: VANCOMYCIN INJ 2,000 MG in SODIUM CHLORIDE 0.9% 500 ML IV ONE (15:00)
[2017-03-28] MEDS: ATORVASTATIN 20 MG TABLET PO SCH (20:57)
[2017-03-29] MEDS: ACETAMINOPHEN 325 MG TABLET PO PRN (05:10)
[2017-03-29] MEDS: INSULIN LISPRO 100 UNIT/ML SUBCUT SCH ×2 (08:06→16:47)
--- NOTE | 2017-03-29 08:13 | Hospitalist Progress Note ---
Assessment and Plan - Time spent with patient Time spent with patient: Less than 30 minutes (1) Chest pain Status: Resolved Assessment and plan: 76-year-old -[place] female with history of end-stage renal disease on hemodialysis, chronic anticoagulation on Eliquis, hypertension, CHF, COPD admitted by hospitalist service with shortness of breath, chest pain, neck and occipital pain for 3-4 days. She is in need of hemodialysis today for volume overload. Nephrology has been consulted. She also has some elevated blood pressures but she has not taken her medicines today. Her medicines have been verified and restarted. She is also complaining of some left-sided muscular neck pain and occipital pain. No decrease in motor function or range of motion. Will consult physical therapy and order heat as needed. She also has a mild narcotic for pain ordered. We will go ahead and trend her troponins and EKGs as well for her chest pain. Dr. Mast will see and examine patient and further recommendations to follow. 03/29/2017 patient's biggest complaint is her neck and back pain. PT has been following, pain medications, ice and heat have been ordered and does not seem to be helping. Will consult Dr. Pratt from [facility] for his assistance. Patient also has gram-positive bacteremia and is being followed by nephrology. She is on vancomycin during dialysis. Patient did run a low-grade fever of 100.1 this morning. Her chest x-ray is pending and she did have some hematuria as well. Also checking a UA that is pending. Dr. Mast will see and examine patient and further recommendations to follow. Current Visit: No Qualifiers: Chest pain type: intercostal pain Qualified Code(s): R07.82 - Intercostal pain (2) Obesity (BMI 30.0-34.9) Status: Chronic Current Visit: No (3) Chronic obstructive pulmonary disease (COPD) Status: Chronic Current Visit: No (4) Hypertension Status: Chronic Current Visit: No Qualifiers: Hypertension type: essential hypertension (5) Volume overload Status: Acute Current Visit: No (6) ESRD (end stage renal disease) on dialysis Status: Chronic Current Visit: No (7) AICD (automatic cardioverter/defibrillator) present Status: Chronic Current Visit: No (8) Shortness of breath Status: Acute Current Visit: No Hospitalist: Subjective Interval history: Patient's biggest complaint seems to be her neck and her back. She said is unrelenting and it is not improving. She has tried heat and ice and physical therapy has evaluated. Exam - Constitutional Vitals: Period Temp Pulse Resp BP Sys/Ngo Pulse Ox Last 24 Hr 97.2 F-100.1 F 60-70 18-26 110-165/52-70 95-98 Exam: Constitutional System: No distress. No tremulousness. Head: Normocephalic, atraumatic. Ears, Nose and Throat System: No evidence of Otitis or Mastoiditis. No epistaxis or discharge, poor dentition Eyes System: Pupils equal, round, and reactive. Extraocular muscles intact. Neck: Supple, without adenopathy, No jugular venous distention. No thyromegaly, neck mass, or prior surgery apparent. Pain to palpation left neck and occipital region with no mass noted Respiratory System: Chest clear to auscultation. Cardiovascular System: Heart with regular rate and rhythm. 1/6 murmur. GI System: Abdomen soft, nontender. Normo active bowel sounds present. Musculoskeletal System: limbs with mild pedal edema. Full distal pulses. Neurological System: No discernable sensory deficit. No aphasia Psychiatric System: Conversation is rational Results - Labs CBC & BMP: 03/28/17 02:59 03/28/17 02:59 Lab Results: I have reviewed the past 24 hour labs - Diagnostic Findings Procedure: Chest x-ray: pending, X-ray: report reviewed by me (C-spine x-ray shows multilevel spondylitic changes)
--- NOTE | 2017-03-29 09:16 | Nephrology Progress Note ---
Nephrology - PN: Subj Interval history: Patient is seen on hemodialysis, she is tolerating this well she continues to complain of neck pain Assessment/plan 1. End-stage renal disease-continue hemodialysis support 2. Gram-positive bacteremia-I agree with IV antibiotics 3. Anemia-patient's hematocrits around 29% 4. Neck pain-this continues, I suspect it is related to her bacteremia and infection. Exam (PN)-Nephrology - Vital Signs Vital signs: Period Temp Pulse Resp BP Sys/Ngo Pulse Ox Last 24 Hr 97.2 F-100.1 F 60-70 18-26 110-165/52-70 95-98 - Lab 03/28/17 02:59 03/28/17 02:59 Most recent lab results Calcium 8.6 MG/DL (8.5-10.1) 03/28/17 02:59 Magnesium 2.1 MG/DL (1.8-2.4) 03/28/17 02:59
[2017-03-29] MEDS: CALCIUM ACETATE 667 MG CAPSULE PO SCH ×3 (09:33→17:08)
--- NOTE | 2017-03-29 10:51 | XRay Report ---
History short of breath Comparison 03/27/2017 The heart is enlarged with pacemaker present Mild interstitial edema and small right effusion remains. Mild patchy and stranding opacity in the left mid chest remains. Impression: 1. The mild interstitial edema with mild patchy atelectasis infiltrate or scarring the left mid chest. Follow-up recommended PROCEDURE INTERPRETED AT [facility] DEPARTMENT OF RADIOLOGY Final Report Signed by: Dr. Scarlett Galeas
[2017-03-29] MEDS: PANTOPRAZOLE 40 MG TABLET PO SCH (13:21)
[2017-03-29] MEDS: SERTRALINE 25 MG TABLET PO SCH (13:21)
[2017-03-29] MEDS: APIXABAN 5 MG TABLET PO SCH ×2 (13:21→21:06)
[2017-03-29] MEDS: MULTIVITAMIN (BEROCCA) TABLET PO SCH (13:21)
[2017-03-29] MEDS: CARVEDILOL 25 MG TABLET PO SCH ×2 (13:22→21:07)
[2017-03-29] MEDS ORDERED: VANCOMYCIN INJ 1,000 MG in SODIUM CHLORIDE 0.9% 250 ML IV ONE (16:00)
[2017-03-29] MEDS: ATORVASTATIN 20 MG TABLET PO SCH (21:06)
[2017-03-30 04:32] LABS: Basophils % 0.2 % (0.0-0.8); Eosinophils # 0.3 10*3/uL (0.0-0.87); Eosinophils % 2.6 % (0.00-10.9); Hematocrit 28.6 VOL% (35.7-47.0); Hemoglobin 8.9 GM/DL (12.0-16.0); Immature Granulocytes % 0.7 %; Immature Granulocytes Absolute 0.07 #; Lymphocytes % 9.7 % (21.3-54.2); Mean Corpuscular HGB Conc 31.1 GM/DL (32-36); Mean Corpuscular Hemoglobin 32 PG (27-34); Mean Corpuscular Volume 101.4 FL (87-102); Mean Platelet Volume 10.4 FL (9.6-12.0); Monocytes # 1.1 10*3/uL (0.11-0.8); Monocytes % 10.5 % (1.7-12.7); Neutrophils # 7.9 10*3/uL (1.4-7.4); Neutrophils % 76.3 % (38.7-73.9); Platelet Count 150 T/CUMM (130-400); Red Blood Count 2.82 MC/CUMM (3.8-5.5); Red Cell Distribution Width 13.9 % (9.3-17.3); White Blood Count 10.4 T/CUMM (4-12)
[2017-03-30 05:02] LABS: Calcium 8.2 MG/DL (8.5-10.1); Magnesium 2.1 MG/DL (1.8-2.4); Osmolality,Calculated 276.8 MOS/KG (273-304); Potassium 4.3 MMOL/L (3.5-5.1)
[2017-03-30] MEDS ORDERED: POLYETHYLENE GLYCOL POWDER 17 GM PACK PO PRN (09:15)
--- NOTE | 2017-03-30 09:15 | Nephrology Progress Note ---
Nephrology - PN: Subj Interval history: Patient continues to complain of neck pain, she states it gets some better when she gets up and moves around through the day. Review of systems pulmonary she denies shortness of breath, GI-she complains of not having a bowel movement for several days now, she does have flatus, -patient states she had some bleeding in her urine yesterday. Physical exam general the patient is chronically ill-appearing, she has quite severe tenderness over her occipital point and this tenderness extends down to C6-C7 on palpation but is less severe. Assessment/plan 1. End-stage renal disease we will continue hemodialysis support 2. Neck pain-I was going to give her scheduled dose of nonsteroidals for a few days, however with her on apixaban and having some hematuria I am hesitant to do so. If the pain continues to persist she may warrant further radiological evaluation of this region 3. Bacteremia continue antibiotics 4. Constipation we will give her some MiraLAX. 5. Hematuria we will monitor this Exam (PN)-Nephrology - Vital Signs Vital signs: Period Temp Pulse Resp BP Sys/Ngo Pulse Ox Last 24 Hr 97.2 F-98.5 F 62-79 16-20 115-149/47-65 95-100 - Lab 03/30/17 03:07 03/30/17 03:07 Most recent lab results Calcium 8.2 MG/DL (8.5-10.1) L 03/30/17 03:07 Magnesium 2.1 MG/DL (1.8-2.4) 03/30/17 03:07
[2017-03-30] MEDS: MULTIVITAMIN (BEROCCA) TABLET PO SCH (09:32)
[2017-03-30] MEDS: CARVEDILOL 25 MG TABLET PO SCH ×2 (09:32→21:15)
[2017-03-30] MEDS: SERTRALINE 25 MG TABLET PO SCH (09:32)
[2017-03-30] MEDS: CALCIUM ACETATE 667 MG CAPSULE PO SCH ×3 (09:32→17:11)
[2017-03-30] MEDS: PANTOPRAZOLE 40 MG TABLET PO SCH (09:32)
[2017-03-30] MEDS: APIXABAN 5 MG TABLET PO SCH ×2 (09:32→21:15)
[2017-03-30] MEDS: INSULIN LISPRO 100 UNIT/ML SUBCUT SCH ×3 (09:35→17:54)
[2017-03-30] MEDS ORDERED: MAGNESIUM HYDROXIDE SUSP 30 ML UDCUP PO PRN (10:13)
[2017-03-30] MEDS ORDERED: MAGNESIUM HYDROXIDE SUSP 30 ML UDCUP PO ONE (10:13)
--- NOTE | 2017-03-30 10:43 | Hospitalist Progress Note ---
Assessment and Plan (1) Gram-positive bacteremia Status: Acute Assessment and plan: Vancomycin therapy continues with intermittent dosing. Random vancomycin level after last night's dose was 39 and will recheck this again tomorrow morning. The patient can be dosed as required. I am ordering CT scan of the neck to evaluate for spinous abnormality and we can recheck electrolytes in the morning. Current Visit: No (2) ESRD (end stage renal disease) on dialysis Status: Chronic Current Visit: No (3) Neck pain Status: Acute Assessment and plan: Physical therapy evaluation underway Current Visit: Yes Hospitalist: Subjective Interval history: Mrs. Dee was admitted to the hospital with generalized aching and fever. She has had previous episodes of bacteremia with enterococcus. The patient has been dialyzing as usual during hospital stay. Cultures obtained in the emergency room revealed gram-positive cocci but have not yet been identified. The patient's generalized joint pain has improved but cervical posterior neck discomfort remains. Initial plain x-rays revealed degenerative changes. I am going to order CT scan with contrast to evaluate for paraspinous abscess or tumor. The patient has no peripheral symptoms. Exam - Constitutional Vitals: Period Temp Pulse Resp BP Sys/Ngo Pulse Ox Last 24 Hr 97.2 F-98.5 F 62-79 16-20 115-149/47-65 95-100 General appearance: mild distress - Neck Neck exam: Present: normal inspection, tenderness (Posterior cervical spine) - Respiratory Respiratory exam: Present: clear to auscultation bilaterally - Cardiovascular Cardiovascular exam: Present: regular rate and rhythm - GI/Abdominal GI/Abdominal exam: Present: normal bowel sounds Results - Labs CBC & BMP: 03/30/17 03:07 03/30/17 03:07 Lab Results: I have reviewed the past 24 hour labs
--- NOTE | 2017-03-30 11:18 | Pain Management Consult Note ---
Assessment and Plan (1) Neck pain Status: Acute Assessment and plan: Unfortuneately she is not on the floor during my consultation visit. C/O lateralizing neck pain and occipital pain, CT neck pending, C spine films with DDD and spondylosis. She is tobacco addictied continue to smoke despite COPD/ CHF and on dialysis for ESRD as well as Eliquis making injections problematic. Currently on [place] 5mg prn. Would avoid morphine and NSAIDS. Compliance may be problematic, noted on admission H&P that she had not taken her meds. At this point would consider physical therapy modalities with occipital release techniques. Oxycodone could be offered if higher dose meds are appropriate. Not sure of the chronicity of her neck complaints but Xray indicates likely chronic ; if her medical conditions improve, and she can hold Eliquis 2-3 days we could offer outpatient AMBER if she desires. Will review CT cervical. Current Visit: Yes History of Present Illness Chief complaint: neck pain History of present illness: Ms. Dee is a 76 year old female by review of charts with lateralizing neck pain and occipital pain. Home Medications Medication Instructions Recorded Confirmed Type Atorvastatin [Lipitor] 20 mg PO BEDTIME #30 tablet 11/13/15 03/27/17 Rx Carvedilol [Coreg] 25 mg PO BID #60 tablet 11/13/15 03/27/17 Rx Calcium Acetate 667 mg PO TID W/MEALS 02/03/16 03/27/17 History Nitroglycerin Sl Tab [Nitrostat] 0.4 mg SL Q5M PRN 02/03/16 03/27/17 History cloNIDine 0.2 MG/24 HR PATCH 1 patch TRANSDERM FR 02/03/16 03/27/17 History [Vooomrlc-XRJ-8 Patch] Apixaban [Eliquis] 5 mg PO BID #60 tablet 08/24/16 03/27/17 Rx Prorenal D 1 tablet PO QAM 10/11/16 03/27/17 History Sertraline [Zoloft] 25 mg PO DAILY 03/08/17 03/27/17 History Pantoprazole Tab [Protonix Tab] 40 mg PO DAILY #30 tablet 03/09/17 03/27/17 Rx Allergies Allergy/AdvReac Type Severity Reaction Status Date / Time levofloxacin [From Levaquin] Allergy Severe ANAPHYLAXIS Verified 08/15/16 14:26 penicillin G Allergy Severe RASH Verified 08/15/16 14:26 lisinopril AdvReac Unknown Unknown/Unable Verified 08/15/16 14:26 to obtain Medical,Surgical,& Family Hx - Medical History Cardio: History of: CHF (nonischemic cardiomyopathy), Hypertension, Pacemaker ( AICD) No history of: CAD Neurology: No history of: Seizures Respiratory: History of: Bronchitis, COPD, Pneumonia Renal: History of: Dialysis, Renal Failure Genitourinary: History of: Genitourinary Cancer (remission) Gastrointestinal: History of: GERD, GI Problems (patient has hx of colostomy- now reversed) Hematology: History of: Anemia Reproductive: History of: Ovarian Cysts - Surgical History Cardiac Surgeries: Sugical HX of: Cardiac Catheterization, Internal Defibrillator Thoracic Surgeries: Patient denies;: Organ Transplant Abdominal Surgeries: Surgical HX of: Abdominal Surgery Reproductive Surgeries: Surgical HX of;: Genitourinary Surgery (ovaries removed) , Gynecologic Surgery, Hysterectomy - Family History Family History: Reports;: Family Diabetes (mother), Family Hypertension (mother , brothers,sisters) - Social History Smoking Status: Former smoker Frequency of Alcohol Use: None Type of Drug Use: None Exam - Constitutional Vitals: Period Temp Pulse Resp BP Sys/Ngo Pulse Ox Last 24 Hr 97.2 F-98.5 F 62-79 16-20 115-149/47-65 95-100 Results - Labs CBC & BMP: 03/30/17 03:07 03/30/17 03:07
--- NOTE | 2017-03-30 12:01 | CT Report ---
Exam: CT cervical spine with and without IV contrast Clinical History: 76 years,Female,neck pain, bacteremic Technique: Axial computed tomography images of the cervical spine was performed prior to and after the intravenous contrast. The CT exam was performed using one or more of the following dose reduction techniques: Automated exposure control, adjustment of the mA and/or kV according to patient size, or use of iterative reconstruction technique. Comparison: No relevant prior studies available. Findings: Vertebra: Cervical alignment is anatomic. The vertebral body heights are maintained with no evidence of fracture. Disc/spinal Canal/neural foramina: Multilevel disc space loss with endplate spurring and Schmorl's nodes along the endplates. Partial ankylosis at C5 C7. Multilevel facet arthrosis resulting in varying degrees of foraminal narrowing, most significant on the left at C5-C6 and C6-C7. Soft tissues: Unremarkable Thyroid: Cystic nodule within the left thyroid lobe is noted Lung apices: Well aerated Impression: 1. Multilevel spondylosis 2. Cystic left thyroid nodule correlate with dedicated ultrasound if clinically indicated PROCEDURE INTERPRETED AT [facility] DEPARTMENT OF RADIOLOGY Final Report Signed by: Garrett Del Valle
[2017-03-30] MEDS: ATORVASTATIN 20 MG TABLET PO SCH (21:15)
[2017-03-31 05:44] LABS: Calcium 8.5 MG/DL (8.5-10.1); Magnesium 2.5 MG/DL (1.8-2.4); Osmolality,Calculated 280.8 MOS/KG (273-304); Potassium 4.7 MMOL/L (3.5-5.1)
--- NOTE | 2017-03-31 06:39 | Physician Query Form ---
CLICK EDIT DOCUMENT TO SELECT QUERY ANSWER --> OK --> SIGN Alee Vu RN, CCDS Certified Clinical Brake Specialist W) [phone] (f) [phone] [email or web address] PROVIDERS: Make your selection(s) from the choices in EACH section by typing an "x" and enter comments in the comment section. Please use your independent medical judgment in providing your response. This request does not imply that any particular answer is desired or expected. CLINICAL INDICATORS: (Providers should not edit this section) The medical record indicates that the patient was admitted with CHF, "nonischemic cardiomyopathy", BNP of 603 and the patient was treated with dialysis. Please provide further specificity regarding CHF. ACUITY: ( ) Acute ( ) Chronic ( ) Acute on Chronic ( ) Clinically unable to determine TYPE: ( ) Systolic (HFrEF - heart failure with reduced systolic function/EF) ( ) Diastolic (HFpEF - heart failure with preserved systolic function/EF) ( ) Combined Systolic/Diastolic ( ) Other, please specify: ( ) Clinically unable to determine ( ) Past Medical History of Systolic CHF ( ) Past Medical History of Diastolic CHF ( ) Clinically unable to determine COMMENTS: PLEASE ALSO DOCUMENT RESPONSE IN PROGRESS NOTES AND/OR DISCHARGE SUMMARY Use of terms such as suspected, likely, or probable (associated with a specific diagnosis that is being evaluated, monitored, or treated as if it exists) are acceptable and can be restated in the discharge summary if not ruled out. MTDD
--- NOTE | 2017-03-31 07:20 | Physician Query Form ---
CLICK EDIT DOCUMENT TO SELECT QUERY ANSWER --> OK --> SIGN Alee Vu RN, CCDS Certified Clinical Folder Machine W) [phone] (f) [phone] [email or web address] PROVIDERS: Make your selection(s) from the choices in EACH section by typing an "x" and enter comments in the comment section. Please use your independent medical judgment in providing your response. This request does not imply that any particular answer is desired or expected. CLINICAL INDICATORS: (Providers should not edit this section) The medical record indicates that the patient was admitted with CHF, "nonischemic cardiomyopathy", BNP of 603 and the patient was treated with dialysis. Please provide further specificity regarding CHF. ACUITY: ( ) Acute ( ) Chronic ( ) Acute on Chronic ( ) Clinically unable to determine TYPE: ( ) Systolic (HFrEF - heart failure with reduced systolic function/EF) ( ) Diastolic (HFpEF - heart failure with preserved systolic function/EF) ( ) Combined Systolic/Diastolic ( ) Other, please specify: ( ) Clinically unable to determine ( ) Past Medical History of Systolic CHF ( ) Past Medical History of Diastolic CHF ( ) Clinically unable to determine COMMENTS: PLEASE ALSO DOCUMENT RESPONSE IN PROGRESS NOTES AND/OR DISCHARGE SUMMARY Use of terms such as suspected, likely, or probable (associated with a specific diagnosis that is being evaluated, monitored, or treated as if it exists) are acceptable and can be restated in the discharge summary if not ruled out. MTDD
[2017-03-31] MEDS: INSULIN LISPRO 100 UNIT/ML SUBCUT SCH ×2 (08:38→16:11)
[2017-03-31] MEDS: CALCIUM ACETATE 667 MG CAPSULE PO SCH ×3 (09:26→17:38)
[2017-03-31] MEDS: APIXABAN 5 MG TABLET PO SCH ×2 (09:26→21:15)
[2017-03-31] MEDS: PANTOPRAZOLE 40 MG TABLET PO SCH (09:26)
[2017-03-31] MEDS: SERTRALINE 25 MG TABLET PO SCH (09:26)
[2017-03-31] MEDS: CARVEDILOL 25 MG TABLET PO SCH ×2 (09:26→21:15)
[2017-03-31] MEDS: MULTIVITAMIN (BEROCCA) TABLET PO SCH (09:26)
--- NOTE | 2017-03-31 12:18 | Pain Management Progress Note ---
Assessment and Plan (1) Neck pain Status: Acute Assessment and plan: Reviewed CT neck, spondylosis, DDD, some foraminal stenosis but no cord or nreve root impingment and no radicular sxs. C spine films with DDD and spondylosis. She is tobacco addictied continue to smoke despite COPD/CHF and on dialysis for ESRD as well as Eliquis making injections problematic. Currently on [place] 5mg prn. Would avoid morphine and NSAIDS. She gets sedated with the [place] 5mg so higher doses of opioid would be risky given her medical conditions. Will clarify physical therapy modalities with occipital release techniques. If her medical conditions improve, and she can hold Eliquis 2-3 days (she needs to discuss this with Dr. Moise) we could offer outpatient AMBER if she desires. Nothing more to ffer at this time. Current Visit: Yes Pain - Subjective Interval history: No change, neck pain status quo Exam - Constitutional Vitals: Period Temp Pulse Resp BP Sys/Ngo Pulse Ox Last 24 Hr 97.0 F-99.8 F 61-68 16-20 127-170/52-74 93-100 Results - Labs CBC & BMP: 03/30/17 03:07 03/31/17 04:41
--- NOTE | 2017-03-31 13:45 | Infectious Disease Consult ---
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 KERI was negative this past November which is when I saw her for the first time. I am not sure how long the episodes of bacteremia have been treated, as this past admission she did not follow up with me as advised. I am concerned about the possibility that her AV graft could be infected with MRSE causing the recurrent bacteremia. Recommendations: 1. Agree with vancomycin. Goal trough is 20-25. 2. Repeat blood cultures 2 sets today 3. Check TTE to make sure there is nothing obvious on her valves. 4. This time I am going to plan to treat the patient for 6 weeks from date of negative blood cultures Thank you very much for the consult. Will follow. Discussed with Dr. Kirk Current Visit: No History of Present Illness Chief complaint: Positive blood cultures History of present illness: Patient is a poor historian, much of the history is obtained from review of her extensive records. Ms. Dee is a 76 year old female was saw this past November because of MRSA septicemia. She has multiple comorbidities including CHF and also end-stage renal disease on hemodialysis. She had an AV graft placed this past August and has been getting dialysis with that since November. When I saw her in November it was for MRSE bacteremia. That was due to an infected hemodialysis catheter, tip of which culture positive for the same MRSE. She had KERI done end of November and that came back negative for endocarditis. The plan was for the patient to get vancomycin with dialysis for 4 weeks, which would have been until December 31. Patient was supposed to follow-up with me in the office however she never came. She presented to hospital end of last week with a painful lump to the back of her head. Blood cultures were done and they came back positive for MRSE. Patient has not had any fever. Emesis with management. Home Medications Medication Instructions Recorded Confirmed Type Atorvastatin [Lipitor] 20 mg PO BEDTIME #30 tablet 11/13/15 03/27/17 Rx Carvedilol [Coreg] 25 mg PO BID #60 tablet 11/13/15 03/27/17 Rx Calcium Acetate 667 mg PO TID W/MEALS 02/03/16 03/27/17 History Nitroglycerin Sl Tab [Nitrostat] 0.4 mg SL Q5M PRN 02/03/16 03/27/17 History cloNIDine 0.2 MG/24 HR PATCH 1 patch TRANSDERM FR 02/03/16 03/27/17 History [Mymqdbsl-QOI-5 Patch] Apixaban [Eliquis] 5 mg PO BID #60 tablet 08/24/16 03/27/17 Rx Prorenal D 1 tablet PO QAM 10/11/16 03/27/17 History Sertraline [Zoloft] 25 mg PO DAILY 03/08/17 03/27/17 History Pantoprazole Tab [Protonix Tab] 40 mg PO DAILY #30 tablet 03/09/17 03/27/17 Rx Allergies Allergy/AdvReac Type Severity Reaction Status Date / Time levofloxacin [From Levaquin] Allergy Severe ANAPHYLAXIS Verified 08/15/16 14:26 penicillin G Allergy Severe RASH Verified 08/15/16 14:26 lisinopril AdvReac Unknown Unknown/Unable Verified 08/15/16 14:26 to obtain 12 point system: reviewed and no additional remarkable complaints except as stated (Shortness of breath, improved since admission. Rest of compressive review of systems negative, apart from what was mentioned in HPI.) Medical,Surgical,& Family Hx - Medical History Cardio: History of: CHF (nonischemic cardiomyopathy), Hypertension, Pacemaker ( AICD) No history of: CAD Neurology: No history of: Seizures Respiratory: History of: Bronchitis, COPD, Pneumonia Renal: History of: Dialysis, Renal Failure Genitourinary: History of: Genitourinary Cancer (remission) Gastrointestinal: History of: GERD, GI Problems (patient has hx of colostomy- now reversed) Hematology: History of: Anemia Reproductive: History of: Ovarian Cysts - Surgical History Cardiac Surgeries: Sugical HX of: Cardiac Catheterization, Internal Defibrillator Thoracic Surgeries: Patient denies;: Organ Transplant Abdominal Surgeries: Surgical HX of: Abdominal Surgery Reproductive Surgeries: Surgical HX of;: Genitourinary Surgery (ovaries removed) , Gynecologic Surgery, Hysterectomy - Family History Family History: Reports;: Family Diabetes (mother), Family Hypertension (mother , brothers,sisters) - Social History Smoking Status: Former smoker Frequency of Alcohol Use: None Type of Drug Use: None Infectious Disease Exam H&P - Constitutional Vitals: Vital Signs Temp Pulse Resp BP Pulse Ox 98.5 F 61 20 128/60 95 03/31/17 11:53 03/31/17 11:53 03/31/17 11:53 03/31/17 11:53 03/31/17 11:53 Intake and Output 03/30/17 03/31/17 03/31/17 23:59 07:59 15:59 Intake Total 120 / 120 120 / 120 Balance 120 / 120 120 / 120 Intake: Oral 120 / 120 120 / 120 Other: Voiding Method Brief # Voids 0 0 # Bowel Movements 2 0 Weight 84.822 kg Patient Weight 03/31/17 23:59 Weight 84.822 kg Exam: General: Patient relatively comfortable, but chronically ill looking HEENT: Mucous membranes pink and moist, anicteric acyanotic, ANDRÉS, no oropharyngeal exudates, I did not palpate any lumps to the posterior aspect of her head nor on her neck Neck: Supple, no thyroid gland enlargement Respiratory system: Breath sounds vesicular, no crepitations or wheezes Cardiovascular: Normal S1 and S2, no murmurs appreciated Abdomen: Normal bowel sounds, soft nontender throughout, no organomegaly or mass Genitourinary: No suprapubic pain or bladder distention Extremities: no edema, left AV graft present with palpable thrill, no tenderness Skin: No rash Reports - Labs CBC & BMP: 03/30/17 03:07 03/31/17 04:41 Labs: Laboratory Results - last 24 hr 03/30/17 03/30/17 03/30/17 12:03 15:56 19:54 Sodium Potassium Chloride Carbon Dioxide Anion Gap BUN Creatinine GFR Calculation BUN/Creatinine Ratio Glucose POC Glucose 136 H 159 H 146 H Calculated Osmolality Calcium Magnesium Random Vancomycin 03/31/17 03/31/17 03/31/17 04:41 04:41 07:07 Sodium 137 Potassium 4.7 Chloride 100 Carbon Dioxide 31 Anion Gap 10.7 BUN 36 H Creatinine 7.70 H GFR Calculation 6 BUN/Creatinine Ratio 4.00 L Glucose 92 POC Glucose 103 Calculated Osmolality 280.8 Calcium 8.5 Magnesium 2.5 H Random Vancomycin 30.2 03/31/17 11:42 Sodium Potassium Chloride Carbon Dioxide Anion Gap BUN Creatinine GFR Calculation BUN/Creatinine Ratio Glucose POC Glucose 121 H Calculated Osmolality Calcium Magnesium Random Vancomycin - Reports Microbiology: Microbiology 03/27/17 04:34 Blood Culture - Final Blood Staphylococcus epidermidis MRS 03/27/17 04:43 Blood Culture - Final Blood Staphylococcus epidermidis MRS - Diagnostic Findings Procedure: Chest x-ray: report reviewed by me (No acute pathology)
--- NOTE | 2017-03-31 14:56 | Hospitalist Progress Note ---
Assessment and Plan (1) Staphylococcus epidermidis bacteremia Status: Acute Assessment and plan: Continue vancomycin. Follow-up repeat cultures. Follow-up KERI. Cardiology and ID following. Current Visit: No (2) Chronic systolic CHF (congestive heart failure) Status: Chronic Current Visit: Yes (3) End stage renal disease on dialysis Status: Chronic Assessment and plan: Continue dialysis as scheduled Current Visit: Yes (4) Neck pain Status: Acute Assessment and plan: Continue pain medications per pain management. CT scan without evidence of acute findings or infection or fracture. Current Visit: Yes Hospitalist: Subjective Interval history: Patient seen and examined. No acute events overnight. Case discussed with nursing staff. Labs reviewed. Case discussed with infectious disease Dr. Smith. Notes reviewed. Continue vancomycin. Follow-up repeat cultures. Patient reports continued neck pain. Exam - Constitutional Vitals: Period Temp Pulse Resp BP Sys/Ngo Pulse Ox Last 24 Hr 97.0 F-99.8 F 61-68 16-20 127-170/52-74 93-100 Exam: Constitutional System: No distress. No tremulousness. Reports continued neck pain Head: Normocephalic, atraumatic. Ears, Nose and Throat System: No pain or tenderness. No epistaxis or discharge Eyes System: Pupils equal, round, and reactive. Extraocular muscles intact. Neck: Supple, without adenopathy, No jugular venous distention. Respiratory System: Chest clear to auscultation. Cardiovascular System: Heart with regular rate and rhythm. No murmur. GI System: Abdomen soft, nontender. Normo active bowel sounds present. Musculoskeletal System: limbs with no pedal edema. Full distal pulses. Normal capillary refill. Dialysis graft left arm Neurological System: No discernable sensory deficit. No aphasia Psychiatric System: Conversation is rational Results - Labs CBC & BMP: 03/30/17 03:07 03/31/17 04:41 Lab Results: I have reviewed the past 24 hour labs
--- NOTE | 2017-03-31 15:16 | Nephrology Progress Note ---
Nephrology - PN: Subj Interval history: Ms. Dee is seen in follow-up of her end-stage renal disease. She has MRSA bacteremia again. She is to undergo TE. She does have a [place] graft and will be on prolonged vancomycin therapy for the MRSA bacteremia. Plan is for hemodialysis tomorrow. She continues to complain of occipital and neck pain with negative CT scans of the resident degenerative disc disease. Exam (PN)-Nephrology - Vital Signs Vital signs: Period Temp Pulse Resp BP Sys/Ngo Pulse Ox Last 24 Hr 97.0 F-99.8 F 61-68 16-20 127-170/52-74 93-100 - Lab 03/30/17 03:07 03/31/17 04:41 Most recent lab results Calcium 8.5 MG/DL (8.5-10.1) 03/31/17 04:41 Magnesium 2.5 MG/DL (1.8-2.4) H 03/31/17 04:41 Assessment and Plan (1) ESRD (end stage renal disease) on dialysis Status: Chronic Current Visit: No (2) Tobacco use Status: Chronic Current Visit: No (3) Chronic obstructive pulmonary disease (COPD) Status: Chronic Current Visit: No (4) Neck pain Status: Acute Assessment and plan: Cervical spine films Current Visit: Yes
[2017-03-31] MEDS: ATORVASTATIN 20 MG TABLET PO SCH (21:15)
[2017-03-31] MEDS: ACETAMINOPHEN 325 MG TABLET PO PRN (21:15)
[2017-04-01] MEDS: PANTOPRAZOLE 40 MG TABLET PO SCH ×2 (07:35→08:50)
[2017-04-01] MEDS: APIXABAN 5 MG TABLET PO SCH ×3 (07:35→20:41)
[2017-04-01] MEDS: CARVEDILOL 25 MG TABLET PO SCH ×4 (07:35→21:08)
[2017-04-01] MEDS: SERTRALINE 25 MG TABLET PO SCH ×2 (07:35→08:51)
[2017-04-01] MEDS: CALCIUM ACETATE 667 MG CAPSULE PO SCH ×3 (07:35→17:33)
[2017-04-01] MEDS: MULTIVITAMIN (BEROCCA) TABLET PO SCH ×2 (07:35→08:50)
[2017-04-01] MEDS: INSULIN LISPRO 100 UNIT/ML SUBCUT SCH ×2 (08:09→16:14)
--- NOTE | 2017-04-01 10:30 | Dialysis Note ---
Dialysis Note - Dialysis Note Eating her breakfast. She is complaining less of neck pain. Her chest is clear and she is not short of breath. She says she plans on continuing with physical therapy post discharge. I think she will find that her neck pain is improved once she is up and out of bed.
--- NOTE | 2017-04-01 13:19 | Hospitalist Progress Note ---
Assessment and Plan (1) Staphylococcus epidermidis bacteremia Status: Acute Assessment and plan: Continue vancomycin. Follow-up repeat cultures. Follow-up KERI. Cardiology and ID following. Current Visit: No (2) Chronic systolic CHF (congestive heart failure) Status: Chronic Current Visit: Yes (3) End stage renal disease on dialysis Status: Chronic Assessment and plan: Continue dialysis as scheduled Current Visit: Yes (4) Neck pain Status: Acute Assessment and plan: Continue pain medications per pain management. CT scan without evidence of acute findings or infection or fracture. Current Visit: Yes Hospitalist: Subjective Interval history: Patient seen and examined. No acute events overnight. Case discussed with nursing staff. Labs reviewed. Awaiting finalized repeat blood cultures Exam - Constitutional Vitals: Period Temp Pulse Resp BP Sys/Ngo Pulse Ox Last 24 Hr 97.0 F-99.4 F 58-71 17-20 134-164/59-97 92-100 Exam: Constitutional System: No distress. No tremulousness. Reports continued neck pain Head: Normocephalic, atraumatic. Ears, Nose and Throat System: No pain or tenderness. No epistaxis or discharge Eyes System: Pupils equal, round, and reactive. Extraocular muscles intact. Neck: Supple, without adenopathy, No jugular venous distention. Respiratory System: Chest clear to auscultation. Cardiovascular System: Heart with regular rate and rhythm. No murmur. GI System: Abdomen soft, nontender. Normo active bowel sounds present. Musculoskeletal System: limbs with no pedal edema. Full distal pulses. Normal capillary refill. Dialysis graft left arm Neurological System: No discernable sensory deficit. No aphasia Psychiatric System: Conversation is rational Results - Labs CBC & BMP: 03/30/17 03:07 03/31/17 04:41 Lab Results: I have reviewed the past 24 hour labs
[2017-04-01] MEDS ORDERED: VANCOMYCIN INJ 1,000 MG in SODIUM CHLORIDE 0.9% 250 ML IV ONE (14:00)
--- NOTE | 2017-04-01 16:06 | Infectious Disease Progress ---
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 KERI was negative this past November which is when I saw her for the first time. I am not sure how long the episodes of bacteremia have been treated, as this past admission she did not follow up with me as advised. I am concerned about the possibility that her AV graft could be infected with MRSE causing the recurrent bacteremia. Recommendations: 1. Continue vancomycin. Goal trough is 20-25. 2. Follow-up results of repeat blood cultures 3. Echo pending 4. Plan is to treat the patient for 6 weeks from date of negative blood cultures Current Visit: No Infectious Disease - PN: Subj Interval history: Patient seen and examined this morning on dialysis. She was a bit drowsy and really did not much to say. Had no specific complaints. No fever noted. Infectious Disease Exam (PN) - Constitutional Vitals: Temp Pulse Resp BP Pulse Ox 97.3 F L 60 20 134/59 93 L 04/01/17 12:00 04/01/17 12:00 04/01/17 12:00 04/01/17 12:00 04/01/17 12:00 General appearance: mild distress Exam: General appearance: Very drowsy but arousable, was getting dialysis - Eye Eye exam: Present: EOMI. no icterus Pupils: Present: ANDRÉS - ENT ENT exam: no oral exudates - Respiratory Respiratory exam: vesicular BS, no crepitations or wheezes - Cardiovascular Cardiovascular exam: regular rate and rhythm, no murmurs - GI/Abdominal GI/Abdominal exam: normal bowel sounds, soft, non-tender, no organomegaly or mass - Extremities Exam Extremities exam: no edema - Skin Skin exam: no rash Results - Labs CBC & BMP: 03/30/17 03:07 03/31/17 04:41 Lab Results: I have reviewed the past 24 hour labs (Repeat blood cultures negative at day 1)
[2017-04-01] MEDS: ATORVASTATIN 20 MG TABLET PO SCH (20:41)
[2017-04-02] MEDS: PANTOPRAZOLE 40 MG TABLET PO SCH (09:09)
[2017-04-02] MEDS: CARVEDILOL 25 MG TABLET PO SCH ×2 (09:09→22:03)
[2017-04-02] MEDS: APIXABAN 5 MG TABLET PO SCH ×2 (09:09→22:02)
[2017-04-02] MEDS: MULTIVITAMIN (BEROCCA) TABLET PO SCH (09:09)
[2017-04-02] MEDS: CALCIUM ACETATE 667 MG CAPSULE PO SCH ×3 (09:09→16:59)
[2017-04-02] MEDS: SERTRALINE 25 MG TABLET PO SCH (09:10)
[2017-04-02] MEDS: INSULIN LISPRO 100 UNIT/ML SUBCUT SCH ×2 (09:14→16:59)
--- NOTE | 2017-04-02 11:38 | Infectious Disease Progress ---
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 KERI was negative this past November which is when I saw her for the first time. I am not sure how long the episodes of bacteremia have been treated: this past admission she did not follow up with me as advised. I was concerned about the possibility that her AV graft could be infected with MRSE causing the recurrent bacteremia however there is really no pain or induration at the AV graft sites that this may not be the case. Recommendations: 1. Continue vancomycin. Goal trough is 20-25. 2. Follow-up results of repeat blood cultures 3. Echo apparently not yet done but Dr. Valverde reordered it for me 4. Plan is to treat the patient for 6 weeks from date of negative blood cultures Current Visit: No Infectious Disease - PN: Subj Interval history: Patient feeling okay today, really not better but certainly not worse. She has not had any fever. Had no specific complaints today except for the continued pain to the back of her head. Infectious Disease Exam (PN) - Constitutional Vitals: Temp Pulse Resp BP Pulse Ox 97.2 F L 62 20 142/74 93 L 04/02/17 07:44 04/02/17 07:44 04/02/17 07:44 04/02/17 07:44 04/02/17 07:44 General appearance: mild distress Exam: General appearance: Awake and looked more comfortable today - Eye Eye exam: Present: EOMI. no icterus Pupils: Present: ANDRÉS - ENT ENT exam: no oral exudates - Respiratory Respiratory exam: vesicular BS, no crepitations or wheezes - Cardiovascular Cardiovascular exam: regular rate and rhythm, no murmurs - GI/Abdominal GI/Abdominal exam: normal bowel sounds, soft, non-tender, no organomegaly or mass - Extremities Exam Extremities exam: no edema - Skin Skin exam: no rash Results - Labs CBC & BMP: 03/30/17 03:07 03/31/17 04:41 Lab Results: I have reviewed the past 24 hour labs
--- NOTE | 2017-04-02 12:09 | Hospitalist Progress Note ---
Assessment and Plan (1) Staphylococcus epidermidis bacteremia Status: Acute Assessment and plan: Continue vancomycin. Follow-up repeat cultures. Follow-up TTE. Cardiology and ID following. Current Visit: No (2) Chronic systolic CHF (congestive heart failure) Status: Chronic Current Visit: Yes (3) End stage renal disease on dialysis Status: Chronic Assessment and plan: Continue dialysis as scheduled Current Visit: Yes (4) Neck pain Status: Acute Assessment and plan: Continue pain medications per pain management. CT scan without evidence of acute findings or infection or fracture. Current Visit: Yes Hospitalist: Subjective Interval history: Patient seen and examined. No acute events overnight. Case discussed with nursing staff. Labs reviewed. Echocardiogram done this morning. Await results and final cultures. Exam - Constitutional Vitals: Period Temp Pulse Resp BP Sys/Ngo Pulse Ox Last 24 Hr 96.9 F-99.2 F 56-66 17-20 121-182/47-76 93-99 Exam: Constitutional System: No distress. No tremulousness. Reports continued neck pain Head: Normocephalic, atraumatic. Ears, Nose and Throat System: No pain or tenderness. No epistaxis or discharge Eyes System: Pupils equal, round, and reactive. Extraocular muscles intact. Neck: Supple, without adenopathy, No jugular venous distention. Respiratory System: Chest clear to auscultation. Cardiovascular System: Heart with regular rate and rhythm. No murmur. GI System: Abdomen soft, nontender. Normo active bowel sounds present. Musculoskeletal System: limbs with no pedal edema. Full distal pulses. Normal capillary refill. Dialysis graft left arm Neurological System: No discernable sensory deficit. No aphasia Psychiatric System: Conversation is rational Results - Labs CBC & BMP: 03/30/17 03:07 03/31/17 04:41 Lab Results: I have reviewed the past 24 hour labs
--- NOTE | 2017-04-02 12:28 | Nephrology Progress Note ---
Nephrology - PN: Subj Interval history: Ms. Dee is seen in follow-up of her end-stage renal disease. She continues to complain of occipital pain and cervical spine pain. She has intermittent low -grade fevers and does have methicillin sensitive staph epi bacteremia discitis remains a consideration but her occipital pain seems atypical I think it is worthwhile to get an MRI to see if there is evidence of discitis. I am not sure it would change our therapy greatly but did would help to know if there is a focus of infection there. Her chest is clear and she is otherwise stable Exam (PN)-Nephrology - Vital Signs Vital signs: Period Temp Pulse Resp BP Sys/Ngo Pulse Ox Last 24 Hr 96.9 F-99.2 F 56-66 17-20 121-182/47-76 93-99 - Lab 03/30/17 03:07 03/31/17 04:41 Most recent lab results Calcium 8.5 MG/DL (8.5-10.1) 03/31/17 04:41 Magnesium 2.5 MG/DL (1.8-2.4) H 03/31/17 04:41 Assessment and Plan (1) ESRD (end stage renal disease) on dialysis Status: Chronic Current Visit: No (2) Tobacco use Status: Chronic Current Visit: No (3) Chronic obstructive pulmonary disease (COPD) Status: Chronic Current Visit: No (4) Neck pain Status: Acute Assessment and plan: Cervical spine films Current Visit: Yes
[2017-04-02] MEDS: ATORVASTATIN 20 MG TABLET PO SCH (22:02)
[2017-04-03] MEDS: SERTRALINE 25 MG TABLET PO SCH (08:27)
[2017-04-03] MEDS: CARVEDILOL 25 MG TABLET PO SCH ×2 (08:27→22:24)
[2017-04-03] MEDS: CALCIUM ACETATE 667 MG CAPSULE PO SCH ×4 (08:27→17:47)
[2017-04-03] MEDS: APIXABAN 5 MG TABLET PO SCH ×2 (08:27→22:24)
[2017-04-03] MEDS: PANTOPRAZOLE 40 MG TABLET PO SCH (08:27)
[2017-04-03] MEDS: MULTIVITAMIN (BEROCCA) TABLET PO SCH (08:27)
[2017-04-03] MEDS: INSULIN LISPRO 100 UNIT/ML SUBCUT SCH ×2 (09:24→16:53)
--- NOTE | 2017-04-03 12:25 | Hospitalist Progress Note ---
Assessment and Plan (1) Staphylococcus epidermidis bacteremia Status: Acute Assessment and plan: Continue vancomycin. Follow-up repeat cultures-so far negative for 3 days follow-up TTE. Cardiology and ID following. Current Visit: No (2) Chronic systolic CHF (congestive heart failure) Status: Chronic Current Visit: Yes (3) End stage renal disease on dialysis Status: Chronic Assessment and plan: Continue dialysis as scheduled Current Visit: Yes (4) Neck pain Status: Acute Assessment and plan: Continue pain medications per pain management. CT scan without evidence of acute findings or infection or fracture. Unable to undergo MRI due to pacemaker. Current Visit: Yes Hospitalist: Subjective Interval history: Patient seen and examined. No acute events overnight. Case discussed with nursing staff. Labs reviewed. Unfortunately the patient is unable to undergo MRI due to pacemaker placement. Echo is pending. Blood cultures negative for 3 days. Plan for discharge with outpatient antibiotics for 4-6 weeks. We will need follow-up with infectious disease. Exam - Constitutional Vitals: Period Temp Pulse Resp BP Sys/Ngo Pulse Ox Last 24 Hr 97.4 F-98.4 F 59-64 18-20 124-153/61-70 97-98 Exam: Constitutional System: No distress. No tremulousness. Reports continued neck pain Head: Normocephalic, atraumatic. Ears, Nose and Throat System: No pain or tenderness. No epistaxis or discharge Eyes System: Pupils equal, round, and reactive. Extraocular muscles intact. Neck: Supple, without adenopathy, No jugular venous distention. Respiratory System: Chest clear to auscultation. Cardiovascular System: Heart with regular rate and rhythm. No murmur. GI System: Abdomen soft, nontender. Normo active bowel sounds present. Musculoskeletal System: limbs with no pedal edema. Full distal pulses. Normal capillary refill. Dialysis graft left arm Neurological System: No discernable sensory deficit. No aphasia Psychiatric System: Conversation is rational Results - Labs CBC & BMP: 03/30/17 03:07 03/31/17 04:41 Lab Results: I have reviewed the past 24 hour labs
--- NOTE | 2017-04-03 12:39 | Dialysis Note ---
Dialysis Note - Dialysis Note Ms. Dee is seen during hemodialysis. She still complains of neck pain as expected. She is to receive antibiotic therapy for the next 6 weeks and in the event this is discitis certainly that should take care of it. She cannot have an MRI due to a pacemaker. He is tolerating today's dialysis well. Dialysis will be continued as an outpatient.
[2017-04-03] MEDS ORDERED: VANCOMYCIN INJ 1,000 MG in SODIUM CHLORIDE 0.9% 250 ML IV PRN (15:00)
--- NOTE | 2017-04-03 16:22 | Infectious Disease Progress ---
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 KERI was negative this past November. I am not sure how long the episodes of bacteremia have been treated: this past admission she did not follow up with me as advised. Recommendations: 1. Continue vancomycin. Serum level is therapeutic. 2. Follow-up results of repeat blood cultures 3. Follow-up on results of echo Discussed with Dr. Kirk Current Visit: No Infectious Disease - PN: Subj Interval history: Patient generally feeling okay. No fever. Still with pain to the back of her head/neck. Infectious Disease Exam (PN) - Constitutional Vitals: Temp Pulse Resp BP Pulse Ox 97.4 F L 60 18 124/67 97 04/03/17 08:00 04/03/17 08:00 04/03/17 08:00 04/03/17 08:00 04/03/17 08:00 General appearance: mild distress Exam: General appearance: In no obvious distress - Eye Eye exam: Present: EOMI. no icterus Pupils: Present: ANDRÉS - ENT ENT exam: no oral exudates - Respiratory Respiratory exam: vesicular BS, no crepitations or wheezes - Cardiovascular Cardiovascular exam: regular rate and rhythm, no murmurs - GI/Abdominal GI/Abdominal exam: normal bowel sounds, soft, non-tender, no organomegaly or mass - Extremities Exam Extremities exam: no edema - Skin Skin exam: no rash Results - Labs CBC & BMP: 03/30/17 03:07 03/31/17 04:41 Lab Results: I have reviewed the past 24 hour labs (Blood cultures negative at day 3)
[2017-04-03] MEDS ORDERED: BENZONATATE 100 MG CAPSULE PO PRN (16:29)
[2017-04-03] MEDS ORDERED: BENZONATATE 100 MG CAPSULE PO SCH (18:00)
[2017-04-03] MEDS ORDERED: VANCOMYCIN INJ 1,000 MG in SODIUM CHLORIDE 0.9% 250 ML IV ONE (21:00)
[2017-04-03] MEDS: ATORVASTATIN 20 MG TABLET PO SCH (22:24)
[2017-04-04] MEDS: MULTIVITAMIN (BEROCCA) TABLET PO SCH (08:20)
[2017-04-04] MEDS: CALCIUM ACETATE 667 MG CAPSULE PO SCH (08:20)
[2017-04-04] MEDS: CARVEDILOL 25 MG TABLET PO SCH (08:21)
[2017-04-04] MEDS: SERTRALINE 25 MG TABLET PO SCH (08:21)
[2017-04-04] MEDS: cloNIDine 0.2 MG/24 HR PATCH TRANSDERM SCH (08:21)
[2017-04-04] MEDS: PANTOPRAZOLE 40 MG TABLET PO SCH (08:21)
[2017-04-04] MEDS: APIXABAN 5 MG TABLET PO SCH (08:21)
[2017-04-04] MEDS: INSULIN LISPRO 100 UNIT/ML SUBCUT SCH (09:37)
--- NOTE | 2017-04-04 10:24 | Nephrology Progress Note ---
Nephrology - PN: Subj Interval history: Mr. Kevyn Dee is seen in follow-up of her end-stage renal disease. She is being dialyzed today. Her chest is clear and she is in no distress. She does continue to complain of neck pain. She understands that we are going to be given vancomycin every dialysis for the next 6 weeks. I have called the dialysis unit and they are aware of that and plan to give that as treatment for her methicillin sensitive staph bacteremia. We will follow her at the dialysis unit. Exam (PN)-Nephrology - Vital Signs Vital signs: Period Temp Pulse Resp BP Sys/Ngo Pulse Ox Last 24 Hr 96.9 F-97.8 F 59-70 16-24 131-146/54-70 92-99 - Lab 03/30/17 03:07 03/31/17 04:41 Most recent lab results Calcium 8.5 MG/DL (8.5-10.1) 03/31/17 04:41 Magnesium 2.5 MG/DL (1.8-2.4) H 03/31/17 04:41 Assessment and Plan (1) ESRD (end stage renal disease) on dialysis Status: Chronic Current Visit: No (2) Tobacco use Status: Chronic Current Visit: No (3) Chronic obstructive pulmonary disease (COPD) Status: Chronic Current Visit: No (4) Neck pain Status: Acute Assessment and plan: Cervical spine films Current Visit: Yes
--- NOTE | 2017-04-04 10:49 | Discharge Summary ---
Hospital Course - Hospital Course Hospital Course: 76-year-old -[place] female with end-stage renal disease on dialysis found to have staph epidermidis bacteremia. No evidence of endocarditis on echocardiogram. She has been started on IV antibiotic treatment with vancomycin and will continue vancomycin 1 g with each dialysis treatment as an outpatient. She is instructed to follow-up with Dr. Hernandez as well as Dr. Smith. She should follow-up with Dr. Smith in 2 weeks. The case was discussed with Dr. Hernandez, and he has made arrangements for her vancomycin infusion at dialysis. The patient was also treated for acute cervical neck pain. She was seen in consultation by pain management. There is no evidence of discitis found on CT. She was unable to undergo MRI due to her pacemaker. Her hospital course has been otherwise uncomplicated. She has negative blood cultures that were collected on the 31 of March. Vancomycin should be administered until May 09. To complete a six-week course from her negative cultures. The remainder of her medications were reviewed and reconciled. She is discharged in stable condition to follow-up as an outpatient. - Time spent with patient Time with patient DS: Greater than 30 minutes (Total discharge time for this patient, including [id number] time, clinical documentation, medication reconciliation, and discharge planning was 40 minutes.) Diagnosis - Discharge Diagnosis (1) Staphylococcus epidermidis bacteremia Status: Acute (2) Chronic systolic CHF (congestive heart failure) Status: Chronic (3) End stage renal disease on dialysis Status: Chronic (4) Neck pain Status: Acute Discharge Plan - Discharge Data Disposition: Disch To Home/Self Care Condition at Discharge: Stable Discharge Diet: other (Renal diet) Activity: resume usual activities as tolerated Hygiene: no restrictions Contact your physician if you experience:: fever over 101, Shortness of breath, pain uncontrolled by pain medications - Discharge Medications New Benzonatate [Tessalon] 100 mg PO Q4HR PRN #30 capsule PRN Reason: Cough HYDROcodone/ACETAMIN 5-325 [[place] 5-325] 1 tablet PO Q4H PRN #30 tablet PRN Reason: Pain Mild (1-3) Vancomycin Inj 1,000 mg IV Q48H vial Continue Carvedilol [Coreg] 25 mg PO BID #60 tablet Atorvastatin [Lipitor] 20 mg PO BEDTIME #30 tablet Nitroglycerin Sl Tab [Nitrostat] 0.4 mg SL Q5M PRN PRN Reason: Chest Pain Calcium Acetate 667 mg PO TID W/MEALS cloNIDine 0.2 MG/24 HR PATCH [[id number]-5 Patch] 1 patch TRANSDERM FR Apixaban [Eliquis] 5 mg PO BID #60 tablet Prorenal D 1 tablet PO QAM Sertraline [Zoloft] 25 mg PO DAILY Pantoprazole Tab [Protonix Tab] 40 mg PO DAILY #30 tablet - Follow Up or Referral Follow Up: Roxanne Smith MD [Physician] - 2 Weeks - Forms/Instructions Additional Discharge Instructions: Continue dialysis as scheduled. Receive vancomycin during dialysis treatments as ordered. Exam - Constitutional Vitals: Period Temp Pulse Resp BP Sys/Ngo Pulse Ox Last 24 Hr 96.9 F-97.8 F 59-70 16-24 131-146/54-70 92-99 Discharge Results Procedures and tests throughout hospitalization: Pending Orders 03/29/17 08:13 UA [Urinalysis] Stat 03/31/17 11:50 Blood Culture Stat 03/31/17 14:20 Blood Culture Stat Labs on day of discharge: Labs from last 24 hours 04/04/17 04/03/17 04/03/17 07:06 22:23 16:38 POC Glucose 111 H 178 H 140 H 04/03/17 11:38 POC Glucose 100 Preliminary micro results at discharge 03/31/17 14:20 Blood Culture - Preliminary Blood No growth at 3 days 03/31/17 14:20 Blood Culture - Preliminary Blood No growth at 3 days 03/31/17 11:50 Blood Culture - Preliminary Blood No growth at 3 days 03/31/17 11:50 Blood Culture - Preliminary Blood No growth at 3 days DS: Provider Date of admission: 03/27/17 08:53 Primary care physician: . No PCP Attending physician on admission: Manoj Mast MD Consults: 03/27/17 09:01 Consult to Physician [CONS] Routine Comment: HD today, adm for chf Consulting Provider: Nik Hernandez When should Consulting Provider be notified: Now Consult to Specialist Group: Nephrology Person Notified: Katerine Date Notified: 03/27/17 Time Notified: 10:15 03/27/17 09:12 Consult to Physical Therapy [CONS] Routine Reason for Physical Therapy: Evaluate and Treat Consult Comment: neck and occipital pain 03/29/17 08:11 Consult to Physician [CONS] Routine Comment: unrelenting neck and back pain Consulting Provider: Avery Pratt When should Consulting Provider be notified: Now Person Notified: Date Notified: 03/29/17 Time Notified: 13:20 03/31/17 11:38 Consult to Physician [CONS] Routine Comment: bacteremia Consulting Provider: Roxanne Smith Consult to Specialist Group: Infectious Disease Person Notified: Precious Date Notified: 03/31/17 Time Notified: 11:55 03/31/17 13:51 Consult to Pharmacy [CONS] Routine Reason for Pharmacy Consult: Other Comment: Goal vancomycin trough level is 20-25 04/01/17 08:30 Consult to Physical Therapy [CONS] Routine Reason for Physical Therapy: Other Start Therapy: Today Consult Comment: occipital release Discharging clinician: Huong Kirk MD Expected date of discharge: 04/04/17
--- NOTE | 2017-04-04 12:23 | Infectious Disease Progress ---
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 KERI was negative this past November. TTE negative on this occasion. I am not sure how long the episodes of bacteremia have been treated: this past admission she did not follow up with me as advised. Recommendations: 1. Continue vancomycin. She is to get 1 g after each dialysis session. Therapy to be continued until May 12. 2. Appointment to see me in the office in [address] Kirk Current Visit: No Infectious Disease - PN: Subj Interval history: No complaints, ready to go home today. No fever. Tolerating antibiotic therapy without any issues. Getting vanc with dialysis. Infectious Disease Exam (PN) - Constitutional Vitals: Temp Pulse Resp BP Pulse Ox 97.1 F L 60 24 146/61 96 04/04/17 08:00 04/04/17 08:00 04/04/17 08:00 04/04/17 08:00 04/04/17 08:00 General appearance: mild distress Exam: General appearance: In no obvious distress, sitting in chair - Eye Eye exam: Present: EOMI. no icterus Pupils: Present: ANDRÉS - ENT ENT exam: no oral exudates - Respiratory Respiratory exam: vesicular BS, no crepitations or wheezes - Cardiovascular Cardiovascular exam: regular rate and rhythm, no murmurs - GI/Abdominal GI/Abdominal exam: normal bowel sounds, soft, non-tender, no organomegaly or mass - Extremities Exam Extremities exam: no edema - Skin Skin exam: no rash Results - Labs CBC & BMP: 03/30/17 03:07 03/31/17 04:41 Lab Results: I have reviewed the past 24 hour labs (Verbally her TTE was unremarkable) Specialty Discharge - Follow Up or Referrals Follow up with: Roxanne Smith MD [Physician] - 2 Weeks
[2017-04-04 12:56] VITALS: BP 140/72
--- NOTE | 2017-04-05 13:21 | Order Completion Report ---
See report scanned to EMR
== END 2017-04-04 13:55 | disposition home or self-care (01) | DRG 871 ==
LOC: EDUNIT# → EDBD → N.ED 04:18 → SUATTDRO 08:53 → N.EDINP 08:53 → N.TELEN 10:07
PROVIDERS: ADMIT Internal Medicine; ATTEND Family Medicine

== ENCOUNTER 2017-06-05 07:57 | Inpatient (IN) ==
[2017-06-05] MEDS ORDERED: NALOXONE 0.4 MG/ML VIAL IV STA (09:24)
[2017-06-05] MEDS ORDERED: NALOXONE 0.4 MG/ML VIAL ONE (09:41)
[2017-06-05 10:15] LABS: Basophils % 0.3 % (0.0-0.8); Eosinophils % 0.4 % (0.00-10.9); Hematocrit 29.4 VOL% (35.7-47.0); Hemoglobin 8.9 GM/DL (12.0-16.0); Immature Granulocytes % 0.6 %; Immature Granulocytes Absolute 0.04 #; Lymphocytes # 1.7 10*3/uL (1.4-4.0); Lymphocytes % 23.5 % (21.3-54.2); Mean Corpuscular HGB Conc 30.3 GM/DL (32-36); Mean Corpuscular Hemoglobin 33 PG (27-34); Mean Corpuscular Volume 107.7 FL (87-102); Mean Platelet Volume 11.2 FL (9.6-12.0); Monocytes # 0.8 10*3/uL (0.11-0.8); Monocytes % 11.8 % (1.7-12.7); Neutrophils # 4.5 10*3/uL (1.4-7.4); Neutrophils % 63.4 % (38.7-73.9); Platelet Count 119 T/CUMM (130-400); Red Blood Count 2.73 MC/CUMM (3.8-5.5); Red Cell Distribution Width 14.3 % (9.3-17.3); White Blood Count 7.1 T/CUMM (4-12)
[2017-06-05 10:42] LABS: Albumin 3.7 G/DL (3.4-5.0); Bilirubin,Total 0.4 MG/DL (0.2-1.0); Calcium 8.6 MG/DL (8.5-10.1); Osmolality,Calculated 294.4 MOS/KG (273-304); Potassium 5.5 MMOL/L (3.5-5.1); Total Protein 7.3 G/DL (6.4-8.3)
[2017-06-05] MEDS ORDERED: VANCOMYCIN INJ 1,000 MG in SODIUM CHLORIDE 0.9% 250 ML IV SCH (13:00)
[2017-06-05] MEDS ORDERED: MEROPENEM 500 MG in SYRINGE 1 EACH IV SCH (16:00)
[2017-06-05] MEDS ORDERED: SUCCINYLCHOLINE 200 MG/10 ML VIAL ONE (16:25)
[2017-06-05] MEDS ORDERED: PROPOFOL 1,000 MG/100 ML BOTTLE IV ONE (16:26)
[2017-06-05 16:30] LABS: ABG Base Excess -0.3 MMOL/L (-2.5-2.5); ABG Oxygen Saturation 98.6 % (95-100); ABG PO2 163.8 MM HG (80-95); ABG TCO2 31.4 MMOL/L (23-27)
[2017-06-05 16:34] LABS: ABG PCO2 78.3 MM HG (35-48); ABG PH 7.187 (7.35-7.45)
[2017-06-05] MEDS ORDERED: VANCOMYCIN INJ 750 MG in SODIUM CHLORIDE 0.9% 150 ML IV PRN (16:39)
[2017-06-05] MEDS ORDERED: VANCOMYCIN INJ 1,500 MG in SODIUM CHLORIDE 0.9% 500 ML IV ONE (17:00)
[2017-06-05 17:54] LABS: ABG Base Excess -0.4 MMOL/L (-2.5-2.5); ABG HCO3 28.1 MMOL/L (20-26); ABG Oxygen Saturation 98.4 % (95-100); ABG PH 7.224 (7.35-7.45); ABG TCO2 30.3 MMOL/L (23-27)
[2017-06-05 17:55] LABS: ABG PCO2 69.7 MM HG (35-48)
[2017-06-05] MEDS ORDERED: ALBUTEROL 2.5 MG/3 ML NEB RESP TX PRN (18:17)
[2017-06-05] MEDS ORDERED: methylPREDNISolone SOD SUC 125 MG/2 ML VIAL IV SCH (18:30)
[2017-06-05] MEDS ORDERED: EPOETIN ALFA 10,000 UNIT/1 ML VIAL IV PRN (18:46)
[2017-06-05] MEDS: FAMOTIDINE 20 MG/2 ML VIAL IV SCH (19:00)
[2017-06-05] MEDS: MEROPENEM 500 MG in SYRINGE 1 EACH IV SCH (19:01)
[2017-06-05] MEDS: PROPOFOL 1,000 MG/100 ML BOTTLE IV SCH (19:02)
[2017-06-05] MEDS: SODIUM CHLORIDE 0.9% 1,000 ML IV SCH (19:22)
[2017-06-05] MEDS: ALBUTEROL/IPRATROPIUM 3 ML NEB RESP TX SCH (20:04)
[2017-06-05] MEDS: ENOXAPARIN 30 MG/0.3 ML SYRINGE SUBCUT SCH (20:18)
[2017-06-06] MEDS ORDERED: VANCOMYCIN INJ 1,500 MG in SODIUM CHLORIDE 0.9% 500 ML IV ONE (01:30)
[2017-06-06] MEDS: ALBUTEROL/IPRATROPIUM 3 ML NEB RESP TX SCH ×4 (01:41→21:40)
[2017-06-06] MEDS: methylPREDNISolone SOD SUC 40 MG/1 ML VIAL IV SCH ×3 (02:01→18:08)
[2017-06-06] MEDS: PROPOFOL 1,000 MG/100 ML BOTTLE IV SCH ×6 (02:05→23:00)
[2017-06-06 03:38] LABS: Allen Test Positive; Pt O2 Delivery Device Ventilator
[2017-06-06 03:39] LABS: ABG Base Excess -2.1 MMOL/L (-2.5-2.5); ABG HCO3 23.7 MMOL/L (20-26); ABG Oxygen Saturation 88.1 % (95-100); ABG PCO2 45.2 MM HG (35-48); ABG PH 7.337 (7.35-7.45); ABG PO2 59.6 MM HG (80-95); ABG TCO2 25.1 MMOL/L (23-27)
[2017-06-06 04:19] LABS: Hematocrit 25.2 VOL% (35.7-47.0); Hemoglobin 7.9 GM/DL (12.0-16.0); Immature Granulocytes % 0.9 %; Immature Granulocytes Absolute 0.03 #; Lymphocytes # 0.4 10*3/uL (1.4-4.0); Lymphocytes % 11.4 % (21.3-54.2); Mean Corpuscular HGB Conc 31.3 GM/DL (32-36); Mean Corpuscular Hemoglobin 33 PG (27-34); Mean Corpuscular Volume 104.6 FL (87-102); Mean Platelet Volume 11.1 FL (9.6-12.0); Monocytes # 0.1 10*3/uL (0.11-0.8); Monocytes % 3.1 % (1.7-12.7); Neutrophils % 84.6 % (38.7-73.9); Platelet Count 100 T/CUMM (130-400); Red Blood Count 2.41 MC/CUMM (3.8-5.5); Red Cell Distribution Width 13.8 % (9.3-17.3); White Blood Count 3.5 T/CUMM (4-12)
[2017-06-06 04:44] LABS: Calcium 7.9 MG/DL (8.5-10.1); Osmolality,Calculated 285.7 MOS/KG (273-304); Potassium 4.3 MMOL/L (3.5-5.1)
[2017-06-06 06:35] LABS: Hypochromasia 1+; Macrocytosis 1+; Polychromasia Slight
[2017-06-06] MEDS ORDERED: OSELTAMIVIR 6 MG/ML 60 ML/BOTTLE PO SCH (09:00)
[2017-06-06] MEDS: OSELTAMIVIR 6 MG/ML 60 ML/BOTTLE PO SCH (11:48)
[2017-06-06] MEDS: MEROPENEM 500 MG in SYRINGE 1 EACH IV SCH (18:08)
[2017-06-06] MEDS: FAMOTIDINE 20 MG/2 ML VIAL IV SCH (18:08)
[2017-06-06] MEDS: ENOXAPARIN 30 MG/0.3 ML SYRINGE SUBCUT SCH (22:06)
[2017-06-06] MEDS: SODIUM CHLORIDE 0.9% 1,000 ML IV SCH (22:07)
[2017-06-06] MEDS: cloNIDine 0.2 MG/24 HR PATCH TRANSDERM SCH (22:08)
[2017-06-07] MEDS: methylPREDNISolone SOD SUC 40 MG/1 ML VIAL IV SCH ×3 (01:41→17:28)
[2017-06-07] MEDS: ALBUTEROL/IPRATROPIUM 3 ML NEB RESP TX SCH ×4 (02:20→18:35)
[2017-06-07] MEDS: PROPOFOL 1,000 MG/100 ML BOTTLE IV SCH ×6 (03:14→22:16)
[2017-06-07 05:30] LABS: Phosphorous 8.5 MG/DL (2.5-4.9); Prealbumin 17.1 MG/DL (20-40)
[2017-06-07] MEDS: OSELTAMIVIR 6 MG/ML 60 ML/BOTTLE PO SCH (10:13)
[2017-06-07] MEDS ORDERED: VANCOMYCIN INJ 750 MG in SODIUM CHLORIDE 0.9% 150 ML IV ONE (14:00)
[2017-06-07] MEDS: MEROPENEM 500 MG in SYRINGE 1 EACH IV SCH (17:19)
[2017-06-07] MEDS: FAMOTIDINE 20 MG/2 ML VIAL IV SCH (17:32)
[2017-06-07] MEDS: SODIUM CHLORIDE 0.9% 1,000 ML IV SCH (17:38)
[2017-06-07] MEDS: ENOXAPARIN 30 MG/0.3 ML SYRINGE SUBCUT SCH (21:08)
[2017-06-08] MEDS: ALBUTEROL/IPRATROPIUM 3 ML NEB RESP TX SCH ×4 (02:32→20:17)
[2017-06-08] MEDS: PROPOFOL 1,000 MG/100 ML BOTTLE IV SCH ×2 (03:11→21:56)
[2017-06-08] MEDS: methylPREDNISolone SOD SUC 40 MG/1 ML VIAL IV SCH ×3 (03:18→17:07)
[2017-06-08 03:53] LABS: Allen Test Positive; Pt O2 Delivery Device Ventilator
[2017-06-08 03:54] LABS: ABG HCO3 24.5 MMOL/L (20-26); ABG Oxygen Saturation 98.6 % (95-100); ABG PH 7.335 (7.35-7.45); ABG TCO2 24.6 MMOL/L (23-27)
[2017-06-08 04:28] LABS: Hematocrit 25.2 VOL% (35.7-47.0); Hemoglobin 8.1 GM/DL (12.0-16.0); Immature Granulocytes Absolute 0.08 #; Lymphocytes # 0.4 10*3/uL (1.4-4.0); Mean Corpuscular HGB Conc 32.1 GM/DL (32-36); Mean Corpuscular Hemoglobin 33 PG (27-34); Mean Corpuscular Volume 101.2 FL (87-102); Mean Platelet Volume 11.4 FL (9.6-12.0); Monocytes # 0.4 10*3/uL (0.11-0.8); Monocytes % 9.3 % (1.7-12.7); Neutrophils # 3.2 10*3/uL (1.4-7.4); Neutrophils % 78.7 % (38.7-73.9); Platelet Count 105 T/CUMM (130-400); Red Blood Count 2.49 MC/CUMM (3.8-5.5); White Blood Count 4.1 T/CUMM (4-12)
[2017-06-08 05:33] LABS: Calcium 7.6 MG/DL (8.5-10.1); Magnesium 2.2 MG/DL (1.8-2.4); Osmolality,Calculated 282.2 MOS/KG (273-304); Potassium 4.6 MMOL/L (3.5-5.1)
[2017-06-08] MEDS: MORPHINE 2 MG/1 ML SYRINGE IV PRN ×2 (06:42→21:04)
[2017-06-08] MEDS: OSELTAMIVIR 6 MG/ML 60 ML/BOTTLE PO SCH (10:13)
[2017-06-08] MEDS: amLODIPine 10 MG TABLET PO SCH (11:58)
[2017-06-08] MEDS: MEROPENEM 500 MG in SYRINGE 1 EACH IV SCH (17:07)
[2017-06-08] MEDS: FAMOTIDINE 20 MG/2 ML VIAL IV SCH (17:32)
[2017-06-08] MEDS: ENOXAPARIN 30 MG/0.3 ML SYRINGE SUBCUT SCH (21:02)
[2017-06-09] MEDS: ALBUTEROL/IPRATROPIUM 3 ML NEB RESP TX SCH ×4 (01:10→19:54)
[2017-06-09] MEDS: methylPREDNISolone SOD SUC 40 MG/1 ML VIAL IV SCH ×2 (02:33→12:11)
[2017-06-09 04:13] LABS: Allen Test Positive; Pt O2 Delivery Device Ventilator
[2017-06-09 04:15] LABS: ABG Base Excess -0.4 MMOL/L (-2.5-2.5); ABG HCO3 24.9 MMOL/L (20-26); ABG Oxygen Saturation 98.5 % (95-100); ABG PCO2 43.7 MM HG (35-48); ABG PH 7.373 (7.35-7.45); ABG TCO2 26.2 MMOL/L (23-27)
[2017-06-09 06:03] LABS: Eosinophils % 0.2 % (0.00-10.9); Hematocrit 24.5 VOL% (35.7-47.0); Hemoglobin 8.1 GM/DL (12.0-16.0); Immature Granulocytes % 3.1 %; Immature Granulocytes Absolute 0.13 #; Lymphocytes # 0.5 10*3/uL (1.4-4.0); Lymphocytes % 10.7 % (21.3-54.2); Mean Corpuscular HGB Conc 33.1 GM/DL (32-36); Mean Corpuscular Hemoglobin 33 PG (27-34); Mean Platelet Volume 11.3 FL (9.6-12.0); Monocytes # 0.3 10*3/uL (0.11-0.8); Monocytes % 6.2 % (1.7-12.7); Neutrophils # 3.3 10*3/uL (1.4-7.4); Neutrophils % 79.8 % (38.7-73.9); Platelet Count 114 T/CUMM (130-400); Red Blood Count 2.45 MC/CUMM (3.8-5.5); Red Cell Distribution Width 13.6 % (9.3-17.3); White Blood Count 4.2 T/CUMM (4-12)
[2017-06-09 06:18] LABS: Calcium 8.3 MG/DL (8.5-10.1); Osmolality,Calculated 285.5 MOS/KG (273-304); Potassium 5.1 MMOL/L (3.5-5.1)
[2017-06-09] MEDS: PROPOFOL 1,000 MG/100 ML BOTTLE IV SCH ×3 (06:36→22:14)
[2017-06-09 06:48] LABS: Lymphocytes 10 % (20-55); Segmented Neutrophils 84 % (50-85); Total Cells Counted 100
[2017-06-09 06:49] LABS: Hypochromasia 1+; Macrocytosis 1+
[2017-06-09 06:50] LABS: Platelet Estimate Adequate
[2017-06-09] MEDS: amLODIPine 10 MG TABLET PO SCH (09:12)
[2017-06-09] MEDS: OSELTAMIVIR 6 MG/ML 60 ML/BOTTLE PO SCH (09:12)
[2017-06-09 11:04] LABS: Allen Test Positive
[2017-06-09 11:06] LABS: ABG Base Excess 0.3 MMOL/L (-2.5-2.5); ABG HCO3 26.4 MMOL/L (20-26); ABG Oxygen Saturation 91.9 % (95-100); ABG PCO2 50.8 MM HG (35-48); ABG PH 7.334 (7.35-7.45); ABG PO2 69.8 MM HG (80-95)
[2017-06-09] MEDS: MEROPENEM 500 MG in SYRINGE 1 EACH IV SCH (17:19)
[2017-06-09] MEDS: FAMOTIDINE 20 MG/2 ML VIAL IV SCH ×2 (17:28→17:45)
[2017-06-09] MEDS: ENOXAPARIN 30 MG/0.3 ML SYRINGE SUBCUT SCH (22:13)
[2017-06-10] MEDS ORDERED: DEXTROSE 50% 25 GM/50 ML VIAL IV PRN (00:15)
[2017-06-10] MEDS ORDERED: GLUCAGON 1 MG VIAL IM PRN (00:15)
[2017-06-10] MEDS: ALBUTEROL/IPRATROPIUM 3 ML NEB RESP TX SCH ×4 (02:05→19:23)
[2017-06-10] MEDS: methylPREDNISolone SOD SUC 40 MG/1 ML VIAL IV SCH ×2 (02:15→11:35)
[2017-06-10 03:06] LABS: ABG Base Excess -0.7 MMOL/L (-2.5-2.5); ABG HCO3 25.2 MMOL/L (20-26); ABG Oxygen Saturation 97.1 % (95-100); ABG PCO2 47.7 MM HG (35-48); ABG PO2 103.5 MM HG (80-95); ABG TCO2 26.6 MMOL/L (23-27)
[2017-06-10 05:30] LABS: Basophils % 0.1 % (0.0-0.8); Eosinophils # 0.3 10*3/uL (0.0-0.87); Eosinophils % 4.7 % (0.00-10.9); Hematocrit 25.9 VOL% (35.7-47.0); Hemoglobin 8.5 GM/DL (12.0-16.0); Immature Granulocytes % 5.2 %; Immature Granulocytes Absolute 0.35 #; Lymphocytes # 0.4 10*3/uL (1.4-4.0); Lymphocytes % 6.2 % (21.3-54.2); Mean Corpuscular HGB Conc 32.8 GM/DL (32-36); Mean Corpuscular Hemoglobin 33 PG (27-34); Mean Platelet Volume 11.3 FL (9.6-12.0); Monocytes # 0.4 10*3/uL (0.11-0.8); Monocytes % 5.3 % (1.7-12.7); Neutrophils # 5.3 10*3/uL (1.4-7.4); Neutrophils % 78.5 % (38.7-73.9); Platelet Count 118 T/CUMM (130-400); Red Blood Count 2.59 MC/CUMM (3.8-5.5); Red Cell Distribution Width 13.7 % (9.3-17.3); White Blood Count 6.8 T/CUMM (4-12)
[2017-06-10 05:56] LABS: Calcium 8.1 MG/DL (8.5-10.1); Osmolality,Calculated 292.8 MOS/KG (273-304); Potassium 5.3 MMOL/L (3.5-5.1)
[2017-06-10 06:08] LABS: Band Neutrophils 4 % (0-10); Eosinophils 2 % (0-10); Lymphocytes 9 % (20-55); Metamyelocytes 6 %; Platelet Estimate Decreased; Segmented Neutrophils 77 % (50-85); Total Cells Counted 100
[2017-06-10 06:09] LABS: Hypochromasia 2+
[2017-06-10] MEDS: INSULIN REGULAR 100 UNIT/ML SUBCUT SCH ×3 (07:15→18:36)
[2017-06-10] MEDS: amLODIPine 10 MG TABLET PO SCH (08:22)
[2017-06-10] MEDS: OSELTAMIVIR 6 MG/ML 60 ML/BOTTLE PO SCH (08:22)
[2017-06-10] MEDS: PROPOFOL 1,000 MG/100 ML BOTTLE IV SCH ×2 (08:33→17:35)
[2017-06-10] MEDS: FAMOTIDINE 20 MG/2 ML VIAL IV SCH (22:19)
[2017-06-10] MEDS: ENOXAPARIN 30 MG/0.3 ML SYRINGE SUBCUT SCH (22:19)
[2017-06-10] MEDS: MEROPENEM 500 MG in SYRINGE 1 EACH IV SCH (22:19)
[2017-06-11] MEDS: ALBUTEROL/IPRATROPIUM 3 ML NEB RESP TX SCH ×4 (00:51→20:15)
[2017-06-11] MEDS: INSULIN REGULAR 100 UNIT/ML SUBCUT SCH ×4 (02:17→17:54)
[2017-06-11] MEDS: methylPREDNISolone SOD SUC 40 MG/1 ML VIAL IV SCH ×2 (02:25→13:29)
[2017-06-11 04:23] LABS: Basophils % 0.1 % (0.0-0.8); Eosinophils # 0.7 10*3/uL (0.0-0.87); Eosinophils % 7.5 % (0.00-10.9); Hematocrit 25.5 VOL% (35.7-47.0); Hemoglobin 8.3 GM/DL (12.0-16.0); Immature Granulocytes % 5.1 %; Immature Granulocytes Absolute 0.49 #; Lymphocytes # 0.4 10*3/uL (1.4-4.0); Lymphocytes % 3.9 % (21.3-54.2); Mean Corpuscular HGB Conc 32.5 GM/DL (32-36); Mean Corpuscular Hemoglobin 33 PG (27-34); Mean Corpuscular Volume 100.4 FL (87-102); Mean Platelet Volume 11.1 FL (9.6-12.0); Monocytes # 0.6 10*3/uL (0.11-0.8); Monocytes % 6.4 % (1.7-12.7); Neutrophils # 7.4 10*3/uL (1.4-7.4); Platelet Count 133 T/CUMM (130-400); Red Blood Count 2.54 MC/CUMM (3.8-5.5); Red Cell Distribution Width 13.7 % (9.3-17.3); White Blood Count 9.6 T/CUMM (4-12)
[2017-06-11 04:50] LABS: Eosinophils 4 % (0-10); Lymphocytes 9 % (20-55); Myelocytes 2 %; Promyelocytes 1 %; Segmented Neutrophils 79 % (50-85); Total Cells Counted 100
[2017-06-11 04:51] LABS: Hypochromasia 2+; Platelet Estimate Normal; Tear Drop Cells Few
[2017-06-11 04:52] LABS: Elliptocytes Few
[2017-06-11 04:57] LABS: Calcium 7.9 MG/DL (8.5-10.1); Osmolality,Calculated 282.2 MOS/KG (273-304); Potassium 4.5 MMOL/L (3.5-5.1)
[2017-06-11 08:43] LABS: ABG Base Excess 1.9 MMOL/L (-2.5-2.5); ABG Oxygen Saturation 90.9 % (95-100); ABG PH 7.361 (7.35-7.45); ABG TCO2 25.9 MMOL/L (23-27)
[2017-06-11] MEDS: amLODIPine 10 MG TABLET PO SCH (09:04)
[2017-06-11] MEDS: OSELTAMIVIR 6 MG/ML 60 ML/BOTTLE PO SCH (09:04)
[2017-06-11 12:31] LABS: ABG Base Excess 1.4 MMOL/L (-2.5-2.5); ABG HCO3 25.6 MMOL/L (20-26); ABG Oxygen Saturation 92.6 % (95-100); ABG PCO2 53.5 MM HG (35-48); ABG PH 7.328 (7.35-7.45); ABG PO2 74.5 MM HG (80-95); ABG TCO2 26.2 MMOL/L (23-27)
[2017-06-11] MEDS: cloNIDine 0.2 MG/24 HR PATCH TRANSDERM SCH ×2 (17:18→21:20)
[2017-06-11] MEDS: MEROPENEM 500 MG in SYRINGE 1 EACH IV SCH (20:49)
[2017-06-11] MEDS: FAMOTIDINE 20 MG/2 ML VIAL IV SCH (20:54)
[2017-06-11] MEDS: ENOXAPARIN 30 MG/0.3 ML SYRINGE SUBCUT SCH (20:57)
[2017-06-11] MEDS: MORPHINE 2 MG/1 ML SYRINGE IV PRN (21:21)
[2017-06-12] MEDS: PROPOFOL 1,000 MG/100 ML BOTTLE IV SCH (00:15)
[2017-06-12] MEDS: INSULIN REGULAR 100 UNIT/ML SUBCUT SCH ×4 (00:16→17:00)
[2017-06-12] MEDS: methylPREDNISolone SOD SUC 40 MG/1 ML VIAL IV SCH ×2 (01:12→14:30)
[2017-06-12] MEDS: ALBUTEROL/IPRATROPIUM 3 ML NEB RESP TX SCH ×4 (01:13→19:15)
[2017-06-12 05:18] LABS: Magnesium 2.6 MG/DL (1.8-2.4); Phosphorous 8.7 MG/DL (2.5-4.9); Prealbumin 35.2 MG/DL (20-40)
[2017-06-12] MEDS: CARVEDILOL 6.25 MG TABLET PO SCH ×2 (08:52→22:18)
[2017-06-12] MEDS: amLODIPine 10 MG TABLET PO SCH (08:52)
[2017-06-12] MEDS: hydrALAZINE 25 MG TABLET PO SCH ×2 (14:43→22:18)
[2017-06-12] MEDS: FAMOTIDINE 20 MG/2 ML VIAL IV SCH (22:19)
[2017-06-12] MEDS: ENOXAPARIN 30 MG/0.3 ML SYRINGE SUBCUT SCH (22:19)
[2017-06-12] MEDS: MEROPENEM 500 MG in SYRINGE 1 EACH IV SCH (22:19)
[2017-06-13] MEDS: ALBUTEROL/IPRATROPIUM 3 ML NEB RESP TX SCH ×5 (00:18→23:39)
[2017-06-13] MEDS: INSULIN REGULAR 100 UNIT/ML SUBCUT SCH ×4 (00:24→17:15)
[2017-06-13] MEDS: methylPREDNISolone SOD SUC 40 MG/1 ML VIAL IV SCH (00:25)
[2017-06-13] MEDS: amLODIPine 10 MG TABLET PO SCH (09:20)
[2017-06-13] MEDS: CARVEDILOL 6.25 MG TABLET PO SCH (09:20)
[2017-06-13] MEDS: hydrALAZINE 25 MG TABLET PO SCH (09:20)
[2017-06-13] MEDS: cloNIDine 0.2 MG/24 HR PATCH TRANSDERM SCH (09:20)
[2017-06-13] MEDS: predniSONE 20 MG TABLET PO SCH (09:20)
[2017-06-13] MEDS: NYSTATIN 500,000 UNIT/5 ML UDCUP SWISH/SWAL SCH ×3 (14:10→21:30)
[2017-06-13] MEDS ORDERED: TUBERCULIN SKIN TEST 0.1 ML SYRINGE INTRADERM ONE (14:16)
[2017-06-13] MEDS: CARVEDILOL 12.5 MG TABLET PO SCH (21:27)
[2017-06-13] MEDS: FAMOTIDINE 20 MG/2 ML VIAL IV SCH (21:27)
[2017-06-13] MEDS: ENOXAPARIN 30 MG/0.3 ML SYRINGE SUBCUT SCH (21:30)
[2017-06-14] MEDS: INSULIN REGULAR 100 UNIT/ML SUBCUT SCH ×5 (01:42→23:30)
[2017-06-14] MEDS: ALBUTEROL/IPRATROPIUM 3 ML NEB RESP TX SCH ×4 (07:00→23:57)
[2017-06-14] MEDS ORDERED: NITROGLYCERIN SL 0.4 MG TABLET SL ONE (12:55)
[2017-06-14] MEDS ORDERED: NITROGLYCERIN SL 0.4 MG TABLET SL PRN (14:17)
[2017-06-14 14:55] LABS: ABG Base Excess 4.8 MMOL/L (-2.5-2.5); ABG HCO3 28.5 MMOL/L (20-26); ABG Oxygen Saturation 85.7 % (95-100); ABG PCO2 41.5 MM HG (35-48); ABG PH 7.454 (7.35-7.45); ABG PO2 53.6 MM HG (80-95); ABG TCO2 26.6 MMOL/L (23-27)
[2017-06-14] MEDS: amLODIPine 10 MG TABLET PO SCH (14:58)
[2017-06-14] MEDS: NYSTATIN 500,000 UNIT/5 ML UDCUP SWISH/SWAL SCH ×3 (14:58→21:18)
[2017-06-14] MEDS: CARVEDILOL 12.5 MG TABLET PO SCH ×2 (14:58→21:18)
[2017-06-14] MEDS: predniSONE 20 MG TABLET PO SCH (14:58)
[2017-06-14] MEDS: PANTOPRAZOLE 40 MG TABLET PO SCH (15:27)
[2017-06-14] MEDS ORDERED: AZITHROMYCIN INJ 500 MG in SODIUM CHLORIDE 0.9% 250 ML IV SCH (16:30)
[2017-06-14 16:38] LABS: Basophils % 0.2 % (0.0-0.8); Eosinophils # 0.8 10*3/uL (0.0-0.87); Eosinophils % 8.4 % (0.00-10.9); Hemoglobin 9.5 GM/DL (12.0-16.0); Immature Granulocytes Absolute 0.63 #; Lymphocytes % 11.5 % (21.3-54.2); Mean Corpuscular HGB Conc 32.8 GM/DL (32-36); Mean Corpuscular Hemoglobin 33 PG (27-34); Mean Platelet Volume 10.1 FL (9.6-12.0); Monocytes # 0.8 10*3/uL (0.11-0.8); Monocytes % 8.8 % (1.7-12.7); Neutrophils # 5.8 10*3/uL (1.4-7.4); Neutrophils % 64.1 % (38.7-73.9); Platelet Count 215 T/CUMM (130-400); Red Cell Distribution Width 14.1 % (9.3-17.3)
[2017-06-14] MEDS: CEFEPIME 2,000 MG in SYRINGE 1 EACH IV SCH ×2 (16:52→23:33)
[2017-06-14 17:01] LABS: Albumin 2.9 G/DL (3.4-5.0); Bilirubin,Total 0.5 MG/DL (0.2-1.0); Calcium 8.2 MG/DL (8.5-10.1); Osmolality,Calculated 280.8 MOS/KG (273-304); Potassium 4.3 MMOL/L (3.5-5.1); Total Protein 6.6 G/DL (6.4-8.3)
[2017-06-14 17:55] LABS: Band Neutrophils 1 % (0-10); Eosinophils 5 % (0-10); Lymphocytes 20 % (20-55); Segmented Neutrophils 68 % (50-85); Total Cells Counted 100
[2017-06-14 17:56] LABS: Macrocytosis Slight; Platelet Estimate Normal; Poikilocytosis Slight; Tear Drop Cells Few
[2017-06-14] MEDS: FAMOTIDINE 20 MG/2 ML VIAL IV SCH (21:17)
[2017-06-14] MEDS: ENOXAPARIN 30 MG/0.3 ML SYRINGE SUBCUT SCH (21:18)
[2017-06-14] MEDS: APIXABAN 5 MG TABLET PO SCH (21:18)
[2017-06-14] MEDS: ATORVASTATIN 20 MG TABLET PO SCH (21:18)
[2017-06-15 05:28] LABS: Albumin 2.8 G/DL (3.4-5.0); Bilirubin,Total 0.8 MG/DL (0.2-1.0); Calcium 8.3 MG/DL (8.5-10.1); Osmolality,Calculated 285.7 MOS/KG (273-304); Potassium 4.8 MMOL/L (3.5-5.1); Total Protein 6.2 G/DL (6.4-8.3)
[2017-06-15] MEDS: INSULIN REGULAR 100 UNIT/ML SUBCUT SCH ×3 (05:40→19:02)
[2017-06-15 05:59] LABS: Basophils % 0.2 % (0.0-0.8); Eosinophils # 0.8 10*3/uL (0.0-0.87); Eosinophils % 8.4 % (0.00-10.9); Hematocrit 28.2 VOL% (35.7-47.0); Hemoglobin 9.2 GM/DL (12.0-16.0); Immature Granulocytes % 4.2 %; Immature Granulocytes Absolute 0.41 #; Lymphocytes # 1.1 10*3/uL (1.4-4.0); Mean Corpuscular HGB Conc 32.6 GM/DL (32-36); Mean Corpuscular Hemoglobin 33 PG (27-34); Mean Corpuscular Volume 100.7 FL (87-102); Mean Platelet Volume 10.7 FL (9.6-12.0); Monocytes % 9.9 % (1.7-12.7); Neutrophils # 6.5 10*3/uL (1.4-7.4); Neutrophils % 66.3 % (38.7-73.9); Platelet Count 202 T/CUMM (130-400); Red Cell Distribution Width 14.3 % (9.3-17.3); White Blood Count 9.7 T/CUMM (4-12)
[2017-06-15] MEDS: ALBUTEROL/IPRATROPIUM 3 ML NEB RESP TX SCH ×3 (07:19→20:19)
[2017-06-15] MEDS: CEFEPIME 2,000 MG in SYRINGE 1 EACH IV SCH ×2 (09:16→15:35)
[2017-06-15] MEDS: PANTOPRAZOLE 40 MG TABLET PO SCH (09:21)
[2017-06-15] MEDS: amLODIPine 10 MG TABLET PO SCH (09:21)
[2017-06-15] MEDS: NYSTATIN 500,000 UNIT/5 ML UDCUP SWISH/SWAL SCH ×4 (09:21→20:16)
[2017-06-15] MEDS: APIXABAN 5 MG TABLET PO SCH ×2 (09:21→20:15)
[2017-06-15] MEDS: CARVEDILOL 12.5 MG TABLET PO SCH ×2 (09:21→20:14)
[2017-06-15] MEDS: predniSONE 20 MG TABLET PO SCH (09:22)
[2017-06-15] MEDS: AZITHROMYCIN INJ 500 MG in SODIUM CHLORIDE 0.45% 250 ML IV SCH (19:02)
[2017-06-15] MEDS: ATORVASTATIN 20 MG TABLET PO SCH (20:13)
[2017-06-15] MEDS: FAMOTIDINE 20 MG/2 ML VIAL IV SCH (20:17)
[2017-06-15] MEDS: ENOXAPARIN 30 MG/0.3 ML SYRINGE SUBCUT SCH (20:17)
[2017-06-16] MEDS: CEFEPIME 2,000 MG in SYRINGE 1 EACH IV SCH ×2 (00:24→08:38)
[2017-06-16] MEDS: ALBUTEROL/IPRATROPIUM 3 ML NEB RESP TX SCH ×4 (00:52→20:19)
[2017-06-16] MEDS: INSULIN REGULAR 100 UNIT/ML SUBCUT SCH (01:03)
[2017-06-16 04:38] LABS: Basophils % 0.1 % (0.0-0.8); Eosinophils # 0.8 10*3/uL (0.0-0.87); Eosinophils % 8.7 % (0.00-10.9); Hematocrit 25.8 VOL% (35.7-47.0); Hemoglobin 8.1 GM/DL (12.0-16.0); Immature Granulocytes % 3.6 %; Immature Granulocytes Absolute 0.31 #; Lymphocytes # 1.2 10*3/uL (1.4-4.0); Lymphocytes % 13.3 % (21.3-54.2); Mean Corpuscular HGB Conc 31.4 GM/DL (32-36); Mean Corpuscular Hemoglobin 33 PG (27-34); Mean Corpuscular Volume 103.6 FL (87-102); Mean Platelet Volume 10.4 FL (9.6-12.0); Monocytes % 11.3 % (1.7-12.7); Neutrophils # 5.5 10*3/uL (1.4-7.4); Platelet Count 167 T/CUMM (130-400); Red Blood Count 2.49 MC/CUMM (3.8-5.5); Red Cell Distribution Width 14.3 % (9.3-17.3); White Blood Count 8.7 T/CUMM (4-12)
[2017-06-16 05:06] LABS: Albumin 2.5 G/DL (3.4-5.0); Bilirubin,Total 0.7 MG/DL (0.2-1.0); Calcium 8.2 MG/DL (8.5-10.1)
[2017-06-16 05:07] LABS: Osmolality,Calculated 291.7 MOS/KG (273-304); Potassium 5.1 MMOL/L (3.5-5.1)
[2017-06-16] MEDS: predniSONE 20 MG TABLET PO SCH (08:55)
[2017-06-16] MEDS: PANTOPRAZOLE 40 MG TABLET PO SCH (08:55)
[2017-06-16] MEDS: amLODIPine 10 MG TABLET PO SCH (08:55)
[2017-06-16] MEDS: APIXABAN 5 MG TABLET PO SCH ×2 (08:55→21:24)
[2017-06-16] MEDS: NYSTATIN 500,000 UNIT/5 ML UDCUP SWISH/SWAL SCH ×4 (08:55→21:25)
[2017-06-16] MEDS: CARVEDILOL 12.5 MG TABLET PO SCH ×2 (09:02→21:23)
[2017-06-16] MEDS: AZITHROMYCIN INJ 500 MG in SODIUM CHLORIDE 0.45% 250 ML IV SCH (21:17)
[2017-06-16] MEDS: FAMOTIDINE 20 MG/2 ML VIAL IV SCH (21:21)
[2017-06-16] MEDS: ATORVASTATIN 20 MG TABLET PO SCH (21:25)
[2017-06-17] MEDS ORDERED: CEFEPIME 1,000 MG in SYRINGE 1 EACH IV SCH (01:00)
[2017-06-17] MEDS: ALBUTEROL/IPRATROPIUM 3 ML NEB RESP TX SCH ×4 (02:20→19:14)
[2017-06-17 04:41] LABS: Basophils % 0.2 % (0.0-0.8); Eosinophils # 0.6 10*3/uL (0.0-0.87); Eosinophils % 7.7 % (0.00-10.9); Hematocrit 24.2 VOL% (35.7-47.0); Hemoglobin 7.7 GM/DL (12.0-16.0); Immature Granulocytes % 2.3 %; Immature Granulocytes Absolute 0.19 #; Lymphocytes % 12.4 % (21.3-54.2); Mean Corpuscular HGB Conc 31.8 GM/DL (32-36); Mean Corpuscular Hemoglobin 33 PG (27-34); Mean Corpuscular Volume 102.5 FL (87-102); Mean Platelet Volume 10.8 FL (9.6-12.0); Monocytes # 0.9 10*3/uL (0.11-0.8); Monocytes % 10.5 % (1.7-12.7); Neutrophils # 5.4 10*3/uL (1.4-7.4); Neutrophils % 66.9 % (38.7-73.9); Platelet Count 143 T/CUMM (130-400); Red Blood Count 2.36 MC/CUMM (3.8-5.5); Red Cell Distribution Width 14.6 % (9.3-17.3); White Blood Count 8.1 T/CUMM (4-12)
[2017-06-17 05:22] LABS: Albumin 2.4 G/DL (3.4-5.0); Bilirubin,Total 0.5 MG/DL (0.2-1.0); Calcium 8.1 MG/DL (8.5-10.1); Osmolality,Calculated 301.4 MOS/KG (273-304); Potassium 4.8 MMOL/L (3.5-5.1); Total Protein 5.9 G/DL (6.4-8.3)
[2017-06-17] MEDS ORDERED: AZITHROMYCIN 250 MG TABLET PO SCH (09:00)
[2017-06-17] MEDS ORDERED: predniSONE 10 MG TABLET PO SCH (09:00)
[2017-06-17 09:06] LABS: ABG Base Excess 0.3 MMOL/L (-2.5-2.5); ABG HCO3 24.7 MMOL/L (20-26); ABG PCO2 44.5 MM HG (35-48); ABG PO2 73.2 MM HG (80-95)
[2017-06-17] MEDS: amLODIPine 10 MG TABLET PO SCH (13:32)
[2017-06-17] MEDS: APIXABAN 5 MG TABLET PO SCH ×2 (13:34→22:37)
[2017-06-17] MEDS: PANTOPRAZOLE 40 MG TABLET PO SCH (13:35)
[2017-06-17] MEDS: CARVEDILOL 12.5 MG TABLET PO SCH ×2 (13:35→22:37)
[2017-06-17] MEDS: NYSTATIN 500,000 UNIT/5 ML UDCUP SWISH/SWAL SCH ×3 (13:48→22:39)
[2017-06-17] MEDS: ATORVASTATIN 20 MG TABLET PO SCH (22:38)
[2017-06-17] MEDS: FAMOTIDINE 20 MG/2 ML VIAL IV SCH (22:39)
[2017-06-18] MEDS: ALBUTEROL/IPRATROPIUM 3 ML NEB RESP TX SCH ×4 (00:48→19:37)
[2017-06-18 09:29] LABS: Free T4 (Free Thyroxine) 1.4 NG/DL (0.76-1.46); Thyroid Stimulating Hormone 1.03 uIU/ml (0.358-3.74)
[2017-06-18] MEDS: CARVEDILOL 12.5 MG TABLET PO SCH ×3 (09:53→21:19)
[2017-06-18] MEDS: PANTOPRAZOLE 40 MG TABLET PO SCH (09:53)
[2017-06-18] MEDS: APIXABAN 5 MG TABLET PO SCH ×3 (09:53→21:19)
[2017-06-18] MEDS: amLODIPine 10 MG TABLET PO SCH (09:53)
[2017-06-18] MEDS: NYSTATIN 500,000 UNIT/5 ML UDCUP SWISH/SWAL SCH ×4 (09:53→21:12)
[2017-06-18] MEDS: FAMOTIDINE 20 MG TABLET PO SCH ×2 (21:09→21:19)
[2017-06-18] MEDS: ATORVASTATIN 20 MG TABLET PO SCH ×2 (21:09→21:19)
[2017-06-19] MEDS: ALBUTEROL/IPRATROPIUM 3 ML NEB RESP TX SCH ×4 (00:41→21:06)
[2017-06-19] MEDS: amLODIPine 10 MG TABLET PO SCH (08:40)
[2017-06-19] MEDS: NYSTATIN 500,000 UNIT/5 ML UDCUP SWISH/SWAL SCH ×4 (08:40→21:38)
[2017-06-19] MEDS: PANTOPRAZOLE 40 MG TABLET PO SCH (08:40)
[2017-06-19] MEDS: CARVEDILOL 12.5 MG TABLET PO SCH ×2 (08:40→21:38)
[2017-06-19] MEDS: APIXABAN 5 MG TABLET PO SCH ×2 (08:40→21:38)
[2017-06-19] MEDS: FAMOTIDINE 20 MG TABLET PO SCH (21:38)
[2017-06-19] MEDS: ATORVASTATIN 20 MG TABLET PO SCH (21:38)
[2017-06-20] MEDS: ALBUTEROL/IPRATROPIUM 3 ML NEB RESP TX SCH ×3 (01:09→13:42)
[2017-06-20 05:02] LABS: Basophils % 0.4 % (0.0-0.8); Eosinophils # 1.3 10*3/uL (0.0-0.87); Eosinophils % 11.6 % (0.00-10.9); Hematocrit 27.8 VOL% (35.7-47.0); Hemoglobin 8.8 GM/DL (12.0-16.0); Immature Granulocytes % 0.9 %; Lymphocytes # 1.2 10*3/uL (1.4-4.0); Lymphocytes % 10.4 % (21.3-54.2); Mean Corpuscular HGB Conc 31.7 GM/DL (32-36); Mean Corpuscular Hemoglobin 33 PG (27-34); Mean Corpuscular Volume 102.6 FL (87-102); Mean Platelet Volume 10.8 FL (9.6-12.0); Monocytes # 1.1 10*3/uL (0.11-0.8); Monocytes % 9.6 % (1.7-12.7); Neutrophils # 7.5 10*3/uL (1.4-7.4); Neutrophils % 67.1 % (38.7-73.9); Platelet Count 110 T/CUMM (130-400); Red Blood Count 2.71 MC/CUMM (3.8-5.5); Red Cell Distribution Width 14.1 % (9.3-17.3); White Blood Count 11.2 T/CUMM (4-12)
[2017-06-20 05:28] LABS: Calcium 8.7 MG/DL (8.5-10.1); Osmolality,Calculated 279.5 MOS/KG (273-304); Potassium 4.3 MMOL/L (3.5-5.1)
[2017-06-20] MEDS: amLODIPine 10 MG TABLET PO SCH (08:55)
[2017-06-20] MEDS: PANTOPRAZOLE 40 MG TABLET PO SCH (08:56)
[2017-06-20] MEDS: NYSTATIN 500,000 UNIT/5 ML UDCUP SWISH/SWAL SCH ×4 (08:56→20:43)
[2017-06-20] MEDS: CARVEDILOL 12.5 MG TABLET PO SCH ×2 (08:56→20:44)
[2017-06-20] MEDS: APIXABAN 5 MG TABLET PO SCH ×2 (08:56→20:44)
[2017-06-20] MEDS: ACETAMINOPHEN 325 MG TABLET PO PRN (10:58)
[2017-06-20 11:02] LABS: Hepatitis A Ab IgM Quant 0.18 Index; Hepatitis A Ab IgM Result Negative (Negative); Hepatitis B Core IgM Quant 0.15 Index; Hepatitis B Core IgM Result Negative (Negative); Hepatitis B Surface Ag Quant < 0.10 Index; Hepatitis B Surface Ag Result Negative (Negative); Hepatitis C Virus Ab Quant 0.05 Index; Hepatitis C Virus Ab Result Negative (Negative)
[2017-06-20 14:51] LABS: Eosinophils 4 % (0-10); Lymphocytes 7 % (20-55); Segmented Neutrophils 83 % (50-85); Total Cells Counted 100
[2017-06-20 14:52] LABS: Platelet Estimate Adequate; Polychromasia Few
[2017-06-20] MEDS: DIVALPROEX ER 250 MG TABLET PO SCH (20:44)
[2017-06-20] MEDS: ATORVASTATIN 20 MG TABLET PO SCH (20:44)
[2017-06-20] MEDS: FAMOTIDINE 20 MG TABLET PO SCH (20:44)
[2017-06-21] MEDS: ALBUTEROL/IPRATROPIUM 3 ML NEB RESP TX SCH ×4 (00:39→20:53)
[2017-06-21] MEDS ORDERED: SODIUM PHOSPHATE ENEMA 133 ML BOTTLE RECTAL ONE (01:28)
[2017-06-21] MEDS: CARVEDILOL 12.5 MG TABLET PO SCH ×2 (11:53→22:24)
[2017-06-21] MEDS: NYSTATIN 500,000 UNIT/5 ML UDCUP SWISH/SWAL SCH ×4 (11:53→22:24)
[2017-06-21] MEDS: APIXABAN 5 MG TABLET PO SCH ×2 (11:53→22:25)
[2017-06-21] MEDS: amLODIPine 10 MG TABLET PO SCH (11:53)
[2017-06-21] MEDS: PANTOPRAZOLE 40 MG TABLET PO SCH (11:54)
[2017-06-21] MEDS: ATORVASTATIN 20 MG TABLET PO SCH (22:24)
[2017-06-21] MEDS: FAMOTIDINE 20 MG TABLET PO SCH (22:25)
[2017-06-21] MEDS: DIVALPROEX ER 250 MG TABLET PO SCH (22:25)
[2017-06-22] MEDS: ALBUTEROL/IPRATROPIUM 3 ML NEB RESP TX SCH ×4 (01:12→19:35)
[2017-06-22 05:45] LABS: Basophils % 0.5 % (0.0-0.8); Eosinophils # 1.4 10*3/uL (0.0-0.87); Hematocrit 24.6 VOL% (35.7-47.0); Hemoglobin 7.9 GM/DL (12.0-16.0); Immature Granulocytes % 0.7 %; Immature Granulocytes Absolute 0.06 #; Lymphocytes # 1.1 10*3/uL (1.4-4.0); Lymphocytes % 12.9 % (21.3-54.2); Mean Corpuscular HGB Conc 32.1 GM/DL (32-36); Mean Corpuscular Hemoglobin 32 PG (27-34); Mean Corpuscular Volume 100.8 FL (87-102); Mean Platelet Volume 11.3 FL (9.6-12.0); Monocytes % 11.4 % (1.7-12.7); Neutrophils # 4.8 10*3/uL (1.4-7.4); Neutrophils % 57.5 % (38.7-73.9); Red Blood Count 2.44 MC/CUMM (3.8-5.5); Red Cell Distribution Width 13.9 % (9.3-17.3); White Blood Count 8.3 T/CUMM (4-12)
[2017-06-22 05:47] LABS: Platelet Count 96 T/CUMM (130-400)
[2017-06-22 06:13] LABS: Calcium 8.1 MG/DL (8.5-10.1); Magnesium 2.2 MG/DL (1.8-2.4); Potassium 4.1 MMOL/L (3.5-5.1)
[2017-06-22 07:01] LABS: Band Neutrophils 1 % (0-10); Eosinophils 12 % (0-10); Lymphocytes 15 % (20-55); Segmented Neutrophils 64 % (50-85)
[2017-06-22 07:02] LABS: Hypochromasia 1+; Ovalocytes 1+; Platelet Estimate Adequate
[2017-06-22 07:03] LABS: Tear Drop Cells Few; Total Cells Counted 100
[2017-06-22] MEDS: NYSTATIN 500,000 UNIT/5 ML UDCUP SWISH/SWAL SCH ×4 (09:28→21:15)
[2017-06-22] MEDS: APIXABAN 5 MG TABLET PO SCH ×2 (09:28→21:16)
[2017-06-22] MEDS: PANTOPRAZOLE 40 MG TABLET PO SCH (09:28)
[2017-06-22] MEDS: CARVEDILOL 12.5 MG TABLET PO SCH ×2 (09:29→21:15)
[2017-06-22] MEDS: amLODIPine 10 MG TABLET PO SCH (09:29)
[2017-06-22] MEDS: ATORVASTATIN 20 MG TABLET PO SCH (21:15)
[2017-06-22] MEDS: FAMOTIDINE 20 MG TABLET PO SCH (21:15)
[2017-06-22] MEDS: DIVALPROEX ER 250 MG TABLET PO SCH (21:16)
[2017-06-23] MEDS: ALBUTEROL/IPRATROPIUM 3 ML NEB RESP TX SCH ×5 (00:29→19:54)
[2017-06-23] MEDS: amLODIPine 10 MG TABLET PO SCH (09:24)
[2017-06-23] MEDS: PANTOPRAZOLE 40 MG TABLET PO SCH (09:24)
[2017-06-23] MEDS: APIXABAN 5 MG TABLET PO SCH ×2 (09:24→21:08)
[2017-06-23] MEDS: CARVEDILOL 12.5 MG TABLET PO SCH ×2 (09:24→21:06)
[2017-06-23] MEDS: NYSTATIN 500,000 UNIT/5 ML UDCUP SWISH/SWAL SCH ×4 (09:24→21:08)
[2017-06-23] MEDS: ACETAMINOPHEN 325 MG TABLET PO PRN (18:34)
[2017-06-23] MEDS: DIVALPROEX ER 250 MG TABLET PO SCH (21:08)
[2017-06-23] MEDS: FAMOTIDINE 20 MG TABLET PO SCH (21:08)
[2017-06-23] MEDS: ATORVASTATIN 20 MG TABLET PO SCH (21:08)
[2017-06-24] MEDS: ALBUTEROL/IPRATROPIUM 3 ML NEB RESP TX SCH ×4 (00:36→19:25)
[2017-06-24] MEDS: ACETAMINOPHEN 325 MG TABLET PO PRN ×2 (02:57→14:03)
[2017-06-24] MEDS: NYSTATIN 500,000 UNIT/5 ML UDCUP SWISH/SWAL SCH ×5 (10:06→21:38)
[2017-06-24] MEDS: amLODIPine 10 MG TABLET PO SCH (14:04)
[2017-06-24] MEDS: CARVEDILOL 12.5 MG TABLET PO SCH ×2 (14:05→21:39)
[2017-06-24] MEDS: APIXABAN 5 MG TABLET PO SCH ×2 (14:05→21:38)
[2017-06-24] MEDS: PANTOPRAZOLE 40 MG TABLET PO SCH (14:05)
[2017-06-24] MEDS ORDERED: amLODIPine 5 MG TABLET PO SCH (15:26)
[2017-06-24] MEDS: FAMOTIDINE 20 MG TABLET PO SCH (21:38)
[2017-06-24] MEDS: ATORVASTATIN 20 MG TABLET PO SCH (21:38)
[2017-06-24] MEDS: DIVALPROEX ER 500 MG TABLET PO SCH (21:38)
[2017-06-25] MEDS: ALBUTEROL/IPRATROPIUM 3 ML NEB RESP TX SCH ×3 (00:09→13:45)
[2017-06-25] MEDS: ONDANSETRON 4 MG/2 ML VIAL IV PRN ×2 (01:20→05:09)
[2017-06-25] MEDS: ACETAMINOPHEN 325 MG TABLET PO PRN (05:09)
[2017-06-25] MEDS: CARVEDILOL 12.5 MG TABLET PO SCH (08:50)
[2017-06-25] MEDS: NYSTATIN 500,000 UNIT/5 ML UDCUP SWISH/SWAL SCH (08:51)
[2017-06-25] MEDS: APIXABAN 5 MG TABLET PO SCH (09:12)
[2017-06-25] MEDS: DIVALPROEX ER 500 MG TABLET PO SCH (09:12)
[2017-06-25] MEDS: PANTOPRAZOLE 40 MG TABLET PO SCH (09:12)
[2017-06-25] MEDS ORDERED: amLODIPine 2.5 MG TABLET PO SCH (09:16)
[2017-06-25 13:46] VITALS: BP 95/50
[2017-06-25] MEDS ORDERED: cloNIDine 0.1 MG TABLET PO SCH (21:00)
== END 2017-06-25 14:19 | disposition hospice, inpatient (51) | DRG 207 ==
LOC: N.ED 07:57 → SUPCPDRO 11:15 → N.EDINP 11:15 → SUATTDRO 11:15 → N.CC 12:00 → N.5E 16:31 → N.CVR 16:32 → N.CC 16:58 → N.5E 06-12 17:51 → N.CC 06-14 14:20 → N.TELES 06-16 14:24
PROVIDERS: ADMIT Internal Medicine; ATTEND Internal Medicine

== ENCOUNTER 2018-08-11 13:42 | Observation (INO) ==
[2018-08-11] MEDS ORDERED: NITROGLYCERIN 2% OINT 1 INCH/GM PACK TOP STA (14:00)
[2018-08-11] MEDS ORDERED: ONDANSETRON 4 MG/2 ML VIAL IV STA (14:01)
[2018-08-11] MEDS ORDERED: MORPHINE 4 MG/1 ML VIAL IV STA (14:01)
[2018-08-11 14:11] LABS: Basophils % 0.5 % (0.0-0.8); Eosinophils # 0.2 10*3/uL (0.0-0.87); Eosinophils % 4.6 % (0.00-10.9); Hematocrit 32.2 VOL% (35.7-47.0); Hemoglobin 9.8 GM/DL (12.0-16.0); Immature Granulocytes % 0.7 %; Immature Granulocytes Absolute 0.03 #; Lymphocytes % 23.2 % (21.3-54.2); Mean Corpuscular HGB Conc 30.4 GM/DL (32-36); Mean Corpuscular Hemoglobin 33 PG (27-34); Mean Platelet Volume 11.9 FL (9.6-12.0); Monocytes # 0.3 10*3/uL (0.11-0.8); Monocytes % 7.8 % (1.7-12.7); Neutrophils # 2.8 10*3/uL (1.4-7.4); Neutrophils % 63.2 % (38.7-73.9); Platelet Count 88 T/CUMM (130-400); Red Blood Count 3.01 MC/CUMM (3.8-5.5); Red Cell Distribution Width 15.6 % (9.3-17.3); White Blood Count 4.4 T/CUMM (4-12)
[2018-08-11] MEDS ORDERED: diphenhydrAMINE 50 MG/1 ML VIAL ONE (14:20)
[2018-08-11] MEDS ORDERED: diphenhydrAMINE 50 MG/1 ML VIAL IV STA (14:23)
[2018-08-11 14:28] LABS: Albumin 3.4 G/DL (3.4-5.0); Calcium 7.9 MG/DL (8.5-10.1); Potassium 4.3 MMOL/L (3.5-5.1); Total Protein 7.1 G/DL (6.4-8.3)
[2018-08-11 15:37] LABS: Anisocytosis Slight; Poikilocytosis Slight; Polychromasia Few
[2018-08-11 15:38] LABS: Ovalocytes Few; Platelet Estimate Decreased
[2018-08-11] MEDS ORDERED: NITROGLYCERIN SL 0.4 MG TABLET SL PRN (16:56)
[2018-08-11] MEDS ORDERED: ACETAMINOPHEN 325 MG TABLET PO PRN (17:02)
[2018-08-11] MEDS: SEVELAMER CARBONATE 800 MG TABLET PO SCH (19:20)
[2018-08-11] MEDS ORDERED: ATORVASTATIN 20 MG TABLET PO SCH (21:00)
[2018-08-11] MEDS: traZODone 50 MG TABLET PO SCH (21:10)
[2018-08-11] MEDS: CARVEDILOL 12.5 MG TABLET PO SCH (21:10)
[2018-08-12 02:50] LABS: Calcium 7.7 MG/DL (8.5-10.1); Osmolality,Calculated 282.8 MOS/KG (273-304); Potassium 5.4 MMOL/L (3.5-5.1)
[2018-08-12 03:01] LABS: Basophils % 0.3 % (0.0-0.8); Eosinophils # 0.2 10*3/uL (0.0-0.87); Eosinophils % 4.9 % (0.00-10.9); Hematocrit 32.7 VOL% (35.7-47.0); Hemoglobin 9.9 GM/DL (12.0-16.0); Immature Granulocytes % 0.3 %; Immature Granulocytes Absolute 0.01 #; Lymphocytes # 1.2 10*3/uL (1.4-4.0); Lymphocytes % 29.7 % (21.3-54.2); Mean Corpuscular HGB Conc 30.3 GM/DL (32-36); Mean Corpuscular Hemoglobin 33 PG (27-34); Mean Corpuscular Volume 109.7 FL (87-102); Mean Platelet Volume 11.9 FL (9.6-12.0); Monocytes # 0.6 10*3/uL (0.11-0.8); Monocytes % 14.4 % (1.7-12.7); Neutrophils % 50.4 % (38.7-73.9); Platelet Count 75 T/CUMM (130-400); Red Blood Count 2.98 MC/CUMM (3.8-5.5); Red Cell Distribution Width 15.8 % (9.3-17.3); White Blood Count 3.9 T/CUMM (4-12)
[2018-08-12 04:59] LABS: Band Neutrophils 1 % (0-10); Eosinophils 2 % (0-10); Lymphocytes 28 % (20-55); Segmented Neutrophils 49 % (50-85); Total Cells Counted 100
[2018-08-12 05:01] LABS: Anisocytosis 1+; Platelet Estimate Decreased; Tear Drop Cells Few
[2018-08-12] MEDS: SERTRALINE 25 MG TABLET PO SCH (08:55)
[2018-08-12] MEDS: CARVEDILOL 12.5 MG TABLET PO SCH ×2 (08:55→20:53)
[2018-08-12] MEDS: PANTOPRAZOLE 40 MG TABLET PO SCH (08:55)
[2018-08-12] MEDS: SEVELAMER CARBONATE 800 MG TABLET PO SCH ×3 (08:55→17:02)
[2018-08-12] MEDS: MULTIVITAMIN (BEROCCA) TABLET PO SCH (08:55)
[2018-08-12] MEDS ORDERED: PROMETHAZINE 25 MG TABLET PO ONE (10:12)
[2018-08-12] MEDS: ASPIRIN EC 81 MG TABLET PO SCH (14:12)
[2018-08-12] MEDS: ISOSORBIDE MONONITRATE 30 MG TABLET PO SCH (14:12)
[2018-08-12] MEDS: traZODone 50 MG TABLET PO SCH (20:53)
[2018-08-13 04:48] LABS: Basophils % 0.6 % (0.0-0.8); Eosinophils # 0.2 10*3/uL (0.0-0.87); Hematocrit 32.2 VOL% (35.7-47.0); Hemoglobin 9.9 GM/DL (12.0-16.0); Immature Granulocytes % 0.3 %; Immature Granulocytes Absolute 0.01 #; Lymphocytes # 1.1 10*3/uL (1.4-4.0); Lymphocytes % 29.8 % (21.3-54.2); Mean Corpuscular HGB Conc 30.7 GM/DL (32-36); Mean Corpuscular Hemoglobin 33 PG (27-34); Mean Corpuscular Volume 107.7 FL (87-102); Mean Platelet Volume 12.1 FL (9.6-12.0); Monocytes # 0.5 10*3/uL (0.11-0.8); Monocytes % 14.4 % (1.7-12.7); Neutrophils # 1.8 10*3/uL (1.4-7.4); Neutrophils % 49.9 % (38.7-73.9); Platelet Count 84 T/CUMM (130-400); Red Blood Count 2.99 MC/CUMM (3.8-5.5); Red Cell Distribution Width 15.3 % (9.3-17.3); White Blood Count 3.6 T/CUMM (4-12)
[2018-08-13 05:00] LABS: Calcium 7.2 MG/DL (8.5-10.1); Osmolality,Calculated 281.4 MOS/KG (273-304); Potassium 5.7 MMOL/L (3.5-5.1)
[2018-08-13 05:01] LABS: Calcium 7.2 MG/DL (8.5-10.1); Osmolality,Calculated 283.2 MOS/KG (273-304); Potassium 5.8 MMOL/L (3.5-5.1)
[2018-08-13 05:33] LABS: Platelet Estimate Decreased
[2018-08-13 05:34] LABS: Polychromasia Slight
[2018-08-13] MEDS: SERTRALINE 25 MG TABLET PO SCH (08:27)
[2018-08-13] MEDS: MULTIVITAMIN (BEROCCA) TABLET PO SCH (08:27)
[2018-08-13] MEDS: CARVEDILOL 12.5 MG TABLET PO SCH ×2 (08:27→20:54)
[2018-08-13] MEDS: SEVELAMER CARBONATE 800 MG TABLET PO SCH ×3 (08:27→17:08)
[2018-08-13] MEDS: ISOSORBIDE MONONITRATE 30 MG TABLET PO SCH (08:27)
[2018-08-13] MEDS: PANTOPRAZOLE 40 MG TABLET PO SCH (08:28)
[2018-08-13] MEDS: ASPIRIN EC 81 MG TABLET PO SCH (08:28)
[2018-08-13] MEDS: traZODone 50 MG TABLET PO SCH (20:54)
[2018-08-14 04:42] LABS: Basophils % 0.6 % (0.0-0.8); Eosinophils # 0.2 10*3/uL (0.0-0.87); Eosinophils % 4.8 % (0.00-10.9); Hematocrit 32.6 VOL% (35.7-47.0); Hemoglobin 9.7 GM/DL (12.0-16.0); Immature Granulocytes % 0.3 %; Immature Granulocytes Absolute 0.01 #; Lymphocytes # 0.8 10*3/uL (1.4-4.0); Lymphocytes % 26.2 % (21.3-54.2); Mean Corpuscular HGB Conc 29.8 GM/DL (32-36); Mean Corpuscular Hemoglobin 33 PG (27-34); Mean Corpuscular Volume 110.9 FL (87-102); Mean Platelet Volume 11.5 FL (9.6-12.0); Monocytes # 0.5 10*3/uL (0.11-0.8); Monocytes % 14.7 % (1.7-12.7); Neutrophils # 1.7 10*3/uL (1.4-7.4); Neutrophils % 53.4 % (38.7-73.9); Platelet Count 77 T/CUMM (130-400); Red Blood Count 2.94 MC/CUMM (3.8-5.5); Red Cell Distribution Width 15.6 % (9.3-17.3); White Blood Count 3.1 T/CUMM (4-12)
[2018-08-14 04:48] LABS: Calcium 7.4 MG/DL (8.5-10.1); Osmolality,Calculated 271.4 MOS/KG (273-304)
[2018-08-14 05:21] LABS: Calcium 7.4 MG/DL (8.5-10.1); Osmolality,Calculated 271.4 MOS/KG (273-304)
[2018-08-14] MEDS: PANTOPRAZOLE 40 MG TABLET PO SCH (09:02)
[2018-08-14] MEDS: ISOSORBIDE MONONITRATE 30 MG TABLET PO SCH (09:02)
[2018-08-14] MEDS: SERTRALINE 25 MG TABLET PO SCH (09:02)
[2018-08-14] MEDS: MULTIVITAMIN (BEROCCA) TABLET PO SCH (09:02)
[2018-08-14] MEDS: SEVELAMER CARBONATE 800 MG TABLET PO SCH ×3 (09:02→17:43)
[2018-08-14] MEDS: CARVEDILOL 12.5 MG TABLET PO SCH ×2 (09:02→20:11)
[2018-08-14] MEDS: ASPIRIN EC 81 MG TABLET PO SCH (09:02)
[2018-08-14] MEDS ORDERED: MAGNESIUM HYDROXIDE SUSP 30 ML UDCUP PO PRN (14:45)
[2018-08-14] MEDS: POLYETHYLENE GLYCOL POWDER 17 GM PACK PO SCH (15:58)
[2018-08-14] MEDS: traZODone 50 MG TABLET PO SCH (20:11)
[2018-08-15 05:00] LABS: Basophils % 0.3 % (0.0-0.8); Eosinophils # 0.1 10*3/uL (0.0-0.87); Eosinophils % 4.4 % (0.00-10.9); Hematocrit 31.7 VOL% (35.7-47.0); Hemoglobin 9.5 GM/DL (12.0-16.0); Immature Granulocytes % 0.3 %; Immature Granulocytes Absolute 0.01 #; Lymphocytes # 0.7 10*3/uL (1.4-4.0); Lymphocytes % 22.8 % (21.3-54.2); Mean Corpuscular Hemoglobin 33 PG (27-34); Mean Corpuscular Volume 108.6 FL (87-102); Mean Platelet Volume 11.8 FL (9.6-12.0); Monocytes # 0.5 10*3/uL (0.11-0.8); Monocytes % 16.1 % (1.7-12.7); Neutrophils # 1.8 10*3/uL (1.4-7.4); Neutrophils % 56.1 % (38.7-73.9); Red Blood Count 2.92 MC/CUMM (3.8-5.5); Red Cell Distribution Width 15.4 % (9.3-17.3); White Blood Count 3.2 T/CUMM (4-12)
[2018-08-15 05:04] LABS: Platelet Count 74 T/CUMM (130-400)
[2018-08-15 05:36] LABS: Eosinophils 5 % (0-10); Hypochromasia 1+; Lymphocytes 28 % (20-55); Ovalocytes Slight; Platelet Estimate Decreased; Segmented Neutrophils 55 % (50-85); Total Cells Counted 100
[2018-08-15] MEDS: MULTIVITAMIN (BEROCCA) TABLET PO SCH (09:07)
[2018-08-15] MEDS: POLYETHYLENE GLYCOL POWDER 17 GM PACK PO SCH (09:08)
[2018-08-15] MEDS: CARVEDILOL 12.5 MG TABLET PO SCH ×2 (09:08→21:04)
[2018-08-15] MEDS: SERTRALINE 25 MG TABLET PO SCH (09:08)
[2018-08-15] MEDS: ASPIRIN EC 81 MG TABLET PO SCH (09:08)
[2018-08-15] MEDS: ISOSORBIDE MONONITRATE 30 MG TABLET PO SCH (09:08)
[2018-08-15] MEDS: SEVELAMER CARBONATE 800 MG TABLET PO SCH ×3 (09:08→17:51)
[2018-08-15] MEDS: PANTOPRAZOLE 40 MG TABLET PO SCH (09:08)
[2018-08-15] MEDS: traZODone 50 MG TABLET PO SCH (21:04)
[2018-08-16] MEDS: POLYETHYLENE GLYCOL POWDER 17 GM PACK PO SCH (08:48)
[2018-08-16] MEDS: SEVELAMER CARBONATE 800 MG TABLET PO SCH ×2 (08:48→14:42)
[2018-08-16] MEDS: ISOSORBIDE MONONITRATE 30 MG TABLET PO SCH (08:49)
[2018-08-16] MEDS: CARVEDILOL 12.5 MG TABLET PO SCH (08:49)
[2018-08-16] MEDS: MULTIVITAMIN (BEROCCA) TABLET PO SCH (08:50)
[2018-08-16] MEDS: PANTOPRAZOLE 40 MG TABLET PO SCH (08:50)
[2018-08-16] MEDS: ASPIRIN EC 81 MG TABLET PO SCH (08:50)
[2018-08-16] MEDS: SERTRALINE 25 MG TABLET PO SCH (08:50)
[2018-08-16 12:22] VITALS: BP 112/55
== END 2018-08-16 14:18 | disposition home or self-care (01) ==
LOC: EDSEX → EDUNIT# → N.ED 13:42 → N.EDINP 13:42 → SUATTDRO 15:29 → N.TELEN 17:08
PROVIDERS: ADMIT Internal Medicine; ATTEND Internal Medicine Cardiovascular Disease

== ENCOUNTER 2018-11-11 21:55 | Inpatient (IN) ==
[2018-11-11] MEDS ORDERED: HYDROmorphone 2 MG/1 ML VIAL IV STA (22:44)
[2018-11-11] MEDS ORDERED: ONDANSETRON 4 MG/2 ML VIAL IV STA (22:44)
[2018-11-11 23:17] LABS: Basophils % 0.1 % (0.0-0.8); Eosinophils # 0.1 10*3/uL (0.0-0.87); Eosinophils % 1.7 % (0.00-10.9); Hematocrit 26.9 VOL% (35.7-47.0); Hemoglobin 8.1 GM/DL (12.0-16.0); Immature Granulocytes % 0.4 %; Immature Granulocytes Absolute 0.03 #; Lymphocytes # 0.5 10*3/uL (1.4-4.0); Lymphocytes % 6.2 % (21.3-54.2); Mean Corpuscular HGB Conc 30.1 GM/DL (32-36); Mean Corpuscular Volume 114.5 FL (87-102); Mean Platelet Volume 10.2 FL (9.6-12.0); Monocytes % 2.7 % (1.7-12.7); Neutrophils % 88.9 % (38.7-73.9); Platelet Count 113 T/CUMM (130-400); Red Blood Count 2.35 MC/CUMM (3.8-5.5); Red Cell Distribution Width 16.9 % (9.3-17.3); White Blood Count 7.6 T/CUMM (4-12)
[2018-11-11 23:32] LABS: Albumin 3.7 G/DL (3.4-5.0); Bilirubin,Total 0.4 MG/DL (0.2-1.0); Calcium 8.8 MG/DL (8.5-10.1); Total Protein 7.2 G/DL (6.4-8.3)
[2018-11-11] MEDS ORDERED: CEFEPIME 2,000 MG in SODIUM CHLORIDE 0.9% 100 ML IV STA (23:50)
[2018-11-11] MEDS ORDERED: metroNIDAZOLE INJ 500 MG in PREMIX 1 EACH IV STA (23:51)
[2018-11-12] MEDS ORDERED: ACETAMINOPHEN 325 MG TABLET PO PRN (02:47)
[2018-11-12 07:10] LABS: Basophils % 0.1 % (0.0-0.8); Eosinophils # 0.1 10*3/uL (0.0-0.87); Eosinophils % 0.4 % (0.00-10.9); Hematocrit 27.7 VOL% (35.7-47.0); Hemoglobin 8.3 GM/DL (12.0-16.0); Immature Granulocytes % 0.8 %; Immature Granulocytes Absolute 0.09 #; Lymphocytes # 0.6 10*3/uL (1.4-4.0); Lymphocytes % 4.8 % (21.3-54.2); Mean Corpuscular Volume 115.4 FL (87-102); Mean Platelet Volume 10.7 FL (9.6-12.0); Monocytes % 5.7 % (1.7-12.7); Neutrophils % 88.2 % (38.7-73.9); Platelet Count 104 T/CUMM (130-400); Red Cell Distribution Width 17.1 % (9.3-17.3); White Blood Count 11.4 T/CUMM (4-12)
[2018-11-12] MEDS ORDERED: PROMETHAZINE 25 MG/1 ML VIAL IM PRN (07:22)
[2018-11-12 07:41] LABS: Calcium 8.5 MG/DL (8.5-10.1); Osmolality,Calculated 267.4 MOS/KG (273-304)
[2018-11-12 07:43] LABS: Band Neutrophils 4 % (0-10); Eosinophils 1 % (0-10); Hypochromasia 1+; Lymphocytes 7 % (20-55); Ovalocytes Slight; Platelet Estimate Decreased; Segmented Neutrophils 83 % (50-85); Total Cells Counted 100
[2018-11-12] MEDS ORDERED: ENOXAPARIN 30 MG/0.3 ML SYRINGE SUBCUT SCH (09:00)
[2018-11-12] MEDS ORDERED: PANTOPRAZOLE 40 MG TABLET PO SCH (09:00)
[2018-11-12] MEDS ORDERED: CLINDAMYCIN INJ 50 ML IV ONE (10:47)
[2018-11-12] MEDS ORDERED: ALBUMIN 5% 12.5 GM/250 ML VIAL IV ONE ×2 (11:21→13:34)
[2018-11-12] MEDS ORDERED: SODIUM BICARBONATE 50 MEQ/50 ML VIAL IV ONE (11:49)
[2018-11-12] MEDS ORDERED: SEVOFLURANE 1 UNIT/15 MINUTE INH ONE (13:34)
[2018-11-12] MEDS ORDERED: CALCIUM CHLORIDE 1,000 MG/10 ML VIAL IV ONE (13:34)
[2018-11-12] MEDS ORDERED: PHENYLEPHRINE DRIP 20 MG/250 ML PREMIX IV ONE (13:34)
[2018-11-12] MEDS ORDERED: fentaNYL 100 MCG/2 ML VIAL ONE (13:35)
[2018-11-12] MEDS ORDERED: ePHEDrine 50 MG/ML AMP ONE (13:35)
[2018-11-12] MEDS ORDERED: MIDAZOLAM 2 MG/2 ML VIAL ONE (13:35)
[2018-11-12] MEDS ORDERED: ETOMIDATE 40 MG/20 ML VIAL IV ONE (13:35)
[2018-11-12] MEDS ORDERED: ROCURONIUM 100 MG/10 ML VIAL IV ONE (13:36)
[2018-11-12] MEDS ORDERED: SODIUM CHLORIDE 0.9% 250 ML IV ONE ×2 (13:36→14:55)
[2018-11-12] MEDS ORDERED: SUCCINYLCHOLINE 200 MG/10 ML VIAL ONE (13:36)
[2018-11-12] MEDS: metroNIDAZOLE INJ 500 MG in PREMIX 1 EACH IV SCH ×2 (14:05→17:45)
[2018-11-12] MEDS ORDERED: SODIUM CHLORIDE 0.9% 500 ML IV ONE (14:55)
[2018-11-12] MEDS: PROPOFOL 1,000 MG/100 ML BOTTLE IV SCH (15:00)
[2018-11-12] MEDS: NOREPINEPHRINE 16 MG in SODIUM CHLORIDE 0.9% 234 ML IV PRN (15:00)
[2018-11-12 15:20] LABS: ABG HCO3 24.5 MMOL/L (20-26); ABG Oxygen Saturation 98.7 % (95-100); ABG PCO2 51.6 MM HG (35-48); ABG TCO2 24.8 MMOL/L (23-27)
[2018-11-12 15:25] LABS: Basophils % 0.1 % (0.0-0.8); Eosinophils % 0.5 % (0.00-10.9); Hematocrit 22.7 VOL% (35.7-47.0); Hemoglobin 6.7 GM/DL (12.0-16.0); Immature Granulocytes % 0.6 %; Immature Granulocytes Absolute 0.05 #; Lymphocytes # 0.6 10*3/uL (1.4-4.0); Mean Corpuscular HGB Conc 29.5 GM/DL (32-36); Mean Corpuscular Volume 114.6 FL (87-102); Mean Platelet Volume 10.8 FL (9.6-12.0); Monocytes % 7.2 % (1.7-12.7); Neutrophils % 83.6 % (38.7-73.9); Platelet Count 96 T/CUMM (130-400); Red Blood Count 1.98 MC/CUMM (3.8-5.5); Red Cell Distribution Width 16.6 % (9.3-17.3); White Blood Count 7.8 T/CUMM (4-12)
[2018-11-12 15:48] LABS: Calcium 8.1 MG/DL (8.5-10.1); Osmolality,Calculated 284.3 MOS/KG (273-304)
[2018-11-12 15:51] LABS: Band Neutrophils 7 % (0-10); Eosinophils 1 % (0-10); Lymphocytes 11 % (20-55); Nucleated Red Blood Cells 1 (0-5); Platelet Estimate Decreased; Segmented Neutrophils 79 % (50-85); Total Cells Counted 100
[2018-11-12] MEDS ORDERED: SODIUM CHLORIDE 0.9% 1,000 ML IV PRN (15:53)
[2018-11-12] MEDS: HYDROmorphone 2 MG/1 ML VIAL IV PRN ×2 (16:45→22:00)
[2018-11-12] MEDS: ALBUTEROL/IPRATROPIUM 3 ML NEB RESP TX SCH (19:05)
[2018-11-13] MEDS: ALBUTEROL/IPRATROPIUM 3 ML NEB RESP TX SCH ×4 (01:32→19:28)
[2018-11-13] MEDS: metroNIDAZOLE INJ 500 MG in PREMIX 1 EACH IV SCH ×3 (02:40→16:31)
[2018-11-13] MEDS: CEFEPIME 1,000 MG in SYRINGE 1 EACH IV SCH (05:00)
[2018-11-13 05:05] LABS: Basophils % 0.3 % (0.0-0.8); Eosinophils # 0.1 10*3/uL (0.0-0.87); Eosinophils % 1.2 % (0.00-10.9); Hemoglobin 8.9 GM/DL (12.0-16.0); Immature Granulocytes % 0.6 %; Immature Granulocytes Absolute 0.06 #; Lymphocytes # 0.5 10*3/uL (1.4-4.0); Lymphocytes % 5.2 % (21.3-54.2); Mean Corpuscular HGB Conc 31.8 GM/DL (32-36); Mean Corpuscular Volume 104.9 FL (87-102); Mean Platelet Volume 11.3 FL (9.6-12.0); Monocytes % 5.9 % (1.7-12.7); Neutrophils % 86.8 % (38.7-73.9); Platelet Count 85 T/CUMM (130-400); Red Blood Count 2.67 MC/CUMM (3.8-5.5); Red Cell Distribution Width 18.7 % (9.3-17.3); White Blood Count 10.3 T/CUMM (4-12)
[2018-11-13] MEDS: HYDROmorphone 2 MG/1 ML VIAL IV PRN ×5 (05:05→22:02)
[2018-11-13 05:06] LABS: ABG Base Excess 0.2 MMOL/L (-2.5-2.5); ABG HCO3 24.7 MMOL/L (20-26); ABG Oxygen Saturation 99.5 % (95-100); ABG PCO2 43.5 MM HG (35-48); ABG PH 7.377 (7.35-7.45); ABG TCO2 23.3 MMOL/L (23-27)
[2018-11-13 05:39] LABS: Calcium 8.1 MG/DL (8.5-10.1); Osmolality,Calculated 284.4 MOS/KG (273-304)
[2018-11-13 06:34] LABS: Band Neutrophils 3 % (0-10); Eosinophils 2 % (0-10); Lymphocytes 5 % (20-55); Segmented Neutrophils 88 % (50-85); Total Cells Counted 100
[2018-11-13 06:35] LABS: Anisocytosis 1+; Macrocytosis Slight
[2018-11-13 06:36] LABS: Polychromasia Slight
[2018-11-13 06:37] LABS: Stomatocytes Slight
[2018-11-13 06:38] LABS: Platelet Estimate Decreased
[2018-11-13] MEDS ORDERED: SODIUM CHLORIDE 0.9% 500 ML IV ONE ×2 (07:14→09:07)
[2018-11-13] MEDS ORDERED: DEXTROSE 50% 25 GM/50 ML SYRINGE IV ONE (07:55)
[2018-11-13] MEDS: DEXTROSE 50% 25 GM/50 ML SYRINGE IV PRN ×2 (07:57→12:03)
[2018-11-13] MEDS: DEXTROSE 5% NACL 0.9% 1,000 ML IV SCH (07:57)
[2018-11-13] MEDS: PANTOPRAZOLE 40 MG VIAL IV SCH (09:50)
[2018-11-13] MEDS ORDERED: MAGNESIUM SULF RIDER 2 GM in PREMIX 1 EACH IV ONE (10:38)
[2018-11-13] MEDS ORDERED: MAGNESIUM SULF RIDER 2 GM in PREMIX 1 EACH IV PRN (10:41)
[2018-11-13] MEDS ORDERED: MAGNESIUM SULF RIDER 4 GM in PREMIX 1 EACH IV PRN (10:41)
[2018-11-13] MEDS ORDERED: MAGNESIUM SULF RIDER 50 ML IV ONE (10:43)
[2018-11-13] MEDS ORDERED: PHENYLEPHRINE DRIP 40 MG/250 ML PREMIX IV PRN (13:17)
[2018-11-13] MEDS ORDERED: AMIODARONE INJ 450 MG in DEXTROSE 5% 241 ML IV SCH (13:30)
[2018-11-13] MEDS: PROPOFOL 1,000 MG/100 ML BOTTLE IV SCH (14:19)
[2018-11-13] MEDS: NOREPINEPHRINE 16 MG in SODIUM CHLORIDE 0.9% 234 ML IV PRN (19:23)
[2018-11-14] MEDS: ALBUTEROL/IPRATROPIUM 3 ML NEB RESP TX SCH ×4 (00:45→19:44)
[2018-11-14] MEDS: metroNIDAZOLE INJ 500 MG in PREMIX 1 EACH IV SCH ×3 (01:12→16:47)
[2018-11-14] MEDS: HYDROmorphone 2 MG/1 ML VIAL IV PRN ×3 (01:13→16:47)
[2018-11-14 03:40] LABS: ABG Base Excess -2.8 MMOL/L (-2.5-2.5); ABG HCO3 22.1 MMOL/L (20-26); ABG Oxygen Saturation 99.8 % (95-100); ABG PCO2 38.7 MM HG (35-48); ABG PH 7.367 (7.35-7.45); ABG TCO2 20.7 MMOL/L (23-27)
[2018-11-14 03:55] LABS: Calcium 8.1 MG/DL (8.5-10.1); Osmolality,Calculated 291.3 MOS/KG (273-304)
[2018-11-14] MEDS: CEFEPIME 1,000 MG in SYRINGE 1 EACH IV SCH (04:06)
[2018-11-14] MEDS: DEXTROSE 5% NACL 0.9% 1,000 ML IV SCH (04:06)
[2018-11-14 04:11] LABS: Basophils % 0.3 % (0.0-0.8); Eosinophils # 0.3 10*3/uL (0.0-0.87); Eosinophils % 2.7 % (0.00-10.9); Hematocrit 27.2 VOL% (35.7-47.0); Hemoglobin 8.5 GM/DL (12.0-16.0); Immature Granulocytes % 1.2 %; Immature Granulocytes Absolute 0.11 #; Lymphocytes # 0.6 10*3/uL (1.4-4.0); Lymphocytes % 6.4 % (21.3-54.2); Mean Corpuscular HGB Conc 31.3 GM/DL (32-36); Mean Corpuscular Volume 106.3 FL (87-102); Mean Platelet Volume 11.4 FL (9.6-12.0); Monocytes % 5.8 % (1.7-12.7); Neutrophils % 83.6 % (38.7-73.9); Platelet Count 87 T/CUMM (130-400); Red Blood Count 2.56 MC/CUMM (3.8-5.5); Red Cell Distribution Width 17.7 % (9.3-17.3); White Blood Count 9.3 T/CUMM (4-12)
[2018-11-14 04:31] LABS: Band Neutrophils 5 % (0-10); Eosinophils 4 % (0-10); Lymphocytes 5 % (20-55); Segmented Neutrophils 84 % (50-85); Total Cells Counted 100
[2018-11-14 04:32] LABS: Anisocytosis 1+
[2018-11-14 04:33] LABS: Macrocytosis Slight; Microcytosis Slight; Platelet Estimate Decreased; Polychromasia Slight
[2018-11-14 07:40] LABS: Hepatitis B Core IgM Quant 0.11 Index; Hepatitis B Surface Ag Quant < 0.10 Index; Hepatitis B Surface Ag Result Negative (Negative); Hepatitis C Virus Ab Quant 0.05 Index; Hepatitis C Virus Ab Result Negative (Negative)
[2018-11-14] MEDS: PANTOPRAZOLE 40 MG VIAL IV SCH (08:48)
[2018-11-14] MEDS: PROPOFOL 1,000 MG/100 ML BOTTLE IV SCH (13:00)
[2018-11-14] MEDS ORDERED: ALBUMIN 25% 25 GM in PREMIX 1 EACH IV ONE (14:17)
[2018-11-14] MEDS: NOREPINEPHRINE 16 MG in SODIUM CHLORIDE 0.9% 234 ML IV PRN (22:30)
[2018-11-15] MEDS: ALBUTEROL/IPRATROPIUM 3 ML NEB RESP TX SCH ×4 (00:17→19:14)
[2018-11-15] MEDS: DEXTROSE 5% NACL 0.9% 1,000 ML IV SCH ×2 (00:56→20:40)
[2018-11-15] MEDS: metroNIDAZOLE INJ 500 MG in PREMIX 1 EACH IV SCH ×3 (00:56→17:20)
[2018-11-15] MEDS: CEFEPIME 1,000 MG in SYRINGE 1 EACH IV SCH (05:15)
[2018-11-15] MEDS: HYDROmorphone 2 MG/1 ML VIAL IV PRN ×2 (05:31→09:05)
[2018-11-15 05:58] LABS: Basophils % 0.1 % (0.0-0.8); Eosinophils # 0.3 10*3/uL (0.0-0.87); Eosinophils % 3.6 % (0.00-10.9); Hematocrit 25.9 VOL% (35.7-47.0); Hemoglobin 8.2 GM/DL (12.0-16.0); Immature Granulocytes % 0.4 %; Immature Granulocytes Absolute 0.04 #; Lymphocytes # 0.5 10*3/uL (1.4-4.0); Lymphocytes % 5.1 % (21.3-54.2); Mean Corpuscular HGB Conc 31.7 GM/DL (32-36); Mean Corpuscular Volume 104.9 FL (87-102); Mean Platelet Volume 11.2 FL (9.6-12.0); Monocytes % 7.2 % (1.7-12.7); Neutrophils % 83.6 % (38.7-73.9); Platelet Count 81 T/CUMM (130-400); Red Blood Count 2.47 MC/CUMM (3.8-5.5); Red Cell Distribution Width 16.9 % (9.3-17.3); White Blood Count 9.4 T/CUMM (4-12)
[2018-11-15 06:14] LABS: Calcium 8.5 MG/DL (8.5-10.1); Osmolality,Calculated 290.3 MOS/KG (273-304)
[2018-11-15 06:34] LABS: Platelet Estimate Decreased
[2018-11-15 06:35] LABS: Anisocytosis 2+; Macrocytosis 2+; Polychromasia Slight
[2018-11-15 06:52] LABS: ABG Base Excess -1.4 MMOL/L (-2.5-2.5); ABG HCO3 23.3 MMOL/L (20-26); ABG PCO2 41.9 MM HG (35-48); ABG PH 7.364 (7.35-7.45); ABG TCO2 22.3 MMOL/L (23-27)
[2018-11-15] MEDS: PANTOPRAZOLE 40 MG VIAL IV SCH (09:05)
[2018-11-15] MEDS ORDERED: POLYETHYLENE GLYCOL POWDER 17 GM PACK PO PRN (11:25)
[2018-11-15] MEDS: PROPOFOL 1,000 MG/100 ML BOTTLE IV SCH (12:40)
[2018-11-15] MEDS: METOCLOPRAMIDE 10 MG/2 ML VIAL IV SCH (18:22)
[2018-11-15] MEDS: METOPROLOL TARTRATE 25 MG TABLET PO SCH (21:37)
[2018-11-16] MEDS: ALBUTEROL/IPRATROPIUM 3 ML NEB RESP TX SCH ×4 (00:20→19:06)
[2018-11-16] MEDS: METOCLOPRAMIDE 10 MG/2 ML VIAL IV SCH ×5 (00:51→23:40)
[2018-11-16] MEDS: metroNIDAZOLE INJ 500 MG in PREMIX 1 EACH IV SCH ×3 (01:00→17:02)
[2018-11-16] MEDS: CEFEPIME 1,000 MG in SYRINGE 1 EACH IV SCH (03:31)
[2018-11-16 04:40] LABS: ABG Base Excess -2.5 MMOL/L (-2.5-2.5); ABG HCO3 22.3 MMOL/L (20-26); ABG Oxygen Saturation 98.9 % (95-100); ABG PCO2 38.1 MM HG (35-48); ABG PH 7.385 (7.35-7.45); ABG PO2 159.1 MM HG (80-95); ABG TCO2 23.5 MMOL/L (23-27)
[2018-11-16] MEDS: HYDROmorphone 2 MG/1 ML VIAL IV PRN ×2 (04:43→16:48)
[2018-11-16 05:01] LABS: Calcium 8.4 MG/DL (8.5-10.1); Osmolality,Calculated 292.3 MOS/KG (273-304); Prealbumin 12.2 MG/DL (20-40)
[2018-11-16 05:02] LABS: Basophils % 0.3 % (0.0-0.8); Eosinophils # 0.3 10*3/uL (0.0-0.87); Eosinophils % 3.4 % (0.00-10.9); Hematocrit 24.9 VOL% (35.7-47.0); Hemoglobin 7.9 GM/DL (12.0-16.0); Immature Granulocytes Absolute 0.07 #; Lymphocytes # 0.6 10*3/uL (1.4-4.0); Lymphocytes % 7.7 % (21.3-54.2); Mean Corpuscular HGB Conc 31.7 GM/DL (32-36); Mean Corpuscular Volume 106.4 FL (87-102); Monocytes % 8.8 % (1.7-12.7); Neutrophils % 78.8 % (38.7-73.9); Platelet Count 70 T/CUMM (130-400); Red Blood Count 2.34 MC/CUMM (3.8-5.5); Red Cell Distribution Width 16.5 % (9.3-17.3); White Blood Count 7.3 T/CUMM (4-12)
[2018-11-16 05:34] LABS: Band Neutrophils 1 % (0-10); Eosinophils 6 % (0-10); Lymphocytes 5 % (20-55); Segmented Neutrophils 80 % (50-85); Total Cells Counted 100
[2018-11-16 05:35] LABS: Anisocytosis 1+; Hypochromasia 1+; Platelet Estimate Decreased
[2018-11-16] MEDS: PROPOFOL 1,000 MG/100 ML BOTTLE IV SCH ×2 (06:28→19:52)
[2018-11-16] MEDS: PANTOPRAZOLE 40 MG VIAL IV SCH (09:59)
[2018-11-16] MEDS: POLYETHYLENE GLYCOL POWDER 17 GM PACK PO SCH (10:00)
[2018-11-16] MEDS: METOPROLOL TARTRATE 25 MG TABLET PO SCH ×2 (10:00→21:24)
[2018-11-16] MEDS: DEXTROSE 5% NACL 0.9% 1,000 ML IV SCH (16:49)
[2018-11-17] MEDS: ALBUTEROL/IPRATROPIUM 3 ML NEB RESP TX SCH ×4 (01:28→19:35)
[2018-11-17] MEDS: metroNIDAZOLE INJ 500 MG in PREMIX 1 EACH IV SCH ×3 (02:09→19:04)
[2018-11-17] MEDS: CEFEPIME 1,000 MG in SYRINGE 1 EACH IV SCH (05:06)
[2018-11-17] MEDS: PROPOFOL 1,000 MG/100 ML BOTTLE IV SCH ×2 (05:07→18:42)
[2018-11-17 05:56] LABS: ABG Base Excess -6.1 MMOL/L (-2.5-2.5); ABG HCO3 19.4 MMOL/L (20-26); ABG Oxygen Saturation 98.8 % (95-100); ABG PCO2 42.6 MM HG (35-48); ABG PH 7.285 (7.35-7.45); ABG TCO2 19.1 MMOL/L (23-27)
[2018-11-17] MEDS: METOCLOPRAMIDE 10 MG/2 ML VIAL IV SCH ×4 (06:28→23:13)
[2018-11-17] MEDS: HYDROmorphone 2 MG/1 ML VIAL IV PRN (08:31)
[2018-11-17] MEDS: METOPROLOL TARTRATE 25 MG TABLET PO SCH ×2 (08:32→22:02)
[2018-11-17] MEDS: PANTOPRAZOLE 40 MG VIAL IV SCH (08:32)
[2018-11-17] MEDS: POLYETHYLENE GLYCOL POWDER 17 GM PACK PO SCH (08:33)
[2018-11-17] MEDS: DEXTROSE 5% NACL 0.9% 1,000 ML IV SCH (15:48)
[2018-11-18] MEDS: metroNIDAZOLE INJ 500 MG in PREMIX 1 EACH IV SCH ×3 (00:35→17:28)
[2018-11-18] MEDS: ALBUTEROL/IPRATROPIUM 3 ML NEB RESP TX SCH ×4 (00:43→19:32)
[2018-11-18] MEDS: CEFEPIME 1,000 MG in SYRINGE 1 EACH IV SCH (04:39)
[2018-11-18 05:20] LABS: ABG Base Excess -0.3 MMOL/L (-2.5-2.5); ABG HCO3 24.2 MMOL/L (20-26); ABG Oxygen Saturation 99.2 % (95-100); ABG PCO2 40.1 MM HG (35-48); ABG PH 7.394 (7.35-7.45); ABG TCO2 21.3 MMOL/L (23-27)
[2018-11-18 05:39] LABS: Basophils % 0.3 % (0.0-0.8); Eosinophils # 0.3 10*3/uL (0.0-0.87); Eosinophils % 4.2 % (0.00-10.9); Hematocrit 25.9 VOL% (35.7-47.0); Hemoglobin 8.1 GM/DL (12.0-16.0); Immature Granulocytes % 1.3 %; Immature Granulocytes Absolute 0.08 #; Lymphocytes # 0.8 10*3/uL (1.4-4.0); Lymphocytes % 13.7 % (21.3-54.2); Mean Corpuscular HGB Conc 31.3 GM/DL (32-36); Mean Corpuscular Volume 105.3 FL (87-102); Mean Platelet Volume 11.9 FL (9.6-12.0); Neutrophils % 66.5 % (38.7-73.9); Platelet Count 109 T/CUMM (130-400); Red Blood Count 2.46 MC/CUMM (3.8-5.5); Red Cell Distribution Width 16.4 % (9.3-17.3); White Blood Count 5.9 T/CUMM (4-12)
[2018-11-18] MEDS: METOCLOPRAMIDE 10 MG/2 ML VIAL IV SCH ×4 (06:12→23:58)
[2018-11-18] MEDS: PROPOFOL 1,000 MG/100 ML BOTTLE IV SCH ×2 (06:47→13:04)
[2018-11-18] MEDS: PANTOPRAZOLE 40 MG VIAL IV SCH (08:25)
[2018-11-18] MEDS: METOPROLOL TARTRATE 25 MG TABLET PO SCH ×2 (08:25→21:45)
[2018-11-18] MEDS: POLYETHYLENE GLYCOL POWDER 17 GM PACK PO SCH (08:25)
[2018-11-18] MEDS: DEXTROSE 5% NACL 0.9% 1,000 ML IV SCH ×2 (08:32→15:44)
[2018-11-18] MEDS ORDERED: ALBUTEROL 1.25 MG/3 ML NEB RESP TX PRN (09:24)
[2018-11-18] MEDS ORDERED: methylPREDNISolone SOD SUC 125 MG/2 ML VIAL IV ONE (09:25)
[2018-11-18] MEDS: RACEPINEPHRINE 0.5 ML NEB RESP TX PRN ×2 (09:43→22:15)
[2018-11-18] MEDS: methylPREDNISolone SOD SUC 40 MG/1 ML VIAL IV SCH ×2 (09:57→21:45)
[2018-11-18 10:10] LABS: ABG Base Excess -2.5 MMOL/L (-2.5-2.5); ABG HCO3 22.3 MMOL/L (20-26); ABG Oxygen Saturation 94.9 % (95-100); ABG PH 7.306 (7.35-7.45); ABG PO2 78.9 MM HG (80-95); ABG TCO2 22.3 MMOL/L (23-27)
[2018-11-18 12:36] LABS: ABG Base Excess -2.7 MMOL/L (-2.5-2.5); ABG HCO3 22.1 MMOL/L (20-26); ABG Oxygen Saturation 94.6 % (95-100); ABG PCO2 45.1 MM HG (35-48); ABG PH 7.322 (7.35-7.45); ABG PO2 76.8 MM HG (80-95); ABG TCO2 21.7 MMOL/L (23-27)
[2018-11-18] MEDS ORDERED: NITROGLYCERIN SL 0.4 MG TABLET SL ONE ×2 (15:46→15:59)
[2018-11-18] MEDS: NITROGLYCERIN SL 0.4 MG TABLET SL PRN ×2 (15:47→15:53)
[2018-11-18] MEDS ORDERED: SERTRALINE 25 MG TABLET PO SCH (21:00)
[2018-11-19] MEDS: metroNIDAZOLE INJ 500 MG in PREMIX 1 EACH IV SCH ×3 (01:26→18:20)
[2018-11-19] MEDS: ALBUTEROL/IPRATROPIUM 3 ML NEB RESP TX SCH ×4 (01:40→17:50)
[2018-11-19 05:00] LABS: Basophils % 0.2 % (0.0-0.8); Hematocrit 24.9 VOL% (35.7-47.0); Hemoglobin 7.7 GM/DL (12.0-16.0); Immature Granulocytes % 1.2 %; Immature Granulocytes Absolute 0.07 #; Lymphocytes # 0.5 10*3/uL (1.4-4.0); Lymphocytes % 8.4 % (21.3-54.2); Mean Corpuscular HGB Conc 30.9 GM/DL (32-36); Mean Corpuscular Volume 105.1 FL (87-102); Mean Platelet Volume 11.6 FL (9.6-12.0); Neutrophils % 86.2 % (38.7-73.9); Platelet Count 124 T/CUMM (130-400); Red Blood Count 2.37 MC/CUMM (3.8-5.5); Red Cell Distribution Width 16.1 % (9.3-17.3); White Blood Count 5.8 T/CUMM (4-12)
[2018-11-19 05:31] LABS: Calcium 8.5 MG/DL (8.5-10.1); Osmolality,Calculated 289.8 MOS/KG (273-304)
[2018-11-19] MEDS: DEXTROSE 5% NACL 0.9% 1,000 ML IV SCH ×2 (06:10→19:20)
[2018-11-19] MEDS: CEFEPIME 1,000 MG in SYRINGE 1 EACH IV SCH (06:12)
[2018-11-19] MEDS: METOCLOPRAMIDE 10 MG/2 ML VIAL IV SCH ×4 (06:17→23:29)
[2018-11-19] MEDS: METOPROLOL TARTRATE 25 MG TABLET PO SCH ×2 (08:58→21:06)
[2018-11-19] MEDS: POLYETHYLENE GLYCOL POWDER 17 GM PACK PO SCH (08:59)
[2018-11-19] MEDS: methylPREDNISolone SOD SUC 40 MG/1 ML VIAL IV SCH (08:59)
[2018-11-19] MEDS: PANTOPRAZOLE 40 MG VIAL IV SCH (08:59)
[2018-11-19] MEDS ORDERED: ISOSORBIDE MONONITRATE 30 MG TABLET PO SCH (09:00)
[2018-11-19] MEDS ORDERED: ASPIRIN EC 81 MG TABLET PO SCH (09:00)
[2018-11-19] MEDS: INSULIN REGULAR 100 UNIT/ML SUBCUT SCH ×2 (16:56→21:05)
[2018-11-20] MEDS: ALBUTEROL/IPRATROPIUM 3 ML NEB RESP TX SCH ×4 (00:30→19:41)
[2018-11-20 04:31] LABS: Basophils % 0.1 % (0.0-0.8); Eosinophils % 0.5 % (0.00-10.9); Hematocrit 23.3 VOL% (35.7-47.0); Hemoglobin 7.1 GM/DL (12.0-16.0); Immature Granulocytes % 1.2 %; Immature Granulocytes Absolute 0.09 #; Lymphocytes # 0.9 10*3/uL (1.4-4.0); Mean Corpuscular HGB Conc 30.5 GM/DL (32-36); Mean Platelet Volume 11.5 FL (9.6-12.0); Monocytes % 9.2 % (1.7-12.7); Platelet Count 149 T/CUMM (130-400); Red Blood Count 2.22 MC/CUMM (3.8-5.5); Red Cell Distribution Width 16.1 % (9.3-17.3); White Blood Count 7.5 T/CUMM (4-12)
[2018-11-20 04:52] LABS: Osmolality,Calculated 283.5 MOS/KG (273-304)
[2018-11-20] MEDS: CEFEPIME 1,000 MG in SYRINGE 1 EACH IV SCH (05:16)
[2018-11-20] MEDS: METOCLOPRAMIDE 10 MG/2 ML VIAL IV SCH ×3 (06:16→13:07)
[2018-11-20] MEDS: INSULIN REGULAR 100 UNIT/ML SUBCUT SCH ×4 (07:00→22:11)
[2018-11-20] MEDS: POLYETHYLENE GLYCOL POWDER 17 GM PACK PO SCH (10:03)
[2018-11-20] MEDS: METOPROLOL TARTRATE 25 MG TABLET PO SCH ×2 (10:03→21:06)
[2018-11-20] MEDS: predniSONE 20 MG TABLET PO SCH (10:03)
[2018-11-20] MEDS ORDERED: SODIUM CHLORIDE 0.9% 1,000 ML IV PRN (11:00)
[2018-11-20] MEDS: ATORVASTATIN 20 MG TABLET PO SCH (21:06)
[2018-11-21] MEDS: HYDROmorphone 2 MG/1 ML VIAL IV PRN ×2 (00:47→12:24)
[2018-11-21] MEDS: ALBUTEROL/IPRATROPIUM 3 ML NEB RESP TX SCH ×4 (01:13→19:31)
[2018-11-21 05:07] LABS: Eosinophils % 0.4 % (0.00-10.9); Hematocrit 23.5 VOL% (35.7-47.0); Hemoglobin 7.2 GM/DL (12.0-16.0); Immature Granulocytes % 1.3 %; Lymphocytes % 13.3 % (21.3-54.2); Mean Corpuscular HGB Conc 30.6 GM/DL (32-36); Mean Corpuscular Volume 105.4 FL (87-102); Mean Platelet Volume 11.6 FL (9.6-12.0); Platelet Count 176 T/CUMM (130-400); Red Blood Count 2.23 MC/CUMM (3.8-5.5); White Blood Count 7.8 T/CUMM (4-12)
[2018-11-21 05:34] LABS: Calcium 8.4 MG/DL (8.5-10.1)
[2018-11-21 06:01] LABS: Risk Ratio 2.2; VLDL CHOLESTEROL 19.8 MG/DL
[2018-11-21] MEDS: INSULIN REGULAR 100 UNIT/ML SUBCUT SCH ×3 (07:11→17:03)
[2018-11-21] MEDS: METOPROLOL TARTRATE 25 MG TABLET PO SCH ×2 (08:43→20:53)
[2018-11-21] MEDS: POLYETHYLENE GLYCOL POWDER 17 GM PACK PO SCH (08:43)
[2018-11-21] MEDS: predniSONE 20 MG TABLET PO SCH (08:44)
[2018-11-21] MEDS ORDERED: EPOETIN ALFA 10,000 UNIT/1 ML VIAL IV PRN (09:09)
[2018-11-21] MEDS: DEXTROSE 50% 25 GM/50 ML SYRINGE IV PRN (12:35)
[2018-11-21] MEDS: ATORVASTATIN 20 MG TABLET PO SCH (20:53)
[2018-11-22] MEDS: ALBUTEROL/IPRATROPIUM 3 ML NEB RESP TX SCH ×4 (01:06→19:58)
[2018-11-22] MEDS: INSULIN REGULAR 100 UNIT/ML SUBCUT SCH ×5 (01:12→22:34)
[2018-11-22 06:18] LABS: Basophils % 0.3 % (0.0-0.8); Eosinophils # 0.2 10*3/uL (0.0-0.87); Eosinophils % 2.4 % (0.00-10.9); Hematocrit 29.3 VOL% (35.7-47.0); Immature Granulocytes Absolute 0.16 #; Lymphocytes # 0.9 10*3/uL (1.4-4.0); Lymphocytes % 11.8 % (21.3-54.2); Mean Corpuscular HGB Conc 31.4 GM/DL (32-36); Mean Corpuscular Volume 99.7 FL (87-102); Mean Platelet Volume 11.4 FL (9.6-12.0); Monocytes % 6.5 % (1.7-12.7); Platelet Count 175 T/CUMM (130-400); White Blood Count 7.9 T/CUMM (4-12)
[2018-11-22 06:25] LABS: Calcium 8.1 MG/DL (8.5-10.1)
[2018-11-22 06:27] LABS: Albumin 2.9 G/DL (3.4-5.0); Bilirubin,Direct 0.35 MG/DL (0.0-0.20); Bilirubin,Indirect 0.6 MG/DL (0.0-1.0); Bilirubin,Total 0.9 MG/DL (0.2-1.0); Total Protein 6.1 G/DL (6.4-8.3)
[2018-11-22 06:31] LABS: Hemoglobin 9.2 GM/DL (12.0-16.0); Red Blood Count 2.94 MC/CUMM (3.8-5.5)
[2018-11-22] MEDS: predniSONE 20 MG TABLET PO SCH (09:41)
[2018-11-22] MEDS: METOPROLOL TARTRATE 25 MG TABLET PO SCH ×2 (09:42→21:38)
[2018-11-22] MEDS: POLYETHYLENE GLYCOL POWDER 17 GM PACK PO SCH (09:42)
[2018-11-22] MEDS: HYDROmorphone 2 MG/1 ML VIAL IV PRN ×2 (09:48→21:29)
[2018-11-22] MEDS: ATORVASTATIN 20 MG TABLET PO SCH (21:38)
[2018-11-23] MEDS: ALBUTEROL/IPRATROPIUM 3 ML NEB RESP TX SCH ×4 (01:39→19:29)
[2018-11-23 05:20] LABS: Basophils % 0.1 % (0.0-0.8); Eosinophils % 0.4 % (0.00-10.9); Hematocrit 29.9 VOL% (35.7-47.0); Hemoglobin 9.1 GM/DL (12.0-16.0); Immature Granulocytes % 1.7 %; Immature Granulocytes Absolute 0.16 #; Lymphocytes # 0.9 10*3/uL (1.4-4.0); Lymphocytes % 9.4 % (21.3-54.2); Mean Corpuscular HGB Conc 30.4 GM/DL (32-36); Mean Corpuscular Volume 100.3 FL (87-102); Mean Platelet Volume 11.4 FL (9.6-12.0); Monocytes % 7.8 % (1.7-12.7); Neutrophils % 80.6 % (38.7-73.9); Platelet Count 207 T/CUMM (130-400); Red Blood Count 2.98 MC/CUMM (3.8-5.5); Red Cell Distribution Width 18.4 % (9.3-17.3); White Blood Count 9.3 T/CUMM (4-12)
[2018-11-23 05:31] LABS: Calcium 8.1 MG/DL (8.5-10.1)
[2018-11-23] MEDS: INSULIN REGULAR 100 UNIT/ML SUBCUT SCH ×4 (09:06→21:51)
[2018-11-23] MEDS: predniSONE 20 MG TABLET PO SCH (09:15)
[2018-11-23] MEDS: METOPROLOL TARTRATE 25 MG TABLET PO SCH ×2 (09:17→21:51)
[2018-11-23] MEDS: POLYETHYLENE GLYCOL POWDER 17 GM PACK PO SCH (09:20)
[2018-11-23] MEDS: ASPIRIN EC 81 MG TABLET PO SCH (13:31)
[2018-11-23] MEDS: ATORVASTATIN 20 MG TABLET PO SCH (21:51)
[2018-11-24] MEDS: ALBUTEROL/IPRATROPIUM 3 ML NEB RESP TX SCH ×4 (02:00→20:35)
[2018-11-24 05:37] LABS: Basophils % 0.2 % (0.0-0.8); Eosinophils % 0.3 % (0.00-10.9); Hematocrit 29.3 VOL% (35.7-47.0); Hemoglobin 8.9 GM/DL (12.0-16.0); Immature Granulocytes % 1.7 %; Immature Granulocytes Absolute 0.16 #; Lymphocytes % 10.4 % (21.3-54.2); Mean Corpuscular HGB Conc 30.4 GM/DL (32-36); Mean Corpuscular Volume 101.7 FL (87-102); Mean Platelet Volume 11.1 FL (9.6-12.0); Neutrophils % 79.4 % (38.7-73.9); Platelet Count 229 T/CUMM (130-400); Red Blood Count 2.88 MC/CUMM (3.8-5.5); Red Cell Distribution Width 17.5 % (9.3-17.3); White Blood Count 9.3 T/CUMM (4-12)
[2018-11-24 06:01] LABS: Calcium 8.3 MG/DL (8.5-10.1); Osmolality,Calculated 275.7 MOS/KG (273-304)
[2018-11-24] MEDS: INSULIN REGULAR 100 UNIT/ML SUBCUT SCH ×4 (07:32→20:32)
[2018-11-24] MEDS: ASPIRIN EC 81 MG TABLET PO SCH (12:57)
[2018-11-24] MEDS: METOPROLOL TARTRATE 25 MG TABLET PO SCH (12:57)
[2018-11-24] MEDS: POLYETHYLENE GLYCOL POWDER 17 GM PACK PO SCH (12:57)
[2018-11-24] MEDS: predniSONE 20 MG TABLET PO SCH (12:57)
[2018-11-24] MEDS: METOPROLOL TARTRATE 50 MG TABLET PO SCH (20:47)
[2018-11-24] MEDS: ATORVASTATIN 20 MG TABLET PO SCH (20:47)
[2018-11-25] MEDS: ALBUTEROL/IPRATROPIUM 3 ML NEB RESP TX SCH ×2 (01:10→07:30)
[2018-11-25 05:10] LABS: Basophils % 0.2 % (0.0-0.8); Eosinophils # 0.2 10*3/uL (0.0-0.87); Eosinophils % 2.1 % (0.00-10.9); Hematocrit 32.3 VOL% (35.7-47.0); Hemoglobin 9.8 GM/DL (12.0-16.0); Immature Granulocytes % 1.9 %; Immature Granulocytes Absolute 0.15 #; Lymphocytes # 1.1 10*3/uL (1.4-4.0); Mean Corpuscular HGB Conc 30.3 GM/DL (32-36); Mean Corpuscular Volume 102.2 FL (87-102); Mean Platelet Volume 10.8 FL (9.6-12.0); Monocytes % 9.3 % (1.7-12.7); Neutrophils % 73.5 % (38.7-73.9); Platelet Count 243 T/CUMM (130-400); Red Blood Count 3.16 MC/CUMM (3.8-5.5); Red Cell Distribution Width 17.5 % (9.3-17.3); White Blood Count 8.1 T/CUMM (4-12)
[2018-11-25 05:35] LABS: Calcium 8.1 MG/DL (8.5-10.1)
[2018-11-25] MEDS: INSULIN REGULAR 100 UNIT/ML SUBCUT SCH ×2 (07:45→11:13)
[2018-11-25] MEDS: predniSONE 20 MG TABLET PO SCH (09:07)
[2018-11-25] MEDS: POLYETHYLENE GLYCOL POWDER 17 GM PACK PO SCH (09:08)
[2018-11-25] MEDS: ASPIRIN EC 81 MG TABLET PO SCH (09:08)
[2018-11-25] MEDS: METOPROLOL TARTRATE 50 MG TABLET PO SCH (09:08)
[2018-11-25] MEDS ORDERED: TUBERCULIN SKIN TEST 0.1 ML SYRINGE INTRADERM ONE (10:30)
[2018-11-25 12:13] VITALS: BP 108/55
== END 2018-11-25 13:20 | DRG 853 ==
LOC: EDUNIT# → EDBD → N.ED 21:55 → SUATTDRO 11-12 01:01 → N.EDINP 11-12 01:01 → N.5E 11-12 01:21 → N.ICU 11-12 10:45 → N.3E 11-20 13:31
PROVIDERS: ADMIT Internal Medicine Nephrology; ATTEND Internal Medicine

== ENCOUNTER 2019-02-24 09:53 | Inpatient (IN) ==
[2019-02-24] MEDS ORDERED: DEXTROSE 50% 25 GM/50 ML VIAL IV STA ×3 (10:30→12:41)
[2019-02-24] MEDS ORDERED: INSULIN REGULAR 100 UNIT/ML IV STA (10:30)
[2019-02-24] MEDS ORDERED: SODIUM BICARBONATE 50 MEQ/50 ML VIAL IV STA (10:30)
[2019-02-24] MEDS ORDERED: CALCIUM CHLORIDE 1,000 MG/10 ML SYRINGE IV STA (10:31)
[2019-02-24] MEDS ORDERED: DEXTROSE 50% 25 GM/50 ML SYRINGE IV ONE ×2 (10:37→11:43)
[2019-02-24] MEDS ORDERED: SODIUM BICARBONATE 50 MEQ/50 ML SYRINGE IV ONE (10:37)
[2019-02-24 10:55] LABS: Basophils % 0.6 % (0.0-0.8); Eosinophils # 0.4 10*3/uL (0.0-0.87); Eosinophils % 12.5 % (0.00-10.9); Hematocrit 35.2 VOL% (35.7-47.0); Hemoglobin 10.8 GM/DL (12.0-16.0); Immature Granulocytes % 0.3 %; Immature Granulocytes Absolute 0.01 #; Lymphocytes # 1.3 10*3/uL (1.4-4.0); Lymphocytes % 40.5 % (21.3-54.2); Mean Corpuscular HGB Conc 30.7 GM/DL (32-36); Mean Corpuscular Volume 104.1 FL (87-102); Mean Platelet Volume 11.7 FL (9.6-12.0); Monocytes % 15.4 % (1.7-12.7); Neutrophils % 30.7 % (38.7-73.9); Platelet Count 131 T/CUMM (130-400); Red Blood Count 3.38 MC/CUMM (3.8-5.5); Red Cell Distribution Width 18.3 % (9.3-17.3); White Blood Count 3.1 T/CUMM (4-12)
[2019-02-24 11:18] LABS: Eosinophils 19 % (0-10); Lymphocytes 49 % (20-55); Macrocytosis 2+; Platelet Estimate Adequate; Segmented Neutrophils 22 % (50-85); Total Cells Counted 100
[2019-02-24 11:22] LABS: Anisocytosis 2+
[2019-02-24 11:25] LABS: Albumin 3.7 G/DL (3.4-5.0); Bilirubin,Total 0.5 MG/DL (0.2-1.0); Calcium 8.2 MG/DL (8.5-10.1); Osmolality,Calculated 276.8 MOS/KG (273-304); Total Protein 7.1 G/DL (6.4-8.3)
[2019-02-24] MEDS: DEXTROSE 5% NACL 0.45% 1,000 ML IV SCH ×3 (12:00→23:10)
[2019-02-24] MEDS ORDERED: HYDROCORTISONE 100 MG VIAL IV STA (12:42)
[2019-02-24] MEDS ORDERED: PROMETHAZINE 25 MG/1 ML VIAL IM PRN (13:24)
[2019-02-24] MEDS ORDERED: NITROGLYCERIN SL 0.4 MG TABLET SL PRN (13:24)
[2019-02-24] MEDS: ENOXAPARIN 30 MG/0.3 ML SYRINGE SUBCUT SCH (13:50)
[2019-02-24] MEDS ORDERED: DEXTROSE 10% 250 ML IV ONE (14:00)
[2019-02-24] MEDS: HYDROCORTISONE 100 MG VIAL IV SCH ×2 (17:09→23:09)
[2019-02-24] MEDS: SEVELAMER CARBONATE 800 MG TABLET PO SCH (17:09)
[2019-02-24] MEDS: CARVEDILOL 25 MG TABLET PO SCH (20:23)
[2019-02-24] MEDS: DIVALPROEX 500 MG TABLET PO SCH (20:32)
[2019-02-24] MEDS: ATORVASTATIN 20 MG TABLET PO SCH (20:32)
[2019-02-25] MEDS: HYDROCORTISONE 100 MG VIAL IV SCH (04:09)
[2019-02-25] MEDS: DEXTROSE 5% NACL 0.45% 1,000 ML IV SCH (04:43)
[2019-02-25 06:35] LABS: Basophils % 0.5 % (0.0-0.8); Hematocrit 32.5 VOL% (35.7-47.0); Immature Granulocytes % 0.3 %; Immature Granulocytes Absolute 0.01 #; Lymphocytes # 1.1 10*3/uL (1.4-4.0); Lymphocytes % 29.7 % (21.3-54.2); Mean Corpuscular HGB Conc 30.8 GM/DL (32-36); Mean Corpuscular Volume 102.5 FL (87-102); Mean Platelet Volume 10.6 FL (9.6-12.0); Monocytes % 12.8 % (1.7-12.7); Neutrophils % 56.7 % (38.7-73.9); Platelet Count 101 T/CUMM (130-400); Red Blood Count 3.17 MC/CUMM (3.8-5.5); Red Cell Distribution Width 17.6 % (9.3-17.3); White Blood Count 3.7 T/CUMM (4-12)
[2019-02-25 06:49] LABS: Calcium 8.4 MG/DL (8.5-10.1); Osmolality,Calculated 268.2 MOS/KG (273-304)
[2019-02-25 06:56] LABS: Anisocytosis 1+; Macrocytosis 1+
[2019-02-25 06:57] LABS: Ovalocytes Slight; Platelet Estimate Decreased
[2019-02-25] MEDS: CARVEDILOL 25 MG TABLET PO SCH ×2 (08:07→21:10)
[2019-02-25] MEDS: DIVALPROEX 500 MG TABLET PO SCH ×2 (08:13→21:10)
[2019-02-25] MEDS: ASPIRIN EC 81 MG TABLET PO SCH (08:13)
[2019-02-25] MEDS: CALCITRIOL 0.5 MCG CAPSULE PO SCH (08:14)
[2019-02-25] MEDS: PANTOPRAZOLE 40 MG TABLET PO SCH (08:15)
[2019-02-25] MEDS: SEVELAMER CARBONATE 800 MG TABLET PO SCH ×3 (08:17→17:36)
[2019-02-25] MEDS: ENOXAPARIN 30 MG/0.3 ML SYRINGE SUBCUT SCH (16:01)
[2019-02-25] MEDS: ISOSORBIDE MONONITRATE 30 MG TABLET PO SCH (16:02)
[2019-02-25] MEDS: ATORVASTATIN 20 MG TABLET PO SCH (21:10)
[2019-02-25] MEDS: SERTRALINE 25 MG TABLET PO SCH (21:10)
[2019-02-25] MEDS: traZODone 50 MG TABLET PO SCH (21:10)
[2019-02-26 05:12] LABS: Calcium 8.1 MG/DL (8.5-10.1); Osmolality,Calculated 269.2 MOS/KG (273-304)
[2019-02-26] MEDS: SEVELAMER CARBONATE 800 MG TABLET PO SCH ×3 (08:00→17:59)
[2019-02-26] MEDS: CARVEDILOL 25 MG TABLET PO SCH ×2 (14:03→20:47)
[2019-02-26] MEDS: ENOXAPARIN 30 MG/0.3 ML SYRINGE SUBCUT SCH (14:03)
[2019-02-26] MEDS: CALCITRIOL 0.5 MCG CAPSULE PO SCH (14:03)
[2019-02-26] MEDS: ISOSORBIDE MONONITRATE 30 MG TABLET PO SCH (14:03)
[2019-02-26] MEDS: ASPIRIN EC 81 MG TABLET PO SCH (14:05)
[2019-02-26] MEDS: DIVALPROEX 500 MG TABLET PO SCH ×2 (14:05→20:46)
[2019-02-26] MEDS: PANTOPRAZOLE 40 MG TABLET PO SCH (14:05)
[2019-02-26] MEDS ORDERED: TUBERCULIN SKIN TEST 0.1 ML SYRINGE INTRADERM ONE (17:07)
[2019-02-26] MEDS: traZODone 50 MG TABLET PO SCH (20:45)
[2019-02-26] MEDS: SERTRALINE 25 MG TABLET PO SCH (20:46)
[2019-02-26] MEDS: ATORVASTATIN 20 MG TABLET PO SCH (20:46)
[2019-02-27] MEDS: SEVELAMER CARBONATE 800 MG TABLET PO SCH ×3 (08:49→17:08)
[2019-02-27] MEDS: CARVEDILOL 25 MG TABLET PO SCH (08:49)
[2019-02-27] MEDS: ASPIRIN EC 81 MG TABLET PO SCH (08:49)
[2019-02-27] MEDS: DIVALPROEX 500 MG TABLET PO SCH ×2 (08:50→21:41)
[2019-02-27] MEDS: ISOSORBIDE MONONITRATE 30 MG TABLET PO SCH (08:50)
[2019-02-27] MEDS: PANTOPRAZOLE 40 MG TABLET PO SCH (08:50)
[2019-02-27] MEDS: ENOXAPARIN 30 MG/0.3 ML SYRINGE SUBCUT SCH (14:09)
[2019-02-27] MEDS: SERTRALINE 25 MG TABLET PO SCH (21:41)
[2019-02-27] MEDS: traZODone 50 MG TABLET PO SCH (21:41)
[2019-02-27] MEDS: ATORVASTATIN 20 MG TABLET PO SCH (21:41)
[2019-02-28 06:36] LABS: Calcium 8.3 MG/DL (8.5-10.1); Osmolality,Calculated 272.4 MOS/KG (273-304)
[2019-02-28] MEDS: ASPIRIN EC 81 MG TABLET PO SCH (08:56)
[2019-02-28] MEDS: PANTOPRAZOLE 40 MG TABLET PO SCH (08:56)
[2019-02-28] MEDS: DIVALPROEX 500 MG TABLET PO SCH ×2 (08:56→21:24)
[2019-02-28] MEDS: SEVELAMER CARBONATE 800 MG TABLET PO SCH ×3 (08:56→16:35)
[2019-02-28] MEDS: ISOSORBIDE MONONITRATE 30 MG TABLET PO SCH (08:56)
[2019-02-28] MEDS: SODIUM POLYSTYRENE SULFATE 15 GM/60 ML BOTTLE PO SCH ×2 (10:47→16:35)
[2019-02-28] MEDS: ENOXAPARIN 30 MG/0.3 ML SYRINGE SUBCUT SCH (13:55)
[2019-02-28] MEDS: ATORVASTATIN 20 MG TABLET PO SCH (21:24)
[2019-02-28] MEDS: SERTRALINE 25 MG TABLET PO SCH (21:24)
[2019-02-28] MEDS: traZODone 50 MG TABLET PO SCH (21:24)
[2019-03-01 07:30] LABS: Calcium 8.4 MG/DL (8.5-10.1); Osmolality,Calculated 279.1 MOS/KG (273-304)
[2019-03-01] MEDS: ISOSORBIDE MONONITRATE 30 MG TABLET PO SCH (10:48)
[2019-03-01] MEDS: PANTOPRAZOLE 40 MG TABLET PO SCH (13:10)
[2019-03-01] MEDS: SEVELAMER CARBONATE 800 MG TABLET PO SCH ×3 (13:10→17:32)
[2019-03-01] MEDS: DIVALPROEX 500 MG TABLET PO SCH ×2 (13:10→21:18)
[2019-03-01] MEDS: ASPIRIN EC 81 MG TABLET PO SCH (13:10)
[2019-03-01] MEDS: ENOXAPARIN 30 MG/0.3 ML SYRINGE SUBCUT SCH (15:54)
[2019-03-01] MEDS ORDERED: ACETAMINOPHEN 325 MG TABLET PO PRN (16:00)
[2019-03-01] MEDS: traZODone 50 MG TABLET PO SCH (21:16)
[2019-03-01] MEDS: SERTRALINE 25 MG TABLET PO SCH (21:17)
[2019-03-01] MEDS: ATORVASTATIN 20 MG TABLET PO SCH (21:18)
[2019-03-02] MEDS: CARVEDILOL 25 MG TABLET PO SCH ×2 (03:32→08:56)
[2019-03-02 06:36] LABS: Calcium 8.7 MG/DL (8.5-10.1); Osmolality,Calculated 274.1 MOS/KG (273-304)
[2019-03-02] MEDS: DIVALPROEX 500 MG TABLET PO SCH (08:56)
[2019-03-02] MEDS: ASPIRIN EC 81 MG TABLET PO SCH (08:56)
[2019-03-02] MEDS: ISOSORBIDE MONONITRATE 30 MG TABLET PO SCH (08:56)
[2019-03-02] MEDS: PANTOPRAZOLE 40 MG TABLET PO SCH (08:56)
[2019-03-02] MEDS: SEVELAMER CARBONATE 800 MG TABLET PO SCH ×2 (08:56→13:07)
[2019-03-02 14:35] VITALS: BP 118/63
[2019-03-02] MEDS: ENOXAPARIN 30 MG/0.3 ML SYRINGE SUBCUT SCH (15:47)
== END 2019-03-02 15:42 | disposition home health service (06) | DRG 638 ==
LOC: EDBD → EDUNIT# → N.ED 09:53 → SUATTDRO 11:46 → N.EDINP 12:32 → N.ICU 13:10 → N.5E 02-25 13:47
PROVIDERS: ADMIT Internal Medicine; ATTEND Internal Medicine

== ENCOUNTER 2019-06-21 07:22 | Observation (INO) ==
[2019-06-21] MEDS ORDERED: FUROSEMIDE 100 MG/10 ML VIAL IV STA (07:31)
[2019-06-21] MEDS ORDERED: NITROGLYCERIN 2% OINT 1 INCH/GM PACK TOP STA (07:32)
[2019-06-21 08:13] LABS: Basophils % 0.3 % (0.0-0.8); Eosinophils # 0.3 10*3/uL (0.0-0.87); Eosinophils % 8.7 % (0.00-10.9); Hematocrit 28.6 VOL% (35.7-47.0); Hemoglobin 8.9 GM/DL (12.0-16.0); Lymphocytes # 1.1 10*3/uL (1.4-4.0); Lymphocytes % 29.2 % (21.3-54.2); Mean Corpuscular HGB Conc 31.1 GM/DL (32-36); Mean Corpuscular Volume 105.1 FL (87-102); Mean Platelet Volume 11.2 FL (9.6-12.0); Monocytes % 8.2 % (1.7-12.7); Neutrophils % 53.6 % (38.7-73.9); Red Blood Count 2.72 MC/CUMM (3.8-5.5); Red Cell Distribution Width 13.7 % (9.3-17.3); White Blood Count 3.7 T/CUMM (4-12)
[2019-06-21 08:16] LABS: Platelet Count 95 T/CUMM (130-400)
[2019-06-21 08:21] LABS: PT Patient Result 11.2 SECS (9.6-12.2); Partial Thromboplastin Time 27.5 SECS (20.8-36.0)
[2019-06-21 08:38] LABS: Hypochromasia 1+; Platelet Estimate Decreased
[2019-06-21 08:39] LABS: Macrocytosis Slight
[2019-06-21 08:40] LABS: Alanine Aminotransferase 16 U/L (13-56); Albumin 3.5 G/DL (3.4-5.0); Alkaline Phosphatase 83 U/L (45-117); Aspartate Amino Transferase 14 U/L (0-37); Bilirubin,Total < 0.39 MG/DL (0.2-1.0); Blood Urea Nitrogen 37 MG/DL (7-18); Calcium 8.4 MG/DL (8.5-10.1); Estimated Glom Filtration Rate 4 ML/MIN; Glucose 97 MG/DL (74-106); Osmolality,Calculated 287.4 MOS/KG (273-304); Total Protein 6.9 G/DL (6.4-8.3)
[2019-06-21] MEDS ORDERED: ACETAMINOPHEN 325 MG TABLET PO PRN (10:32)
[2019-06-21] MEDS ORDERED: ALBUTEROL 2.5 MG/3 ML NEB RESP TX PRN (10:37)
[2019-06-21 11:11] LABS: Risk Ratio 1.75; Thyroid Stimulating Hormone 1.73 uIU/ml (0.358-3.74); VLDL CHOLESTEROL 11.6 MG/DL
[2019-06-21] MEDS: PANTOPRAZOLE 40 MG TABLET PO SCH (12:45)
[2019-06-21] MEDS: ALBUTEROL/IPRATROPIUM 3 ML NEB RESP TX SCH ×2 (14:58→20:11)
[2019-06-21] MEDS ORDERED: HEPARIN 5,000 UNIT/1 ML VIAL SUBCUT SCH (15:00)
[2019-06-21] MEDS ORDERED: NITROGLYCERIN SL 0.4 MG TABLET SL PRN (15:01)
[2019-06-21] MEDS ORDERED: ASPIRIN CHEW 81 MG TABLET PO ONE (15:01)
[2019-06-21] MEDS ORDERED: amLODIPine 5 MG TABLET PO SCH (16:00)
[2019-06-21] MEDS: SEVELAMER CARBONATE 800 MG TABLET PO SCH (17:07)
[2019-06-21] MEDS ORDERED: MIDODRINE 5 MG TABLET PO SCH (21:00)
[2019-06-21] MEDS ORDERED: SERTRALINE 25 MG TABLET PO SCH (21:00)
[2019-06-21] MEDS ORDERED: ATORVASTATIN 20 MG TABLET PO SCH (21:00)
[2019-06-21] MEDS: MUPIROCIN 2% OINT 22 GM TUBE TOP SCH (22:31)
[2019-06-21] MEDS: carvediloL 12.5 MG TABLET PO SCH (22:31)
[2019-06-22 06:19] LABS: Basophils % 0.3 % (0.0-0.8); Eosinophils # 0.3 10*3/uL (0.0-0.87); Eosinophils % 7.7 % (0.00-10.9); Hematocrit 30.8 VOL% (35.7-47.0); Hemoglobin 9.5 GM/DL (12.0-16.0); Immature Granulocytes % 0.3 %; Immature Granulocytes Absolute 0.01 #; Lymphocytes # 0.9 10*3/uL (1.4-4.0); Lymphocytes % 27.4 % (21.3-54.2); Mean Corpuscular HGB Conc 30.8 GM/DL (32-36); Mean Corpuscular Volume 104.4 FL (87-102); Mean Platelet Volume 11.2 FL (9.6-12.0); Monocytes % 9.8 % (1.7-12.7); Neutrophils % 54.5 % (38.7-73.9); Red Blood Count 2.95 MC/CUMM (3.8-5.5); Red Cell Distribution Width 13.3 % (9.3-17.3); White Blood Count 3.3 T/CUMM (4-12)
[2019-06-22 06:30] LABS: Platelet Count 76 T/CUMM (130-400)
[2019-06-22 06:40] LABS: Albumin 3.3 G/DL (3.4-5.0); Bilirubin,Total 0.5 MG/DL (0.2-1.0); Calcium 8.2 MG/DL (8.5-10.1); Osmolality,Calculated 285.7 MOS/KG (273-304)
[2019-06-22 06:43] LABS: Platelet Estimate Decreased; Polychromasia Few
[2019-06-22] MEDS: ALBUTEROL/IPRATROPIUM 3 ML NEB RESP TX SCH ×3 (07:33→14:02)
[2019-06-22] MEDS: SEVELAMER CARBONATE 800 MG TABLET PO SCH ×3 (08:09→18:02)
[2019-06-22] MEDS: carvediloL 12.5 MG TABLET PO SCH (08:09)
[2019-06-22] MEDS: MUPIROCIN 2% OINT 22 GM TUBE TOP SCH (08:09)
[2019-06-22] MEDS: PANTOPRAZOLE 40 MG TABLET PO SCH (08:09)
[2019-06-22] MEDS ORDERED: ASPIRIN CHEW 81 MG TABLET PO SCH (09:00)
[2019-06-22] MEDS ORDERED: ISOSORBIDE MONONITRATE 30 MG TABLET PO SCH (09:00)
[2019-06-22] MEDS ORDERED: ALBUTEROL/IPRATROPIUM 3 ML NEB RESP TX ONE (10:40)
[2019-06-22] MEDS ORDERED: PHENOL 1.4% THROAT SPRAY 177 ML BOTTLE PO PRN (11:42)
[2019-06-22 12:12] VITALS: BP 113/58
[2019-06-22] MEDS ORDERED: BENZONATATE 100 MG CAPSULE PO SCH (12:30)
== END 2019-06-22 19:29 | disposition home or self-care (01) ==
LOC: EDUNIT# → EDBD → N.EDINP 07:22 → N.ED 07:22 → SUATTDRO 11:49 → N.EDINP 13:35 → N.2E 13:44
PROVIDERS: ADMIT Family Medicine; ATTEND Internal Medicine

== ENCOUNTER 2019-09-10 18:05 | Inpatient (IN) ==
[2019-09-10] MEDS ORDERED: KETOROLAC 30 MG/1 ML VIAL IV STA (18:24)
[2019-09-10] MEDS ORDERED: PANTOPRAZOLE 40 MG VIAL IV STA (18:24)
[2019-09-10] MEDS ORDERED: METOCLOPRAMIDE 10 MG/2 ML VIAL IV STA (18:26)
[2019-09-10 18:46] LABS: Basophils % 0.4 % (0.0-0.8); Eosinophils # 0.2 10*3/uL (0.0-0.87); Eosinophils % 5.1 % (0.00-10.9); Hematocrit 40.5 VOL% (35.7-47.0); Hemoglobin 12.4 GM/DL (12.0-16.0); Immature Granulocytes % 0.2 %; Immature Granulocytes Absolute 0.01 #; Lymphocytes # 1.2 10*3/uL (1.4-4.0); Lymphocytes % 26.2 % (21.3-54.2); Mean Corpuscular HGB Conc 30.6 GM/DL (32-36); Mean Corpuscular Volume 107.4 FL (87-102); Mean Platelet Volume 11.5 FL (9.6-12.0); Monocytes % 13.6 % (1.7-12.7); Neutrophils % 54.5 % (38.7-73.9); Platelet Count 95 T/CUMM (130-400); Red Blood Count 3.77 MC/CUMM (3.8-5.5); Red Cell Distribution Width 14.6 % (9.3-17.3); White Blood Count 4.5 T/CUMM (4-12)
[2019-09-10 18:55] LABS: PT Patient Result 11.2 SECS (9.6-12.2)
[2019-09-10 19:05] LABS: Alanine Aminotransferase 23 U/L (13-56); Albumin 3.5 G/DL (3.4-5.0); Alkaline Phosphatase 108 U/L (45-117); Aspartate Amino Transferase 23 U/L (0-37); Bilirubin,Total < 0.39 MG/DL (0.2-1.0); Blood Urea Nitrogen 15 MG/DL (7-18); Calcium 9.2 MG/DL (8.5-10.1); Estimated Glom Filtration Rate 10 ML/MIN; Glucose 98 MG/DL (74-106); Total Protein 7.8 G/DL (6.4-8.3); Troponin I 0.033 NG/ML (0.00-0.045)
[2019-09-10] MEDS ORDERED: POTASSIUM BICARB EFFERVESCENT 25 MEQ TABLET PO ONE (19:59)
[2019-09-10] MEDS ORDERED: ALUMINUM/MAGNES/SIMETH MAX STR 30 ML UDCUP PO PRN (20:18)
[2019-09-10] MEDS ORDERED: diphenhydrAMINE CAP 25 MG CAPSULE PO PRN (20:18)
[2019-09-10] MEDS ORDERED: NICOTINE 21 MG/24 HR PATCH TRANSDERM PRN (20:18)
[2019-09-10] MEDS ORDERED: hydrALAZINE 20 MG/1 ML VIAL IV PRN (20:18)
[2019-09-10 20:39] LABS: Risk Ratio 1.88
[2019-09-10 20:40] LABS: Albumin 3.5 G/DL (3.4-5.0); Bilirubin,Direct 0.12 MG/DL (0.0-0.20); Bilirubin,Indirect 0.3 MG/DL (0.0-1.0); Bilirubin,Total 0.4 MG/DL (0.2-1.0); Total Protein 7.7 G/DL (6.4-8.3)
[2019-09-10] MEDS: SODIUM CHLORIDE 0.9% 1,000 ML IV SCH (21:18)
[2019-09-10 21:33] LABS: Hepatitis B Core IgM Quant 0.17 Index; Hepatitis B Surface Ag Quant < 0.10 Index; Hepatitis B Surface Ag Result Negative (Negative); Hepatitis C Virus Ab Quant < 0.02 Index; Hepatitis C Virus Ab Result Negative (Negative)
[2019-09-10] MEDS ORDERED: POTASSIUM CHLORIDE RIDER 10 MEQ in PREMIX 1 EACH IV PRN (21:48)
[2019-09-10] MEDS: carvediloL 12.5 MG TABLET PO SCH (23:02)
[2019-09-11 04:57] LABS: Basophils % 0.3 % (0.0-0.8); Eosinophils # 0.2 10*3/uL (0.0-0.87); Hematocrit 34.5 VOL% (35.7-47.0); Immature Granulocytes % 0.3 %; Immature Granulocytes Absolute 0.01 #; Lymphocytes # 1.2 10*3/uL (1.4-4.0); Lymphocytes % 30.8 % (21.3-54.2); Mean Corpuscular HGB Conc 31.9 GM/DL (32-36); Mean Corpuscular Volume 106.8 FL (87-102); Mean Platelet Volume 12.1 FL (9.6-12.0); Monocytes % 13.9 % (1.7-12.7); Neutrophils % 49.7 % (38.7-73.9); Red Blood Count 3.23 MC/CUMM (3.8-5.5); Red Cell Distribution Width 14.5 % (9.3-17.3); White Blood Count 3.8 T/CUMM (4-12)
[2019-09-11 05:15] LABS: Platelet Count 82 T/CUMM (130-400)
[2019-09-11 05:30] LABS: Hypochromasia 1+; Ovalocytes Slight
[2019-09-11 05:31] LABS: Platelet Estimate Decreased
[2019-09-11 05:40] LABS: Albumin 2.9 G/DL (3.4-5.0); Bilirubin,Total 0.6 MG/DL (0.2-1.0); Calcium 7.9 MG/DL (8.5-10.1); Osmolality,Calculated 274.7 MOS/KG (273-304); Total Protein 6.4 G/DL (6.4-8.3)
[2019-09-11] MEDS: carvediloL 12.5 MG TABLET PO SCH ×2 (12:23→16:37)
[2019-09-11] MEDS: ISOSORBIDE MONONITRATE 30 MG TABLET PO SCH (12:23)
[2019-09-11] MEDS ORDERED: NITROGLYCERIN SL 0.4 MG TABLET SL PRN (12:45)
[2019-09-11] MEDS ORDERED: PHENOL 1.4% THROAT SPRAY 177 ML BOTTLE PO PRN (12:45)
[2019-09-11] MEDS: PROMETHAZINE 25 MG/1 ML VIAL IM PRN (13:46)
[2019-09-11] MEDS: MORPHINE 4 MG/1 ML VIAL IV PRN (15:15)
[2019-09-11] MEDS: SODIUM CHLORIDE 0.9% 1,000 ML IV SCH (15:17)
[2019-09-11] MEDS: SEVELAMER CARBONATE 800 MG TABLET PO SCH (16:56)
[2019-09-11] MEDS: traZODone 50 MG TABLET PO SCH (21:12)
[2019-09-11] MEDS: ATORVASTATIN 20 MG TABLET PO SCH (21:12)
[2019-09-11] MEDS: SERTRALINE 25 MG TABLET PO SCH (21:12)
[2019-09-12 05:39] LABS: Basophils % 0.4 % (0.0-0.8); Eosinophils # 0.2 10*3/uL (0.0-0.87); Eosinophils % 7.3 % (0.00-10.9); Hematocrit 36.6 VOL% (35.7-47.0); Hemoglobin 11.6 GM/DL (12.0-16.0); Immature Granulocytes % 0.4 %; Immature Granulocytes Absolute 0.01 #; Lymphocytes % 35.9 % (21.3-54.2); Mean Corpuscular HGB Conc 31.7 GM/DL (32-36); Mean Corpuscular Volume 107.3 FL (87-102); Mean Platelet Volume 11.8 FL (9.6-12.0); Monocytes % 13.2 % (1.7-12.7); Neutrophils % 42.8 % (38.7-73.9); Red Blood Count 3.41 MC/CUMM (3.8-5.5); Red Cell Distribution Width 14.1 % (9.3-17.3); White Blood Count 2.7 T/CUMM (4-12)
[2019-09-12 05:40] LABS: Platelet Count 85 T/CUMM (130-400)
[2019-09-12 05:55] LABS: Bilirubin,Total 0.5 MG/DL (0.2-1.0); Calcium 8.3 MG/DL (8.5-10.1); Osmolality,Calculated 274.1 MOS/KG (273-304); Total Protein 6.5 G/DL (6.4-8.3)
[2019-09-12 07:00] LABS: Hypochromasia 1+; Ovalocytes Slight; Platelet Estimate Decreased
[2019-09-12] MEDS: ISOSORBIDE MONONITRATE 30 MG TABLET PO SCH (09:27)
[2019-09-12] MEDS: SEVELAMER CARBONATE 800 MG TABLET PO SCH ×3 (09:28→17:15)
[2019-09-12] MEDS: ASPIRIN CHEW 81 MG TABLET PO SCH (09:28)
[2019-09-12] MEDS: carvediloL 12.5 MG TABLET PO SCH ×2 (09:28→17:15)
[2019-09-12] MEDS: SERTRALINE 25 MG TABLET PO SCH (21:31)
[2019-09-12] MEDS: ATORVASTATIN 20 MG TABLET PO SCH (21:31)
[2019-09-12] MEDS: traZODone 50 MG TABLET PO SCH (21:31)
[2019-09-13 08:50] LABS: Albumin 3.2 G/DL (3.4-5.0); Bilirubin,Total 0.4 MG/DL (0.2-1.0); Calcium 8.4 MG/DL (8.5-10.1); Osmolality,Calculated 266.9 MOS/KG (273-304); Total Protein 6.9 G/DL (6.4-8.3)
[2019-09-13] MEDS ORDERED: ETOMIDATE 20 MG/10 ML VIAL IV ONE (09:00)
[2019-09-13] MEDS ORDERED: propofoL 200 MG/20 ML VIAL IV ONE (09:00)
[2019-09-13] MEDS ORDERED: LIDOCAINE 2% 5 ML VIAL ONE (09:00)
[2019-09-13] MEDS: ISOSORBIDE MONONITRATE 30 MG TABLET PO SCH (10:12)
[2019-09-13] MEDS: carvediloL 12.5 MG TABLET PO SCH ×2 (10:12→17:36)
[2019-09-13] MEDS: ASPIRIN CHEW 81 MG TABLET PO SCH (10:12)
[2019-09-13] MEDS: SEVELAMER CARBONATE 800 MG TABLET PO SCH ×3 (10:12→17:36)
[2019-09-13] MEDS: SODIUM CHLORIDE 0.9% 1,000 ML IV SCH (13:17)
[2019-09-13 17:53] LABS: Basophils % 0.4 % (0.0-0.8); Eosinophils # 0.1 10*3/uL (0.0-0.87); Eosinophils % 5.3 % (0.00-10.9); Hematocrit 35.2 VOL% (35.7-47.0); Hemoglobin 11.2 GM/DL (12.0-16.0); Immature Granulocytes % 0.4 %; Immature Granulocytes Absolute 0.01 #; Lymphocytes % 45.4 % (21.3-54.2); Mean Corpuscular HGB Conc 31.8 GM/DL (32-36); Mean Corpuscular Volume 103.8 FL (87-102); Mean Platelet Volume 11.1 FL (9.6-12.0); Monocytes % 6.6 % (1.7-12.7); Neutrophils % 41.9 % (38.7-73.9); Platelet Count 93 T/CUMM (130-400); Red Blood Count 3.39 MC/CUMM (3.8-5.5); Red Cell Distribution Width 13.7 % (9.3-17.3); White Blood Count 2.3 T/CUMM (4-12)
[2019-09-13 18:58] LABS: Acanthocytes 1+; Anisocytosis Slight; Elliptocytes 1+; Hypochromasia Slight; Microcytosis Slight
[2019-09-14] MEDS: SERTRALINE 25 MG TABLET PO SCH ×2 (00:21→22:25)
[2019-09-14] MEDS: ATORVASTATIN 20 MG TABLET PO SCH ×2 (00:21→22:26)
[2019-09-14] MEDS: traZODone 50 MG TABLET PO SCH ×2 (00:21→22:24)
[2019-09-14 05:41] LABS: Basophils % 0.4 % (0.0-0.8); Eosinophils # 0.1 10*3/uL (0.0-0.87); Eosinophils % 5.9 % (0.00-10.9); Hemoglobin 12.1 GM/DL (12.0-16.0); Immature Granulocytes % 0.4 %; Immature Granulocytes Absolute 0.01 #; Lymphocytes # 0.7 10*3/uL (1.4-4.0); Lymphocytes % 28.8 % (21.3-54.2); Mean Corpuscular HGB Conc 31.8 GM/DL (32-36); Mean Platelet Volume 11.7 FL (9.6-12.0); Monocytes % 13.6 % (1.7-12.7); Neutrophils % 50.9 % (38.7-73.9); Red Blood Count 3.62 MC/CUMM (3.8-5.5); Red Cell Distribution Width 13.6 % (9.3-17.3); White Blood Count 2.4 T/CUMM (4-12)
[2019-09-14 05:42] LABS: Platelet Count 88 T/CUMM (130-400)
[2019-09-14 06:04] LABS: Hypochromasia 1+; Ovalocytes Slight; Platelet Estimate Decreased
[2019-09-14 06:07] LABS: Albumin 3.2 G/DL (3.4-5.0); Bilirubin,Total 1.9 MG/DL (0.2-1.0); Calcium 8.6 MG/DL (8.5-10.1); Osmolality,Calculated 263.7 MOS/KG (273-304); Total Protein 6.9 G/DL (6.4-8.3)
[2019-09-14] MEDS: SODIUM CHLORIDE 0.9% 1,000 ML IV SCH (09:07)
[2019-09-14] MEDS: ASPIRIN CHEW 81 MG TABLET PO SCH (09:08)
[2019-09-14] MEDS: SEVELAMER CARBONATE 800 MG TABLET PO SCH ×3 (09:08→17:32)
[2019-09-14] MEDS: ISOSORBIDE MONONITRATE 30 MG TABLET PO SCH (09:08)
[2019-09-14] MEDS: carvediloL 12.5 MG TABLET PO SCH ×2 (09:08→17:32)
[2019-09-14] MEDS ORDERED: ACETAMINOPHEN 325 MG TABLET PO PRN (21:23)
[2019-09-15] MEDS: SODIUM CHLORIDE 0.9% 1,000 ML IV SCH (07:40)
[2019-09-15] MEDS: ASPIRIN CHEW 81 MG TABLET PO SCH (09:23)
[2019-09-15] MEDS: carvediloL 12.5 MG TABLET PO SCH (09:23)
[2019-09-15] MEDS: SEVELAMER CARBONATE 800 MG TABLET PO SCH ×2 (09:23→11:47)
[2019-09-15] MEDS: ISOSORBIDE MONONITRATE 30 MG TABLET PO SCH (09:23)
[2019-09-15] MEDS: MORPHINE 4 MG/1 ML VIAL IV PRN (11:16)
[2019-09-15] MEDS: PROMETHAZINE 25 MG/1 ML VIAL IM PRN (13:10)
[2019-09-15 15:53] VITALS: BP 124/71
== END 2019-09-15 18:08 | disposition home health service (06) | DRG 391 ==
LOC: EDBD → EDUNIT# → N.ED 18:05 → SUATTDRO 20:18 → N.EDINP 20:18 → N.3E 21:11 → N.TELEN 21:37
PROVIDERS: ADMIT Family Medicine; ATTEND Emergency Medicine

== ENCOUNTER 2019-09-24 11:16 | Observation (INO) ==
[2019-09-24] MEDS ORDERED: ASPIRIN 325 MG TABLET PO STA (11:48)
[2019-09-24] MEDS ORDERED: MORPHINE 4 MG/1 ML VIAL IV STA (11:48)
[2019-09-24] MEDS ORDERED: NITROGLYCERIN SL 0.4 MG TABLET SL PRN (11:48)
[2019-09-24 12:20] LABS: Basophils % 0.2 % (0.0-0.8); Eosinophils # 0.2 10*3/uL (0.0-0.87); Eosinophils % 4.8 % (0.00-10.9); Hematocrit 42.3 VOL% (35.7-47.0); Hemoglobin 13.3 GM/DL (12.0-16.0); Immature Granulocytes % 0.4 %; Immature Granulocytes Absolute 0.02 #; Lymphocytes # 1.1 10*3/uL (1.4-4.0); Lymphocytes % 23.1 % (21.3-54.2); Mean Corpuscular HGB Conc 31.4 GM/DL (32-36); Mean Corpuscular Volume 105.2 FL (87-102); Monocytes % 8.7 % (1.7-12.7); Neutrophils % 62.8 % (38.7-73.9); Platelet Count 89 T/CUMM (130-400); Red Blood Count 4.02 MC/CUMM (3.8-5.5); White Blood Count 4.6 T/CUMM (4-12)
[2019-09-24 12:50] LABS: Calcium 8.7 MG/DL (8.5-10.1); Osmolality,Calculated 269.4 MOS/KG (273-304)
[2019-09-24] MEDS ORDERED: ACETAMINOPHEN 325 MG TABLET PO PRN (17:23)
[2019-09-24] MEDS ORDERED: DOCUSATE SODIUM 100 MG CAPSULE PO PRN (17:23)
[2019-09-24] MEDS ORDERED: guaiFENesin/DM ER 600-30 MG TABLET PO PRN (17:23)
[2019-09-24] MEDS ORDERED: ALUMINUM/MAGNES/SIMETH MAX STR 30 ML UDCUP PO PRN (17:23)
[2019-09-24] MEDS ORDERED: SIMETHICONE CHEW 125 MG TABLET PO PRN (17:23)
[2019-09-24] MEDS ORDERED: LACTULOSE 20 GM/30 ML UDCUP PO PRN (17:23)
[2019-09-24] MEDS ORDERED: hydrALAZINE 20 MG/1 ML VIAL IV PRN (17:23)
[2019-09-24] MEDS ORDERED: BISACODYL 5 MG TABLET PO PRN (17:23)
[2019-09-24] MEDS ORDERED: ZALEPLON 5 MG CAPSULE PO PRN (17:23)
[2019-09-24] MEDS ORDERED: diphenhydrAMINE CAP 25 MG CAPSULE PO PRN (17:23)
[2019-09-24] MEDS ORDERED: ENOXAPARIN 80 MG/0.8 ML SYRINGE SUBCUT ONE (20:30)
[2019-09-24] MEDS: ALBUTEROL/IPRATROPIUM 3 ML NEB RESP TX SCH (21:18)
[2019-09-25] MEDS: ALBUTEROL/IPRATROPIUM 3 ML NEB RESP TX SCH ×4 (01:23→19:25)
[2019-09-25 07:05] LABS: Basophils % 0.3 % (0.0-0.8); Eosinophils # 0.2 10*3/uL (0.0-0.87); Eosinophils % 6.6 % (0.00-10.9); Hematocrit 35.9 VOL% (35.7-47.0); Hemoglobin 11.1 GM/DL (12.0-16.0); Immature Granulocytes % 0.3 %; Immature Granulocytes Absolute 0.01 #; Lymphocytes # 0.9 10*3/uL (1.4-4.0); Lymphocytes % 27.2 % (21.3-54.2); Mean Corpuscular HGB Conc 30.9 GM/DL (32-36); Mean Corpuscular Volume 107.2 FL (87-102); Mean Platelet Volume 10.9 FL (9.6-12.0); Monocytes % 12.6 % (1.7-12.7); Red Blood Count 3.35 MC/CUMM (3.8-5.5); Red Cell Distribution Width 13.6 % (9.3-17.3); White Blood Count 3.3 T/CUMM (4-12)
[2019-09-25 07:06] LABS: Platelet Count 75 T/CUMM (130-400)
[2019-09-25 07:27] LABS: Albumin 3.2 G/DL (3.4-5.0); Bilirubin,Total 0.5 MG/DL (0.2-1.0); Calcium 8.8 MG/DL (8.5-10.1); Osmolality,Calculated 270.5 MOS/KG (273-304); Total Protein 6.8 G/DL (6.4-8.3)
[2019-09-25 07:31] LABS: Hypochromasia 1+; Macrocytosis Slight; Ovalocytes Slight
[2019-09-25 07:32] LABS: Platelet Estimate Decreased
[2019-09-25 08:03] LABS: Risk Ratio 1.82; VLDL CHOLESTEROL 14.8 MG/DL
[2019-09-25] MEDS: PANTOPRAZOLE 40 MG TABLET PO SCH (10:34)
[2019-09-25] MEDS ORDERED: traZODone 50 MG TABLET PO SCH (22:30)
[2019-09-26] MEDS: ALBUTEROL/IPRATROPIUM 3 ML NEB RESP TX SCH ×2 (00:56→07:05)
[2019-09-26 06:10] LABS: Basophils % 0.3 % (0.0-0.8); Eosinophils # 0.2 10*3/uL (0.0-0.87); Eosinophils % 5.4 % (0.00-10.9); Hematocrit 37.3 VOL% (35.7-47.0); Hemoglobin 11.7 GM/DL (12.0-16.0); Immature Granulocytes % 0.3 %; Immature Granulocytes Absolute 0.01 #; Mean Corpuscular HGB Conc 31.4 GM/DL (32-36); Mean Corpuscular Volume 107.2 FL (87-102); Mean Platelet Volume 11.8 FL (9.6-12.0); Monocytes % 10.8 % (1.7-12.7); Neutrophils % 55.2 % (38.7-73.9); Red Blood Count 3.48 MC/CUMM (3.8-5.5); Red Cell Distribution Width 13.8 % (9.3-17.3); White Blood Count 3.5 T/CUMM (4-12)
[2019-09-26 06:13] LABS: Platelet Count 79 T/CUMM (130-400)
[2019-09-26 06:27] LABS: Albumin 3.3 G/DL (3.4-5.0); Bilirubin,Total 1.3 MG/DL (0.2-1.0); Calcium 8.6 MG/DL (8.5-10.1); Osmolality,Calculated 264.7 MOS/KG (273-304); Total Protein 7.3 G/DL (6.4-8.3)
[2019-09-26 07:12] LABS: Macrocytosis Slight
[2019-09-26 07:13] LABS: Hypochromasia 1+; Platelet Estimate Decreased
[2019-09-26 07:14] LABS: Ovalocytes Slight
[2019-09-26] MEDS: PANTOPRAZOLE 40 MG TABLET PO SCH (09:01)
[2019-09-26 10:33] VITALS: BP 135/57
== END 2019-09-26 12:42 | disposition home or self-care (01) ==
LOC: N.ED 11:16 → N.EDINP 11:16 → SUATTDRO 17:23 → N.5E 18:21
PROVIDERS: ADMIT Internal Medicine; ATTEND Family Medicine

== ENCOUNTER 2019-10-22 09:41 | Observation (INO) ==
[2019-10-22 11:08] LABS: Basophils % 0.4 % (0.0-0.8); Eosinophils # 0.3 10*3/uL (0.0-0.87); Eosinophils % 5.2 % (0.00-10.9); Hemoglobin 12.1 GM/DL (12.0-16.0); Immature Granulocytes % 0.6 %; Immature Granulocytes Absolute 0.03 #; Lymphocytes # 1.3 10*3/uL (1.4-4.0); Lymphocytes % 25.8 % (21.3-54.2); Mean Corpuscular Volume 105.4 FL (87-102); Mean Platelet Volume 11.5 FL (9.6-12.0); Monocytes % 13.4 % (1.7-12.7); Neutrophils % 54.6 % (38.7-73.9); Platelet Count 132 T/CUMM (130-400); Red Cell Distribution Width 14.1 % (9.3-17.3); White Blood Count 5.2 T/CUMM (4-12)
[2019-10-22 11:12] LABS: PT Patient Result 10.8 SECS (9.8-11.9)
[2019-10-22 11:30] LABS: Alanine Aminotransferase 19 U/L (13-56); Albumin 3.7 G/DL (3.4-5.0); Alkaline Phosphatase 99 U/L (45-117); Amylase 140 U/L (25-115); Aspartate Amino Transferase 19 U/L (0-37); Bilirubin,Total < 0.39 MG/DL (0.2-1.0); Blood Urea Nitrogen 32 MG/DL (7-18); Calcium 9.3 MG/DL (8.5-10.1); Estimated Glom Filtration Rate 4 ML/MIN; Ferritin 1415.2 ng/ml (8-252); Glucose 84 MG/DL (74-106); Osmolality,Calculated 273.2 MOS/KG (273-304); Total Protein 8.1 G/DL (6.4-8.3); Troponin I 0.022 NG/ML (0.00-0.045)
[2019-10-22] MEDS ORDERED: AZITHROMYCIN INJ 500 MG in SODIUM CHLORIDE 0.9% 250 ML IV STA (11:39)
[2019-10-22] MEDS ORDERED: methylPREDNISolone SOD SUC 125 MG/2 ML VIAL IV STA (11:39)
[2019-10-22] MEDS ORDERED: GLUCAGON 1 MG VIAL IM PRN (13:17)
[2019-10-22] MEDS ORDERED: DEXTROSE 10% 250 ML BAG IV PRN (13:17)
[2019-10-22] MEDS ORDERED: ACETAMINOPHEN 325 MG TABLET PO PRN (13:17)
[2019-10-22] MEDS ORDERED: PROMETHAZINE 25 MG TABLET PO PRN (13:21)
[2019-10-22] MEDS ORDERED: PROMETHAZINE 25 MG/1 ML VIAL IM PRN (13:21)
[2019-10-22 14:33] LABS: Risk Ratio 1.8; Thyroid Stimulating Hormone 2.14 uIU/ml (0.358-3.74); VLDL CHOLESTEROL 16.8 MG/DL
[2019-10-22] MEDS ORDERED: NITROGLYCERIN SL 0.4 MG TABLET SL PRN (17:01)
[2019-10-22] MEDS: cefTRIAXone 1,000 MG in SYRINGE 1 EACH IV SCH (17:59)
[2019-10-22] MEDS: MORPHINE 4 MG/1 ML VIAL IV PRN ×2 (19:48→19:53)
[2019-10-22] MEDS: HEPARIN 5,000 UNIT/1 ML VIAL SUBCUT SCH (20:45)
[2019-10-22] MEDS: traZODone 50 MG TABLET PO SCH (20:45)
[2019-10-22] MEDS: SERTRALINE 25 MG TABLET PO SCH (20:45)
[2019-10-22] MEDS: ATORVASTATIN 20 MG TABLET PO SCH (20:45)
[2019-10-22] MEDS ORDERED: carvediloL 12.5 MG TABLET PO SCH (21:00)
[2019-10-22] MEDS ORDERED: NITROGLYCERIN SL 0.4 MG TABLET SL ONE (21:36)
[2019-10-22] MEDS: NITROGLYCERIN SL 0.4 MG TABLET SL PRN ×2 (21:40→21:49)
[2019-10-22] MEDS ORDERED: MORPHINE 4 MG/1 ML VIAL ONE (21:45)
[2019-10-22 22:26] LABS: Calcium 8.8 MG/DL (8.5-10.1); Osmolality,Calculated 277.4 MOS/KG (273-304)
[2019-10-23 06:28] LABS: Hematocrit 36.3 VOL% (35.7-47.0); Hemoglobin 11.2 GM/DL (12.0-16.0); Immature Granulocytes % 0.9 %; Immature Granulocytes Absolute 0.04 #; Lymphocytes # 0.7 10*3/uL (1.4-4.0); Lymphocytes % 13.9 % (21.3-54.2); Mean Corpuscular HGB Conc 30.9 GM/DL (32-36); Mean Corpuscular Volume 106.5 FL (87-102); Mean Platelet Volume 11.2 FL (9.6-12.0); Monocytes % 1.7 % (1.7-12.7); Neutrophils % 83.5 % (38.7-73.9); Platelet Count 130 T/CUMM (130-400); Red Blood Count 3.41 MC/CUMM (3.8-5.5); Red Cell Distribution Width 13.7 % (9.3-17.3); White Blood Count 4.7 T/CUMM (4-12)
[2019-10-23 06:43] LABS: Calcium 9.3 MG/DL (8.5-10.1); Osmolality,Calculated 274.5 MOS/KG (273-304)
[2019-10-23] MEDS ORDERED: ISOSORBIDE MONONITRATE 30 MG TABLET PO SCH (09:00)
[2019-10-23] MEDS: AZITHROMYCIN 250 MG TABLET PO SCH (09:23)
[2019-10-23] MEDS: HEPARIN 5,000 UNIT/1 ML VIAL SUBCUT SCH ×2 (09:23→21:25)
[2019-10-23] MEDS: ASPIRIN CHEW 81 MG TABLET PO SCH (09:23)
[2019-10-23] MEDS: SEVELAMER CARBONATE 800 MG TABLET PO SCH ×3 (09:23→17:56)
[2019-10-23] MEDS: PANTOPRAZOLE 40 MG TABLET PO SCH (09:23)
[2019-10-23] MEDS: cefTRIAXone 1,000 MG in SYRINGE 1 EACH IV SCH (16:53)
[2019-10-23] MEDS: MORPHINE 4 MG/1 ML VIAL IV PRN (18:52)
[2019-10-23] MEDS: traZODone 50 MG TABLET PO SCH (21:25)
[2019-10-23] MEDS: ATORVASTATIN 20 MG TABLET PO SCH (21:25)
[2019-10-23] MEDS: SERTRALINE 25 MG TABLET PO SCH (21:25)
[2019-10-24 04:40] LABS: Basophils % 0.2 % (0.0-0.8); Eosinophils # 0.1 10*3/uL (0.0-0.87); Eosinophils % 0.8 % (0.00-10.9); Hematocrit 33.8 VOL% (35.7-47.0); Immature Granulocytes % 0.3 %; Immature Granulocytes Absolute 0.02 #; Lymphocytes # 1.2 10*3/uL (1.4-4.0); Lymphocytes % 19.9 % (21.3-54.2); Mean Corpuscular HGB Conc 29.6 GM/DL (32-36); Mean Platelet Volume 10.9 FL (9.6-12.0); Monocytes % 7.2 % (1.7-12.7); Neutrophils % 71.6 % (38.7-73.9); Platelet Count 128 T/CUMM (130-400); Red Blood Count 3.16 MC/CUMM (3.8-5.5); Red Cell Distribution Width 13.7 % (9.3-17.3); White Blood Count 6.1 T/CUMM (4-12)
[2019-10-24 05:02] LABS: Calcium 8.6 MG/DL (8.5-10.1); Osmolality,Calculated 274.1 MOS/KG (273-304)
[2019-10-24] MEDS: SEVELAMER CARBONATE 800 MG TABLET PO SCH ×3 (09:51→16:44)
[2019-10-24] MEDS: HEPARIN 5,000 UNIT/1 ML VIAL SUBCUT SCH ×2 (09:51→20:58)
[2019-10-24] MEDS: PANTOPRAZOLE 40 MG TABLET PO SCH (09:51)
[2019-10-24] MEDS: AZITHROMYCIN 250 MG TABLET PO SCH (09:51)
[2019-10-24] MEDS: ASPIRIN CHEW 81 MG TABLET PO SCH (09:51)
[2019-10-24] MEDS: cefTRIAXone 1,000 MG in SYRINGE 1 EACH IV SCH (16:44)
[2019-10-24] MEDS: traZODone 50 MG TABLET PO SCH (20:58)
[2019-10-24] MEDS: ATORVASTATIN 20 MG TABLET PO SCH (20:58)
[2019-10-24] MEDS: SERTRALINE 25 MG TABLET PO SCH (20:58)
[2019-10-25 04:20] LABS: Basophils % 0.3 % (0.0-0.8); Eosinophils # 0.2 10*3/uL (0.0-0.87); Eosinophils % 4.1 % (0.00-10.9); Hematocrit 33.8 VOL% (35.7-47.0); Hemoglobin 10.1 GM/DL (12.0-16.0); Immature Granulocytes % 0.3 %; Immature Granulocytes Absolute 0.01 #; Lymphocytes # 1.1 10*3/uL (1.4-4.0); Lymphocytes % 29.3 % (21.3-54.2); Mean Corpuscular HGB Conc 29.9 GM/DL (32-36); Mean Corpuscular Volume 106.6 FL (87-102); Mean Platelet Volume 11.3 FL (9.6-12.0); Monocytes % 11.3 % (1.7-12.7); Neutrophils % 54.7 % (38.7-73.9); Platelet Count 114 T/CUMM (130-400); Red Blood Count 3.17 MC/CUMM (3.8-5.5); Red Cell Distribution Width 13.7 % (9.3-17.3); White Blood Count 3.9 T/CUMM (4-12)
[2019-10-25] MEDS: PANTOPRAZOLE 40 MG TABLET PO SCH (08:35)
[2019-10-25] MEDS: AZITHROMYCIN 250 MG TABLET PO SCH (08:35)
[2019-10-25] MEDS: ASPIRIN CHEW 81 MG TABLET PO SCH (08:35)
[2019-10-25] MEDS: SEVELAMER CARBONATE 800 MG TABLET PO SCH ×2 (08:36→12:20)
[2019-10-25] MEDS: HEPARIN 5,000 UNIT/1 ML VIAL SUBCUT SCH (08:36)
[2019-10-25 08:58] LABS: Calcium 8.2 MG/DL (8.5-10.1); Osmolality,Calculated 273.4 MOS/KG (273-304)
[2019-10-25 12:35] VITALS: BP 112/57
== END 2019-10-25 13:31 | disposition home or self-care (01) ==
LOC: EDUNIT# → EDBD → N.EDINP 09:41 → N.ED 09:41 → SUATTDRO 12:18 → N.2W 12:53
PROVIDERS: ADMIT Internal Medicine; ATTEND Family Medicine

== ENCOUNTER 2020-01-12 11:31 | Observation (INO) ==
[2020-01-12] MEDS ORDERED: ASPIRIN 325 MG TABLET PO STA (12:09)
[2020-01-12 12:23] LABS: Basophils % 0.4 % (0.0-0.8); Eosinophils # 0.3 10*3/uL (0.0-0.87); Eosinophils % 5.6 % (0.00-10.9); Hematocrit 37.3 VOL% (35.7-47.0); Hemoglobin 11.7 GM/DL (12.0-16.0); Immature Granulocytes % 0.4 %; Immature Granulocytes Absolute 0.02 #; Lymphocytes # 1.4 10*3/uL (1.4-4.0); Mean Corpuscular HGB Conc 31.4 GM/DL (32-36); Mean Corpuscular Volume 107.2 FL (87-102); Mean Platelet Volume 11.2 FL (9.6-12.0); Monocytes % 10.9 % (1.7-12.7); Neutrophils % 54.7 % (38.7-73.9); Platelet Count 116 T/CUMM (130-400); Red Blood Count 3.48 MC/CUMM (3.8-5.5); Red Cell Distribution Width 14.3 % (9.3-17.3); White Blood Count 4.9 T/CUMM (4-12)
[2020-01-12 12:46] LABS: Albumin 3.3 G/DL (3.4-5.0); Bilirubin,Total 0.7 MG/DL (0.2-1.0); Calcium 9.3 MG/DL (8.5-10.1); Osmolality,Calculated 274.8 MOS/KG (273-304); Total Protein 7.3 G/DL (6.4-8.3)
[2020-01-12] MEDS ORDERED: DEXTROSE 50% 25 GM/50 ML VIAL IV PRN (14:30)
[2020-01-12] MEDS ORDERED: GLUCAGON 1 MG VIAL IM PRN (14:30)
[2020-01-12] MEDS ORDERED: ACETAMINOPHEN 325 MG TABLET PO PRN (14:30)
[2020-01-12] MEDS ORDERED: DOCUSATE SODIUM 100 MG CAPSULE PO PRN (14:30)
[2020-01-12] MEDS ORDERED: hydrALAZINE 20 MG/1 ML VIAL IV PRN (14:30)
[2020-01-12] MEDS ORDERED: MORPHINE 4 MG/1 ML VIAL IV PRN (14:30)
[2020-01-12] MEDS ORDERED: NITROGLYCERIN SL 0.4 MG TABLET SL PRN (14:46)
[2020-01-12 15:23] LABS: Risk Ratio 1.86; Thyroid Stimulating Hormone 2.41 uIU/ml (0.358-3.74); VLDL CHOLESTEROL 19.6 MG/DL
[2020-01-12] MEDS: HEPARIN 5,000 UNIT/1 ML VIAL SUBCUT SCH (15:35)
[2020-01-12] MEDS: INSULIN LISPRO 100 UNIT/ML SUBCUT SCH ×2 (16:20→21:44)
[2020-01-12] MEDS ORDERED: traZODone 50 MG TABLET PO SCH (21:00)
[2020-01-12] MEDS ORDERED: ATORVASTATIN 20 MG TABLET PO SCH (21:00)
[2020-01-12] MEDS: carvediloL 3.125 MG TABLET PO SCH (21:42)
[2020-01-13] MEDS: HEPARIN 5,000 UNIT/1 ML VIAL SUBCUT SCH ×2 (02:23→15:01)
[2020-01-13 05:56] LABS: Basophils % 0.3 % (0.0-0.8); Eosinophils # 0.3 10*3/uL (0.0-0.87); Eosinophils % 8.7 % (0.00-10.9); Hematocrit 31.5 VOL% (35.7-47.0); Hemoglobin 10.1 GM/DL (12.0-16.0); Immature Granulocytes % 0.3 %; Immature Granulocytes Absolute 0.01 #; Lymphocytes # 1.1 10*3/uL (1.4-4.0); Mean Corpuscular HGB Conc 32.1 GM/DL (32-36); Mean Corpuscular Volume 106.1 FL (87-102); Mean Platelet Volume 11.2 FL (9.6-12.0); Monocytes % 10.6 % (1.7-12.7); Neutrophils % 51.1 % (38.7-73.9); Platelet Count 96 T/CUMM (130-400); Red Blood Count 2.97 MC/CUMM (3.8-5.5); Red Cell Distribution Width 14.1 % (9.3-17.3); White Blood Count 3.8 T/CUMM (4-12)
[2020-01-13 06:15] LABS: Hypochromasia 1+; Ovalocytes Slight; Platelet Estimate Decreased
[2020-01-13] MEDS: INSULIN LISPRO 100 UNIT/ML SUBCUT SCH ×2 (08:42→11:50)
[2020-01-13] MEDS ORDERED: ASPIRIN CHEW 81 MG TABLET PO SCH (09:00)
[2020-01-13] MEDS ORDERED: PANTOPRAZOLE 40 MG TABLET PO SCH (09:00)
[2020-01-13] MEDS: carvediloL 3.125 MG TABLET PO SCH (09:01)
[2020-01-13 12:18] VITALS: BP 121/73
== END 2020-01-13 16:10 | disposition home health service (06) ==
LOC: EDUNIT# → EDBD → N.ED 11:31 → N.EDINP 11:31 → SUATTDRO 14:17 → N.TELES 16:49
PROVIDERS: ADMIT Internal Medicine; ATTEND Internal Medicine Nephrology

== ENCOUNTER 2020-03-02 14:32 | Inpatient (IN) ==
[2020-03-02 15:17] LABS: Basophils # 0.1 10*3/uL (0.0-0.2); Basophils % 0.9 % (0.0-0.8); Eosinophils # 0.4 10*3/uL (0.0-0.87); Eosinophils % 3.5 % (0.00-10.9); Hematocrit 33.7 VOL% (35.7-47.0); Hemoglobin 10.7 GM/DL (12.0-16.0); Lymphocytes # 2.1 10*3/uL (1.4-4.0); Lymphocytes % 19.4 % (21.3-54.2); Mean Corpuscular HGB Conc 31.8 GM/DL (32-36); Mean Platelet Volume 10.6 FL (9.6-12.0); Monocytes % 13.4 % (1.7-12.7); NRBC # 0.02 10*3/uL; Neutrophils % 51.8 % (38.7-73.9); Platelet Count 184 T/CUMM (130-400); Red Blood Count 3.24 MC/CUMM (3.8-5.5); Red Cell Distribution Width 13.8 % (9.3-17.3)
[2020-03-02 15:43] LABS: Albumin 3.5 G/DL (3.4-5.0); Bilirubin,Total 0.4 MG/DL (0.2-1.0); Calcium 9.5 MG/DL (8.5-10.1); Osmolality,Calculated 279.8 MOS/KG (273-304); Total Protein 7.3 G/DL (6.4-8.3)
[2020-03-02 16:24] LABS: Eosinophils 5 % (0-10); Lymphocytes 25 % (20-55); Segmented Neutrophils 54 % (50-85); Total Cells Counted 100
[2020-03-02 16:25] LABS: Atypical Lymphocytes 1+; Macrocytosis 1+; Platelet Estimate Adequate; Polychromasia 1+
[2020-03-02] MEDS ORDERED: DEXTROSE 50% 25 GM/50 ML VIAL IV PRN (16:51)
[2020-03-02] MEDS ORDERED: GLUCAGON 1 MG VIAL IM PRN (16:51)
[2020-03-02] MEDS ORDERED: NITROGLYCERIN SL 0.4 MG TABLET SL PRN (17:00)
[2020-03-02] MEDS ORDERED: PROMETHAZINE 25 MG TABLET PO PRN (17:00)
[2020-03-02] MEDS: SEVELAMER CARBONATE 800 MG TABLET PO SCH (18:49)
[2020-03-02] MEDS: carvediloL 3.125 MG TABLET PO SCH (20:48)
[2020-03-02] MEDS: traZODone 50 MG TABLET PO SCH (20:48)
[2020-03-02] MEDS: ATORVASTATIN 20 MG TABLET PO SCH (20:48)
[2020-03-02] MEDS: MIDODRINE 5 MG TABLET PO SCH (20:48)
[2020-03-03 06:19] LABS: Basophils # 0.1 10*3/uL (0.0-0.2); Basophils % 0.7 % (0.0-0.8); Eosinophils # 0.3 10*3/uL (0.0-0.87); Hematocrit 33.5 VOL% (35.7-47.0); Hemoglobin 10.3 GM/DL (12.0-16.0); Immature Granulocytes % 10.2 %; Immature Granulocytes Absolute 0.97 #; Lymphocytes # 1.8 10*3/uL (1.4-4.0); Lymphocytes % 19.4 % (21.3-54.2); Mean Corpuscular HGB Conc 30.7 GM/DL (32-36); Mean Platelet Volume 10.9 FL (9.6-12.0); Monocytes % 11.9 % (1.7-12.7); Neutrophils % 54.8 % (38.7-73.9); Platelet Count 152 T/CUMM (130-400); Red Blood Count 3.16 MC/CUMM (3.8-5.5); Red Cell Distribution Width 13.5 % (9.3-17.3); White Blood Count 9.5 T/CUMM (4-12)
[2020-03-03 06:45] LABS: Calcium 9.5 MG/DL (8.5-10.1); Osmolality,Calculated 279.1 MOS/KG (273-304)
[2020-03-03 06:47] LABS: Eosinophils 4 % (0-10); Hypochromasia 1+; Lymphocytes 27 % (20-55); Metamyelocytes 1 %; Myelocytes 1 %; Nucleated Red Blood Cells 1 (0-5); Segmented Neutrophils 59 % (50-85); Total Cells Counted 100
[2020-03-03 06:48] LABS: Macrocytosis 1+; Platelet Estimate Adequate; Polychromasia Slight
[2020-03-03] MEDS ORDERED: MEROPENEM 500 MG in SODIUM CHLORIDE 0.9% 100 ML IV ONE (09:00)
[2020-03-03 09:12] LABS: Troponin I 0.063 NG/ML (0.00-0.045)
[2020-03-03] MEDS: SEVELAMER CARBONATE 800 MG TABLET PO SCH ×3 (10:04→17:29)
[2020-03-03] MEDS: PANTOPRAZOLE 40 MG TABLET PO SCH (10:08)
[2020-03-03] MEDS: MIDODRINE 5 MG TABLET PO SCH ×3 (10:09→20:27)
[2020-03-03] MEDS ORDERED: KETOROLAC 30 MG/1 ML VIAL IV ONE (10:24)
[2020-03-03] MEDS: ISOSORBIDE MONONITRATE 30 MG TABLET PO SCH (13:56)
[2020-03-03] MEDS: carvediloL 3.125 MG TABLET PO SCH ×2 (13:56→17:29)
[2020-03-03] MEDS: KETOROLAC 15 MG/1 ML VIAL IV SCH (17:30)
[2020-03-03] MEDS: ATORVASTATIN 20 MG TABLET PO SCH (20:26)
[2020-03-03] MEDS: traZODone 50 MG TABLET PO SCH (20:26)
[2020-03-03] MEDS: MORPHINE 4 MG/1 ML VIAL IV PRN (20:30)
[2020-03-04] MEDS: KETOROLAC 15 MG/1 ML VIAL IV SCH ×5 (00:27→22:48)
[2020-03-04 06:44] LABS: Basophils % 0.5 % (0.0-0.8); Eosinophils # 0.3 10*3/uL (0.0-0.87); Eosinophils % 3.7 % (0.00-10.9); Hematocrit 33.3 VOL% (35.7-47.0); Hemoglobin 10.2 GM/DL (12.0-16.0); Immature Granulocytes % 6.9 %; Immature Granulocytes Absolute 0.56 #; Lymphocytes # 1.6 10*3/uL (1.4-4.0); Lymphocytes % 19.2 % (21.3-54.2); Mean Corpuscular HGB Conc 30.6 GM/DL (32-36); Mean Corpuscular Volume 106.1 FL (87-102); Mean Platelet Volume 10.6 FL (9.6-12.0); Monocytes % 9.1 % (1.7-12.7); Neutrophils % 60.6 % (38.7-73.9); Platelet Count 151 T/CUMM (130-400); Red Blood Count 3.14 MC/CUMM (3.8-5.5); Red Cell Distribution Width 13.6 % (9.3-17.3); White Blood Count 8.1 T/CUMM (4-12)
[2020-03-04 07:01] LABS: Calcium 9.3 MG/DL (8.5-10.1); Osmolality,Calculated 271.2 MOS/KG (273-304)
[2020-03-04 07:07] LABS: Troponin I 0.056 NG/ML (0.00-0.045)
[2020-03-04 07:15] LABS: Eosinophils 5 % (0-10); Hypochromasia 1+; Lymphocytes 22 % (20-55); Macrocytosis Slight; Ovalocytes Slight; Platelet Estimate Adequate; Segmented Neutrophils 63 % (50-85); Total Cells Counted 100
[2020-03-04] MEDS ORDERED: KETOROLAC 15 MG/1 ML VIAL IV ONE (09:34)
[2020-03-04] MEDS: MIDODRINE 5 MG TABLET PO SCH ×3 (09:48→22:45)
[2020-03-04] MEDS: PANTOPRAZOLE 40 MG TABLET PO SCH (09:49)
[2020-03-04] MEDS: ISOSORBIDE MONONITRATE 30 MG TABLET PO SCH (09:49)
[2020-03-04] MEDS: SEVELAMER CARBONATE 800 MG TABLET PO SCH ×3 (09:49→16:36)
[2020-03-04] MEDS: carvediloL 3.125 MG TABLET PO SCH ×2 (09:49→16:35)
[2020-03-04] MEDS: MORPHINE 4 MG/1 ML VIAL IV PRN (14:26)
[2020-03-04] MEDS ORDERED: MEROPENEM 500 MG in SODIUM CHLORIDE 0.9% 100 ML IV SCH (17:00)
[2020-03-04] MEDS: ATORVASTATIN 20 MG TABLET PO SCH (22:46)
[2020-03-04] MEDS: ACETAMINOPHEN 325 MG TABLET PO PRN (22:46)
[2020-03-04] MEDS: traZODone 50 MG TABLET PO SCH (22:46)
[2020-03-05 05:34] LABS: Basophils % 0.3 % (0.0-0.8); Eosinophils # 0.3 10*3/uL (0.0-0.87); Eosinophils % 2.3 % (0.00-10.9); Hematocrit 32.6 VOL% (35.7-47.0); Hemoglobin 10.2 GM/DL (12.0-16.0); Immature Granulocytes % 2.2 %; Immature Granulocytes Absolute 0.32 #; Lymphocytes # 0.8 10*3/uL (1.4-4.0); Lymphocytes % 5.6 % (21.3-54.2); Mean Corpuscular HGB Conc 31.3 GM/DL (32-36); Mean Corpuscular Volume 105.8 FL (87-102); Mean Platelet Volume 10.6 FL (9.6-12.0); Monocytes % 3.1 % (1.7-12.7); Neutrophils % 86.5 % (38.7-73.9); Platelet Count 131 T/CUMM (130-400); Red Blood Count 3.08 MC/CUMM (3.8-5.5); Red Cell Distribution Width 13.5 % (9.3-17.3); White Blood Count 14.3 T/CUMM (4-12)
[2020-03-05 06:01] LABS: Hypochromasia 1+; Ovalocytes Slight
[2020-03-05 06:02] LABS: Macrocytosis Slight; Platelet Estimate Normal
[2020-03-05] MEDS: KETOROLAC 15 MG/1 ML VIAL IV SCH ×4 (06:02→22:24)
[2020-03-05 06:27] LABS: Calcium 8.8 MG/DL (8.5-10.1); Osmolality,Calculated 272.7 MOS/KG (273-304)
[2020-03-05] MEDS: MIDODRINE 5 MG TABLET PO SCH ×3 (09:44→21:22)
[2020-03-05] MEDS: SEVELAMER CARBONATE 800 MG TABLET PO SCH ×3 (09:45→16:41)
[2020-03-05] MEDS: carvediloL 3.125 MG TABLET PO SCH ×2 (09:45→18:24)
[2020-03-05] MEDS: PANTOPRAZOLE 40 MG TABLET PO SCH (09:45)
[2020-03-05] MEDS: ISOSORBIDE MONONITRATE 30 MG TABLET PO SCH (09:46)
[2020-03-05] MEDS ORDERED: SODIUM CHLORIDE 0.9% 500 ML IV ONE (10:48)
[2020-03-05] MEDS: MEROPENEM 500 MG in SODIUM CHLORIDE 0.9% 100 ML IV SCH (12:43)
[2020-03-05] MEDS: traZODone 50 MG TABLET PO SCH (21:22)
[2020-03-05] MEDS: ACETAMINOPHEN 325 MG TABLET PO PRN (21:23)
[2020-03-05] MEDS: ATORVASTATIN 20 MG TABLET PO SCH (21:23)
[2020-03-06] MEDS: KETOROLAC 15 MG/1 ML VIAL IV SCH ×4 (04:47→22:47)
[2020-03-06 06:21] LABS: Basophils % 0.2 % (0.0-0.8); Eosinophils # 0.4 10*3/uL (0.0-0.87); Eosinophils % 2.5 % (0.00-10.9); Hematocrit 32.9 VOL% (35.7-47.0); Hemoglobin 10.4 GM/DL (12.0-16.0); Immature Granulocytes % 1.4 %; Immature Granulocytes Absolute 0.21 #; Lymphocytes # 1.1 10*3/uL (1.4-4.0); Lymphocytes % 7.1 % (21.3-54.2); Mean Corpuscular HGB Conc 31.6 GM/DL (32-36); Mean Corpuscular Volume 104.1 FL (87-102); Mean Platelet Volume 11.3 FL (9.6-12.0); Monocytes % 4.4 % (1.7-12.7); Neutrophils % 84.4 % (38.7-73.9); Platelet Count 111 T/CUMM (130-400); Red Blood Count 3.16 MC/CUMM (3.8-5.5); Red Cell Distribution Width 13.3 % (9.3-17.3); White Blood Count 14.9 T/CUMM (4-12)
[2020-03-06 07:00] LABS: Hypochromasia 1+; Platelet Estimate Decreased
[2020-03-06] MEDS: ACETAMINOPHEN 325 MG TABLET PO PRN (08:54)
[2020-03-06] MEDS: MORPHINE 4 MG/1 ML VIAL IV PRN (09:57)
[2020-03-06] MEDS ORDERED: HEPARIN 10,000 UNIT/10 ML VIAL IV SCH (10:00)
[2020-03-06] MEDS: SEVELAMER CARBONATE 800 MG TABLET PO SCH ×3 (10:27→17:19)
[2020-03-06] MEDS: MIDODRINE 5 MG TABLET PO SCH ×3 (13:05→21:18)
[2020-03-06] MEDS: carvediloL 3.125 MG TABLET PO SCH ×2 (13:11→17:21)
[2020-03-06] MEDS ORDERED: TUBERCULIN SKIN TEST 0.1 ML SYRINGE INTRADERM ONE (13:26)
[2020-03-06] MEDS ORDERED: BISACODYL 5 MG TABLET PO ONE (13:45)
[2020-03-06] MEDS: PANTOPRAZOLE 40 MG TABLET PO SCH (17:19)
[2020-03-06] MEDS: ISOSORBIDE MONONITRATE 30 MG TABLET PO SCH (17:21)
[2020-03-06] MEDS: MEROPENEM 500 MG in SODIUM CHLORIDE 0.9% 100 ML IV SCH (18:38)
[2020-03-06] MEDS: HEPARIN 5,000 UNIT/1 ML VIAL SUBCUT SCH (21:18)
[2020-03-06] MEDS: ATORVASTATIN 20 MG TABLET PO SCH (21:18)
[2020-03-06] MEDS: traZODone 50 MG TABLET PO SCH (21:18)
[2020-03-07] MEDS: KETOROLAC 15 MG/1 ML VIAL IV SCH ×4 (04:59→22:07)
[2020-03-07 08:13] LABS: Basophils % 0.3 % (0.0-0.8); Eosinophils # 0.3 10*3/uL (0.0-0.87); Eosinophils % 2.9 % (0.00-10.9); Hematocrit 33.5 VOL% (35.7-47.0); Hemoglobin 10.5 GM/DL (12.0-16.0); Immature Granulocytes % 1.9 %; Immature Granulocytes Absolute 0.21 #; Lymphocytes # 1.2 10*3/uL (1.4-4.0); Lymphocytes % 11.4 % (21.3-54.2); Mean Corpuscular HGB Conc 31.3 GM/DL (32-36); Monocytes % 8.3 % (1.7-12.7); Neutrophils % 75.2 % (38.7-73.9); Platelet Count 120 T/CUMM (130-400); Red Blood Count 3.16 MC/CUMM (3.8-5.5); Red Cell Distribution Width 13.5 % (9.3-17.3); White Blood Count 10.9 T/CUMM (4-12)
[2020-03-07 08:37] LABS: Calcium 9.1 MG/DL (8.5-10.1); Osmolality,Calculated 274.2 MOS/KG (273-304)
[2020-03-07] MEDS: PANTOPRAZOLE 40 MG TABLET PO SCH (08:49)
[2020-03-07] MEDS: MIDODRINE 5 MG TABLET PO SCH ×3 (08:49→21:43)
[2020-03-07] MEDS: SEVELAMER CARBONATE 800 MG TABLET PO SCH ×3 (08:50→17:36)
[2020-03-07 08:51] LABS: Hypochromasia 1+
[2020-03-07] MEDS: ISOSORBIDE MONONITRATE 30 MG TABLET PO SCH (08:51)
[2020-03-07] MEDS: carvediloL 3.125 MG TABLET PO SCH ×2 (08:51→17:36)
[2020-03-07 08:52] LABS: Platelet Estimate Normal
[2020-03-07] MEDS: HEPARIN 5,000 UNIT/1 ML VIAL SUBCUT SCH ×2 (08:54→21:43)
[2020-03-07] MEDS: MEROPENEM 500 MG in SODIUM CHLORIDE 0.9% 100 ML IV SCH (13:31)
[2020-03-07] MEDS: ATORVASTATIN 20 MG TABLET PO SCH (21:43)
[2020-03-07] MEDS: traZODone 50 MG TABLET PO SCH (21:43)
[2020-03-08] MEDS: KETOROLAC 15 MG/1 ML VIAL IV SCH ×2 (05:26→12:37)
[2020-03-08 06:05] LABS: Calcium 8.9 MG/DL (8.5-10.1); Osmolality,Calculated 276.4 MOS/KG (273-304)
[2020-03-08 06:37] LABS: Basophils % 0.3 % (0.0-0.8); Eosinophils # 0.4 10*3/uL (0.0-0.87); Eosinophils % 4.2 % (0.00-10.9); Hematocrit 32.7 VOL% (35.7-47.0); Hemoglobin 10.2 GM/DL (12.0-16.0); Immature Granulocytes % 1.7 %; Immature Granulocytes Absolute 0.16 #; Lymphocytes # 1.1 10*3/uL (1.4-4.0); Lymphocytes % 11.8 % (21.3-54.2); Mean Corpuscular HGB Conc 31.2 GM/DL (32-36); Mean Corpuscular Volume 104.1 FL (87-102); Mean Platelet Volume 11.3 FL (9.6-12.0); Monocytes % 10.1 % (1.7-12.7); Neutrophils % 71.9 % (38.7-73.9); Platelet Count 110 T/CUMM (130-400); Red Blood Count 3.14 MC/CUMM (3.8-5.5); Red Cell Distribution Width 13.7 % (9.3-17.3); White Blood Count 9.5 T/CUMM (4-12)
[2020-03-08] MEDS: SEVELAMER CARBONATE 800 MG TABLET PO SCH ×3 (08:15→16:28)
[2020-03-08] MEDS: MIDODRINE 5 MG TABLET PO SCH ×3 (08:15→20:42)
[2020-03-08] MEDS: PANTOPRAZOLE 40 MG TABLET PO SCH (08:16)
[2020-03-08] MEDS: ISOSORBIDE MONONITRATE 30 MG TABLET PO SCH (08:16)
[2020-03-08] MEDS: ASPIRIN CHEW 81 MG TABLET PO SCH (08:16)
[2020-03-08] MEDS: HEPARIN 5,000 UNIT/1 ML VIAL SUBCUT SCH ×2 (12:41→20:43)
[2020-03-08] MEDS: MEROPENEM 500 MG in SODIUM CHLORIDE 0.9% 100 ML IV SCH (16:28)
[2020-03-08] MEDS: traZODone 50 MG TABLET PO SCH (20:42)
[2020-03-08] MEDS: ACETAMINOPHEN 325 MG TABLET PO PRN (20:42)
[2020-03-08] MEDS: ATORVASTATIN 20 MG TABLET PO SCH (20:42)
[2020-03-09 08:09] LABS: Calcium 8.8 MG/DL (8.5-10.1); Osmolality,Calculated 273.2 MOS/KG (273-304)
[2020-03-09] MEDS: SEVELAMER CARBONATE 800 MG TABLET PO SCH ×3 (08:18→16:15)
[2020-03-09] MEDS: MIDODRINE 5 MG TABLET PO SCH ×3 (08:18→20:40)
[2020-03-09] MEDS: HEPARIN 5,000 UNIT/1 ML VIAL SUBCUT SCH ×2 (08:18→20:40)
[2020-03-09] MEDS: ASPIRIN CHEW 81 MG TABLET PO SCH (08:18)
[2020-03-09] MEDS: PANTOPRAZOLE 40 MG TABLET PO SCH (08:19)
[2020-03-09] MEDS: ACETAMINOPHEN 325 MG TABLET PO PRN (09:13)
[2020-03-09] MEDS: MEROPENEM 500 MG in SODIUM CHLORIDE 0.9% 100 ML IV SCH (13:05)
[2020-03-09] MEDS: traZODone 50 MG TABLET PO SCH (20:40)
[2020-03-09] MEDS: ATORVASTATIN 20 MG TABLET PO SCH (20:40)
[2020-03-10 05:54] LABS: Calcium 8.7 MG/DL (8.5-10.1); Osmolality,Calculated 278.1 MOS/KG (273-304)
[2020-03-10] MEDS: PANTOPRAZOLE 40 MG TABLET PO SCH (09:18)
[2020-03-10] MEDS: ASPIRIN CHEW 81 MG TABLET PO SCH (09:19)
[2020-03-10] MEDS: SEVELAMER CARBONATE 800 MG TABLET PO SCH ×3 (09:19→17:40)
[2020-03-10] MEDS: MIDODRINE 5 MG TABLET PO SCH ×2 (13:08→16:15)
[2020-03-10] MEDS: HEPARIN 5,000 UNIT/1 ML VIAL SUBCUT SCH (13:08)
[2020-03-10] MEDS: MEROPENEM 500 MG in SODIUM CHLORIDE 0.9% 100 ML IV SCH (13:09)
[2020-03-10 16:06] VITALS: BP 107/52
== END 2020-03-10 20:26 | disposition swing bed (61) | DRG 391 ==
LOC: EDBD → EDUNIT# → N.ED 14:32 → INTOOBSV 16:50 → N.EDINP 16:50 → N.5E 17:19 → N.TELEN 17:25 → SUATTDRO 03-03 11:38
PROVIDERS: ADMIT Internal Medicine; ATTEND Emergency Medicine

== ENCOUNTER 2020-06-20 06:08 | Inpatient (IN) ==
[~2020-06-20 06:08] MED LIST: CLINDAMYCIN INJ 600 MG in PREMIX 1 EACH IV ONE
[2020-06-20 08:19] LABS: Basophils % 0.5 % (0.0-0.8); Eosinophils # 0.2 10*3/uL (0.0-0.87); Eosinophils % 5.2 % (0.00-10.9); Hematocrit 37.2 VOL% (35.7-47.0); Hemoglobin 12.1 GM/DL (12.0-16.0); Immature Granulocytes % 0.2 %; Immature Granulocytes Absolute 0.01 #; Lymphocytes # 1.1 10*3/uL (1.4-4.0); Lymphocytes % 26.4 % (21.3-54.2); Mean Corpuscular HGB Conc 32.5 GM/DL (32-36); Mean Corpuscular Volume 99.7 FL (87-102); Mean Platelet Volume 11.4 FL (9.6-12.0); Monocytes % 12.1 % (1.7-12.7); Neutrophils % 55.6 % (38.7-73.9); Red Blood Count 3.73 MC/CUMM (3.8-5.5); Red Cell Distribution Width 13.8 % (9.3-17.3); White Blood Count 4.1 T/CUMM (4-12)
[2020-06-20 08:22] LABS: Platelet Count 106 T/CUMM (130-400)
[2020-06-20 08:43] LABS: Anisocytosis 1+; Macrocytosis 1+; Platelet Estimate Adequate
[2020-06-20 08:43] LABS: Calcium 9.1 MG/DL (8.5-10.1); Osmolality,Calculated 268.5 MOS/KG (273-304)
[2020-06-20] MEDS ORDERED: BUPIVACAINE MPF 0.25% 30 ML VIAL ONE (09:24)
[2020-06-20] MEDS ORDERED: LIDOCAINE 1%/EPI INJ 20 ML VIAL ONE (09:24)
[2020-06-20] MEDS ORDERED: oxyCODONE/ACETAMINOPHEN 5-325 MG TABLET PO STA (09:27)
[2020-06-20] MEDS ORDERED: HEPARIN 5,000 UNIT/1 ML VIAL ONE (09:29)
[2020-06-20] MEDS ORDERED: SODIUM CHLORIDE 0.9% 250 ML IV SCH (09:30)
[2020-06-20] MEDS ORDERED: INSULIN REGULAR 100 UNIT/ML IV STA (10:08)
[2020-06-20] MEDS ORDERED: DEXTROSE 50% 25 GM/50 ML VIAL IV STA (10:09)
[2020-06-20] MEDS ORDERED: hydrALAZINE 20 MG/1 ML VIAL IV PRN (10:52)
[2020-06-20] MEDS ORDERED: GLUCAGON 1 MG VIAL IM PRN (10:52)
[2020-06-20] MEDS ORDERED: ACETAMINOPHEN 325 MG TABLET PO PRN (10:52)
[2020-06-20] MEDS ORDERED: DOCUSATE SODIUM 100 MG CAPSULE PO PRN (10:52)
[2020-06-20] MEDS: HEPARIN 5,000 UNIT/1 ML VIAL SUBCUT SCH ×2 (12:15→20:43)
[2020-06-20] MEDS: INSULIN LISPRO 100 UNIT/ML SUBCUT SCH ×3 (12:16→21:11)
[2020-06-20] MEDS ORDERED: HEPARIN 10,000 UNIT/10 ML VIAL IV PRN (14:41)
[2020-06-20] MEDS: SEVELAMER CARBONATE 800 MG TABLET PO SCH ×2 (18:54)
[2020-06-20] MEDS: ATORVASTATIN 20 MG TABLET PO SCH (20:43)
[2020-06-20] MEDS: MIDODRINE 5 MG TABLET PO SCH (20:43)
[2020-06-20] MEDS: FERROUS SULFATE 325 MG TABLET PO SCH (20:43)
[2020-06-20] MEDS: MORPHINE 4 MG/1 ML VIAL IV PRN (21:12)
[2020-06-21] MEDS: HEPARIN 5,000 UNIT/1 ML VIAL SUBCUT SCH ×3 (02:52→20:10)
[2020-06-21 05:20] LABS: Basophils % 0.6 % (0.0-0.8); Eosinophils # 0.3 10*3/uL (0.0-0.87); Eosinophils % 8.8 % (0.00-10.9); Hematocrit 32.9 VOL% (35.7-47.0); Hemoglobin 11.1 GM/DL (12.0-16.0); Immature Granulocytes % 0.3 %; Immature Granulocytes Absolute 0.01 #; Lymphocytes % 31.7 % (21.3-54.2); Mean Corpuscular HGB Conc 33.7 GM/DL (32-36); Mean Corpuscular Volume 98.8 FL (87-102); Mean Platelet Volume 11.7 FL (9.6-12.0); Monocytes % 16.5 % (1.7-12.7); Neutrophils % 42.1 % (38.7-73.9); Platelet Count 101 T/CUMM (130-400); Red Blood Count 3.33 MC/CUMM (3.8-5.5); Red Cell Distribution Width 13.7 % (9.3-17.3); White Blood Count 3.3 T/CUMM (4-12)
[2020-06-21 05:42] LABS: Eosinophils 5 % (0-10); Lymphocytes 25 % (20-55); Platelet Estimate Decreased; Segmented Neutrophils 56 % (50-85); Total Cells Counted 100
[2020-06-21 05:43] LABS: Hypochromasia 1+; Microcytosis 1+; Ovalocytes Slight
[2020-06-21 05:55] LABS: Albumin 3.2 G/DL (3.4-5.0); Bilirubin,Total 0.5 MG/DL (0.2-1.0); Calcium 8.3 MG/DL (8.5-10.1); Osmolality,Calculated 260.2 MOS/KG (273-304); Risk Ratio 1.62; Total Protein 6.7 G/DL (6.4-8.3); VLDL CHOLESTEROL 10.8 MG/DL
[2020-06-21] MEDS: FERROUS SULFATE 325 MG TABLET PO SCH ×2 (08:33→20:11)
[2020-06-21] MEDS: SEVELAMER CARBONATE 800 MG TABLET PO SCH ×3 (08:33→16:26)
[2020-06-21] MEDS: ASPIRIN CHEW 81 MG TABLET PO SCH (08:33)
[2020-06-21] MEDS: MIDODRINE 5 MG TABLET PO SCH ×3 (08:33→20:17)
[2020-06-21] MEDS: PROMETHAZINE 25 MG TABLET PO PRN (08:37)
[2020-06-21] MEDS: INSULIN LISPRO 100 UNIT/ML SUBCUT SCH ×4 (08:39→20:11)
[2020-06-21] MEDS ORDERED: SODIUM POLYSTYRENE SULFATE 15 GM/60 ML BOTTLE PO STA (08:45)
[2020-06-21] MEDS ORDERED: INSULIN REGULAR 10 UNIT, CALCIUM GLUCONATE 1,000 MG in DEXTROSE 10% 250 ML IV ONE (09:00)
[2020-06-21] MEDS ORDERED: DEXTROSE 50% 25 GM/50 ML VIAL IV ONE (11:08)
[2020-06-21] MEDS ORDERED: DEXTROSE 50% 25 GM/50 ML VIAL IV PRN (11:23)
[2020-06-21] MEDS: DICYCLOMINE 10 MG CAPSULE PO SCH ×2 (12:03→20:11)
[2020-06-21] MEDS: SODIUM ZIRCONIUM CYCLOSILICATE 10 GM PACK PO SCH ×2 (14:59→20:11)
[2020-06-21] MEDS ORDERED: ALUM/MAG/SIMETH/LIDO VISC 1:1 30 ML BOTTLE PO ONE (17:30)
[2020-06-21] MEDS ORDERED: NITROGLYCERIN SL 0.4 MG TABLET SL ONE (19:44)
[2020-06-21] MEDS ORDERED: NITROGLYCERIN SL 0.4 MG TABLET SL PRN (19:50)
[2020-06-21] MEDS: MORPHINE 4 MG/1 ML VIAL IV PRN (19:52)
[2020-06-21] MEDS: ATORVASTATIN 20 MG TABLET PO SCH (20:11)
[2020-06-21] MEDS ORDERED: SODIUM POLYSTYRENE SULFATE 15 GM/60 ML BOTTLE PO ONE (20:24)
[2020-06-22 00:56] LABS: Basophils % 0.5 % (0.0-0.8); Eosinophils # 0.4 10*3/uL (0.0-0.87); Eosinophils % 8.9 % (0.00-10.9); Hematocrit 35.8 VOL% (35.7-47.0); Hemoglobin 11.7 GM/DL (12.0-16.0); Immature Granulocytes % 0.2 %; Immature Granulocytes Absolute 0.01 #; Lymphocytes # 1.3 10*3/uL (1.4-4.0); Lymphocytes % 32.4 % (21.3-54.2); Mean Corpuscular HGB Conc 32.7 GM/DL (32-36); Mean Platelet Volume 11.3 FL (9.6-12.0); Monocytes % 15.8 % (1.7-12.7); Neutrophils % 42.2 % (38.7-73.9); Platelet Count 111 T/CUMM (130-400); Red Blood Count 3.58 MC/CUMM (3.8-5.5); Red Cell Distribution Width 13.5 % (9.3-17.3)
[2020-06-22 01:24] LABS: Albumin 3.5 G/DL (3.4-5.0); Bilirubin,Total 0.7 MG/DL (0.2-1.0); Calcium 8.5 MG/DL (8.5-10.1); Osmolality,Calculated 266.9 MOS/KG (273-304); Total Protein 7.1 G/DL (6.4-8.3)
[2020-06-22 05:34] LABS: Eosinophils 10 % (0-10); Hypochromasia 1+; Lymphocytes 41 % (20-55); Metamyelocytes 1 %; Segmented Neutrophils 40 % (50-85); Total Cells Counted 100
[2020-06-22 05:35] LABS: Microcytosis 1+; Ovalocytes Slight; Platelet Estimate Adequate
[2020-06-22] MEDS: HEPARIN 5,000 UNIT/1 ML VIAL SUBCUT SCH ×2 (06:32→12:23)
[2020-06-22] MEDS: ASPIRIN CHEW 81 MG TABLET PO SCH ×2 (09:42→09:53)
[2020-06-22] MEDS: FERROUS SULFATE 325 MG TABLET PO SCH ×2 (09:42→09:53)
[2020-06-22] MEDS: SEVELAMER CARBONATE 800 MG TABLET PO SCH ×2 (09:42→12:23)
[2020-06-22] MEDS: PROMETHAZINE 25 MG TABLET PO PRN (09:42)
[2020-06-22] MEDS: MIDODRINE 5 MG TABLET PO SCH (09:42)
[2020-06-22] MEDS: DICYCLOMINE 10 MG CAPSULE PO SCH (09:42)
[2020-06-22] MEDS: INSULIN LISPRO 100 UNIT/ML SUBCUT SCH ×2 (09:52→13:27)
[2020-06-22] MEDS: SODIUM ZIRCONIUM CYCLOSILICATE 10 GM PACK PO SCH (12:23)
[2020-06-22 12:45] VITALS: BP 134/68
== END 2020-06-22 15:06 | DRG 314 ==
LOC: N.OR 06:08 → N.SDSINP 06:12 → SUATTDRO 10:52 → N.5E 16:58
PROVIDERS: ADMIT Family Medicine; ATTEND Family Medicine

== ENCOUNTER 2020-06-27 19:08 | Observation (INO) ==
[2020-06-27] MEDS ORDERED: MORPHINE 4 MG/1 ML VIAL IV STA (19:54)
[2020-06-27] MEDS ORDERED: hydrALAZINE 20 MG/1 ML VIAL IV STA (19:54)
[2020-06-27] MEDS ORDERED: PROMETHAZINE 25 MG/1 ML VIAL IM STA (19:58)
[2020-06-27] MEDS ORDERED: hydrALAZINE 20 MG/1 ML VIAL ONE (19:58)
[2020-06-27] MEDS ORDERED: MORPHINE 4 MG/1 ML VIAL ONE (19:58)
[2020-06-27 20:09] LABS: Basophils % 0.3 % (0.0-0.8); Eosinophils % 0.3 % (0.00-10.9); Hematocrit 34.7 VOL% (35.7-47.0); Hemoglobin 11.2 GM/DL (12.0-16.0); Immature Granulocytes % 0.3 %; Immature Granulocytes Absolute 0.01 #; Lymphocytes # 0.8 10*3/uL (1.4-4.0); Lymphocytes % 25.6 % (21.3-54.2); Mean Corpuscular HGB Conc 32.3 GM/DL (32-36); Mean Corpuscular Volume 101.5 FL (87-102); Mean Platelet Volume 11.3 FL (9.6-12.0); Monocytes % 7.7 % (1.7-12.7); Neutrophils % 65.8 % (38.7-73.9); Platelet Count 110 T/CUMM (130-400); Red Blood Count 3.42 MC/CUMM (3.8-5.5); Red Cell Distribution Width 13.5 % (9.3-17.3)
[2020-06-27 20:21] LABS: Alanine Aminotransferase 17 U/L (13-56); Albumin 3.9 G/DL (3.4-5.0); Alkaline Phosphatase 83 U/L (45-117); Amylase 199 U/L (25-115); Aspartate Amino Transferase 11 U/L (0-37); Bilirubin,Total < 0.39 MG/DL (0.2-1.0); Blood Urea Nitrogen 58 MG/DL (7-18); Calcium 8.9 MG/DL (8.5-10.1); Estimated Glom Filtration Rate 2 ML/MIN; Glucose 88 MG/DL (74-106); Osmolality,Calculated 269.2 MOS/KG (273-304); Total Protein 8.2 G/DL (6.4-8.3)
[2020-06-27] MEDS ORDERED: INSULIN REGULAR 10 UNIT, CALCIUM GLUCONATE 1,000 MG in DEXTROSE 10% 250 ML IV ONE (20:44)
[2020-06-27] MEDS ORDERED: SODIUM BICARBONATE 50 MEQ/50 ML VIAL IV STA (20:45)
[2020-06-27] MEDS ORDERED: SODIUM POLYSTYRENE SULFATE 15 GM/60 ML BOTTLE PO STA (22:46)
[2020-06-27] MEDS ORDERED: hydrALAZINE 20 MG/1 ML VIAL IV PRN ×2 (22:48→23:19)
[2020-06-27] MEDS ORDERED: ACETAMINOPHEN 325 MG TABLET PO PRN (23:19)
[2020-06-27] MEDS ORDERED: DEXTROSE 50% 25 GM/50 ML VIAL IV PRN ×2 (23:19)
[2020-06-27] MEDS ORDERED: GLUCAGON 1 MG VIAL IM PRN ×2 (23:19)
[2020-06-27] MEDS ORDERED: AZITHROMYCIN INJ 500 MG in SODIUM CHLORIDE 0.9% 250 ML IV SCH (23:30)
[2020-06-27] MEDS ORDERED: PROMETHAZINE 25 MG TABLET PO PRN (23:54)
[2020-06-27] MEDS ORDERED: DICYCLOMINE 10 MG CAPSULE PO PRN (23:54)
[2020-06-28] MEDS: ALBUTEROL 1.25 MG/3 ML NEB RESP TX SCH ×6 (01:23→18:15)
[2020-06-28 05:09] LABS: Basophils % 0.2 % (0.0-0.8); Eosinophils # 0.1 10*3/uL (0.0-0.87); Eosinophils % 1.2 % (0.00-10.9); Hemoglobin 11.1 GM/DL (12.0-16.0); Immature Granulocytes % 0.6 %; Immature Granulocytes Absolute 0.03 #; Lymphocytes # 1.2 10*3/uL (1.4-4.0); Lymphocytes % 24.7 % (21.3-54.2); Mean Corpuscular HGB Conc 32.6 GM/DL (32-36); Mean Corpuscular Volume 102.7 FL (87-102); Mean Platelet Volume 11.2 FL (9.6-12.0); Neutrophils % 63.3 % (38.7-73.9); Platelet Count 122 T/CUMM (130-400); Red Blood Count 3.31 MC/CUMM (3.8-5.5); Red Cell Distribution Width 13.7 % (9.3-17.3); White Blood Count 4.8 T/CUMM (4-12)
[2020-06-28 05:26] LABS: Calcium 9.4 MG/DL (8.5-10.1); Osmolality,Calculated 276.8 MOS/KG (273-304)
[2020-06-28] MEDS: INSULIN LISPRO 100 UNIT/ML SUBCUT SCH ×2 (08:45→17:58)
[2020-06-28] MEDS: SEVELAMER CARBONATE 800 MG TABLET PO SCH ×3 (08:46→17:59)
[2020-06-28] MEDS: guaiFENesin/DM ER 600-30 MG TABLET PO SCH ×2 (12:27→21:20)
[2020-06-28] MEDS: FERROUS SULFATE 325 MG TABLET PO SCH ×2 (12:27→17:59)
[2020-06-28] MEDS: SODIUM ZIRCONIUM CYCLOSILICATE 10 GM PACK PO SCH (12:27)
[2020-06-28] MEDS: ASPIRIN CHEW 81 MG TABLET PO SCH (12:27)
[2020-06-28] MEDS: AZITHROMYCIN 250 MG TABLET PO SCH (12:28)
[2020-06-28] MEDS: PANTOPRAZOLE 40 MG TABLET PO SCH (12:28)
[2020-06-28] MEDS ORDERED: SODIUM POLYSTYRENE SULFATE 15 GM/60 ML BOTTLE PO ONE (18:00)
[2020-06-28] MEDS ORDERED: ATORVASTATIN 20 MG TABLET PO SCH (21:00)
[2020-06-28] MEDS ORDERED: traZODone 50 MG TABLET PO SCH (21:00)
[2020-06-28] MEDS: ASCORBIC ACID 500 MG TABLET PO SCH (21:20)
[2020-06-28] MEDS: FAMOTIDINE 20 MG TABLET PO SCH (21:20)
[2020-06-28] MEDS: HEPARIN 5,000 UNIT/1 ML VIAL SUBCUT SCH (21:20)
[2020-06-28] MEDS ORDERED: NITROGLYCERIN SL 0.4 MG TABLET SL PRN (22:08)
[2020-06-29] MEDS: ALBUTEROL 1.25 MG/3 ML NEB RESP TX SCH ×5 (00:14→15:21)
[2020-06-29] MEDS: HEPARIN 5,000 UNIT/1 ML VIAL SUBCUT SCH ×2 (05:13→13:15)
[2020-06-29] MEDS: INSULIN LISPRO 100 UNIT/ML SUBCUT SCH (08:29)
[2020-06-29] MEDS ORDERED: CHOLECALCIFEROL 1,000 UNIT TABLET PO SCH (09:00)
[2020-06-29] MEDS ORDERED: ZINC GLUCONATE 50 MG TABLET PO SCH (09:00)
[2020-06-29 09:35] LABS: Albumin 3.7 G/DL (3.4-5.0); Bilirubin,Total 0.5 MG/DL (0.2-1.0); Calcium 8.6 MG/DL (8.5-10.1); Osmolality,Calculated 278.8 MOS/KG (273-304); Total Protein 7.2 G/DL (6.4-8.3)
[2020-06-29] MEDS: FAMOTIDINE 20 MG TABLET PO SCH (09:42)
[2020-06-29] MEDS: ASPIRIN CHEW 81 MG TABLET PO SCH (09:42)
[2020-06-29] MEDS: SEVELAMER CARBONATE 800 MG TABLET PO SCH ×2 (09:42→13:15)
[2020-06-29] MEDS: PANTOPRAZOLE 40 MG TABLET PO SCH (09:42)
[2020-06-29] MEDS: ASCORBIC ACID 500 MG TABLET PO SCH (09:42)
[2020-06-29] MEDS: AZITHROMYCIN 250 MG TABLET PO SCH (09:42)
[2020-06-29] MEDS: guaiFENesin/DM ER 600-30 MG TABLET PO SCH (09:42)
[2020-06-29] MEDS: FERROUS SULFATE 325 MG TABLET PO SCH (09:42)
[2020-06-29 09:43] VITALS: BP 149/95
[2020-06-29] MEDS: SODIUM ZIRCONIUM CYCLOSILICATE 10 GM PACK PO SCH (11:19)
== END 2020-06-29 16:21 ==
LOC: EDBD → EDUNIT# → N.ED 19:08 → N.EDINP 19:08 → SUATTDRO 23:19 → N.EDINP 06-28 09:58 → N.2E 06-28 11:06
PROVIDERS: ADMIT Internal Medicine; ATTEND Family Medicine

== ENCOUNTER 2021-04-07 09:06 | Observation (INO) ==
[2021-04-07] MEDS ORDERED: MORPHINE 2 MG/1 ML SYRINGE IV STA (09:55)
[2021-04-07 10:14] LABS: Basophils % 0.3 % (0.0-0.8); Eosinophils # 0.1 10*3/uL (0.0-0.87); Eosinophils % 2.4 % (0.00-10.9); Hemoglobin 9.2 GM/DL (12.0-16.0); Immature Granulocytes % 0.5 %; Immature Granulocytes Absolute 0.03 #; Lymphocytes # 0.4 10*3/uL (1.4-4.0); Lymphocytes % 6.6 % (21.3-54.2); Mean Corpuscular HGB Conc 29.7 GM/DL (32-36); Mean Corpuscular Volume 102.3 FL (87-102); Mean Platelet Volume 10.7 FL (9.6-12.0); Neutrophils % 81.2 % (38.7-73.9); Platelet Count 143 T/CUMM (130-400); Red Blood Count 3.03 MC/CUMM (3.8-5.5); Red Cell Distribution Width 15.3 % (9.3-17.3); White Blood Count 5.8 T/CUMM (4-12)
[2021-04-07 10:39] LABS: Alanine Aminotransferase 10 U/L (13-56); Albumin 4.1 G/DL (3.4-5.0); Alkaline Phosphatase 111 U/L (45-117); Amylase 85 U/L (25-115); Aspartate Amino Transferase 11 U/L (0-37); Blood Urea Nitrogen 20 MG/DL (7-18); Carbon Dioxide 37 MMOL/L (21-32); Estimated Glom Filtration Rate 6 ML/MIN; Glucose 97 MG/DL (74-106); Osmolality,Calculated 270.2 MOS/KG (273-304); Potassium 3.4 MMOL/L (3.5-5.1); Sodium 134 MMOL/L (136-145); Total Protein 7.7 G/DL (6.4-8.2)
[2021-04-07] MEDS ORDERED: SODIUM CHLORIDE 0.9% 500 ML IV STA (10:50)
[2021-04-07] MEDS ORDERED: ALBUTEROL/IPRATROPIUM 3 ML NEB RESP TX STA (10:52)
[2021-04-07] MEDS ORDERED: hydrALAZINE 20 MG/1 ML VIAL IV PRN (11:43)
[2021-04-07] MEDS ORDERED: ONDANSETRON 4 MG/2 ML VIAL IV PRN (11:43)
[2021-04-07] MEDS ORDERED: ALBUTEROL 2.5 MG/3 ML NEB RESP TX PRN (11:43)
[2021-04-07] MEDS ORDERED: GLUCAGON 1 MG VIAL IM PRN (11:43)
[2021-04-07] MEDS ORDERED: DOCUSATE SODIUM 100 MG CAPSULE PO PRN (11:43)
[2021-04-07] MEDS ORDERED: ACETAMINOPHEN 325 MG TABLET PO PRN (11:43)
[2021-04-07] MEDS: ALBUTEROL/IPRATROPIUM 3 ML NEB RESP TX SCH ×2 (13:57→19:46)
[2021-04-07] MEDS ORDERED: NITROGLYCERIN 2% OINT 1 INCH/GM PACK TOP ONE (16:02)
[2021-04-07] MEDS: ENOXAPARIN 30 MG/0.3 ML SYRINGE SUBCUT SCH (16:28)
[2021-04-07] MEDS: MORPHINE 2 MG/1 ML SYRINGE IV PRN (16:28)
[2021-04-07] MEDS: ASPIRIN CHEW 81 MG TABLET PO SCH (16:28)
[2021-04-07] MEDS ORDERED: MEROPENEM 500 MG in SODIUM CHLORIDE 0.9% 100 ML IV SCH ×2 (17:30→21:00)
[2021-04-07] MEDS: ATORVASTATIN 40 MG TABLET PO SCH (21:27)
[2021-04-08] MEDS: ALBUTEROL/IPRATROPIUM 3 ML NEB RESP TX SCH ×4 (01:29→19:40)
[2021-04-08] MEDS: MORPHINE 2 MG/1 ML SYRINGE IV PRN (01:57)
[2021-04-08 05:33] LABS: Basophils % 0.3 % (0.0-0.8); Eosinophils # 0.2 10*3/uL (0.0-0.87); Eosinophils % 4.6 % (0.00-10.9); Hematocrit 28.3 VOL% (35.7-47.0); Hemoglobin 8.4 GM/DL (12.0-16.0); Immature Granulocytes % 0.3 %; Immature Granulocytes Absolute 0.01 #; Lymphocytes # 0.5 10*3/uL (1.4-4.0); Lymphocytes % 14.1 % (21.3-54.2); Mean Corpuscular HGB Conc 29.7 GM/DL (32-36); Mean Corpuscular Volume 106.4 FL (87-102); Mean Platelet Volume 10.6 FL (9.6-12.0); Monocytes % 14.1 % (1.7-12.7); Neutrophils % 66.6 % (38.7-73.9); Platelet Count 118 T/CUMM (130-400); Red Blood Count 2.66 MC/CUMM (3.8-5.5); Red Cell Distribution Width 15.6 % (9.3-17.3); White Blood Count 3.5 T/CUMM (4-12)
[2021-04-08 05:47] LABS: Calcium 8.5 MG/DL (8.5-10.1); Osmolality,Calculated 268.2 MOS/KG (273-304); Potassium 3.7 MMOL/L (3.5-5.1); Risk Ratio 2.25; VLDL Cholesterol 15.4 MG/DL
[2021-04-08 05:49] LABS: Albumin 3.4 G/DL (3.4-5.0); Bilirubin,Direct 0.13 MG/DL (0.0-0.20); Bilirubin,Indirect 0.5 MG/DL (0.0-1.0); Bilirubin,Total 0.6 MG/DL (0.20-1.00); Total Protein 6.8 G/DL (6.4-8.2)
[2021-04-08] MEDS ORDERED: HEPARIN 10,000 UNIT/10 ML VIAL IV PRN (07:00)
[2021-04-08] MEDS: PANTOPRAZOLE 40 MG TABLET PO SCH (09:43)
[2021-04-08] MEDS: ASPIRIN CHEW 81 MG TABLET PO SCH (09:43)
[2021-04-08] MEDS: ENOXAPARIN 30 MG/0.3 ML SYRINGE SUBCUT SCH (16:23)
[2021-04-08] MEDS: ATORVASTATIN 40 MG TABLET PO SCH (22:04)
[2021-04-08] MEDS: MEROPENEM 500 MG in SODIUM CHLORIDE 0.9% 100 ML IV SCH (22:06)
[2021-04-09] MEDS: ALBUTEROL/IPRATROPIUM 3 ML NEB RESP TX SCH ×4 (01:23→19:56)
[2021-04-09 05:23] LABS: Basophils % 0.3 % (0.0-0.8); Eosinophils # 0.3 10*3/uL (0.0-0.87); Eosinophils % 8.1 % (0.00-10.9); Hematocrit 27.3 VOL% (35.7-47.0); Hemoglobin 8.3 GM/DL (12.0-16.0); Immature Granulocytes % 0.6 %; Immature Granulocytes Absolute 0.02 #; Lymphocytes # 0.5 10*3/uL (1.4-4.0); Lymphocytes % 14.5 % (21.3-54.2); Mean Corpuscular HGB Conc 30.4 GM/DL (32-36); Mean Corpuscular Volume 102.2 FL (87-102); Mean Platelet Volume 11.3 FL (9.6-12.0); Monocytes % 17.2 % (1.7-12.7); Neutrophils % 59.3 % (38.7-73.9); Platelet Count 108 T/CUMM (130-400); Red Blood Count 2.67 MC/CUMM (3.8-5.5); Red Cell Distribution Width 15.3 % (9.3-17.3); White Blood Count 3.3 T/CUMM (4-12)
[2021-04-09 05:45] LABS: Band Neutrophils 1 % (0-10); Eosinophils 5 % (0-10); Hypochromasia Slight; Lymphocytes 14 % (20-55); Microcytosis 1+; Segmented Neutrophils 69 % (50-85); Total Cells Counted 100
[2021-04-09 05:46] LABS: Platelet Estimate Decreased
[2021-04-09 05:55] LABS: Calcium 8.4 MG/DL (8.5-10.1); Osmolality,Calculated 273.1 MOS/KG (273-304); Potassium 3.3 MMOL/L (3.5-5.1)
[2021-04-09] MEDS ORDERED: POTASSIUM CHLORIDE 20 MEQ TABLET PO ONE (07:57)
[2021-04-09] MEDS: ASPIRIN CHEW 81 MG TABLET PO SCH (09:16)
[2021-04-09] MEDS: PANTOPRAZOLE 40 MG TABLET PO SCH (09:16)
[2021-04-09] MEDS ORDERED: carvediloL 6.25 MG TABLET PO SCH (11:23)
[2021-04-09] MEDS: carvediloL 3.125 MG TABLET PO SCH (16:41)
[2021-04-09] MEDS ORDERED: SIMETHICONE CHEW 125 MG TABLET PO PRN (20:04)
[2021-04-09] MEDS: MEROPENEM 500 MG in SODIUM CHLORIDE 0.9% 100 ML IV SCH (20:15)
[2021-04-09] MEDS: ATORVASTATIN 40 MG TABLET PO SCH (20:15)
[2021-04-10] MEDS: ALBUTEROL/IPRATROPIUM 3 ML NEB RESP TX SCH ×4 (01:23→20:26)
[2021-04-10 04:32] LABS: Basophils % 0.3 % (0.0-0.8); Eosinophils # 0.5 10*3/uL (0.0-0.87); Eosinophils % 12.2 % (0.00-10.9); Hematocrit 26.3 VOL% (35.7-47.0); Immature Granulocytes % 0.5 %; Immature Granulocytes Absolute 0.02 #; Lymphocytes # 0.7 10*3/uL (1.4-4.0); Lymphocytes % 19.4 % (21.3-54.2); Mean Corpuscular HGB Conc 30.4 GM/DL (32-36); Mean Corpuscular Volume 100.4 FL (87-102); Mean Platelet Volume 10.9 FL (9.6-12.0); Monocytes % 12.7 % (1.7-12.7); Neutrophils % 54.9 % (38.7-73.9); Platelet Count 118 T/CUMM (130-400); Red Blood Count 2.62 MC/CUMM (3.8-5.5); Red Cell Distribution Width 15.2 % (9.3-17.3); White Blood Count 3.8 T/CUMM (4-12)
[2021-04-10 04:55] LABS: Eosinophils 8 % (0-10); Hypochromasia Slight; Lymphocytes 12 % (20-55); Platelet Estimate Normal; Segmented Neutrophils 69 % (50-85); Total Cells Counted 100
[2021-04-10 04:56] LABS: Calcium 8.8 MG/DL (8.5-10.1); Potassium 4.3 MMOL/L (3.5-5.1)
[2021-04-10] MEDS: DEXTROSE 50% 25 GM/50 ML VIAL IV PRN ×2 (08:48→22:35)
[2021-04-10] MEDS ORDERED: CLINDAMYCIN INJ 900 MG/50 ML PREMIX IV ONE (09:03)
[2021-04-10] MEDS ORDERED: LACTATED RINGERS 1,000 ML IV SCH (10:00)
[2021-04-10] MEDS ORDERED: HEPARIN 5,000 UNIT/1 ML VIAL ONE (10:56)
[2021-04-10] MEDS ORDERED: BUPIVACAINE MPF 0.25% 30 ML VIAL ONE (10:56)
[2021-04-10] MEDS ORDERED: TISSUE ADHESIVE 1 EACH APPLICATOR TOP ONE (10:56)
[2021-04-10] MEDS ORDERED: LIDOCAINE 1%/EPI INJ 20 ML VIAL ONE (10:57)
[2021-04-10] MEDS ORDERED: fentaNYL 100 MCG/2 ML VIAL ONE (12:38)
[2021-04-10] MEDS ORDERED: propofoL 200 MG/20 ML VIAL IV ONE (13:00)
[2021-04-10] MEDS ORDERED: SODIUM CHLORIDE 0.9% 100 ML IV ONE (13:00)
[2021-04-10] MEDS ORDERED: SODIUM CHLORIDE 0.9% 250 ML IV SCH (13:00)
[2021-04-10] MEDS: carvediloL 3.125 MG TABLET PO SCH ×2 (13:58→18:20)
[2021-04-10] MEDS: ASPIRIN CHEW 81 MG TABLET PO SCH (17:16)
[2021-04-10] MEDS: PANTOPRAZOLE 40 MG TABLET PO SCH (17:16)
[2021-04-10] MEDS: ATORVASTATIN 40 MG TABLET PO SCH (20:18)
[2021-04-10] MEDS: MEROPENEM 500 MG in SODIUM CHLORIDE 0.9% 100 ML IV SCH (22:38)
[2021-04-11 05:42] LABS: Basophils % 0.4 % (0.0-0.8); Eosinophils # 0.5 10*3/uL (0.0-0.87); Eosinophils % 10.4 % (0.00-10.9); Hematocrit 24.2 VOL% (35.7-47.0); Hemoglobin 7.7 GM/DL (12.0-16.0); Immature Granulocytes % 0.4 %; Immature Granulocytes Absolute 0.02 #; Lymphocytes # 0.7 10*3/uL (1.4-4.0); Lymphocytes % 15.9 % (21.3-54.2); Mean Corpuscular HGB Conc 31.8 GM/DL (32-36); Mean Corpuscular Volume 100.8 FL (87-102); Mean Platelet Volume 11.2 FL (9.6-12.0); Monocytes % 14.4 % (1.7-12.7); Neutrophils % 58.5 % (38.7-73.9); Platelet Count 131 T/CUMM (130-400); White Blood Count 4.5 T/CUMM (4-12)
[2021-04-11 06:03] LABS: Calcium 8.4 MG/DL (8.5-10.1); Potassium 4.2 MMOL/L (3.5-5.1)
[2021-04-11] MEDS: ALBUTEROL/IPRATROPIUM 3 ML NEB RESP TX SCH ×3 (07:05→13:38)
[2021-04-11] MEDS ORDERED: DEXTROSE 5% LACTATED RINGERS 1,000 ML IV SCH (08:00)
[2021-04-11] MEDS: SODIUM CHLORIDE 0.9% 1,000 ML IV SCH ×2 (08:47→12:22)
[2021-04-11] MEDS: ASPIRIN CHEW 81 MG TABLET PO SCH (09:35)
[2021-04-11] MEDS: PANTOPRAZOLE 40 MG TABLET PO SCH (09:35)
[2021-04-11] MEDS: carvediloL 3.125 MG TABLET PO SCH ×2 (09:35→17:19)
[2021-04-11] MEDS ORDERED: propofoL 200 MG/20 ML VIAL IV ONE (12:00)
[2021-04-11] MEDS ORDERED: LIDOCAINE 2% 5 ML VIAL ONE (12:00)
[2021-04-11] MEDS ORDERED: ETOMIDATE 20 MG/10 ML VIAL IV ONE (12:00)
[2021-04-11] MEDS ORDERED: ePHEDrine 50 MG/ML VIAL ONE (12:10)
[2021-04-11 12:48] VITALS: BP 143/64
[2021-04-11 13:04] LABS: % Iron Saturation 11.7 % (18-50); Ferritin 994.3 ng/mL (8-252)
[2021-04-11 13:06] LABS: Folate 5.22 NG/ML (5.38-24.0)
== END 2021-04-11 17:58 ==
LOC: EDUNIT# → EDBD → N.ED 09:06 → SUATTDRO 11:43 → N.EDINP 11:43 → INTOOBSV 11:43 → N.TELEN 13:41
PROVIDERS: ADMIT Hospitalist; ATTEND Internal Medicine

== ENCOUNTER 2021-05-01 14:00 | Observation (INO) ==
[2021-05-01] MEDS ORDERED: HEPARIN LOCK FLUSH 500 UNIT/5 ML SYRINGE IV ONE ×2 (14:27→16:40)
[2021-05-01 15:25] LABS: Basophils % 0.2 % (0.0-0.8); Eosinophils # 0.5 10*3/uL (0.0-0.87); Eosinophils % 11.2 % (0.00-10.9); Hematocrit 26.4 VOL% (35.7-47.0); Hemoglobin 7.8 GM/DL (12.0-16.0); Immature Granulocytes % 0.4 %; Immature Granulocytes Absolute 0.02 #; Lymphocytes # 0.9 10*3/uL (1.4-4.0); Lymphocytes % 19.7 % (21.3-54.2); Mean Corpuscular HGB Conc 29.5 GM/DL (32-36); Mean Corpuscular Volume 98.5 FL (87-102); Mean Platelet Volume 11.9 FL (9.6-12.0); Monocytes % 10.6 % (1.7-12.7); Neutrophils % 57.9 % (38.7-73.9); Platelet Count 113 T/CUMM (130-400); Red Blood Count 2.68 MC/CUMM (3.8-5.5); Red Cell Distribution Width 15.3 % (9.3-17.3); White Blood Count 4.6 T/CUMM (4-12)
[2021-05-01 15:53] LABS: Albumin 3.3 G/DL (3.4-5.0); Bilirubin,Total 0.7 MG/DL (0.20-1.00); Calcium 8.1 MG/DL (8.5-10.1); Osmolality,Calculated 271.8 MOS/KG (273-304); Potassium 3.2 MMOL/L (3.5-5.1); Total Protein 6.7 G/DL (6.4-8.2)
[2021-05-01 16:08] LABS: Eosinophils 7 % (0-10); Lymphocytes 14 % (20-55); Macrocytosis 1+; Platelet Estimate Decreased; Segmented Neutrophils 74 % (50-85); Total Cells Counted 100
[2021-05-01] MEDS ORDERED: GLUCAGON 1 MG VIAL IM PRN (16:58)
[2021-05-01] MEDS ORDERED: DEXTROSE 50% 25 GM/50 ML VIAL IV PRN (16:58)
[2021-05-01] MEDS ORDERED: hydrALAZINE 20 MG/1 ML VIAL IV PRN (16:58)
[2021-05-01] MEDS ORDERED: ACETAMINOPHEN 325 MG TABLET PO PRN (16:58)
[2021-05-01] MEDS ORDERED: POTASSIUM CHLORIDE 20 MEQ TABLET PO STA (17:30)
[2021-05-01] MEDS ORDERED: NITROGLYCERIN SL 0.4 MG TABLET SL PRN (17:35)
[2021-05-01] MEDS: HEPARIN 5,000 UNIT/1 ML VIAL SUBCUT SCH (19:00)
[2021-05-01] MEDS ORDERED: ATORVASTATIN 40 MG TABLET PO SCH (21:00)
[2021-05-01] MEDS ORDERED: traZODone 50 MG TABLET PO SCH (21:00)
[2021-05-01] MEDS: MIDODRINE 5 MG TABLET PO SCH (21:42)
[2021-05-02 04:51] LABS: Basophils % 0.3 % (0.0-0.8); Eosinophils # 0.6 10*3/uL (0.0-0.87); Eosinophils % 16.1 % (0.00-10.9); Hemoglobin 8.3 GM/DL (12.0-16.0); Immature Granulocytes % 0.3 %; Immature Granulocytes Absolute 0.01 #; Lymphocytes # 0.7 10*3/uL (1.4-4.0); Lymphocytes % 21.7 % (21.3-54.2); Mean Corpuscular HGB Conc 29.6 GM/DL (32-36); Mean Corpuscular Volume 100.4 FL (87-102); Mean Platelet Volume 11.7 FL (9.6-12.0); Monocytes % 14.7 % (1.7-12.7); Neutrophils % 46.9 % (38.7-73.9); Platelet Count 105 T/CUMM (130-400); Red Blood Count 2.79 MC/CUMM (3.8-5.5); Red Cell Distribution Width 15.4 % (9.3-17.3); White Blood Count 3.4 T/CUMM (4-12)
[2021-05-02 05:20] LABS: Eosinophils 18 % (0-10); Hypochromasia 1+; Lymphocytes 20 % (20-55); Macrocytosis 1+; Segmented Neutrophils 51 % (50-85); Total Cells Counted 100
[2021-05-02 05:21] LABS: Ovalocytes Slight; Platelet Estimate Decreased
[2021-05-02] MEDS: HEPARIN 5,000 UNIT/1 ML VIAL SUBCUT SCH (05:25)
[2021-05-02 05:26] LABS: Calcium 8.4 MG/DL (8.5-10.1); Osmolality,Calculated 273.7 MOS/KG (273-304); Potassium 3.4 MMOL/L (3.5-5.1); Thyroid Stimulating Hormone 2.35 uIU/ml (0.358-3.74)
[2021-05-02] MEDS ORDERED: ASPIRIN EC 81 MG TABLET PO SCH (08:00)
[2021-05-02] MEDS ORDERED: carvediloL 3.125 MG TABLET PO SCH (08:00)
[2021-05-02] MEDS ORDERED: FERROUS SULFATE 325 MG TABLET PO SCH (08:00)
[2021-05-02] MEDS: SEVELAMER CARBONATE 800 MG TABLET PO SCH ×2 (08:53→12:38)
[2021-05-02] MEDS: MIDODRINE 5 MG TABLET PO SCH (08:54)
[2021-05-02] MEDS ORDERED: PANTOPRAZOLE 40 MG TABLET PO SCH (09:00)
[2021-05-02] MEDS ORDERED: FOLIC ACID 1 MG TABLET PO SCH (09:00)
[2021-05-02] MEDS ORDERED: HEPARIN 10,000 UNIT/10 ML VIAL IV SCH (10:45)
[2021-05-02 12:26] VITALS: BP 146/66
== END 2021-05-02 16:30 ==
LOC: EDBD → EDUNIT# → N.EDINP 14:00 → N.ED 14:00 → N.TELEN 18:14
PROVIDERS: ADMIT Internal Medicine Geriatric Medicine; ATTEND Internal Medicine Geriatric Medicine

== ENCOUNTER 2021-05-10 14:32 | Inpatient (IN) ==
[~2021-05-10 14:32] MED LIST changes: -CLINDAMYCIN INJ 600 MG in PREMIX 1 EACH IV ONE; +EPINEPHrine 1 MG/10 ML SYRINGE ONE; +SODIUM BICARBONATE 50 MEQ/50 ML SYRINGE IV ONE
[2021-05-10 15:03] LABS: Basophils % 0.5 % (0.0-0.8); Eosinophils # 0.7 10*3/uL (0.0-0.87); Eosinophils % 7.7 % (0.00-10.9); Hematocrit 29.1 VOL% (35.7-47.0); Hemoglobin 8.5 GM/DL (12.0-16.0); Immature Granulocytes % 5.1 %; Immature Granulocytes Absolute 0.44 #; Lymphocytes # 2.7 10*3/uL (1.4-4.0); Lymphocytes % 31.6 % (21.3-54.2); Mean Corpuscular HGB Conc 29.2 GM/DL (32-36); Mean Platelet Volume 11.8 FL (9.6-12.0); Monocytes % 4.3 % (1.7-12.7); NRBC # 0.04 10*3/uL; Neutrophils % 50.8 % (38.7-73.9); Platelet Count 82 T/CUMM (130-400); Red Blood Count 2.88 MC/CUMM (3.8-5.5); Red Cell Distribution Width 16.5 % (9.3-17.3); White Blood Count 8.7 T/CUMM (4-12)
[2021-05-10 15:24] LABS: Band Neutrophils 3 % (0-10); Eosinophils 5 % (0-10); Hypochromasia 2+; Lymphocytes 31 % (20-55); Polychromasia Slight; Segmented Neutrophils 57 % (50-85); Tear Drop Cells Few; Total Cells Counted 100
[2021-05-10 15:25] LABS: Platelet Estimate Decreased
[2021-05-10 15:34] LABS: Albumin 2.9 G/DL (3.4-5.0); Bilirubin,Total 0.6 MG/DL (0.20-1.00); Calcium 11.4 MG/DL (8.5-10.1); Osmolality,Calculated 280.1 MOS/KG (273-304); Potassium 4.1 MMOL/L (3.5-5.1); Total Protein 5.7 G/DL (6.4-8.2)
[2021-05-10 16:07] LABS: ABG Base Excess 7.8 MMOL/L (-2.5-2.5); ABG HCO3 31.2 MMOL/L (20-26); ABG Oxygen Saturation 76.9 % (95-100); ABG PCO2 56.6 MM HG (35-48); ABG PH 7.388 (7.35-7.45); ABG PO2 45.2 MM HG (80-95); ABG TCO2 31.8 MMOL/L (23-27)
[2021-05-10] MEDS ORDERED: ALBUTEROL 2.5 MG/3 ML NEB RESP TX PRN (16:21)
[2021-05-10 16:23] LABS: INR 1.2; PT Patient Result 13.4 SECS (10.5-12.0)
[2021-05-10] MEDS ORDERED: ONDANSETRON 4 MG/2 ML VIAL IV PRN (16:28)
[2021-05-10 16:45] LABS: ABG Base Excess 8.5 MMOL/L (-2.5-2.5); ABG HCO3 31.6 MMOL/L (20-26); ABG Oxygen Saturation 54.9 % (95-100); ABG PCO2 62.7 MM HG (35-48); ABG PH 7.362 (7.35-7.45); ABG TCO2 33.4 MMOL/L (23-27)
[2021-05-10 16:47] LABS: ABG PO2 33.3 MM HG (80-95)
[2021-05-10] MEDS ORDERED: HEPARIN 10,000 UNIT/10 ML VIAL IV SCH (18:15)
[2021-05-10] MEDS: FAMOTIDINE 20 MG/2 ML VIAL IV SCH (18:29)
[2021-05-10 18:44] LABS: ABG Base Excess 8.3 MMOL/L (-2.5-2.5); ABG HCO3 32.1 MMOL/L (20-26); ABG PCO2 36.7 MM HG (35-48); ABG TCO2 28.9 MMOL/L (23-27)
[2021-05-10] MEDS: HEPARIN 5,000 UNIT/1 ML VIAL SUBCUT SCH (22:58)
[2021-05-11] MEDS ORDERED: DEXTROSE 50% 25 GM/50 ML VIAL IV ONE (01:45)
[2021-05-11] MEDS ORDERED: GLUCAGON 1 MG VIAL IM PRN (01:48)
[2021-05-11] MEDS: DEXTROSE 50% 25 GM/50 ML VIAL IV PRN ×2 (01:50→18:50)
[2021-05-11] MEDS ORDERED: SODIUM BICARBONATE 50 MEQ/50 ML SYRINGE IV ONE (01:57)
[2021-05-11] MEDS ORDERED: EPINEPHrine 1 MG/10 ML SYRINGE IV ONE (01:57)
[2021-05-11 02:11] LABS: Basophils % 0.3 % (0.0-0.8); Eosinophils # 0.3 10*3/uL (0.0-0.87); Eosinophils % 4.4 % (0.00-10.9); Hematocrit 27.7 VOL% (35.7-47.0); Hemoglobin 8.3 GM/DL (12.0-16.0); Immature Granulocytes % 0.7 %; Immature Granulocytes Absolute 0.05 #; Lymphocytes # 1.7 10*3/uL (1.4-4.0); Lymphocytes % 24.9 % (21.3-54.2); Mean Corpuscular Volume 96.5 FL (87-102); Monocytes % 4.3 % (1.7-12.7); Neutrophils % 65.4 % (38.7-73.9); Platelet Count 126 T/CUMM (130-400); Red Blood Count 2.87 MC/CUMM (3.8-5.5); Red Cell Distribution Width 17.3 % (9.3-17.3); White Blood Count 6.8 T/CUMM (4-12)
[2021-05-11 02:28] LABS: ABG Base Excess 7.3 MMOL/L (-2.5-2.5); ABG HCO3 30.1 MMOL/L (20-26); ABG Oxygen Saturation 99.4 % (95-100); ABG PCO2 35.5 MM HG (35-48); ABG PH 7.546 (7.35-7.45); ABG PO2 249.1 MM HG (80-95); ABG TCO2 31.2 MMOL/L (23-27)
[2021-05-11 02:32] LABS: Hypochromasia Slight; Platelet Estimate Normal
[2021-05-11] MEDS ORDERED: AMIODARONE INJ 150 MG in DEXTROSE 5% 100 ML IV ONE (02:33)
[2021-05-11] MEDS ORDERED: AMIODARONE 150 MG/3 ML VIAL ONE (02:34)
[2021-05-11] MEDS ORDERED: AMIODARONE 450 MG/9 ML VIAL IV ONE (02:34)
[2021-05-11] MEDS ORDERED: AMIODARONE 150 MG/3 ML VIAL IV ONE (02:39)
[2021-05-11] MEDS ORDERED: AMIODARONE INJ 450 MG in DEXTROSE 5% 241 ML IV SCH (03:00)
[2021-05-11 03:27] LABS: Albumin 3.2 G/DL (3.4-5.0); Bilirubin,Total 0.6 MG/DL (0.20-1.00); Calcium 8.9 MG/DL (8.5-10.1); Osmolality,Calculated 270.2 MOS/KG (273-304); Potassium 3.2 MMOL/L (3.5-5.1); Total Protein 6.4 G/DL (6.4-8.2)
[2021-05-11] MEDS ORDERED: LORazepam 2 MG/1 ML VIAL IV ONE (03:35)
[2021-05-11] MEDS: FAMOTIDINE 20 MG/2 ML VIAL IV SCH ×2 (04:14→17:27)
[2021-05-11] MEDS ORDERED: SODIUM CHLORIDE 0.9% 250 ML IV ONE (07:37)
[2021-05-11] MEDS ORDERED: PHENYLEPHRINE DRIP 40 MG/250 ML PREMIX IV PRN (07:40)
[2021-05-11] MEDS: HYDROCORTISONE 100 MG VIAL IV SCH ×3 (08:48→23:27)
[2021-05-11] MEDS: HEPARIN 5,000 UNIT/1 ML VIAL SUBCUT SCH ×2 (08:48→20:02)
[2021-05-11] MEDS: FERROUS SULFATE 325 MG TABLET PO SCH ×2 (08:48→17:27)
[2021-05-11] MEDS: POTASSIUM CHLORIDE RIDER 10 MEQ/100 ML PREMIX IV SCH ×4 (08:49→13:00)
[2021-05-11] MEDS: AMIODARONE INJ 450 MG in DEXTROSE 5% 241 ML IV SCH (08:50)
[2021-05-11] MEDS ORDERED: MIDODRINE 5 MG TABLET PO SCH (09:00)
[2021-05-11] MEDS ORDERED: POTASSIUM CHLORIDE 20 MEQ PACK PO ONE (09:13)
[2021-05-11] MEDS ORDERED: MAGNESIUM SULF RIDER 2 GM/50 ML PREMIX IV ONE (09:13)
[2021-05-11] MEDS ORDERED: NOREPINEPHRINE 4 MG/4 ML VIAL IV ONE (09:38)
[2021-05-11] MEDS: NOREPINEPHRINE 8 MG in SODIUM CHLORIDE 0.9% 242 ML IV PRN ×3 (09:42→19:01)
[2021-05-11] MEDS ORDERED: LORazepam 2 MG/1 ML VIAL IV PRN (10:19)
[2021-05-11] MEDS: ALBUTEROL/IPRATROPIUM 3 ML NEB RESP TX SCH ×3 (10:32→18:58)
[2021-05-11] MEDS: MIDODRINE 5 MG TABLET PO SCH ×3 (10:53→20:02)
[2021-05-11] MEDS: ASPIRIN CHEW 81 MG TABLET PO SCH (13:43)
[2021-05-11] MEDS: AMIODARONE 200 MG TABLET NG SCH ×2 (13:43→20:03)
[2021-05-11 14:29] LABS: Calcium 8.9 MG/DL (8.5-10.1); Osmolality,Calculated 269.2 MOS/KG (273-304); Potassium 4.5 MMOL/L (3.5-5.1)
[2021-05-11] MEDS: DEXTROSE 5% NACL 0.9% 1,000 ML IV SCH (14:38)
[2021-05-11] MEDS ORDERED: ATORVASTATIN 40 MG TABLET PO SCH (21:00)
[2021-05-11] MEDS: MORPHINE 2 MG/1 ML SYRINGE IV PRN (21:33)
[2021-05-12] MEDS: ALBUTEROL/IPRATROPIUM 3 ML NEB RESP TX SCH ×4 (00:32→19:00)
[2021-05-12] MEDS: AMIODARONE INJ 450 MG in DEXTROSE 5% 241 ML IV SCH (01:22)
[2021-05-12 03:35] LABS: Basophils % 0.2 % (0.0-0.8); Eosinophils % 0.1 % (0.00-10.9); Hematocrit 28.4 VOL% (35.7-47.0); Hemoglobin 8.5 GM/DL (12.0-16.0); Immature Granulocytes % 1.1 %; Immature Granulocytes Absolute 0.11 #; Lymphocytes # 0.6 10*3/uL (1.4-4.0); Lymphocytes % 6.2 % (21.3-54.2); Mean Corpuscular HGB Conc 29.9 GM/DL (32-36); Mean Corpuscular Volume 97.9 FL (87-102); Mean Platelet Volume 12.5 FL (9.6-12.0); Monocytes % 5.1 % (1.7-12.7); Neutrophils % 87.3 % (38.7-73.9); Platelet Count 67 T/CUMM (130-400); Red Cell Distribution Width 17.1 % (9.3-17.3); White Blood Count 9.9 T/CUMM (4-12)
[2021-05-12 04:06] LABS: Albumin 2.9 G/DL (3.4-5.0); Bilirubin,Total 0.9 MG/DL (0.20-1.00); Calcium 8.7 MG/DL (8.5-10.1); Osmolality,Calculated 276.1 MOS/KG (273-304); Potassium 4.7 MMOL/L (3.5-5.1); Total Protein 5.8 G/DL (6.4-8.2)
[2021-05-12 04:10] LABS: ABG Base Excess -1.8 MMOL/L (-2.5-2.5); ABG HCO3 21.3 MMOL/L (20-26); ABG Oxygen Saturation 98.3 % (95-100); ABG PCO2 30.1 MM HG (35-48); ABG PH 7.468 (7.35-7.45); ABG PO2 117.6 MM HG (80-95); ABG TCO2 22.2 MMOL/L (23-27)
[2021-05-12 04:14] LABS: Calcium 8.5 MG/DL (8.5-10.1); Osmolality,Calculated 274.2 MOS/KG (273-304); Potassium 4.7 MMOL/L (3.5-5.1)
[2021-05-12] MEDS: FAMOTIDINE 20 MG/2 ML VIAL IV SCH ×2 (05:10→17:35)
[2021-05-12] MEDS: PIPERACILLIN/TAZOBACTAM 3,375 MG in SODIUM CHLORIDE 0.9% 100 ML IV SCH ×2 (08:39→20:47)
[2021-05-12] MEDS: FERROUS SULFATE 325 MG TABLET PO SCH ×2 (08:39→17:35)
[2021-05-12] MEDS: HYDROCORTISONE 100 MG VIAL IV SCH ×2 (08:39→17:37)
[2021-05-12] MEDS: ASPIRIN CHEW 81 MG TABLET PO SCH (08:41)
[2021-05-12] MEDS: AMIODARONE 200 MG TABLET NG SCH ×2 (08:41→20:47)
[2021-05-12] MEDS: MIDODRINE 5 MG TABLET PO SCH (08:42)
[2021-05-12] MEDS ORDERED: MIDODRINE 5 MG TABLET PO PRN (10:09)
[2021-05-12] MEDS: DEXTROSE 5% NACL 0.9% 1,000 ML IV SCH (10:55)
[2021-05-12] MEDS ORDERED: GLUCAGON 1 MG VIAL IM PRN (12:52)
[2021-05-12] MEDS ORDERED: DEXTROSE 50% 25 GM/50 ML VIAL IV PRN (12:52)
[2021-05-12] MEDS: VANCOMYCIN 50 MG/ML 60 ML/BOTTLE PO SCH (17:39)
[2021-05-12] MEDS: INSULIN REGULAR 100 UNIT/ML SUBCUT SCH (17:39)
[2021-05-13] MEDS: INSULIN REGULAR 100 UNIT/ML SUBCUT SCH ×4 (00:09→17:01)
[2021-05-13] MEDS: VANCOMYCIN 50 MG/ML 60 ML/BOTTLE PO SCH ×4 (00:40→17:36)
[2021-05-13] MEDS: ALBUTEROL/IPRATROPIUM 3 ML NEB RESP TX SCH ×4 (01:04→19:00)
[2021-05-13] MEDS: HYDROCORTISONE 100 MG VIAL IV SCH ×2 (01:05→08:56)
[2021-05-13 03:48] LABS: Basophils % 0.1 % (0.0-0.8); Eosinophils % 0.3 % (0.00-10.9); Hematocrit 26.4 VOL% (35.7-47.0); Hemoglobin 8.3 GM/DL (12.0-16.0); Immature Granulocytes % 0.9 %; Immature Granulocytes Absolute 0.07 #; Lymphocytes # 0.3 10*3/uL (1.4-4.0); Lymphocytes % 4.2 % (21.3-54.2); Mean Corpuscular HGB Conc 31.4 GM/DL (32-36); Mean Corpuscular Volume 94.3 FL (87-102); Monocytes % 3.4 % (1.7-12.7); NRBC # 0.04 10*3/uL; Neutrophils % 91.1 % (38.7-73.9); Platelet Count 65 T/CUMM (130-400); Red Cell Distribution Width 16.6 % (9.3-17.3); White Blood Count 7.7 T/CUMM (4-12)
[2021-05-13 04:03] LABS: Bilirubin,Total 0.8 MG/DL (0.20-1.00); Calcium 8.5 MG/DL (8.5-10.1); Osmolality,Calculated 274.4 MOS/KG (273-304); Potassium 3.7 MMOL/L (3.5-5.1); Total Protein 5.9 G/DL (6.4-8.2)
[2021-05-13 04:33] LABS: ABG Base Excess 1.6 MMOL/L (-2.5-2.5); ABG HCO3 25.5 MMOL/L (20-26); ABG Oxygen Saturation 98.9 % (95-100); ABG PCO2 37.3 MM HG (35-48); ABG PH 7.453 (7.35-7.45); ABG PO2 179.6 MM HG (80-95); ABG TCO2 26.7 MMOL/L (23-27)
[2021-05-13] MEDS: FAMOTIDINE 20 MG/2 ML VIAL IV SCH ×2 (05:35→17:36)
[2021-05-13] MEDS: ASPIRIN CHEW 81 MG TABLET PO SCH (08:55)
[2021-05-13] MEDS: FERROUS SULFATE 325 MG TABLET PO SCH ×2 (08:55→17:36)
[2021-05-13] MEDS: PIPERACILLIN/TAZOBACTAM 3,375 MG in SODIUM CHLORIDE 0.9% 100 ML IV SCH ×2 (08:55→21:40)
[2021-05-13] MEDS: AMIODARONE 200 MG TABLET NG SCH ×2 (08:55→21:31)
[2021-05-14] MEDS: INSULIN REGULAR 100 UNIT/ML SUBCUT SCH ×4 (00:43→18:09)
[2021-05-14] MEDS: VANCOMYCIN 50 MG/ML 60 ML/BOTTLE PO SCH ×4 (00:52→18:09)
[2021-05-14] MEDS: ALBUTEROL/IPRATROPIUM 3 ML NEB RESP TX SCH ×4 (01:00→19:00)
[2021-05-14 03:59] LABS: ABG Base Excess 1.4 MMOL/L (-2.5-2.5); ABG HCO3 25.7 MMOL/L (20-26); ABG PCO2 46.4 MM HG (35-48); ABG PH 7.372 (7.35-7.45); ABG TCO2 25.1 MMOL/L (23-27)
[2021-05-14] MEDS: FAMOTIDINE 20 MG/2 ML VIAL IV SCH ×2 (06:11→17:30)
[2021-05-14 06:31] LABS: Basophils % 0.1 % (0.0-0.8); Eosinophils # 0.2 10*3/uL (0.0-0.87); Eosinophils % 1.7 % (0.00-10.9); Hematocrit 26.6 VOL% (35.7-47.0); Hemoglobin 8.3 GM/DL (12.0-16.0); Immature Granulocytes % 1.1 %; Lymphocytes # 0.6 10*3/uL (1.4-4.0); Lymphocytes % 6.3 % (21.3-54.2); Mean Corpuscular HGB Conc 31.2 GM/DL (32-36); Mean Corpuscular Volume 95.7 FL (87-102); Mean Platelet Volume 13.3 FL (9.6-12.0); Monocytes % 8.3 % (1.7-12.7); NRBC # 0.09 10*3/uL; Neutrophils % 82.5 % (38.7-73.9); Platelet Count 78 T/CUMM (130-400); Red Blood Count 2.78 MC/CUMM (3.8-5.5); Red Cell Distribution Width 16.5 % (9.3-17.3); White Blood Count 8.8 T/CUMM (4-12)
[2021-05-14 06:55] LABS: Calcium 8.5 MG/DL (8.5-10.1); Hypochromasia 1+; Microcytosis 1+; Osmolality,Calculated 279.5 MOS/KG (273-304); Platelet Estimate Decreased; Potassium 3.8 MMOL/L (3.5-5.1)
[2021-05-14 07:01] LABS: Bilirubin,Direct 0.31 MG/DL (0.0-0.20); Bilirubin,Indirect 0.9 MG/DL (0.0-1.0); Bilirubin,Total 1.2 MG/DL (0.20-1.00); Total Protein 6.2 G/DL (6.4-8.2)
[2021-05-14] MEDS: AMIODARONE 200 MG TABLET NG SCH ×2 (10:09→21:21)
[2021-05-14] MEDS: predniSONE 20 MG TABLET PO SCH (10:11)
[2021-05-14] MEDS: FERROUS SULFATE 325 MG TABLET PO SCH ×2 (10:12→17:30)
[2021-05-14] MEDS: ASPIRIN CHEW 81 MG TABLET PO SCH (10:12)
[2021-05-14] MEDS: AZITHROMYCIN INJ 500 MG in SODIUM CHLORIDE 0.9% 250 ML IV SCH (10:13)
[2021-05-14] MEDS ORDERED: SACUBITRIL/VALSARTAN 49-51 MG TABLET PO SCH (11:00)
[2021-05-15] MEDS: INSULIN REGULAR 100 UNIT/ML SUBCUT SCH ×4 (00:35→17:12)
[2021-05-15] MEDS: VANCOMYCIN 50 MG/ML 60 ML/BOTTLE PO SCH ×4 (00:37→17:12)
[2021-05-15] MEDS: ALBUTEROL/IPRATROPIUM 3 ML NEB RESP TX SCH ×4 (01:00→19:20)
[2021-05-15 04:33] LABS: ABG Base Excess -1.4 MMOL/L (-2.5-2.5); ABG HCO3 23.3 MMOL/L (20-26); ABG Oxygen Saturation 99.2 % (95-100); ABG PCO2 47.6 MM HG (35-48); ABG PH 7.325 (7.35-7.45); ABG TCO2 23.2 MMOL/L (23-27)
[2021-05-15] MEDS: FAMOTIDINE 20 MG/2 ML VIAL IV SCH ×2 (05:57→17:12)
[2021-05-15 06:37] LABS: Basophils % 0.1 % (0.0-0.8); Eosinophils # 0.1 10*3/uL (0.0-0.87); Eosinophils % 1.3 % (0.00-10.9); Hematocrit 26.8 VOL% (35.7-47.0); Hemoglobin 8.3 GM/DL (12.0-16.0); Immature Granulocytes Absolute 0.19 #; Lymphocytes # 0.4 10*3/uL (1.4-4.0); Mean Corpuscular Volume 96.8 FL (87-102); Mean Platelet Volume 12.6 FL (9.6-12.0); Monocytes % 8.8 % (1.7-12.7); NRBC # 0.06 10*3/uL; Neutrophils % 83.8 % (38.7-73.9); Platelet Count 76 T/CUMM (130-400); Red Blood Count 2.77 MC/CUMM (3.8-5.5); Red Cell Distribution Width 16.6 % (9.3-17.3); White Blood Count 9.4 T/CUMM (4-12)
[2021-05-15 07:02] LABS: Eosinophils 1 % (0-10); Lymphocytes 8 % (20-55); Nucleated Red Blood Cells 1 (0-5); Platelet Estimate Decreased; Segmented Neutrophils 89 % (50-85); Total Cells Counted 100
[2021-05-15 07:03] LABS: Hypochromasia Slight
[2021-05-15 07:06] LABS: Albumin 2.9 G/DL (3.4-5.0); Calcium 8.5 MG/DL (8.5-10.1); Osmolality,Calculated 284.8 MOS/KG (273-304); Total Protein 6.1 G/DL (6.4-8.2)
[2021-05-15] MEDS: FERROUS SULFATE 325 MG TABLET PO SCH ×2 (08:31→17:11)
[2021-05-15] MEDS: AMIODARONE 200 MG TABLET NG SCH ×2 (08:31→20:05)
[2021-05-15] MEDS: AZITHROMYCIN INJ 500 MG in SODIUM CHLORIDE 0.9% 250 ML IV SCH (08:31)
[2021-05-15] MEDS: ASPIRIN CHEW 81 MG TABLET PO SCH (08:31)
[2021-05-15] MEDS: predniSONE 20 MG TABLET PO SCH (08:31)
[2021-05-15] MEDS: hydrALAZINE 25 MG TABLET PO SCH ×2 (17:11→20:05)
[2021-05-15] MEDS: ISOSORBIDE DINITRATE 10 MG TABLET PO SCH ×2 (17:11→20:05)
[2021-05-16] MEDS: INSULIN REGULAR 100 UNIT/ML SUBCUT SCH ×4 (00:19→18:08)
[2021-05-16] MEDS: VANCOMYCIN 50 MG/ML 60 ML/BOTTLE PO SCH ×5 (00:20→23:42)
[2021-05-16] MEDS: ALBUTEROL/IPRATROPIUM 3 ML NEB RESP TX SCH ×4 (01:00→20:10)
[2021-05-16] MEDS: ALPRAZolam 0.25 MG TABLET PO PRN ×2 (01:50→23:41)
[2021-05-16 04:13] LABS: ABG Base Excess 0.7 MMOL/L (-2.5-2.5); ABG Oxygen Saturation 98.1 % (95-100); ABG PCO2 45.3 MM HG (35-48); ABG PH 7.377 (7.35-7.45); ABG TCO2 27.4 MMOL/L (23-27)
[2021-05-16] MEDS: MORPHINE 2 MG/1 ML SYRINGE IV PRN ×3 (04:25→17:13)
[2021-05-16 05:39] LABS: Basophils % 0.2 % (0.0-0.8); Eosinophils # 0.3 10*3/uL (0.0-0.87); Eosinophils % 2.4 % (0.00-10.9); Hematocrit 25.4 VOL% (35.7-47.0); Immature Granulocytes % 1.5 %; Immature Granulocytes Absolute 0.15 #; Lymphocytes # 0.5 10*3/uL (1.4-4.0); Lymphocytes % 4.9 % (21.3-54.2); Mean Corpuscular HGB Conc 31.5 GM/DL (32-36); Mean Corpuscular Volume 95.8 FL (87-102); Mean Platelet Volume 12.6 FL (9.6-12.0); Monocytes % 12.4 % (1.7-12.7); NRBC # 0.05 10*3/uL; Neutrophils % 78.6 % (38.7-73.9); Platelet Count 85 T/CUMM (130-400); Red Blood Count 2.65 MC/CUMM (3.8-5.5); Red Cell Distribution Width 17.2 % (9.3-17.3); White Blood Count 10.3 T/CUMM (4-12)
[2021-05-16] MEDS: FAMOTIDINE 20 MG/2 ML VIAL IV SCH ×2 (05:50→17:06)
[2021-05-16 05:58] LABS: Calcium 8.6 MG/DL (8.5-10.1); Osmolality,Calculated 280.4 MOS/KG (273-304); Potassium 3.7 MMOL/L (3.5-5.1)
[2021-05-16 05:59] LABS: Hypochromasia 1+; Microcytosis 1+; Ovalocytes Slight
[2021-05-16 06:00] LABS: Platelet Estimate Decreased; Polychromasia Slight
[2021-05-16] MEDS: ASPIRIN CHEW 81 MG TABLET PO SCH (08:29)
[2021-05-16] MEDS: ISOSORBIDE DINITRATE 10 MG TABLET PO SCH ×3 (08:29→20:49)
[2021-05-16] MEDS: AMIODARONE 200 MG TABLET NG SCH ×2 (08:29→20:49)
[2021-05-16] MEDS: predniSONE 20 MG TABLET PO SCH (08:29)
[2021-05-16] MEDS: FERROUS SULFATE 325 MG TABLET PO SCH ×2 (08:30→17:06)
[2021-05-16] MEDS: hydrALAZINE 25 MG TABLET PO SCH ×3 (08:30→20:49)
[2021-05-16] MEDS: SCOPOLAMINE 1.5 MG PATCH TRANSDERM PRN (08:38)
[2021-05-16] MEDS: AZITHROMYCIN INJ 500 MG in SODIUM CHLORIDE 0.9% 250 ML IV SCH (08:40)
[2021-05-17] MEDS: INSULIN REGULAR 100 UNIT/ML SUBCUT SCH ×5 (00:07→23:45)
[2021-05-17] MEDS: ALBUTEROL/IPRATROPIUM 3 ML NEB RESP TX SCH ×4 (01:19→20:06)
[2021-05-17 03:50] LABS: ABG Base Excess -1.3 MMOL/L (-2.5-2.5); ABG HCO3 25.8 MMOL/L (20-26); ABG Oxygen Saturation 97.8 % (95-100); ABG PCO2 56.1 MM HG (35-48); ABG PO2 108.3 MM HG (80-95); ABG TCO2 27.5 MMOL/L (23-27)
[2021-05-17] MEDS: FAMOTIDINE 20 MG/2 ML VIAL IV SCH ×2 (05:23→17:20)
[2021-05-17] MEDS: VANCOMYCIN 50 MG/ML 60 ML/BOTTLE PO SCH ×4 (05:24→23:57)
[2021-05-17 06:11] LABS: Basophils % 0.2 % (0.0-0.8); Eosinophils # 0.1 10*3/uL (0.0-0.87); Eosinophils % 1.1 % (0.00-10.9); Hematocrit 26.9 VOL% (35.7-47.0); Hemoglobin 8.4 GM/DL (12.0-16.0); Immature Granulocytes % 1.7 %; Immature Granulocytes Absolute 0.16 #; Lymphocytes # 0.7 10*3/uL (1.4-4.0); Lymphocytes % 7.3 % (21.3-54.2); Mean Corpuscular HGB Conc 31.2 GM/DL (32-36); Mean Corpuscular Volume 97.8 FL (87-102); Mean Platelet Volume 12.6 FL (9.6-12.0); Monocytes % 12.3 % (1.7-12.7); NRBC # 0.02 10*3/uL; Neutrophils % 77.4 % (38.7-73.9); Platelet Count 73 T/CUMM (130-400); Red Blood Count 2.75 MC/CUMM (3.8-5.5); Red Cell Distribution Width 17.7 % (9.3-17.3); White Blood Count 9.2 T/CUMM (4-12)
[2021-05-17 06:27] LABS: Calcium 8.8 MG/DL (8.5-10.1); Osmolality,Calculated 287.4 MOS/KG (273-304); Potassium 4.3 MMOL/L (3.5-5.1)
[2021-05-17 06:33] LABS: Platelet Estimate Decreased
[2021-05-17 06:34] LABS: Hypochromasia 1+; Microcytosis 1+
[2021-05-17] MEDS: MORPHINE 2 MG/1 ML SYRINGE IV PRN ×3 (07:10→22:27)
[2021-05-17] MEDS: hydrALAZINE 25 MG TABLET PO SCH ×3 (08:28→21:17)
[2021-05-17] MEDS: ASPIRIN CHEW 81 MG TABLET PO SCH (08:28)
[2021-05-17] MEDS: FERROUS SULFATE 325 MG TABLET PO SCH ×2 (08:28→17:20)
[2021-05-17] MEDS: ISOSORBIDE DINITRATE 10 MG TABLET PO SCH ×3 (08:28→21:18)
[2021-05-17] MEDS: predniSONE 20 MG TABLET PO SCH (08:28)
[2021-05-17] MEDS: AMIODARONE 200 MG TABLET NG SCH ×2 (08:29→21:18)
[2021-05-17] MEDS: AZITHROMYCIN INJ 500 MG in SODIUM CHLORIDE 0.9% 250 ML IV SCH (08:30)
[2021-05-18] MEDS: ALBUTEROL/IPRATROPIUM 3 ML NEB RESP TX SCH ×4 (00:03→20:14)
[2021-05-18 05:07] LABS: ABG Base Excess 0.3 MMOL/L (-2.5-2.5); ABG HCO3 24.6 MMOL/L (20-26); ABG Oxygen Saturation 91.7 % (95-100); ABG PCO2 54.4 MM HG (35-48); ABG PH 7.308 (7.35-7.45); ABG PO2 68.3 MM HG (80-95); ABG TCO2 25.4 MMOL/L (23-27)
[2021-05-18] MEDS: FAMOTIDINE 20 MG/2 ML VIAL IV SCH ×2 (05:39→17:09)
[2021-05-18] MEDS: VANCOMYCIN 50 MG/ML 60 ML/BOTTLE PO SCH ×3 (05:39→17:09)
[2021-05-18] MEDS: INSULIN REGULAR 100 UNIT/ML SUBCUT SCH ×3 (06:09→18:02)
[2021-05-18 08:52] LABS: Basophils % 0.1 % (0.0-0.8); Eosinophils # 0.7 10*3/uL (0.0-0.87); Eosinophils % 6.2 % (0.00-10.9); Hematocrit 28.4 VOL% (35.7-47.0); Hemoglobin 8.8 GM/DL (12.0-16.0); Immature Granulocytes % 1.6 %; Immature Granulocytes Absolute 0.17 #; Lymphocytes # 0.8 10*3/uL (1.4-4.0); Mean Corpuscular Volume 97.9 FL (87-102); Mean Platelet Volume 12.4 FL (9.6-12.0); Monocytes % 12.5 % (1.7-12.7); NRBC # 0.02 10*3/uL; Neutrophils % 71.6 % (38.7-73.9); Platelet Count 102 T/CUMM (130-400); Red Cell Distribution Width 18.1 % (9.3-17.3); White Blood Count 10.5 T/CUMM (4-12)
[2021-05-18] MEDS: ISOSORBIDE DINITRATE 10 MG TABLET PO SCH ×3 (09:01→20:54)
[2021-05-18] MEDS: ASPIRIN CHEW 81 MG TABLET PO SCH (09:01)
[2021-05-18] MEDS: hydrALAZINE 25 MG TABLET PO SCH ×3 (09:01→20:55)
[2021-05-18] MEDS: AMIODARONE 200 MG TABLET NG SCH ×2 (09:02→20:54)
[2021-05-18] MEDS: AZITHROMYCIN INJ 500 MG in SODIUM CHLORIDE 0.9% 250 ML IV SCH (09:02)
[2021-05-18] MEDS: FERROUS SULFATE 325 MG TABLET PO SCH ×2 (09:02→17:09)
[2021-05-18] MEDS: predniSONE 20 MG TABLET PO SCH (09:04)
[2021-05-18 09:06] LABS: Calcium 8.8 MG/DL (8.5-10.1); Osmolality,Calculated 281.4 MOS/KG (273-304); Potassium 3.3 MMOL/L (3.5-5.1)
[2021-05-18 10:33] LABS: Anisocytosis 1+; Poikilocytosis 1+
[2021-05-18 10:34] LABS: Hypochromasia 1+; Microcytosis Slight; Ovalocytes Few; Platelet Estimate Adequate; Polychromasia Few; Schistocytes Slight
[2021-05-18] MEDS: carvediloL 3.125 MG TABLET PO SCH (17:08)
[2021-05-18] MEDS: ALPRAZolam 0.25 MG TABLET PO PRN (22:00)
[2021-05-19] MEDS: VANCOMYCIN 50 MG/ML 60 ML/BOTTLE PO SCH ×4 (00:21→21:42)
[2021-05-19] MEDS: INSULIN REGULAR 100 UNIT/ML SUBCUT SCH ×4 (00:22→19:57)
[2021-05-19] MEDS: ALBUTEROL/IPRATROPIUM 3 ML NEB RESP TX SCH ×5 (01:00→19:30)
[2021-05-19 04:31] LABS: ABG Base Excess -1.2 MMOL/L (-2.5-2.5); ABG Oxygen Saturation 89.7 % (95-100); ABG PCO2 57.2 MM HG (35-48); ABG PH 7.276 (7.35-7.45); ABG PO2 65.8 MM HG (80-95); ABG TCO2 27.8 MMOL/L (23-27)
[2021-05-19 04:37] LABS: Basophils % 0.2 % (0.0-0.8); Eosinophils # 0.1 10*3/uL (0.0-0.87); Eosinophils % 1.3 % (0.00-10.9); Hematocrit 28.4 VOL% (35.7-47.0); Hemoglobin 9.2 GM/DL (12.0-16.0); Immature Granulocytes % 1.9 %; Immature Granulocytes Absolute 0.16 #; Lymphocytes # 0.7 10*3/uL (1.4-4.0); Lymphocytes % 8.3 % (21.3-54.2); Mean Corpuscular HGB Conc 32.4 GM/DL (32-36); Mean Corpuscular Volume 99.3 FL (87-102); Monocytes % 12.7 % (1.7-12.7); NRBC # 0.02 10*3/uL; Neutrophils % 75.6 % (38.7-73.9); Platelet Count 101 T/CUMM (130-400); Red Blood Count 2.86 MC/CUMM (3.8-5.5); Red Cell Distribution Width 18.3 % (9.3-17.3); White Blood Count 8.6 T/CUMM (4-12)
[2021-05-19 05:00] LABS: Hypochromasia 1+; Microcytosis 1+; Platelet Estimate Decreased
[2021-05-19 05:07] LABS: Calcium 8.5 MG/DL (8.5-10.1); Osmolality,Calculated 281.8 MOS/KG (273-304); Potassium 4.5 MMOL/L (3.5-5.1)
[2021-05-19] MEDS: FAMOTIDINE 20 MG/2 ML VIAL IV SCH ×2 (05:10→21:39)
[2021-05-19] MEDS: AMIODARONE 200 MG TABLET NG SCH ×2 (08:50→21:42)
[2021-05-19] MEDS: predniSONE 20 MG TABLET PO SCH (08:51)
[2021-05-19] MEDS: ASPIRIN CHEW 81 MG TABLET PO SCH (08:51)
[2021-05-19] MEDS: ISOSORBIDE DINITRATE 10 MG TABLET PO SCH ×3 (08:51→21:42)
[2021-05-19] MEDS: hydrALAZINE 25 MG TABLET PO SCH ×3 (08:51→21:42)
[2021-05-19] MEDS: SCOPOLAMINE 1.5 MG PATCH TRANSDERM PRN (08:51)
[2021-05-19] MEDS: FERROUS SULFATE 325 MG TABLET PO SCH ×2 (08:51→21:42)
[2021-05-19] MEDS: carvediloL 3.125 MG TABLET PO SCH ×2 (08:51→21:42)
[2021-05-19] MEDS: ALPRAZolam 0.25 MG TABLET PO PRN (22:18)
[2021-05-20] MEDS: VANCOMYCIN 50 MG/ML 60 ML/BOTTLE PO SCH ×5 (00:23→23:50)
[2021-05-20] MEDS: ALBUTEROL/IPRATROPIUM 3 ML NEB RESP TX SCH ×4 (00:46→20:12)
[2021-05-20] MEDS: INSULIN REGULAR 100 UNIT/ML SUBCUT SCH ×4 (01:14→17:50)
[2021-05-20 04:27] LABS: Basophils % 0.1 % (0.0-0.8); Eosinophils # 0.1 10*3/uL (0.0-0.87); Eosinophils % 1.5 % (0.00-10.9); Hematocrit 26.4 VOL% (35.7-47.0); Hemoglobin 8.3 GM/DL (12.0-16.0); Immature Granulocytes % 1.3 %; Immature Granulocytes Absolute 0.09 #; Lymphocytes # 0.5 10*3/uL (1.4-4.0); Mean Corpuscular HGB Conc 31.4 GM/DL (32-36); Mean Corpuscular Volume 97.1 FL (87-102); Mean Platelet Volume 11.3 FL (9.6-12.0); Monocytes % 10.7 % (1.7-12.7); Neutrophils % 79.4 % (38.7-73.9); Platelet Count 106 T/CUMM (130-400); Red Blood Count 2.72 MC/CUMM (3.8-5.5); Red Cell Distribution Width 18.2 % (9.3-17.3); White Blood Count 7.1 T/CUMM (4-12)
[2021-05-20 04:33] LABS: ABG Base Excess -0.9 MMOL/L (-2.5-2.5); ABG HCO3 26.1 MMOL/L (20-26); ABG Oxygen Saturation 91.8 % (95-100); ABG PCO2 56.4 MM HG (35-48); ABG PH 7.284 (7.35-7.45); ABG PO2 70.1 MM HG (80-95); ABG TCO2 27.9 MMOL/L (23-27)
[2021-05-20 04:49] LABS: Albumin 2.9 G/DL (3.4-5.0); Bilirubin,Total 0.7 MG/DL (0.20-1.00); Calcium 8.2 MG/DL (8.5-10.1); Hypochromasia 1+; Microcytosis 1+; Osmolality,Calculated 285.8 MOS/KG (273-304); Platelet Estimate Decreased; Potassium 4.2 MMOL/L (3.5-5.1); Total Protein 6.1 G/DL (6.4-8.2)
[2021-05-20] MEDS: hydrALAZINE 25 MG TABLET PO SCH ×3 (08:14→21:39)
[2021-05-20] MEDS: ASPIRIN CHEW 81 MG TABLET PO SCH (08:14)
[2021-05-20] MEDS: predniSONE 20 MG TABLET PO SCH (08:15)
[2021-05-20] MEDS: AMIODARONE 200 MG TABLET NG SCH ×2 (08:15→21:39)
[2021-05-20] MEDS: carvediloL 3.125 MG TABLET PO SCH ×2 (08:15→16:48)
[2021-05-20] MEDS: FERROUS SULFATE 325 MG TABLET PO SCH ×2 (08:15→16:48)
[2021-05-20] MEDS: ISOSORBIDE DINITRATE 10 MG TABLET PO SCH ×3 (08:15→21:39)
[2021-05-20] MEDS: FAMOTIDINE 20 MG/2 ML VIAL IV SCH ×2 (08:19→21:35)
[2021-05-20] MEDS: ALPRAZolam 0.25 MG TABLET PO PRN (21:39)
[2021-05-21] MEDS: ALBUTEROL/IPRATROPIUM 3 ML NEB RESP TX SCH ×5 (01:39→20:10)
[2021-05-21] MEDS: INSULIN REGULAR 100 UNIT/ML SUBCUT SCH ×4 (02:55→18:07)
[2021-05-21 04:10] LABS: ABG Base Excess -2.1 MMOL/L (-2.5-2.5); ABG HCO3 22.7 MMOL/L (20-26); ABG Oxygen Saturation 96.7 % (95-100); ABG PCO2 53.7 MM HG (35-48); ABG PH 7.278 (7.35-7.45); ABG PO2 92.7 MM HG (80-95); ABG TCO2 23.6 MMOL/L (23-27)
[2021-05-21] MEDS: ALPRAZolam 0.25 MG TABLET PO PRN (05:22)
[2021-05-21] MEDS: VANCOMYCIN 50 MG/ML 60 ML/BOTTLE PO SCH ×4 (05:23→23:51)
[2021-05-21 06:02] LABS: Basophils % 0.1 % (0.0-0.8); Eosinophils # 0.2 10*3/uL (0.0-0.87); Eosinophils % 2.4 % (0.00-10.9); Hematocrit 27.5 VOL% (35.7-47.0); Hemoglobin 8.6 GM/DL (12.0-16.0); Immature Granulocytes % 1.5 %; Immature Granulocytes Absolute 0.14 #; Lymphocytes # 0.9 10*3/uL (1.4-4.0); Mean Corpuscular HGB Conc 31.3 GM/DL (32-36); Mean Corpuscular Volume 95.8 FL (87-102); Mean Platelet Volume 11.7 FL (9.6-12.0); Monocytes % 12.1 % (1.7-12.7); Neutrophils % 74.9 % (38.7-73.9); Platelet Count 127 T/CUMM (130-400); Red Blood Count 2.87 MC/CUMM (3.8-5.5); Red Cell Distribution Width 18.1 % (9.3-17.3); White Blood Count 9.6 T/CUMM (4-12)
[2021-05-21 06:06] LABS: Albumin 3.1 G/DL (3.4-5.0); Bilirubin,Total 1.3 MG/DL (0.20-1.00); Calcium 8.6 MG/DL (8.5-10.1); Osmolality,Calculated 287.4 MOS/KG (273-304); Potassium 4.5 MMOL/L (3.5-5.1); Total Protein 6.8 G/DL (6.4-8.2)
[2021-05-21] MEDS: carvediloL 3.125 MG TABLET PO SCH ×2 (08:19→18:05)
[2021-05-21] MEDS: ISOSORBIDE DINITRATE 10 MG TABLET PO SCH ×3 (08:19→21:08)
[2021-05-21] MEDS: hydrALAZINE 25 MG TABLET PO SCH ×3 (08:19→21:08)
[2021-05-21] MEDS: AMIODARONE 200 MG TABLET NG SCH ×2 (08:19→21:08)
[2021-05-21] MEDS: predniSONE 20 MG TABLET PO SCH (08:19)
[2021-05-21] MEDS: FERROUS SULFATE 325 MG TABLET PO SCH ×2 (08:19→18:05)
[2021-05-21] MEDS: FAMOTIDINE 20 MG/2 ML VIAL IV SCH ×2 (08:19→21:08)
[2021-05-21] MEDS: ASPIRIN CHEW 81 MG TABLET PO SCH (08:23)
[2021-05-21] MEDS: MORPHINE 2 MG/1 ML SYRINGE IV PRN ×2 (10:43→15:26)
[2021-05-22] MEDS: INSULIN REGULAR 100 UNIT/ML SUBCUT SCH ×5 (00:32→23:51)
[2021-05-22] MEDS: ALBUTEROL/IPRATROPIUM 3 ML NEB RESP TX SCH ×4 (00:37→19:24)
[2021-05-22 05:24] LABS: Calcium 8.5 MG/DL (8.5-10.1); Osmolality,Calculated 296.4 MOS/KG (273-304); Potassium 4.4 MMOL/L (3.5-5.1)
[2021-05-22] MEDS: VANCOMYCIN 50 MG/ML 60 ML/BOTTLE PO SCH ×4 (05:30→23:51)
[2021-05-22] MEDS: MORPHINE 2 MG/1 ML SYRINGE IV PRN ×3 (06:57→17:53)
[2021-05-22] MEDS: AMIODARONE 200 MG TABLET NG SCH ×3 (08:13→23:46)
[2021-05-22] MEDS: FERROUS SULFATE 325 MG TABLET PO SCH ×2 (08:14→17:44)
[2021-05-22] MEDS: predniSONE 20 MG TABLET PO SCH (08:14)
[2021-05-22] MEDS: ASPIRIN CHEW 81 MG TABLET PO SCH (08:14)
[2021-05-22] MEDS: carvediloL 3.125 MG TABLET PO SCH ×2 (08:14→17:44)
[2021-05-22] MEDS: ISOSORBIDE DINITRATE 10 MG TABLET PO SCH ×4 (08:14→23:51)
[2021-05-22] MEDS: hydrALAZINE 25 MG TABLET PO SCH ×4 (08:14→23:51)
[2021-05-22] MEDS: FAMOTIDINE 20 MG/2 ML VIAL IV SCH ×2 (08:14→21:04)
[2021-05-22 08:16] LABS: Basophils % 0.1 % (0.0-0.8); Eosinophils # 0.1 10*3/uL (0.0-0.87); Eosinophils % 0.9 % (0.00-10.9); Hematocrit 27.9 VOL% (35.7-47.0); Hemoglobin 8.5 GM/DL (12.0-16.0); Immature Granulocytes % 1.4 %; Immature Granulocytes Absolute 0.15 #; Lymphocytes # 0.8 10*3/uL (1.4-4.0); Lymphocytes % 7.9 % (21.3-54.2); Mean Corpuscular HGB Conc 30.5 GM/DL (32-36); Mean Corpuscular Volume 98.2 FL (87-102); Mean Platelet Volume 11.3 FL (9.6-12.0); Monocytes % 12.9 % (1.7-12.7); Neutrophils % 76.8 % (38.7-73.9); Platelet Count 128 T/CUMM (130-400); Red Blood Count 2.84 MC/CUMM (3.8-5.5); Red Cell Distribution Width 18.2 % (9.3-17.3); White Blood Count 10.6 T/CUMM (4-12)
[2021-05-22] MEDS: SCOPOLAMINE 1.5 MG PATCH TRANSDERM PRN (17:44)
[2021-05-22] MEDS: ALPRAZolam 0.25 MG TABLET PO PRN (21:04)
[2021-05-23] MEDS: ALBUTEROL/IPRATROPIUM 3 ML NEB RESP TX SCH ×4 (01:15→18:57)
[2021-05-23 04:02] LABS: Basophils % 0.1 % (0.0-0.8); Eosinophils % 0.4 % (0.00-10.9); Hematocrit 28.6 VOL% (35.7-47.0); Hemoglobin 8.5 GM/DL (12.0-16.0); Immature Granulocytes % 1.1 %; Immature Granulocytes Absolute 0.13 #; Lymphocytes # 0.5 10*3/uL (1.4-4.0); Lymphocytes % 4.4 % (21.3-54.2); Mean Corpuscular HGB Conc 29.7 GM/DL (32-36); Mean Corpuscular Volume 100.7 FL (87-102); Mean Platelet Volume 11.7 FL (9.6-12.0); Monocytes % 7.6 % (1.7-12.7); Neutrophils % 86.4 % (38.7-73.9); Platelet Count 146 T/CUMM (130-400); Red Blood Count 2.84 MC/CUMM (3.8-5.5); Red Cell Distribution Width 18.5 % (9.3-17.3); White Blood Count 11.4 T/CUMM (4-12)
[2021-05-23 04:09] LABS: INR 1.1; PT Patient Result 11.8 SECS (10.5-12.0)
[2021-05-23 04:21] LABS: Albumin 2.9 G/DL (3.4-5.0); Bilirubin,Total 1.7 MG/DL (0.20-1.00); Calcium 8.3 MG/DL (8.5-10.1); Osmolality,Calculated 285.1 MOS/KG (273-304); Potassium 4.8 MMOL/L (3.5-5.1); Total Protein 6.7 G/DL (6.4-8.2)
[2021-05-23 04:30] LABS: Eosinophils 3 % (0-10); Lymphocytes 4 % (20-55); Segmented Neutrophils 84 % (50-85); Total Cells Counted 100
[2021-05-23 04:31] LABS: Anisocytosis 1+; Hypochromasia 1+; Microcytosis 1+; Ovalocytes Slight; Platelet Estimate Adequate
[2021-05-23] MEDS: VANCOMYCIN 50 MG/ML 60 ML/BOTTLE PO SCH ×3 (06:23→17:19)
[2021-05-23] MEDS: INSULIN REGULAR 100 UNIT/ML SUBCUT SCH ×3 (06:33→17:08)
[2021-05-23] MEDS: AMIODARONE 200 MG TABLET NG SCH ×2 (08:39→21:51)
[2021-05-23] MEDS: LACTATED RINGERS 1,000 ML IV SCH (09:23)
[2021-05-23] MEDS ORDERED: KETAMINE 500 MG/10 ML VIAL ONE ×2 (11:58→12:13)
[2021-05-23] MEDS ORDERED: GLYCOPYRROLATE 0.4 MG/2 ML VIAL ONE (12:13)
[2021-05-23] MEDS: carvediloL 3.125 MG TABLET PO SCH ×2 (14:09→17:19)
[2021-05-23] MEDS: predniSONE 10 MG TABLET PO SCH (14:10)
[2021-05-23] MEDS: FAMOTIDINE 20 MG/2 ML VIAL IV SCH ×2 (14:10→21:51)
[2021-05-23] MEDS: ASPIRIN CHEW 81 MG TABLET PO SCH (14:10)
[2021-05-23] MEDS: ISOSORBIDE DINITRATE 10 MG TABLET PO SCH ×3 (14:10→21:50)
[2021-05-23] MEDS: hydrALAZINE 25 MG TABLET PO SCH ×3 (14:10→21:51)
[2021-05-23] MEDS: FERROUS SULFATE 325 MG TABLET PO SCH ×2 (14:10→17:19)
[2021-05-23] MEDS: MORPHINE 2 MG/1 ML SYRINGE IV PRN ×2 (18:07→22:08)
[2021-05-24] MEDS: VANCOMYCIN 50 MG/ML 60 ML/BOTTLE PO SCH ×4 (00:08→18:06)
[2021-05-24] MEDS: INSULIN REGULAR 100 UNIT/ML SUBCUT SCH ×4 (00:08→18:06)
[2021-05-24] MEDS: ALBUTEROL/IPRATROPIUM 3 ML NEB RESP TX SCH ×4 (05:20→18:35)
[2021-05-24 05:55] LABS: Basophils % 0.2 % (0.0-0.8); Eosinophils # 0.3 10*3/uL (0.0-0.87); Eosinophils % 1.4 % (0.00-10.9); Hematocrit 30.1 VOL% (35.7-47.0); Hemoglobin 9.2 GM/DL (12.0-16.0); Immature Granulocytes % 1.1 %; Lymphocytes % 5.6 % (21.3-54.2); Mean Corpuscular HGB Conc 30.6 GM/DL (32-36); Mean Corpuscular Volume 103.4 FL (87-102); Mean Platelet Volume 12.5 FL (9.6-12.0); Monocytes % 13.1 % (1.7-12.7); Neutrophils % 78.6 % (38.7-73.9); Platelet Count 117 T/CUMM (130-400); Red Blood Count 2.91 MC/CUMM (3.8-5.5); Red Cell Distribution Width 18.7 % (9.3-17.3); White Blood Count 18.1 T/CUMM (4-12)
[2021-05-24 06:07] LABS: Calcium 8.5 MG/DL (8.5-10.1); Potassium 4.7 MMOL/L (3.5-5.1)
[2021-05-24 06:08] LABS: Osmolality,Calculated 291.2 MOS/KG (273-304)
[2021-05-24] MEDS ORDERED: DEXTROSE 50% 25 GM/50 ML SYRINGE IV ONE (06:11)
[2021-05-24] MEDS: ISOSORBIDE DINITRATE 10 MG TABLET PO SCH (08:21)
[2021-05-24] MEDS: hydrALAZINE 25 MG TABLET PO SCH (08:21)
[2021-05-24] MEDS: FAMOTIDINE 20 MG/2 ML VIAL IV SCH ×2 (08:21→21:35)
[2021-05-24] MEDS: ASPIRIN CHEW 81 MG TABLET PO SCH (08:21)
[2021-05-24] MEDS: predniSONE 10 MG TABLET PO SCH (08:21)
[2021-05-24] MEDS: carvediloL 3.125 MG TABLET PO SCH ×2 (08:22→17:33)
[2021-05-24] MEDS: FERROUS SULFATE 325 MG TABLET PO SCH ×2 (08:22→17:33)
[2021-05-24] MEDS: AMIODARONE 200 MG TABLET NG SCH ×2 (08:22→21:31)
[2021-05-24] MEDS: LACTATED RINGERS 1,000 ML IV SCH (08:22)
[2021-05-24 10:15] LABS: Basophils % 0.1 % (0.0-0.8); Eosinophils # 0.3 10*3/uL (0.0-0.87); Eosinophils % 1.6 % (0.00-10.9); Hematocrit 24.7 VOL% (35.7-47.0); Hemoglobin 7.4 GM/DL (12.0-16.0); Immature Granulocytes Absolute 0.16 #; Lymphocytes # 0.6 10*3/uL (1.4-4.0); Lymphocytes % 4.1 % (21.3-54.2); Mean Platelet Volume 11.4 FL (9.6-12.0); Monocytes % 5.2 % (1.7-12.7); Platelet Count 139 T/CUMM (130-400); Red Blood Count 2.47 MC/CUMM (3.8-5.5); Red Cell Distribution Width 18.6 % (9.3-17.3); White Blood Count 15.7 T/CUMM (4-12)
[2021-05-24 10:51] LABS: Calcium 7.6 MG/DL (8.5-10.1); Potassium 3.9 MMOL/L (3.5-5.1)
[2021-05-24 10:51] LABS: ABG Base Excess -1.3 MMOL/L (-2.5-2.5); ABG HCO3 23.1 MMOL/L (20-26); ABG Oxygen Saturation 87.2 % (95-100); ABG PCO2 51.3 MM HG (35-48); ABG PH 7.301 (7.35-7.45); ABG PO2 58.3 MM HG (80-95); ABG TCO2 23.9 MMOL/L (23-27); Allen Test Positive
[2021-05-24 11:00] LABS: Band Neutrophils 1 % (0-10); Eosinophils 1 % (0-10); Hypochromasia 1+; Lymphocytes 2 % (20-55); Microcytosis 1+; Ovalocytes Slight; Platelet Estimate Normal; Segmented Neutrophils 94 % (50-85); Total Cells Counted 100
[2021-05-24] MEDS: PHENYLEPHRINE DRIP 40 MG/250 ML PREMIX IV PRN ×3 (11:35→18:32)
[2021-05-24 11:57] LABS: Basophils % 0.2 % (0.0-0.8); Eosinophils # 0.1 10*3/uL (0.0-0.87); Eosinophils % 0.6 % (0.00-10.9); Immature Granulocytes Absolute 0.17 #; Lymphocytes # 0.4 10*3/uL (1.4-4.0); Lymphocytes % 2.4 % (21.3-54.2); Mean Corpuscular HGB Conc 29.6 GM/DL (32-36); Mean Platelet Volume 11.5 FL (9.6-12.0); Neutrophils % 88.8 % (38.7-73.9); Platelet Count 133 T/CUMM (130-400); Red Cell Distribution Width 18.5 % (9.3-17.3); White Blood Count 16.5 T/CUMM (4-12)
[2021-05-24 12:28] LABS: Albumin 2.7 G/DL (3.4-5.0); Bilirubin,Total 0.9 MG/DL (0.20-1.00); Calcium 8.1 MG/DL (8.5-10.1); Osmolality,Calculated 285.2 MOS/KG (273-304); Potassium 4.3 MMOL/L (3.5-5.1); Total Protein 6.1 G/DL (6.4-8.2)
[2021-05-24 13:25] LABS: Eosinophils 3 % (0-10); Lymphocytes 3 % (20-55); Segmented Neutrophils 90 % (50-85); Total Cells Counted 100
[2021-05-24 13:26] LABS: Hypochromasia 2+; Platelet Estimate Adequate; Polychromasia Slight
[2021-05-24 13:27] LABS: Anisocytosis 1+; Ovalocytes Few; Target Cells Slight
[2021-05-25] MEDS: VANCOMYCIN 50 MG/ML 60 ML/BOTTLE PO SCH ×5 (00:24→23:46)
[2021-05-25] MEDS: ALBUTEROL/IPRATROPIUM 3 ML NEB RESP TX SCH ×4 (01:00→19:00)
[2021-05-25] MEDS: INSULIN REGULAR 100 UNIT/ML SUBCUT SCH ×5 (05:27→23:32)
[2021-05-25 06:42] LABS: Basophils % 0.2 % (0.0-0.8); Eosinophils # 0.2 10*3/uL (0.0-0.87); Eosinophils % 1.5 % (0.00-10.9); Hematocrit 29.5 VOL% (35.7-47.0); Hemoglobin 9.6 GM/DL (12.0-16.0); Immature Granulocytes % 0.6 %; Immature Granulocytes Absolute 0.08 #; Lymphocytes # 0.8 10*3/uL (1.4-4.0); Lymphocytes % 6.1 % (21.3-54.2); Mean Corpuscular HGB Conc 32.5 GM/DL (32-36); Mean Corpuscular Volume 97.7 FL (87-102); Monocytes % 8.6 % (1.7-12.7); Platelet Count 106 T/CUMM (130-400); Red Blood Count 3.02 MC/CUMM (3.8-5.5); Red Cell Distribution Width 17.3 % (9.3-17.3); White Blood Count 12.7 T/CUMM (4-12)
[2021-05-25 06:54] LABS: Calcium 8.1 MG/DL (8.5-10.1); Potassium 3.8 MMOL/L (3.5-5.1)
[2021-05-25 07:02] LABS: Anisocytosis 2+; Hypochromasia 1+
[2021-05-25] MEDS: AMIODARONE 200 MG TABLET NG SCH ×2 (08:01→20:16)
[2021-05-25] MEDS: FERROUS SULFATE 325 MG TABLET PO SCH ×2 (08:01→16:49)
[2021-05-25] MEDS: carvediloL 3.125 MG TABLET PO SCH ×2 (08:01→16:49)
[2021-05-25] MEDS: ASPIRIN CHEW 81 MG TABLET PO SCH (08:01)
[2021-05-25] MEDS: FAMOTIDINE 20 MG/2 ML VIAL IV SCH ×2 (08:02→20:16)
[2021-05-26] MEDS: ALBUTEROL/IPRATROPIUM 3 ML NEB RESP TX SCH ×4 (01:00→19:00)
[2021-05-26] MEDS: VANCOMYCIN 50 MG/ML 60 ML/BOTTLE PO SCH ×4 (05:13→23:55)
[2021-05-26] MEDS: MORPHINE 2 MG/1 ML SYRINGE IV PRN ×2 (05:27→18:20)
[2021-05-26 06:07] LABS: Basophils % 0.1 % (0.0-0.8); Eosinophils # 0.4 10*3/uL (0.0-0.87); Eosinophils % 2.9 % (0.00-10.9); Hematocrit 31.9 VOL% (35.7-47.0); Immature Granulocytes % 0.7 %; Immature Granulocytes Absolute 0.09 #; Lymphocytes # 0.8 10*3/uL (1.4-4.0); Lymphocytes % 6.4 % (21.3-54.2); Mean Corpuscular HGB Conc 31.3 GM/DL (32-36); Mean Corpuscular Volume 99.1 FL (87-102); Mean Platelet Volume 11.4 FL (9.6-12.0); Monocytes % 8.8 % (1.7-12.7); Neutrophils % 81.1 % (38.7-73.9); Platelet Count 110 T/CUMM (130-400); Red Blood Count 3.22 MC/CUMM (3.8-5.5); Red Cell Distribution Width 17.6 % (9.3-17.3); White Blood Count 12.7 T/CUMM (4-12)
[2021-05-26 06:22] LABS: Albumin 2.8 G/DL (3.4-5.0); Bilirubin,Total 0.8 MG/DL (0.20-1.00); Calcium 8.5 MG/DL (8.5-10.1); Osmolality,Calculated 285.4 MOS/KG (273-304); Potassium 3.8 MMOL/L (3.5-5.1); Total Protein 6.6 G/DL (6.4-8.2)
[2021-05-26] MEDS: INSULIN REGULAR 100 UNIT/ML SUBCUT SCH ×3 (06:25→17:21)
[2021-05-26 06:33] LABS: Anisocytosis 3+; Macrocytosis 1+; Platelet Estimate Adequate; Target Cells Few; Tear Drop Cells Few
[2021-05-26] MEDS: FAMOTIDINE 20 MG/2 ML VIAL IV SCH ×2 (08:51→20:51)
[2021-05-26] MEDS: ASPIRIN CHEW 81 MG TABLET PO SCH (08:55)
[2021-05-26] MEDS: FERROUS SULFATE 325 MG TABLET PO SCH ×2 (08:55→17:30)
[2021-05-26] MEDS: AMIODARONE 200 MG TABLET NG SCH ×2 (08:55→20:44)
[2021-05-26] MEDS: carvediloL 3.125 MG TABLET PO SCH ×2 (08:55→17:30)
[2021-05-27] MEDS: INSULIN REGULAR 100 UNIT/ML SUBCUT SCH ×4 (00:10→17:34)
[2021-05-27] MEDS: ALBUTEROL/IPRATROPIUM 3 ML NEB RESP TX SCH ×4 (03:44→19:08)
[2021-05-27] MEDS: VANCOMYCIN 50 MG/ML 60 ML/BOTTLE PO SCH ×3 (05:22→18:48)
[2021-05-27] MEDS: MORPHINE 2 MG/1 ML SYRINGE IV PRN (05:28)
[2021-05-27] MEDS: FERROUS SULFATE 325 MG TABLET PO SCH ×2 (09:59→17:33)
[2021-05-27] MEDS: FAMOTIDINE 20 MG/2 ML VIAL IV SCH ×2 (09:59→20:43)
[2021-05-27] MEDS: AMIODARONE 200 MG TABLET NG SCH ×2 (09:59→20:42)
[2021-05-27] MEDS: ASPIRIN CHEW 81 MG TABLET PO SCH (09:59)
[2021-05-27] MEDS: carvediloL 3.125 MG TABLET PO SCH ×2 (10:00→17:33)
[2021-05-28] MEDS: VANCOMYCIN 50 MG/ML 60 ML/BOTTLE PO SCH ×2 (00:10→05:58)
[2021-05-28] MEDS: ALBUTEROL/IPRATROPIUM 3 ML NEB RESP TX SCH ×4 (00:12→20:25)
[2021-05-28] MEDS: INSULIN REGULAR 100 UNIT/ML SUBCUT SCH ×4 (00:17→18:06)
[2021-05-28 05:57] LABS: Basophils % 0.3 % (0.0-0.8); Eosinophils # 0.6 10*3/uL (0.0-0.87); Eosinophils % 8.3 % (0.00-10.9); Hematocrit 28.7 VOL% (35.7-47.0); Hemoglobin 9.1 GM/DL (12.0-16.0); Immature Granulocytes % 0.6 %; Immature Granulocytes Absolute 0.04 #; Lymphocytes # 0.7 10*3/uL (1.4-4.0); Lymphocytes % 9.4 % (21.3-54.2); Mean Corpuscular HGB Conc 31.7 GM/DL (32-36); Mean Corpuscular Volume 100.7 FL (87-102); Mean Platelet Volume 11.8 FL (9.6-12.0); Neutrophils % 70.4 % (38.7-73.9); Platelet Count 104 T/CUMM (130-400); Red Blood Count 2.85 MC/CUMM (3.8-5.5); Red Cell Distribution Width 17.3 % (9.3-17.3); White Blood Count 6.9 T/CUMM (4-12)
[2021-05-28 06:20] LABS: Calcium 8.5 MG/DL (8.5-10.1); Osmolality,Calculated 284.2 MOS/KG (273-304); Potassium 3.7 MMOL/L (3.5-5.1)
[2021-05-28 06:23] LABS: Anisocytosis 1+; Burr Cells Few; Hypochromasia Slight; Macrocytosis 1+; Ovalocytes Few; Platelet Estimate Adequate; Target Cells Few
[2021-05-28] MEDS: FAMOTIDINE 20 MG TABLET PEG SCH ×2 (09:29→22:40)
[2021-05-28] MEDS: carvediloL 3.125 MG TABLET PO SCH (09:29)
[2021-05-28] MEDS: ASPIRIN CHEW 81 MG TABLET PO SCH (09:29)
[2021-05-28] MEDS: POTASSIUM PHOS/SOD PHOS POWDER 250 MG PACK PO SCH ×3 (09:29→22:40)
[2021-05-28] MEDS: AMIODARONE 200 MG TABLET NG SCH (09:29)
[2021-05-28] MEDS: FERROUS SULFATE 325 MG TABLET PO SCH (12:00)
[2021-05-28] MEDS: FERROUS SULFATE 300 MG/5 ML UDCUP PEG SCH (18:05)
[2021-05-29] MEDS: ALBUTEROL/IPRATROPIUM 3 ML NEB RESP TX SCH ×4 (00:35→20:48)
[2021-05-29] MEDS: INSULIN REGULAR 100 UNIT/ML SUBCUT SCH ×4 (00:59→18:05)
[2021-05-29] MEDS: ASPIRIN CHEW 81 MG TABLET PO SCH (09:43)
[2021-05-29] MEDS: FAMOTIDINE 20 MG TABLET PEG SCH ×2 (09:43→22:00)
[2021-05-29] MEDS: FERROUS SULFATE 300 MG/5 ML UDCUP PEG SCH ×2 (09:43→16:23)
[2021-05-29] MEDS: POTASSIUM PHOS/SOD PHOS POWDER 250 MG PACK PO SCH ×3 (09:44→22:01)
[2021-05-29 11:15] LABS: Basophils % 0.3 % (0.0-0.8); Eosinophils # 0.4 10*3/uL (0.0-0.87); Eosinophils % 5.5 % (0.00-10.9); Hematocrit 31.8 VOL% (35.7-47.0); Hemoglobin 9.8 GM/DL (12.0-16.0); Immature Granulocytes % 0.5 %; Immature Granulocytes Absolute 0.04 #; Lymphocytes # 0.6 10*3/uL (1.4-4.0); Lymphocytes % 7.6 % (21.3-54.2); Mean Corpuscular HGB Conc 30.8 GM/DL (32-36); Mean Corpuscular Volume 98.8 FL (87-102); Mean Platelet Volume 11.3 FL (9.6-12.0); Monocytes % 10.6 % (1.7-12.7); Neutrophils % 75.5 % (38.7-73.9); Platelet Count 143 T/CUMM (130-400); Red Blood Count 3.22 MC/CUMM (3.8-5.5); Red Cell Distribution Width 17.2 % (9.3-17.3); White Blood Count 7.5 T/CUMM (4-12)
[2021-05-29 11:44] LABS: Calcium 7.8 MG/DL (8.5-10.1); Osmolality,Calculated 276.1 MOS/KG (273-304); Potassium 4.7 MMOL/L (3.5-5.1)
[2021-05-29] MEDS: AMIODARONE 200 MG TABLET NG SCH (22:00)
[2021-05-30] MEDS: INSULIN REGULAR 100 UNIT/ML SUBCUT SCH ×4 (00:41→17:59)
[2021-05-30] MEDS: ALBUTEROL/IPRATROPIUM 3 ML NEB RESP TX SCH ×4 (00:45→19:06)
[2021-05-30 04:48] LABS: Basophils % 0.3 % (0.0-0.8); Eosinophils # 0.4 10*3/uL (0.0-0.87); Eosinophils % 5.6 % (0.00-10.9); Hematocrit 33.3 VOL% (35.7-47.0); Hemoglobin 10.2 GM/DL (12.0-16.0); Immature Granulocytes % 0.4 %; Immature Granulocytes Absolute 0.03 #; Lymphocytes # 0.9 10*3/uL (1.4-4.0); Lymphocytes % 11.5 % (21.3-54.2); Mean Corpuscular HGB Conc 30.6 GM/DL (32-36); Mean Corpuscular Volume 98.8 FL (87-102); Mean Platelet Volume 10.7 FL (9.6-12.0); Monocytes % 13.9 % (1.7-12.7); Neutrophils % 68.3 % (38.7-73.9); Platelet Count 132 T/CUMM (130-400); Red Blood Count 3.37 MC/CUMM (3.8-5.5); Red Cell Distribution Width 17.2 % (9.3-17.3); White Blood Count 7.8 T/CUMM (4-12)
[2021-05-30 05:13] LABS: Anisocytosis 1+; Hypochromasia 2+
[2021-05-30 05:20] LABS: Calcium 9.1 MG/DL (8.5-10.1); Osmolality,Calculated 275.5 MOS/KG (273-304); Potassium 5.8 MMOL/L (3.5-5.1)
[2021-05-30 05:28] LABS: Risk Ratio 3.1; VLDL Cholesterol 23.2 MG/DL
[2021-05-30] MEDS: ASPIRIN CHEW 81 MG TABLET PO SCH (12:06)
[2021-05-30] MEDS: FERROUS SULFATE 300 MG/5 ML UDCUP PEG SCH ×2 (12:06→17:57)
[2021-05-30] MEDS: AMIODARONE 200 MG TABLET NG SCH ×2 (12:07→21:45)
[2021-05-30] MEDS: FAMOTIDINE 20 MG TABLET PEG SCH ×2 (12:07→21:45)
[2021-05-31] MEDS: INSULIN REGULAR 100 UNIT/ML SUBCUT SCH ×4 (00:38→18:31)
[2021-05-31] MEDS: ALBUTEROL/IPRATROPIUM 3 ML NEB RESP TX SCH ×4 (01:20→19:10)
[2021-05-31 05:10] LABS: Basophils % 0.3 % (0.0-0.8); Eosinophils # 0.5 10*3/uL (0.0-0.87); Eosinophils % 7.2 % (0.00-10.9); Hematocrit 32.5 VOL% (35.7-47.0); Hemoglobin 10.2 GM/DL (12.0-16.0); Immature Granulocytes % 0.6 %; Immature Granulocytes Absolute 0.04 #; Lymphocytes % 15.2 % (21.3-54.2); Mean Corpuscular HGB Conc 31.4 GM/DL (32-36); Mean Corpuscular Volume 98.5 FL (87-102); Monocytes % 11.8 % (1.7-12.7); Neutrophils % 64.9 % (38.7-73.9); Platelet Count 138 T/CUMM (130-400); Red Cell Distribution Width 17.1 % (9.3-17.3); White Blood Count 6.7 T/CUMM (4-12)
[2021-05-31] MEDS: ASPIRIN CHEW 81 MG TABLET PO SCH (10:51)
[2021-05-31] MEDS: AMIODARONE 200 MG TABLET NG SCH ×2 (10:51→20:47)
[2021-05-31] MEDS: FERROUS SULFATE 300 MG/5 ML UDCUP PEG SCH ×2 (10:51→18:31)
[2021-05-31] MEDS: FAMOTIDINE 20 MG TABLET PEG SCH ×2 (10:51→20:47)
[2021-05-31] MEDS ORDERED: FUROSEMIDE 40 MG/4 ML VIAL IV ONE (12:09)
[2021-06-01] MEDS: INSULIN REGULAR 100 UNIT/ML SUBCUT SCH ×5 (00:33→23:37)
[2021-06-01] MEDS: ALBUTEROL/IPRATROPIUM 3 ML NEB RESP TX SCH ×4 (01:01→19:35)
[2021-06-01] MEDS: ASPIRIN CHEW 81 MG TABLET PO SCH (09:33)
[2021-06-01] MEDS: FAMOTIDINE 20 MG TABLET PEG SCH ×2 (09:33→21:57)
[2021-06-01] MEDS: FERROUS SULFATE 300 MG/5 ML UDCUP PEG SCH ×2 (09:33→17:05)
[2021-06-01] MEDS: AMIODARONE 200 MG TABLET NG SCH ×2 (09:33→21:57)
[2021-06-02] MEDS: ALBUTEROL/IPRATROPIUM 3 ML NEB RESP TX SCH ×4 (00:09→19:55)
[2021-06-02] MEDS: INSULIN REGULAR 100 UNIT/ML SUBCUT SCH ×4 (06:23→23:43)
[2021-06-02] MEDS: FERROUS SULFATE 300 MG/5 ML UDCUP PEG SCH ×2 (14:26→17:03)
[2021-06-02] MEDS: AMIODARONE 200 MG TABLET NG SCH ×2 (14:26→20:57)
[2021-06-02] MEDS: ASPIRIN CHEW 81 MG TABLET PO SCH (14:26)
[2021-06-02] MEDS: FAMOTIDINE 20 MG TABLET PEG SCH ×2 (14:26→20:57)
[2021-06-03] MEDS: ALBUTEROL/IPRATROPIUM 3 ML NEB RESP TX SCH ×2 (01:00→07:22)
[2021-06-03] MEDS: INSULIN REGULAR 100 UNIT/ML SUBCUT SCH (06:05)
[2021-06-03] MEDS: FAMOTIDINE 20 MG TABLET PEG SCH (10:08)
[2021-06-03] MEDS: AMIODARONE 200 MG TABLET NG SCH (10:08)
[2021-06-03] MEDS: ASPIRIN CHEW 81 MG TABLET PO SCH (10:08)
[2021-06-03] MEDS: FERROUS SULFATE 300 MG/5 ML UDCUP PEG SCH (10:08)
[2021-06-03] MEDS: fentaNYL 12 MCG/HR PATCH TRANSDERM SCH (12:56)
[2021-06-06 07:48] VITALS: BP 177/61
[2021-06-06] MEDS: fentaNYL 12 MCG/HR PATCH TRANSDERM SCH (09:58)
[2021-06-06] MEDS ORDERED: GLUCAGON 1 MG VIAL IM PRN (10:29)
[2021-06-06] MEDS ORDERED: DEXTROSE 50% 25 GM/50 ML VIAL IV PRN (10:29)
[2021-06-06] MEDS ORDERED: MORPHINE 2 MG/1 ML SYRINGE IV PRN (10:29)
[2021-06-06] MEDS ORDERED: hydrALAZINE 20 MG/1 ML VIAL IV PRN (10:29)
[2021-06-06] MEDS ORDERED: ONDANSETRON 4 MG/2 ML VIAL IV PRN (10:29)
== END 2021-06-06 10:36 | disposition hospice, inpatient (51) | DRG 280 ==
LOC: N.ED 14:32 → SUATTDRO 16:24 → N.CC 16:24 → N.5E 05-27 17:09
PROVIDERS: ADMIT Family Medicine; ATTEND Internal Medicine
PROC: EGDWPEG (ICD-10-PCS; 2021-05-23 12:35)

== ENCOUNTER 2021-06-06 10:43 | Inpatient (IN) ==
[2021-06-06] MEDS ORDERED: LORazepam 2 MG/1 ML VIAL IV PRN (10:49)
[2021-06-06] MEDS ORDERED: MORPHINE 2 MG/1 ML SYRINGE IV PRN (10:49)
[2021-06-06] MEDS ORDERED: MORPHINE 10 MG/5 ML UDCUP PEG PRN (16:00)
[2021-06-06] MEDS ORDERED: LORazepam 1 MG TABLET PEG PRN (16:00)
[2021-06-06] MEDS: diphenhydrAMINE 50 MG/1 ML VIAL IV PRN (19:04)
[2021-06-08] MEDS: diphenhydrAMINE 50 MG/1 ML VIAL IV PRN (15:58)
[2021-06-08] MEDS: SKIN HEALING OINT (AQUAPHOR) 50 GM TUBE TOP SCH (21:10)
[2021-06-09] MEDS: SKIN HEALING OINT (AQUAPHOR) 50 GM TUBE TOP SCH ×2 (16:47→21:22)
[2021-06-10] MEDS: SKIN HEALING OINT (AQUAPHOR) 50 GM TUBE TOP SCH ×2 (13:10→22:01)
[2021-06-10 20:02] VITALS: BP 106/46
== END 2021-06-11 05:28 | disposition expired | DRG 951 ==
LOC: N.5E 10:43 → SUATTDRO 10:43
PROVIDERS: ADMIT Internal Medicine; ATTEND Internal Medicine